=== PATIENT | male | born 1970 | race African-American/Black ===

== ENCOUNTER 2017-04-12 04:18 | Emergency (ER) | payer SELFPAY ==
--- NOTE | 2017-04-12 04:41 | ER Document Report ---
ED Seizure - General Stated Complaint: POSSIBLE SEIZURE Time Seen by Provider: 04/12/17 04:35 Notes: 46 years old male with a history of seizure disorder has not been taking his medication for 1 month, and drinks alcoholic drinks had a episode of seizure today just prior to arrival. It was reported by radiologist as grand mal seizure. He was in postictal confusion but currently by the time I examined him he was alert and oriented, did not complain of any focal weakness numbness tingling sensation. Denies any fever chills or other constitutional symptoms. Denies any pain over the upper limbs or lower limbs. Past Medical History - Social History Smoking Status: Current Every Day Smoker Family History: Other - Alcoholic hepatitis, alcoholism, seizure disorder Review of Systems - Review of Systems Notes: REVIEW OF SYSTEMS: CONSTITUTIONAL : Denies fever, chills, or sweats. Denies recent illness. EENT: Denies eye, ear, throat, or mouth pain or symptoms. Denies nasal or sinus congestion or discharge. Denies throat, tongue, or mouth swelling or difficulty swallowing. CARDIOVASCULAR: Denies chest pain. Denies palpitations or racing or irregular heart beat. Denies ankle edema. RESPIRATORY: Denies cough, cold, or chest congestion. Denies shortness of breath, difficulty breathing, or wheezing. GASTROINTESTINAL: Denies abdominal pain or distention. Denies nausea, vomiting , or diarrhea. Denies blood in vomitus, stools, or per rectum. Denies black, tarry stools. Denies constipation. GENITOURINARY: Denies difficulty urinating, painful urination, burning, frequency, blood in urine, or discharge. MUSCULOSKELETAL: Denies back or neck pain or stiffness. Denies joint pain or swelling. SKIN: Denies rash, lesions or sores. HEMATOLOGIC : Denies easy bruising or bleeding. LYMPHATIC: Denies swollen, enlarged glands. NEUROLOGICAL: Denies confusion or altered mental status. Denies passing out or loss of consciousness. Denies dizziness or lightheadedness. Denies headache. Denies weakness or paralysis or loss of use of either side. Denies problems with gait or speech. Denies sensory loss, numbness, or tingling. Denies seizures. PSYCHIATRIC: Denies anxiety or stress. Denies depression, suicidal ideation, or homicidal ideation. ALL OTHER SYSTEMS REVIEWED AND NEGATIVE. Dictation was performed using Dragon voice recognition software PHYSICAL EXAMINATION: GENERAL: Well-appearing, well-nourished and in no acute distress. HEAD: Atraumatic, normocephalic. EYES: Pupils equal round and reactive to light, extraocular movements intact, sclera anicteric, conjunctiva are normal. ENT: Nares patent, oropharynx clear without exudates. Moist mucous membranes. NECK: Normal range of motion, supple without lymphadenopathy LUNGS: Breath sounds clear to auscultation bilaterally and equal. No wheezes rales or rhonchi. HEART: Regular rate and rhythm without murmurs ABDOMEN: Soft, nontender, nondistended abdomen. No guarding, no rebound. No masses appreciated. Musculoskeletal: Normal range of motion, no pitting or edema. No cyanosis. NEUROLOGICAL: Cranial nerves grossly intact. Normal speech, normal gait. Normal sensory, motor exams PSYCH: Normal mood, normal affect. SKIN: Warm, Dry, normal turgor, no rashes or lesions noted. Course - Re-evaluation Re-evalutation: 04/12/17 06:26 His potassium is low, therefore. KCl was given, IV Keppra was given, he is hyponatremic therefore IV fluid total of 2 L were given. With clinical improvement he has been discharged home. - Laboratory Result Diagrams: 04/12/17 04:45 04/12/17 05:05 Laboratory results interpreted by me: 04/12/17 04/12/17 04:45 05:05 RBC 4.11 L MCV 100 H MCH 35.2 H Plt Count 91 L Seg Neutrophils % 78.3 H Lymphocytes % 9.6 L Sodium 136.0 L Potassium 3.3 L Chloride 86 L Anion Gap 26 H BUN 22 H Creatinine 1.51 H Est GFR (Non-Af Amer) 50 L Glucose 224 H Total Bilirubin 4.4 H Direct Bilirubin 3.1 H AST 88 H Alkaline Phosphatase 181 H Total Protein 9.5 H Valproic Acid < 10.0 L Discharge - Discharge Clinical Impression: Seizure, Hyponatremia, Hypokalemia, Alcohol abuse Condition: Fair Disposition: HOME, SELF-CARE Instructions: Seizure, 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
[2017-04-12] MEDS ORDERED: LEVETIRACETAM 1500 MG/NACL-ISO 1,500 MG/100 ML RTUPB IV SCH (04:45)
[2017-04-12] MEDS ORDERED: NORMAL SALINE 1000 ML 1,000 ML IV PRN (04:50)
[2017-04-12] MEDS ORDERED: NORMAL SALINE 1000 ML 1,000 ML IV ONE (04:50)
[2017-04-12] MEDS ORDERED: ONDANSETRON HCL INJ/PF 4 MG/2 ML SDV IV ONE (04:51)
[2017-04-12 05:04] LABS: ABSOLUTE BASOPHILS # (AUTO) 0.1 10^3/uL (0.0-0.2); ABSOLUTE EOSINOPHILS # (AUTO) 0.2 10^3/uL (0.0-0.6); ABSOLUTE MONOCYTES (AUTO) 0.9 10^3/uL (0.1-1.4); BASOPHILS % (AUTO) 0.7 % (0-2); EOSINOPHILS % (AUTO) 2.1 % (0-6); HEMATOCRIT 41.3 % (37.9-51.0); HEMOGLOBIN 14.5 g/dL (13.5-17.0); HGB HCT DIFFERENCE 2.2; LYMPHOCYTES % (AUTO) 9.6 % (13-45); MEAN CORPUSCULAR HEMOGLOBIN 35.2 pg (27.0-33.4); MEAN CORPUSCULAR HGB CONC 35.1 g/dL (32.0-36.0); MEAN CORPUSCULAR VOLUME 100 fl (80-97); MONOCYTES % (AUTO) 9.3 % (3-13); RED BLOOD COUNT 4.11 10^6/uL (4.35-5.55); RED CELL DISTRIBUTION WIDTH 13.7 % (11.5-14.0); SEGMENTED NEUTROPHILS % (AUTO) 78.3 % (42-78); WHITE BLOOD COUNT 10.2 10^3/uL (4.0-10.5)
[2017-04-12] MEDS ORDERED: LEVETIRACETAM INJ/PF 500 MG/5 ML SDV IV ONE (05:27)
[2017-04-12 05:44] LABS: ALANINE AMINOTRANSFERASE 31 U/L (21-72); ALBUMIN 4.9 g/dL (3.5-5.0); ALKALINE PHOSPHATASE 181 U/L (38-126); ASPARTATE AMINO TRANSFERASE 88 U/L (17-59); BILIRUBIN,DIRECT 3.1 mg/dL (0.0-0.4); BILIRUBIN,TOTAL 4.4 mg/dL (0.2-1.3); BLOOD UREA NITROGEN 22 mg/dL (7-20); CREATININE RESULT 1.51 mg/dL (0.52-1.25); GLUCOSE 224 mg/dL (75-110); POTASSIUM 3.3 mmol/L (3.6-5.0); TOTAL PROTEIN 9.5 g/dL (6.3-8.2)
[2017-04-12 05:47] LABS: ALCOHOL < 10 mg/dL (NONE DETECTED)
[2017-04-12 05:50] LABS: VALPROIC ACID < 10.0 ug/mL (50.0-120.0)
[2017-04-12 05:54] LABS: ANION GAP 26 (5-19); CARBON DIOXIDE 24 mmol/L (22-30); CHLORIDE 86 mmol/L (98-107)
[2017-04-12] MEDS ORDERED: LEVETIRACETAM 500 MG/NACL-ISO 500 MG/100 ML RTUPB IV ONE (06:06)
[2017-04-12] MEDS ORDERED: POTASSIUM CHLORIDE 10 MEQ TABLET.SA PO ONE (06:26)
[2017-04-12] MEDS ORDERED: OXYCODONE HCL IR 5 MG TABLET PO ONE (07:01)
[2017-04-12] MEDS ORDERED: PROMETHAZINE HCL INJ 25 MG/1 ML VIAL IM ONE (07:37)
[2017-04-12 08:15] VITALS: BP 131/91
[2017-04-12] MEDS ORDERED: ONDANSETRON ODT 4 MG TAB (6 TAB/DSPK) PO PRN (08:15)
--- NOTE | 2017-04-12 13:33 | EKG REPORT ---
SEVERITY:- ABNORMAL ECG - SINUS TACHYCARDIA MULTIFORM VENTRICULAR PREMATURE COMPLEXES BORDERLINE T ABNORMALITIES, INFERIOR LEADS : Confirmed by: Remigio Newsome MD 12-Apr-2017 13:32:11
== END 2017-04-12 08:29 | disposition home or self-care (01) ==
LOC: ER 04:18
DX: R56.9 Unspecified convulsions (principal); E87.1 Hypo-osmolality and hyponatremia; E87.6 Hypokalemia; F10.10 Alcohol abuse, uncomplicated; F17.200 Nicotine dependence, unspecified, uncomplicated
CPT/HCPCS: 93005; 99284; 96372; 96361; 96374; 96375; 36415; 80307; 80185; 85025; 80053; 80164; 93010; J2550; J2405; J7030; J1953

== ENCOUNTER 2017-04-22 12:14 | Emergency (ER) | payer SELFPAY ==
[2017-04-22] MEDS ORDERED: LIDOCAINE 1% INJ-PF (10 MG/ML) 30 ML SDV INJ ONE (13:29)
[2017-04-22] MEDS ORDERED: DIPH/PERTUSS(ACELL)/TETANUS VAC/PF 0.5 ML SYR (>=10YO) IM ONE (13:29)
--- NOTE | 2017-04-22 13:30 | ER Document Report ---
ED Extremity Problem, Upper - General Chief Complaint: Arm Injury Stated Complaint: LEFT ARM PAIN Time Seen by Provider: 04/22/17 13:14 Mode of Arrival: Ambulatory Information source: Patient Notes: Patient is a 46-year-old male who presents to the ER today for splinters in his left arm after he was lifting a large piece of wood to throw away and it fell on his arm. Patient states this happened a few hours ago. He is not up-to- date on his tetanus. He denies bleeding at this time. TRAVEL OUTSIDE OF THE [place] IN LAST 30 DAYS: No - Related Data Allergies/Adverse Reactions: No Known Allergies Allergy (Unverified 04/22/17 12:17) Past Medical History - General Information source: Patient - Social History Smoking Status: Current Every Day Smoker Chew tobacco use (# tins/day): No Frequency of alcohol use: None Drug Abuse: None Family History: Other - Alcoholic hepatitis, alcoholism, seizure disorder Patient has suicidal ideation: No Patient has homicidal ideation: No Neurological Medical History: Reports: Hx Seizures Endocrine Medical History: Reports: Hx Diabetes Mellitus Type 2 Renal/ Medical History: Denies: Hx Peritoneal Dialysis Review of Systems - Review of Systems Constitutional: No symptoms reported EENT: No symptoms reported Cardiovascular: No symptoms reported Respiratory: No symptoms reported Gastrointestinal: No symptoms reported Genitourinary: No symptoms reported Male Genitourinary: No symptoms reported Musculoskeletal: No symptoms reported Skin: See HPI Hematologic/Lymphatic: No symptoms reported Neurological/Psychological: No symptoms reported Physical Exam - Vital signs Vitals: Temp Pulse Resp BP Pulse Ox 98.6 F 78 16 114/71 98 04/22/17 12:55 04/22/17 12:55 04/22/17 12:55 04/22/17 12:55 04/22/17 12:55 - Notes Notes: PHYSICAL EXAMINATION: GENERAL: Well-appearing and in no acute distress. HEAD: Atraumatic, normocephalic. EYES: Pupils equal round and reactive to light, extraocular movements intact, sclera anicteric, conjunctiva are normal. NECK: Normal range of motion, supple without lymphadenopathy LUNGS: CTAB and equal. No wheezes rales or rhonchi. HEART: Regular rate and rhythm without murmurs EXTREMITIES: Normal range of motion, no pitting edema. No cyanosis. NEUROLOGICAL: Cranial nerves grossly intact. Normal sensory/motor exams. PSYCH: Normal mood, normal affect. SKIN: Warm, Dry, normal turgor, 3 large splinters able to be palpated to the dorsal left forearm, small puncture wound Course - Re-evaluation Re-evalutation: 04/22/17 19:40 Splinters were removed successfully, no further foreign bodies able to be palpated in the left forearm. Patient tolerated well. Patient be placed on antibiotics. - Vital Signs Vital signs: Temp Pulse Resp BP Pulse Ox 98.6 F 78 16 114/71 98 04/22/17 12:55 04/22/17 12:55 04/22/17 12:55 04/22/17 12:55 04/22/17 12:55 Procedures - Additional Procedures Foreign body removal Time performed: 17:00 - 3 large splinters were removed using lidocaine, 11 blade scalpel and pickups, patient tolerated well Discharge - Discharge Clinical Impression: Splinter in skin Condition: Stable Disposition: HOME, SELF-CARE Additional Instructions: Return immediately for any new or worsening symptoms. Follow up with primary care provider, call tomorrow to make followup appointment. Prescriptions: Cephalexin Monohydrate [Keflex 500 mg Capsule] 500 mg PO BID 5 Days #10 capsule
[2017-04-22] MEDS ORDERED: OXYCODONE-ACETAMINOPHEN 5-325 MG TABLET PO ONE (14:31)
[2017-04-22 15:01] VITALS: BP 114/71
== END 2017-04-22 15:03 | disposition home or self-care (01) ==
LOC: ER 12:14
PROC: 0JCH0ZZ Extirpation of Matter from Left Lower Arm Subcutaneous Tissue and Fascia, Open Approach (ICD-10-PCS; principal; 2017-04-22)
DX: S50.852A Superficial foreign body of left forearm, initial encounter (principal); M79.602 Pain in left arm; F17.200 Nicotine dependence, unspecified, uncomplicated; W45.8XXA Other foreign body or object entering through skin, initial encounter
CPT/HCPCS: 99283; 90471; 90715; 20103; J3490

== ENCOUNTER 2017-07-02 03:13 | Emergency (ER) | payer SELFPAY ==
[2017-07-02] MEDS ORDERED: NORMAL SALINE 1000 ML 1,000 ML IV PRN ×2 (03:20→05:03)
[2017-07-02] MEDS ORDERED: ONDANSETRON HCL INJ/PF 4 MG/2 ML SDV IV ONE (03:21)
[2017-07-02] MEDS ORDERED: FENTANYL CITRATE INJ/PF 100 MCG/2 ML AMPUL IV ONE (03:35)
--- NOTE | 2017-07-02 03:35 | ER Document Report ---
ED General - General Chief Complaint: Vomiting Stated Complaint: VOMITING Time Seen by Provider: 07/02/17 03:20 Mode of Arrival: Ambulatory Information source: Patient Notes: 46-year-old male diabetic history of pancreatitis alcoholic who drank yesterday presents with complaints of nausea vomiting all day today. Patient denies any fevers or chills denies any blood in vomit or stool. Patient admits to generalized abdominal pain Patient has been off his Januvia for a few weeks and has not checked his blood sugar recently Patient notes he has been thirsty TRAVEL OUTSIDE OF THE [place] IN LAST 30 DAYS: No - HPI Onset: This morning Onset/Duration: Sudden Quality of pain: Cramping Severity: Mild Pain Level: 1 Associated symptoms: Nausea, Vomiting Exacerbated by: Denies Relieved by: Denies Similar symptoms previously: Yes Recently seen / treated by doctor: No - Related Data Allergies/Adverse Reactions: No Known Allergies Allergy (Unverified 04/22/17 12:17) Past Medical History - Social History Smoking Status: Never Smoker Cigarette use (# per day): No Chew tobacco use (# tins/day): No Smoking Education Provided: No Family History: Reviewed & Not Pertinent, Other - Alcoholic hepatitis, alcoholism, seizure disorder Neurological Medical History: Reports: Hx Seizures Endocrine Medical History: Reports: Hx Diabetes Mellitus Type 2 Renal/ Medical History: Denies: Hx Peritoneal Dialysis Review of Systems - Review of Systems Notes: REVIEW OF SYSTEMS: CONSTITUTIONAL : Denies fever, chills, or sweats. Denies recent illness. EENT: Denies eye, ear, throat, or mouth pain or symptoms. Denies nasal or sinus congestion or discharge. Denies throat, tongue, or mouth swelling or difficulty swallowing. CARDIOVASCULAR: Denies chest pain. Denies palpitations or racing or irregular heart beat. Denies ankle edema. RESPIRATORY: Denies cough, cold, or chest congestion. Denies shortness of breath, difficulty breathing, or wheezing. GASTROINTESTINAL: Admits to abdominal pain nausea vomiting GENITOURINARY: Denies difficulty urinating, painful urination, burning, frequency, blood in urine, or discharge. MUSCULOSKELETAL: Denies back or neck pain or stiffness. Denies joint pain or swelling. SKIN: Denies rash, lesions or sores. HEMATOLOGIC : Denies easy bruising or bleeding. LYMPHATIC: Denies swollen, enlarged glands. NEUROLOGICAL: Denies confusion or altered mental status. Denies passing out or loss of consciousness. Denies dizziness or lightheadedness. Denies headache. Denies weakness or paralysis or loss of use of either side. Denies problems with gait or speech. Denies sensory loss, numbness, or tingling. Denies seizures. PSYCHIATRIC: Denies anxiety or stress. Denies depression, suicidal ideation, or homicidal ideation. ALL OTHER SYSTEMS REVIEWED AND NEGATIVE. Dictation was performed using [email or web address] voice recognition software PHYSICAL EXAMINATION: GENERAL: Well-appearing, well-nourished and in no acute distress. HEAD: Atraumatic, normocephalic. EYES: Pupils equal round and reactive to light, extraocular movements intact, sclera anicteric, conjunctiva are normal. ENT: Nares patent, oropharynx clear without exudates. Moist mucous membranes. NECK: Normal range of motion, supple without lymphadenopathy LUNGS: Breath sounds clear to auscultation bilaterally and equal. No wheezes rales or rhonchi. HEART: Regular rate and rhythm without murmurs ABDOMEN: Soft, nontender, nondistended abdomen. No guarding, no rebound. No masses appreciated. Musculoskeletal: Normal range of motion, no pitting or edema. No cyanosis. NEUROLOGICAL: Cranial nerves grossly intact. Normal speech, normal gait. Normal sensory, motor exams PSYCH: Normal mood, normal affect. SKIN: Warm, Dry, normal turgor, no rashes or lesions noted. Physical Exam - Vital signs Vitals: Temp 98.6 F 07/02/17 03:17 Course - Re-evaluation Re-evalutation: 07/02/17 03:35 Accu-Chek is 134, unlikely for DKA, more likely his pancreatitis secondary to his alcohol abuse 07/02/17 05:04 CMP actually looks much better than his previous lab results, he overall is still noted to be tachycardic and nauseous Reglan will be given further IV fluids 07/02/17 05:20 Patient notes nausea has improved after receiving Reglan, IV fluids 3 and 4 are going at this time, he is now stating that he has gastric reflux heartburn symptoms, EKG has been ordered 07/02/17 05:53 Patient's heart rate is slowly improving, it is noted that he is out of his home medications which I will refill for him After performing a Medical Screening Examination, I estimate there is LOW risk for ACUTE APPENDICITIS, BOWEL OBSTRUCTION, ACUTE CHOLECYSTITIS, PERFORATED DIVERTICULITIS, INCARCERATED HERNIA, PANCREATITIS, TESTICULAR TORSION or PERFORATED ULCER, thus I consider the discharge disposition reasonable. Also, there is no evidence or peritonitis, sepsis, or toxicity. I have reevaluated this patient multiple times and no significant life threatening changes are noted. The patient and I have discussed the diagnosis and risks, and we agree with discharging home with close follow-up with the understanding that symptoms and presentations can change. We also discussed returning to the Emergency Department immediately if new or worsening symptoms occur. We have discussed the symptoms which are most concerning (e.g., bloody stool, fever, changing or worsening pain, intractable vomiting - standard verbal up date) that necessitate immediate return. - Vital Signs Vital signs: Temp Pulse Resp BP Pulse Ox 98.6 F 17 135/92 H 97 07/02/17 03:17 07/02/17 03:25 07/02/17 03:25 07/02/17 03:24 - Laboratory Result Diagrams: 07/02/17 03:28 07/02/17 04:05 Laboratory results interpreted by me: 07/02/17 07/02/17 07/02/17 03:28 03:33 04:05 RBC 4.02 L Hgb 13.3 L MCV 100 H RDW 14.9 H Sodium 145.4 H Potassium 3.3 L Chloride 97 L Carbon Dioxide 21 L Anion Gap 27 H Glucose 136 H POC Glucose 134 H Total Bilirubin 2.3 H Direct Bilirubin 1.4 H AST 60 H Alkaline Phosphatase 137 H Total Protein 9.3 H Discharge - Discharge Clinical Impression: Sinus tachycardia Nausea & vomiting Qualifiers: Vomiting type: unspecified Vomiting Intractability: non-intractable Qualified Code(s): R11.2 - Nausea with vomiting, unspecified Abdominal pain Qualifiers: Abdominal location: generalized Qualified Code(s): R10.84 - Generalized abdominal pain Condition: Stable Disposition: HOME, SELF-CARE Instructions: Abdominal Pain ([facility]), Vomiting ([facility]) Additional Instructions: Follow up with your physician tomorrow for further care or return to the ED IMMEDIATELY if symptoms worsen or new concerns occur. If you cannot afford to follow up with your primary care physician a list of low cost clinics have been provided at the end of your discharge papers as well. Prescriptions: Levetiracetam [Keppra 500 mg Tablet] 500 mg PO Q12 #60 tablet Metoclopramide HCl [Reglan 10 mg Tablet] 1 - 2 tab PO Q6 #25 tablet Oxycodone HCl [Oxycontin Ir 5 Mg Tablet] 1 - 2 mg PO Q4H PRN #15 tablet PRN Reason: For Pain Sitagliptin Phosphate [Januvia] 100 mg PO DAILY #30 tablet
[2017-07-02 03:43] LABS: ABSOLUTE BASOPHILS # (AUTO) 0.1 10^3/uL (0.0-0.2); ABSOLUTE MONOCYTES (AUTO) 0.6 10^3/uL (0.1-1.4); BASOPHILS % (AUTO) 1.5 % (0-2); EOSINOPHILS % (AUTO) 0.2 % (0-6); HEMATOCRIT 40.1 % (37.9-51.0); HEMOGLOBIN 13.3 g/dL (13.5-17.0); LYMPHOCYTES % (AUTO) 14.5 % (13-45); MEAN CORPUSCULAR HEMOGLOBIN 33.2 pg (27.0-33.4); MEAN CORPUSCULAR HGB CONC 33.2 g/dL (32.0-36.0); MEAN CORPUSCULAR VOLUME 100 fl (80-97); MONOCYTES % (AUTO) 8.7 % (3-13); PLATELET COUNT 161 10^3/uL (150-450); RED BLOOD COUNT 4.02 10^6/uL (4.35-5.55); RED CELL DISTRIBUTION WIDTH 14.9 % (11.5-14.0); SEGMENTED NEUTROPHILS % (AUTO) 75.1 % (42-78); TOTAL CELLS COUNTED % (AUTO) 100 %; WHITE BLOOD COUNT 6.7 10^3/uL (4.0-10.5)
[2017-07-02 04:39] LABS: ALANINE AMINOTRANSFERASE 35 U/L (21-72); ALKALINE PHOSPHATASE 137 U/L (38-126); ASPARTATE AMINO TRANSFERASE 60 U/L (17-59); BILIRUBIN,DIRECT 1.4 mg/dL (0.0-0.4); BILIRUBIN,TOTAL 2.3 mg/dL (0.2-1.3); BLOOD UREA NITROGEN 13 mg/dL (7-20); CALCIUM 9.5 mg/dL (8.4-10.2); GLUCOSE 136 mg/dL (75-110); LIPASE 25.7 U/L (23-300); POTASSIUM 3.3 mmol/L (3.6-5.0); TOTAL PROTEIN 9.3 g/dL (6.3-8.2)
[2017-07-02 04:45] LABS: ANION GAP 27 (5-19)
[2017-07-02 04:46] LABS: CARBON DIOXIDE 21 mmol/L (22-30); CHLORIDE 97 mmol/L (98-107); SODIUM 145.4 mmol/L (137-145)
[2017-07-02] MEDS ORDERED: METOCLOPRAMIDE HCL INJ/PF 10 MG/2 ML SDV IV ONE (05:03)
--- NOTE | 2017-07-02 07:03 | EKG REPORT ---
SEVERITY:- ABNORMAL ECG - SINUS TACHYCARDIA NONSPECIFIC ST-T CHANGES- INFERIOR LEADS [facility] BY VOLTAGE : Confirmed by: Remigio Newsome MD 02-Jul-2017 07:02:24
[2017-07-02 07:16] VITALS: BP 138/84
== END 2017-07-02 07:36 | disposition home or self-care (01) ==
LOC: ER 03:13
DX: K85.90 Acute pancreatitis without necrosis or infection, unspecified (principal); R11.2 Nausea with vomiting, unspecified; R10.84 Generalized abdominal pain; E11.9 Type 2 diabetes mellitus without complications; T38.3X6A Underdosing of insulin and oral hypoglycemic [antidiabetic] drugs, initial encounter; Z91.128 Patient's intentional underdosing of medication regimen for other reason; Z91.14 Patient's other noncompliance with medication regimen; R00.0 Tachycardia, unspecified; F10.20 Alcohol dependence, uncomplicated
CPT/HCPCS: 93005; 99284; 96361; 96374; 96375; 36415; 82962; 83690; 85025; 80053; 93010; J3010; J2765; J2405; J7030

== ENCOUNTER 2017-08-10 20:11 | Emergency (ER) | payer SELFPAY ==
--- NOTE | 2017-08-10 21:03 | ER Document Report ---
ED General - General Mode of Arrival: Ambulatory Information source: Patient TRAVEL OUTSIDE OF THE [place] IN LAST 30 DAYS: No <TESSY CHESTER - Last Filed: 08/10/17 21:08> <GILBERTO REDDY - Last Filed: 08/11/17 00:31> - General Chief Complaint: Vomiting Stated Complaint: VOMITING Time Seen by Provider: 08/10/17 20:47 Notes: 47 y.o male with a PMHx of DM and L3-L4 discectomy presents to the ED with abd pain and vomiting for 4 days. He was seen here recently for vomiting and abd pain that had persisted for 2 days and was given Reglan and Oxycodone. Pt states that he has had pancreatitis once before caused from excessive alcohol consumption. He states that he has not been drinking as much alcohol since the pancreatitis and nots that the vomiting started once he quit drinking. Pt reports that he drank some alcohol this morning to see if his vomiting would subside but is without any relief. Pt denies any diarrhea. (TESSY CHESTER) This 47-year-old male patient who is supposed to have diabetes and history of pancreatitis. He has been out of his Januvia for probably several weeks. He has been vomiting for the past 4 days. He continues to drink heavily but is reluctant to admit it. He states his last drink was this morning. He has strong ketone odor on his breath. He is not so much vomiting or retching at this point but is mostly having hiccups. Later the patient's hiccups returned and he reports they seem to go away after the dose of Reglan. (GILBERTO REDDY) - Related Data Allergies/Adverse Reactions: No Known Allergies Allergy (Verified 08/10/17 20:38) Past Medical History - General Information source: Patient - Social History Smoking Status: Never Smoker Frequency of alcohol use: Heavy Drug Abuse: None Family History: Reviewed & Not Pertinent, Other - Alcoholic hepatitis, alcoholism, seizure disorder Patient has suicidal ideation: No Patient has homicidal ideation: No Neurological Medical History: Reports: Hx Seizures Endocrine Medical History: Reports: Hx Diabetes Mellitus Type 2 Renal/ Medical History: Denies: Hx Peritoneal Dialysis Past Surgical History: Reports: Hx Orthopedic Surgery - back <TESSY CHESTER - Last Filed: 08/10/17 21:08> Review of Systems - Review of Systems Constitutional: No symptoms reported EENT: No symptoms reported Cardiovascular: No symptoms reported Respiratory: No symptoms reported Gastrointestinal: See HPI, Abdominal pain, Vomiting. denies: Diarrhea Genitourinary: No symptoms reported Male Genitourinary: No symptoms reported Musculoskeletal: No symptoms reported Skin: No symptoms reported Hematologic/Lymphatic: No symptoms reported Neurological/Psychological: No symptoms reported -: Yes All other systems reviewed and negative <TESSY CHESTER - Last Filed: 08/10/17 21:08> Physical Exam <TESSY CHESTER - Last Filed: 08/10/17 21:08> <GILBERTO REDDY - Last Filed: 08/11/17 00:31> - Vital signs Vitals: Temp Pulse Resp BP Pulse Ox 97.6 F 60 18 141/86 H 99 08/10/17 20:32 08/10/17 20:32 08/10/17 20:32 08/10/17 20:32 08/10/17 20:32 - Notes Notes: General: Alert, appears well. HEENT: Normocephalic. Atraumatic. PERRL. Extraocular movements intact. Oropharynx clear. Mucus membranes dry. Strong Ketone odor on his breath. Neck: Supple. Non-tender. Respiratory: No respiratory distress. Clear and equal breath sounds bilaterally. Cardiovascular: Regular rate and rhythm. Abdominal: Soft, non distended. Tenderness to upper abdomen. Active bowel sounds , dry heaving. Back: Non-tender. No deformity or step off. Extremities: Moves all four extremities. Upper extremities: Normal inspection. Normal ROM. Lower extremities: Normal inspection. No edema. Normal ROM. Neurological: Normal cognition. AAOx4. Normal speech. Psychological: Normal affect. Normal Mood. Skin: Warm. Dry. Normal color. (TESSY CHESTER) Course <TESSY CHESTER - Last Filed: 08/10/17 21:08> - Laboratory Result Diagrams: 08/10/17 21:30 08/10/17 21:30 <GILBERTO REDDY - Last Filed: 08/11/17 00:31> - Re-evaluation Re-evalutation: 08/11/17 00:25 Although the patient claimed that he had only one small drink this morning, his alcohol level was 77 at 9:30 PM this evening. (GILBERTO REDDY) - Vital Signs Vital signs: Temp Pulse Resp BP Pulse Ox 99.0 F 127 H 17 151/91 H 99 08/10/17 22:52 08/10/17 22:52 08/10/17 22:52 08/10/17 22:52 08/10/17 22:52 - Laboratory Laboratory results interpreted by me: 08/10/17 08/10/17 08/10/17 21:30 21:30 21:35 WBC 11.0 H MCV 99 H MCH 33.5 H RDW 15.1 H Lymphocytes % 12.0 L Absolute Neutrophils 8.5 H VBG pCO2 32.1 L VBG HCO3 19.0 L Sodium 145.4 H Potassium 3.4 L Chloride 90 L Carbon Dioxide 14 L Anion Gap 41 H Creatinine 1.42 H Est GFR (Non-Af Amer) 54 L Glucose 158 H Calcium 10.7 H Total Bilirubin 2.9 H Direct Bilirubin 2.0 H AST 61 H Alkaline Phosphatase 160 H Total Protein 11.0 H Albumin 5.8 H Discharge <TESSY CHESTER - Last Filed: 08/10/17 21:08> <GILBERTO REDDY - Last Filed: 08/11/17 00:31> - Discharge Clinical Impression: Epigastric abdominal pain, Alcohol abuse, Hiccups, Alcoholic ketosis Nausea and vomiting Qualifiers: Vomiting type: unspecified Vomiting Intractability: non-intractable Qualified Code(s): R11.2 - Nausea with vomiting, unspecified Condition: Stable Disposition: HOME, SELF-CARE Additional Instructions: All of your symptoms are most likely caused by your alcohol abuse. You should consider going into an alcohol detox program if you cannot control your drinking on your own. Drink cool clear liquids this evening to help hydrate yourself. Follow-up with [facility] or [facility] for assistance with your problems. RETURN TO THE EMERGENCY ROOM IF ANY NEW OR WORSENING SYMPTOMS. Prescriptions: Metoclopramide HCl [Reglan 10 mg Tablet] 1 - 2 tab PO ASDIR PRN #15 tablet PRN Reason: Referrals: [facility] [Provider Group] - Follow up as needed [facility] [Provider Group] - Follow up as needed Scribe Attestation: 08/10/17 23:07 I personally performed the services described in the documentation, reviewed and edited the documentation which was dictated to the scribe in my presence, and it accurately records my words and actions. (GILBERTO REDDY) Scribe Documentation - Scribe Written by Romulo:: Romulo Alcazar 08/10/17 [id number] acting as scribe for :: Adriana <TESSY CHESTER - Last Filed: 08/10/17 21:08>
[2017-08-10] MEDS ORDERED: NORMAL SALINE 1000 ML 1,000 ML IV ONE (21:07)
[2017-08-10] MEDS ORDERED: METOCLOPRAMIDE HCL INJ/PF 10 MG/2 ML SDV IV ONE (21:07)
[2017-08-10 21:50] LABS: ABSOLUTE BASOPHILS # (AUTO) 0.1 10^3/uL (0.0-0.2); ABSOLUTE LYMPHOCYTES (AUTO) 1.3 10^3/uL (0.5-4.7); ABSOLUTE MONOCYTES (AUTO) 1.1 10^3/uL (0.1-1.4); ABSOLUTE NEUT (AUTO) 8.5 10^3/uL (1.7-8.2); BASOPHILS % (AUTO) 0.7 % (0-2); HEMATOCRIT 43.8 % (37.9-51.0); HEMOGLOBIN 14.8 g/dL (13.5-17.0); MEAN CORPUSCULAR HEMOGLOBIN 33.5 pg (27.0-33.4); MEAN CORPUSCULAR HGB CONC 33.9 g/dL (32.0-36.0); MEAN CORPUSCULAR VOLUME 99 fl (80-97); MONOCYTES % (AUTO) 9.9 % (3-13); PLATELET COUNT 154 10^3/uL (150-450); RED BLOOD COUNT 4.44 10^6/uL (4.35-5.55); RED CELL DISTRIBUTION WIDTH 15.1 % (11.5-14.0); SEGMENTED NEUTROPHILS % (AUTO) 77.4 % (42-78); TOTAL CELLS COUNTED % (AUTO) 100 %
[2017-08-10 21:51] LABS: VENOUS BLOOD BASE EXCESS -4.9 mmol/L; VENOUS BLOOD PCO2 32.1 mmHg (35-63); VENOUS BLOOD PH 7.39 (7.30-7.42)
[2017-08-10 22:04] LABS: ALANINE AMINOTRANSFERASE 28 U/L (21-72); ALBUMIN 5.8 g/dL (3.5-5.0); ALKALINE PHOSPHATASE 160 U/L (38-126); ASPARTATE AMINO TRANSFERASE 61 U/L (17-59); BILIRUBIN,TOTAL 2.9 mg/dL (0.2-1.3); BLOOD UREA NITROGEN 15 mg/dL (7-20); CALCIUM 10.7 mg/dL (8.4-10.2); GLUCOSE 158 mg/dL (75-110); LIPASE 37.3 U/L (23-300); POTASSIUM 3.4 mmol/L (3.6-5.0)
[2017-08-10 22:09] LABS: CARBON DIOXIDE 14 mmol/L (22-30); CHLORIDE 90 mmol/L (98-107); SODIUM 145.4 mmol/L (137-145)
[2017-08-10 22:14] LABS: ANION GAP 41 (5-19)
[2017-08-10] MEDS ORDERED: ONDANSETRON HCL INJ/PF 4 MG/2 ML SDV IV ONE (22:19)
[2017-08-10] MEDS ORDERED: DIPHENHYDRAMINE HCL 50 MG/ML VIAL IV ONE (22:19)
[2017-08-10] MEDS ORDERED: RINGERS SOLUTION,LACTATED 1,000 ML IV ONE (22:20)
[2017-08-10] MEDS ORDERED: CHLORPROMAZINE HCL INJ 25 MG/1 ML AMPULE IV ONE (23:34)
[2017-08-11 00:14] LABS: ALCOHOL 77 mg/dL (NONE DETECTED)
[2017-08-11] MEDS: NORMAL SALINE 1000 ML 1,000 ML IV PRN ×2 (02:04→02:05)
[2017-08-11 04:20] VITALS: BP 135/78
== END 2017-08-11 04:20 | disposition home or self-care (01) ==
LOC: ER 20:11
DX: R10.13 Epigastric pain (principal); F10.10 Alcohol abuse, uncomplicated; R06.6 Hiccough; E88.89 Other specified metabolic disorders; R11.2 Nausea with vomiting, unspecified; E11.9 Type 2 diabetes mellitus without complications; Y90.3 Blood alcohol level of 60-79 mg/100 ml
CPT/HCPCS: 99284; 96361; 96374; 96375; 36415; 80307; 83690; 85025; 80053; 82803; J3230; J1200; J2765; J2405; J7030 ×2; J7120

== ENCOUNTER 2017-10-31 08:35 | Inpatient (IN) | payer SELFPAY ==
[2017-10-31] MEDS ORDERED: NORMAL SALINE 1000 ML 1,000 ML IV ONE ×3 (09:11→13:55)
[2017-10-31] MEDS ORDERED: METOCLOPRAMIDE HCL INJ/PF 10 MG/2 ML SDV IV ONE (09:11)
[2017-10-31] MEDS ORDERED: ONDANSETRON 4 MG TAB.RAPDIS PO ONE (09:16)
[2017-10-31] MEDS ORDERED: MORPHINE SULFATE 10 MG/ML INJ IV ONE (09:16)
--- NOTE | 2017-10-31 09:17 | ER Document Report ---
ED GI/ - General Chief Complaint: Abdominal Pain Stated Complaint: VOMITING Time Seen by Provider: 10/31/17 09:10 Mode of Arrival: Ambulatory Information source: Patient Notes: Patient is a 47-year-old chronic alcoholic with a history of pancreatitis and type 2 diabetes who presents to the ER today for nausea and vomiting, upper abdominal pain 3 days. Patient states that he started to get his upper abdominal pain 3 days ago so he stopped drinking. Patient usually drinks 1/5 of gin a day. Patient has never been evaluated by gastroenterology for his epigastric pain. Patient has been out of his Januvia for approximately 4 months he states. Patient denies any vomiting of any blood. TRAVEL OUTSIDE OF THE [place] IN LAST 30 DAYS: No - Related Data Allergies/Adverse Reactions: No Known Allergies Allergy (Verified 10/31/17 08:37) Past Medical History - General Information source: Patient - Social History Smoking Status: Unknown if Ever Smoked Family History: Reviewed & Not Pertinent, Other - Alcoholic hepatitis, alcoholism, seizure disorder Neurological Medical History: Reports: Hx Seizures Endocrine Medical History: Reports: Hx Diabetes Mellitus Type 2 Renal/ Medical History: Denies: Hx Peritoneal Dialysis Past Surgical History: Reports: Hx Orthopedic Surgery - back Review of Systems - Review of Systems Constitutional: See HPI EENT: No symptoms reported Cardiovascular: No symptoms reported Respiratory: No symptoms reported Gastrointestinal: See HPI Genitourinary: No symptoms reported Male Genitourinary: No symptoms reported Musculoskeletal: No symptoms reported Skin: No symptoms reported Hematologic/Lymphatic: No symptoms reported Neurological/Psychological: No symptoms reported Physical Exam - Vital signs Vitals: Temp Pulse Resp BP Pulse Ox 98.8 F 116 H 22 H 127/90 H 98 10/31/17 08:42 10/31/17 08:42 10/31/17 08:42 10/31/17 08:42 10/31/17 08:42 - Notes Notes: PHYSICAL EXAMINATION: GENERAL: Actively vomiting, in mild acute distress. HEAD: Atraumatic, normocephalic. EYES: Pupils equal round and reactive to light, extraocular movements intact, sclera anicteric, conjunctiva are normal. NECK: Normal range of motion, supple without lymphadenopathy LUNGS: CTAB and equal. No wheezes rales or rhonchi. HEART: Tachycardic with regular rhythm without murmurs ABDOMEN: Soft, epigastric tenderness. No guarding, no rebound BACK: no vertebral tenderness, normal ROM GI/: no CVA tenderness EXTREMITIES: Normal range of motion, no pitting edema. No cyanosis. NEUROLOGICAL: Cranial nerves grossly intact. Normal sensory/motor exams. PSYCH: Normal mood, normal affect. SKIN: Warm, Dry, normal turgor, no rashes or lesions noted Course - Re-evaluation Re-evalutation: 10/31/17 11:55 Patient is a white blood cell count of 18,000, anion gap of 39 today, Accu-Chek was 189, lipase normal, CT of the abdomen and pelvis reveals some esophagitis but no other acute pathology. Patient is still tachycardic but much better than when he came in. Patient was 145 bpm pulse rate when he came in and he is now getting down to normal, with a high at this point at 119. Martha Schmidt NP hospitalist agrees to admit at this time. - Vital Signs Vital signs: Temp Pulse Resp BP Pulse Ox 98.7 F 100 16 147/84 H 100 10/31/17 15:28 10/31/17 15:28 10/31/17 15:28 10/31/17 15:28 10/31/17 15:28 - Laboratory Result Diagrams: 10/31/17 09:35 10/31/17 16:41 Laboratory results interpreted by me: 10/31/17 10/31/17 10/31/17 09:17 09:35 09:35 WBC 18.0 H RBC 3.71 L Hgb 13.1 L Hct 37.8 L MCV 102 H MCH 35.5 H RDW 15.1 H Seg Neutrophils % 85.2 H Lymphocytes % 6.7 L Absolute Neutrophils 15.3 H Chloride 87 L Carbon Dioxide 17 L Anion Gap 39 H Creatinine 1.88 H Est GFR ( Amer) 47 L Est GFR (Non-Af Amer) 39 L Glucose 196 H POC Glucose 189 H Serum Osmolality Total Bilirubin 3.4 H Direct Bilirubin 2.1 H AST 79 H Alkaline Phosphatase 193 H Total Protein 10.3 H Albumin 5.4 H Urine Protein Urine Glucose (UA) Urine Ketones Urine Blood Urine Bilirubin Urine Urobilinogen 10/31/17 10/31/17 09:35 10:22 WBC RBC Hgb Hct MCV MCH RDW Seg Neutrophils % Lymphocytes % Absolute Neutrophils Chloride Carbon Dioxide Anion Gap Creatinine Est GFR ( Amer) Est GFR (Non-Af Amer) Glucose POC Glucose Serum Osmolality 308 H Total Bilirubin Direct Bilirubin AST Alkaline Phosphatase Total Protein Albumin Urine Protein >=500 H Urine Glucose (UA) 50 H Urine Ketones 80 H Urine Blood LARGE H Urine Bilirubin MODERATE H Urine Urobilinogen 2.0 H Discharge - Discharge Clinical Impression: Alcohol abuse, Esophagitis Condition: Stable Disposition: ADMITTED INPATIENT Admitting Provider: [facility] Unit Admitted: Telemetry
[2017-10-31 09:51] LABS: ABSOLUTE BASOPHILS # (AUTO) 0.1 10^3/uL (0.0-0.2); ABSOLUTE LYMPHOCYTES (AUTO) 1.2 10^3/uL (0.5-4.7); ABSOLUTE MONOCYTES (AUTO) 1.3 10^3/uL (0.1-1.4); ABSOLUTE NEUT (AUTO) 15.3 10^3/uL (1.7-8.2); BASOPHILS % (AUTO) 0.6 % (0-2); HEMATOCRIT 37.8 % (37.9-51.0); HEMOGLOBIN 13.1 g/dL (13.5-17.0); LYMPHOCYTES % (AUTO) 6.7 % (13-45); MEAN CORPUSCULAR HEMOGLOBIN 35.5 pg (27.0-33.4); MEAN CORPUSCULAR HGB CONC 34.8 g/dL (32.0-36.0); MEAN CORPUSCULAR VOLUME 102 fl (80-97); MONOCYTES % (AUTO) 7.5 % (3-13); PLATELET COUNT 170 10^3/uL (150-450); RED BLOOD COUNT 3.71 10^6/uL (4.35-5.55); RED CELL DISTRIBUTION WIDTH 15.1 % (11.5-14.0); SEGMENTED NEUTROPHILS % (AUTO) 85.2 % (42-78); TOTAL CELLS COUNTED % (AUTO) 100 %
[2017-10-31] MEDS ORDERED: HYDROMORPHONE HCL INJ/PF 2 MG/ML AMPULE IV ONE (09:57)
[2017-10-31 10:17] LABS: ALANINE AMINOTRANSFERASE 21 U/L (21-72); ALBUMIN 5.4 g/dL (3.5-5.0); ALKALINE PHOSPHATASE 193 U/L (38-126); ASPARTATE AMINO TRANSFERASE 79 U/L (17-59); BILIRUBIN,DIRECT 2.1 mg/dL (0.0-0.4); BILIRUBIN,TOTAL 3.4 mg/dL (0.2-1.3); BLOOD UREA NITROGEN 18 mg/dL (7-20); CALCIUM 9.5 mg/dL (8.4-10.2); GLUCOSE 196 mg/dL (75-110); LIPASE 32.2 U/L (23-300); POTASSIUM 3.9 mmol/L (3.6-5.0); TOTAL PROTEIN 10.3 g/dL (6.3-8.2)
[2017-10-31 10:22] LABS: CARBON DIOXIDE 17 mmol/L (22-30); CHLORIDE 87 mmol/L (98-107); SODIUM 142.7 mmol/L (137-145)
[2017-10-31 10:27] LABS: ANION GAP 39 (5-19)
--- NOTE | 2017-10-31 10:58 | RADIOLOGY REPORT (SQ) ---
EXAM DESCRIPTION: CT ABD/PELVIS NO ORAL OR IV COMPLETED DATE/TIME: 10/31/2017 10:44 am REASON FOR STUDY: abd pain, n/v COMPARISON: None. TECHNIQUE: CT scan of the abdomen and pelvis performed without intravenous or oral contrast. Images reviewed with lung, soft tissue, and bone windows. Reconstructed coronal and sagittal MPR images revi ewed. All images stored on PACS. All CT scanners at this facility use dose modulation, iterative reconstruction, and/or weight based d osing when appropriate to reduce radiation dose to as low as reasonably achievable (ALARA). [facility]: Dose Right [facility]: CareDose [facility]: Dose Right [facility]: Teradose 4D [facility]: Smart [employer] RADIATION DOSE: CT Rad equipment meets quality standard of care and radiation dose reduction techniq ues were employed. CTDIvol: 5.5 mGy. DLP: 302 mGy-cm.mGy. LIMITATIONS: None. FINDINGS: LOWER CHEST: There is significant distal esophageal wall thickening worrisome for esophagi tis. This is seen throughout the lower chest down to the GE junction. Lung bases are clear. NON-CONTRASTED LIVER, SPLEEN, ADRENALS: Diffuse fatty infiltration of the liver. No splenomegaly. A drenal glands are unremarkable. PANCREAS: Atrophic with diffuse pancreatic parenchymal calcifications from old pancreatitis. Pancrea tic duct dilated. No masses. No peripancreatic fluid or retroperitoneal inflammation GALLBLADDER: Tiny stone in the gallbladder. No gallbladder wall thickening or pericholecystic fluid RIGHT KIDNEY AND URETER: No suspicious masses. Assessment limited by lack of IV contrast. No signif icant calcifications. No hydronephrosis or hydroureter. LEFT KIDNEY AND URETER: No suspicious masses. Assessment limited by lack of IV contrast. No signifi cant calcifications. No hydronephrosis or hydroureter. AORTA AND RETROPERITONEUM: No aneurysm. No retroperitoneal masses or adenopathy. BOWEL AND PERITONEAL CAVITY: No obvious masses or inflammatory changes. No free fluid. APPENDIX: Normal. PELVIS, BLADDER, AND ABDOMINAL WALL:No abnormal masses. No free fluid. Bladder normal. 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 IMPRESSION: Significant distal esophageal wall thickening worrisome for esophagitis. Evidence of remote prior pancreatitis. No current peripancreatic inflammation or fluid Fatty infiltration of the liver Avascular necrosis bilateral femoral heads COMMENT: Quality ID # [id number]: Final reports with documentation of one or more dose reduction techniques (e.g., Automated exposure control, adjustment of the mA and/or kV according to patient size, use of iterative reconstruction technique) TECHNICAL DOCUMENTATION: JOB ID: [id number] [employer]- All Rights Reserved Reading location - IP/workstation name: [email or web address], [facility]-2
[2017-10-31] MEDS ORDERED: LORAZEPAM INJ 2 MG/1 ML VIAL IV ONE (11:08)
[2017-10-31 11:45] LABS: APPEARANCE,URINE SLIGHTLY-CLOUDY; BILIRUBIN,URINE MODERATE (NEGATIVE); COLOR,URINE AMBER; GLUCOSE, URINE 50 mg/dL (NEGATIVE); KETONES,URINE 80 mg/dL (NEGATIVE); LEUKOCYTE ESTERASE,URINE NEGATIVE (NEGATIVE); NITRITE,URINE NEGATIVE (NEGATIVE); PROTEIN,URINE >=500 mg/dL (NEGATIVE); URINE SPECIFIC GRAVITY 1.026
[2017-10-31 11:57] LABS: URINE AMPHETAMINES SCREEN NEGATIVE; URINE BARBITURATES SCREEN NEGATIVE; URINE BENZODIAZEPINES SCREEN NEGATIVE; URINE COCAINE SCREEN NEGATIVE; URINE MARIJUANA (THC) SCREEN NEGATIVE; URINE METHADONE SCREEN NEGATIVE; URINE PHENCYCLIDINE SCREEN NEGATIVE
[2017-10-31 12:57] LABS: VENOUS BLOOD BASE EXCESS -3.5 mmol/L; VENOUS BLOOD HCO3 22.3 mmol/L (20-32); VENOUS BLOOD PCO2 43.2 mmHg (35-63); VENOUS BLOOD PH 7.33 (7.30-7.42)
[2017-10-31] MEDS ORDERED: NORMAL SALINE 1000 ML 1,000 ML IV PRN ×2 (13:44→13:53)
[2017-10-31] MEDS ORDERED: DEXTROSE 40% GEL 15 GM TUBE PO PRN ×2 (13:50)
[2017-10-31] MEDS ORDERED: ACETAMINOPHEN 325 MG TABLET PO PRN (13:50)
[2017-10-31] MEDS ORDERED: DEXTROSE 50%-WATER 25 GM/50 ML DISP.SYRIN IV PRN ×2 (13:50)
[2017-10-31] MEDS ORDERED: ONDANSETRON 4 MG TAB.RAPDIS PO PRN (13:50)
[2017-10-31] MEDS ORDERED: MAG HYDROX/AL HYDROX/SIMETH SUSP 30 ML UDCUP PO PRN (13:50)
[2017-10-31] MEDS ORDERED: MAGNESIUM HYDROXIDE SUSP 30 ML UDCUP PO PRN (13:50)
[2017-10-31] MEDS ORDERED: PROMETHAZINE HCL INJ 25 MG/1 ML VIAL IV PRN (13:50)
[2017-10-31] MEDS ORDERED: GLUCAGON,HUMAN RECOMB 1 MG INJ SUBCUT PRN (13:50)
[2017-10-31] MEDS ORDERED: INSULIN REG, HUMAN 100 UNIT/ML 3 ML VIAL (PYX) SUBCUT PRN (13:56)
[2017-10-31] MEDS ORDERED: LORAZEPAM INJ 2 MG/1 ML VIAL IV PRN (13:58)
[2017-10-31] MEDS ORDERED: LORAZEPAM 1 MG TABLET PO PRN (13:58)
[2017-10-31] MEDS: HEPARIN SOD (PORCINE) 5,000 UNIT/ML 1 ML SYRINGE SUBCUT SCH ×2 (15:40→22:15)
[2017-10-31 17:25] LABS: BLOOD UREA NITROGEN 15 mg/dL (7-20); CALCIUM 8.2 mg/dL (8.4-10.2); GLUCOSE 164 mg/dL (75-110); POTASSIUM 4.4 mmol/L (3.6-5.0)
[2017-10-31 17:30] LABS: CARBON DIOXIDE 20 mmol/L (22-30); CHLORIDE 98 mmol/L (98-107); SODIUM 144.6 mmol/L (137-145)
[2017-10-31] MEDS: DIAZEPAM 5 MG TABLET PO SCH ×2 (17:34→23:51)
[2017-10-31 17:38] LABS: ANION GAP 27 (5-19)
[2017-10-31] MEDS ORDERED: METOCLOPRAMIDE HCL 10 MG TABLET PO PRN (19:29)
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
--- NOTE | 2017-10-31 21:43 | EKG REPORT ---
SEVERITY:- ABNORMAL ECG - SINUS TACHYCARDIA MULTIFORM VENTRICULAR PREMATURE COMPLEXES BORDERLINE RIGHT AXIS DEVIATION NONSPECIFIC T ABNORMALITIES, INFERIOR LEADS : Confirmed by: Nona Ibarra MD 31-Oct-2017 21:43:12
[2017-10-31] MEDS: NORMAL SALINE 1000 ML 1,000 ML with POTASSIUM CHLORIDE 20 MEQ, MAGNESIUM SULFATE 8 MEQ,... IV SCH ×5 (22:14)
[2017-10-31] MEDS: PANTOPRAZOLE SODIUM 40 MG VIAL IV SCH (22:14)
[2017-10-31] MEDS: LEVETIRACETAM 500 MG TABLET PO SCH (22:15)
[2017-10-31] MEDS: OXYCODONE HCL IR 5 MG TABLET PO PRN (23:52)
[2017-11-01] MEDS: DIAZEPAM 5 MG TABLET PO SCH ×4 (05:09→23:12)
[2017-11-01 06:01] LABS: ALANINE AMINOTRANSFERASE 23 U/L (21-72); ALBUMIN 4.1 g/dL (3.5-5.0); ALKALINE PHOSPHATASE 130 U/L (38-126); ASPARTATE AMINO TRANSFERASE 39 U/L (17-59); BILIRUBIN,DIRECT 1.1 mg/dL (0.0-0.4); BILIRUBIN,TOTAL 2.5 mg/dL (0.2-1.3); BLOOD UREA NITROGEN 13 mg/dL (7-20); CALCIUM 8.6 mg/dL (8.4-10.2); CHOLESTEROL 204.73 mg/dL (0-200); GLUCOSE 114 mg/dL (75-110); TOTAL PROTEIN 7.5 g/dL (6.3-8.2); TRIGLYCERIDES 114 mg/dL (<150)
[2017-11-01 06:05] LABS: HEMATOCRIT 31.7 % (37.9-51.0); MEAN CORPUSCULAR HEMOGLOBIN 35.3 pg (27.0-33.4); MEAN CORPUSCULAR HGB CONC 34.1 g/dL (32.0-36.0); MEAN CORPUSCULAR VOLUME 104 fl (80-97); PLATELET COUNT 124 10^3/uL (150-450); RED BLOOD COUNT 3.07 10^6/uL (4.35-5.55); RED CELL DISTRIBUTION WIDTH 15.3 % (11.5-14.0); WHITE BLOOD COUNT 10.5 10^3/uL (4.0-10.5)
[2017-11-01 06:06] LABS: CARBON DIOXIDE 22 mmol/L (22-30); CHLORIDE 102 mmol/L (98-107); SODIUM 143.6 mmol/L (137-145)
[2017-11-01 06:11] LABS: HEMOGLOBIN 10.8 g/dL (13.5-17.0)
[2017-11-01 06:13] LABS: DIRECT LDL 104 mg/dL (<100)
[2017-11-01 06:14] LABS: ANION GAP 20 (5-19)
[2017-11-01] MEDS: HEPARIN SOD (PORCINE) 5,000 UNIT/ML 1 ML SYRINGE SUBCUT SCH ×3 (06:15→22:10)
[2017-11-01] MEDS: OXYCODONE HCL IR 5 MG TABLET PO PRN ×2 (08:29→23:12)
[2017-11-01] MEDS ORDERED: CEFTRIAXONE 1 GM/D5W RTU 1 GM/50 ML RTUPB IV SCH (10:00)
[2017-11-01] MEDS: CEFTRIAXONE SODIUM 1,000 MG in DEXTROSE 5%-WATER 50 ML IV SCH (10:39)
[2017-11-01] MEDS: LEVETIRACETAM 500 MG TABLET PO SCH ×2 (10:40→22:25)
[2017-11-01] MEDS: PANTOPRAZOLE SODIUM 40 MG VIAL IV SCH ×2 (10:41→22:25)
[2017-11-01] MEDS: NORMAL SALINE 1000 ML 1,000 ML with POTASSIUM CHLORIDE 20 MEQ, MAGNESIUM SULFATE 8 MEQ,... IV SCH ×5 (22:25)
[2017-11-02] MEDS: HEPARIN SOD (PORCINE) 5,000 UNIT/ML 1 ML SYRINGE SUBCUT SCH (05:30)
[2017-11-02] MEDS: DIAZEPAM 5 MG TABLET PO SCH (05:38)
[2017-11-02 06:41] LABS: HEPATITIS A AB IGM Negative (Negative); HEPATITIS B CORE AB IGM Negative (Negative); HEPATITS B SURFACE ANTIGEN Negative (Negative)
[2017-11-02 07:47] VITALS: BP 126/88
[2017-11-02 07:48] LABS: HEPATITIS C VIRUS ANTIBODY <0.1 s/co ratio (0.0-0.9)
[2017-11-02] MEDS: LEVETIRACETAM 500 MG TABLET PO SCH (10:00)
[2017-11-02] MEDS: PANTOPRAZOLE SODIUM 40 MG VIAL IV SCH (10:00)
[2017-11-02] MEDS: CEFTRIAXONE SODIUM 1,000 MG in DEXTROSE 5%-WATER 50 ML IV SCH (12:03)
--- NOTE | 2017-11-12 16:46 | PDOC DISCHARGE SUMMARY ---
General - Admit/Disc Date/PCP Admission Date/Primary Care Provider: 10/31/17 12:10 Discharge Date: 11/02/17 - Additional Information Resuscitation Status: Full Code Discharge Diet: Diabetic Discharge Activity: Activity As Tolerated Prescriptions: Hum Insulin NPH/Reg Insulin Hm [Insulin Inj 70-30 (100 Unit/1 ml) 3 ml Vial] 1 unit SUBCUT DAILY #3 unit Levetiracetam [Keppra 500 mg Tablet] 500 mg PO Q12 #60 tablet Ondansetron [Zofran Odt 4 mg Tablet] 4 mg PO Q6HP PRN #20 tab.rapdis PRN Reason: Ranitidine HCl [Zantac] 150 mg PO BID #60 tablet Home Medications: Ciprofloxacin HCl [Cipro 500 mg Tablet] 500 mg PO Q12 10/31/17 Folic Acid 0.4 mg PO DAILY 10/31/17 Levetiracetam [Keppra 500 mg Tablet] 500 mg PO Q12 10/31/17 Magnesium Oxide [Mag-Ox 400 mg Tablet] 400 mg PO DAILY 10/31/17 Metoclopramide HCl [Reglan 10 mg Tablet] 10 mg PO Q4HP PRN 10/31/17 Thiamine HCl [Vitamin B-1] 250 mg PO DAILY 10/31/17 Ondansetron [Zofran Odt 4 mg Tablet] 4 mg PO Q6HP PRN #20 tab.rapdis 11/01/17 Ranitidine HCl [Zantac] 150 mg PO BID #60 tablet 11/01/17 Hum Insulin NPH/Reg Insulin Hm [Insulin Inj 70-30 (100 Unit/1 ml) 3 ml Vial] 1 unit SUBCUT DAILY #3 unit 11/02/17 Levetiracetam [Keppra 500 mg Tablet] 500 mg PO Q12 #60 tablet 11/02/17 History of Present Illness History of Present Illness: REJI COLEMAN is a 47 year old male with a past medical history of EtOH abuse, pancreatitis, diabetes mellitus type 2, and seizure disorder who presented to the emergency department today with a complaint of upper abdominal pain, nausea and vomiting. The patient reports that he drinks 1/5 of gin daily and stopped drinking 3 days ago secondary to epigastric abdominal pain. The patient's HPI is limited secondary to patient's sedation; recently was administered IV Dilaudid and Ativan for pain and withdrawal symptoms. However, he does deny fever, chest pain, and diarrhea. Evaluation in the emergency department revealed sinus tachycardia with rate 140s , leukocytosis (WBCs 18), anion gap of 39, acute kidney injury (creatinine 1.88 , BUN 18), glucose 196, mildly elevated LFTs and a normal lipase. Keppra level is pending. Urinalysis revealed UTI, urine drug screen was negative. CT of the abdomen and pelvis revealed distal esophageal wall thickening worrisome for esophagitis and evidence of remote prior pancreatitis but no current pancreatic inflammation or fluid, fatty infiltration of the liver, and avascular necrosis of bilateral femoral heads. He is referred to the hospitalist service for admission and management of EtOH withdrawal, UTI, abdominal pain, and metabolic acidosis. Hospital Course Hospital Course: 47 y.o. M admitted to [facility] with metabolic acidosis, ETOH withdrawal and hyperglycemia. His presenting chief complaint was N/V/abdominal pain. The patient has a PMH of DM, seizure disorder, and admits to drinking 1/[address] abdomen/Pelvis revealed distal esophageal wall thickening worrisome for esophagitis. This is likely due to persistent N/V, patient also endorsed a history of acid reflux. The patient was placed on a PPI. His acidosis was likely due to vomiting and chronic ETOH use. No evidence of DKA on lab work however, initial anion gap found to be 39. The patient received 3L NS IVF in ED and continued on IV maintenance fluids upon admission. Repeat lab work revealed that his anion gap returned to normal over 36 hours. For ETOH withdrawal, the patient was given daily thiamine and folate, as well as scheduled PO ativan and PRN IV ativan for agitation. Nursing staff reported the patient did not exhibit signs of delirium, agitation, hallucinations or tremors. Patient endorses history of type 2 diabetes; states that he has been out of his Januvia for approximately 4 months. Hgb A1c 5.9%. Initial glucose elevated at 189. The patient's blood glucose remained relatively controlled while inpatient due to the fact that he was NPO. The patient reported that he could no longer afford his Januvia (or other prescibed medications) because he was recently dropped from Medicaid. He was making attempts to get an appointment at the [facility] but had been unsuccessful. After 2 days in the hospital, the patient was deemed safe for discharge. His N/ V had resolved, as did his acidosis. For cost containment, the patient was switched to Insulin 70/30 to manage his diabetes. The patient was instructed that he may not require insulin as evidence by his Hgb A1c levels, but that he should continue to monitor his blood glucose at home. The conservation educator was not available for teaching, so the patient was given instructions by the provider. Additionally, he was told that the conservation educator would be following up with him by phone. The patient was informed the Keppra was available for ~$15 at a local pharmacy. The patient was given a prescription for ranitidine to take for his reflux. Finally, a follow up appointment at the [facility] was scheduled for him. The patient and his father (at bedside) were given thorough discharge instructions. They both stated understanding. Physical Exam Vital Signs: Temp Pulse Resp BP Pulse Ox 98.8 F 85 17 126/88 H 100 11/02/17 10:13 11/02/17 10:13 11/02/17 10:13 11/02/17 10:13 11/02/17 10:13 Results Laboratory Results: 11/01/17 05:12 11/01/17 05:12 Impressions: Abdomen/Pelvis CT 10/31/17 09:59 IMPRESSION: Significant distal esophageal wall thickening worrisome for esophagitis. Evidence of remote prior pancreatitis. No current peripancreatic inflammation or fluid Fatty infiltration of the liver Avascular necrosis bilateral femoral heads Qualifiers - * PATIENT BEING DISCHARGED WITH ANY OF THE FOLLOWING DIAGNOSIS: No Plan Discharge Plan: DISCHARGE HOME WITH 70/30 INSULIN. DRUG SAFETY DATA MANAGEMENT SPECIALIST WILL FOLLOW UP VIA TELEPHONE ON SUNDAY. Time Spent: Less than 30 Minutes
== END 2017-11-02 12:40 | disposition home or self-care (01) | DRG 897 ==
LOC: ER 08:35 → EH 12:10 → 4S 15:02
PROVIDERS: ADMIT Internal Medicine; ATTEND Internal Medicine
DX: F10.239 Alcohol dependence with withdrawal, unspecified (principal); N39.0 Urinary tract infection, site not specified; E87.2 Acidosis; N17.9 Acute kidney failure, unspecified; M87.852 Other osteonecrosis, left femur; M87.851 Other osteonecrosis, right femur; Y90.0 Blood alcohol level of less than 20 mg/100 ml; G40.909 Epilepsy, unspecified, not intractable, without status epilepticus; I10 Essential (primary) hypertension; E86.0 Dehydration; K20.9 Esophagitis, unspecified; E11.65 Type 2 diabetes mellitus with hyperglycemia; R00.0 Tachycardia, unspecified; Z79.899 Other long term (current) drug therapy; Z81.1 Family history of alcohol abuse and dependence; Z84.89 Family history of other specified conditions
CPT/HCPCS: 36415; 74176; 80048; 80053; 80061; 80074; 80177; 80307; 81001; 82803; 82962; 83036; 83690; 83930; 85025; 85027; 87040; 87086; 93005; 93010; 96361; 96374; 96375; 99285; J0696; J1170; J1644; J2060; J2270; J2550; J2765; J3411; J3475; J3480; J3490; J7030; S0119; S0164

== ENCOUNTER 2018-03-29 20:44 | Inpatient (IN) | payer SELFPAY ==
[2018-03-29] MEDS ORDERED: KETOROLAC TROMETHAMINE INJ/PF 30 MG/1 ML SDV IV ONE (21:50)
[2018-03-29] MEDS ORDERED: ONDANSETRON HCL INJ/PF 4 MG/2 ML SDV IV ONE (21:50)
[2018-03-29] MEDS ORDERED: NORMAL SALINE 1000 ML 1,000 ML IV ONE (21:50)
[2018-03-29 22:07] LABS: ABSOLUTE BASOPHILS # (AUTO) 0.1 10^3/uL (0.0-0.2); ABSOLUTE MONOCYTES (AUTO) 0.9 10^3/uL (0.1-1.4); BASOPHILS % (AUTO) 0.5 % (0-2); EOSINOPHILS % (AUTO) 0.1 % (0-6); HEMATOCRIT 39.6 % (37.9-51.0); HEMOGLOBIN 13.8 g/dL (13.5-17.0); LYMPHOCYTES % (AUTO) 9.2 % (13-45); MEAN CORPUSCULAR HEMOGLOBIN 36.5 pg (27.0-33.4); MEAN CORPUSCULAR HGB CONC 34.8 g/dL (32.0-36.0); MEAN CORPUSCULAR VOLUME 105 fl (80-97); MONOCYTES % (AUTO) 8.5 % (3-13); RED BLOOD COUNT 3.78 10^6/uL (4.35-5.55); RED CELL DISTRIBUTION WIDTH 14.9 % (11.5-14.0); SEGMENTED NEUTROPHILS % (AUTO) 81.7 % (42-78); TOTAL CELLS COUNTED % (AUTO) 100 %
[2018-03-29 22:08] LABS: ALANINE AMINOTRANSFERASE 31 U/L (21-72); ALBUMIN 5.4 g/dL (3.5-5.0); ALCOHOL 195 mg/dL (NONE DETECTED); ALKALINE PHOSPHATASE 206 U/L (38-126); ASPARTATE AMINO TRANSFERASE 112 U/L (17-59); BILIRUBIN,DIRECT 5.6 mg/dL (0.0-0.4); BILIRUBIN,TOTAL 7.5 mg/dL (0.2-1.3); BLOOD UREA NITROGEN 17 mg/dL (7-20); CALCIUM 9.4 mg/dL (8.4-10.2); GLUCOSE 151 mg/dL (75-110); LIPASE 70.5 U/L (23-300); TOTAL PROTEIN 10.3 g/dL (6.3-8.2)
[2018-03-29 22:19] LABS: CARBON DIOXIDE 16 mmol/L (22-30); CHLORIDE 82 mmol/L (98-107); SODIUM 140.5 mmol/L (137-145)
[2018-03-29 22:25] LABS: ANION GAP 43 (5-19)
[2018-03-29 22:26] LABS: PLATELET COUNT 88 10^3/uL (150-450); POTASSIUM 2.9 mmol/L (3.6-5.0)
[2018-03-29] MEDS ORDERED: METOCLOPRAMIDE HCL INJ/PF 10 MG/2 ML SDV IV ONE (22:28)
[2018-03-29] MEDS ORDERED: LORAZEPAM INJ 2 MG/1 ML VIAL IV ONE (22:28)
[2018-03-29] MEDS ORDERED: POTASSI CL 20 MEQ/50 ML RIDER 20 MEQ/50 ML RTUPB IV ONE (22:30)
[2018-03-29] MEDS ORDERED: FAMOTIDINE INJ/PF 20 MG/2 ML SDV IV ONE (22:30)
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
[2018-03-29] MEDS: MORPHINE SULFATE 10 MG/ML INJ IV PRN (22:34)
[2018-03-29] MEDS: MAGNESIUM SULFATE/D5W 1 GM/100 ML RTUPB IV SCH (23:27)
[2018-03-30] MEDS ORDERED: ONDANSETRON HCL INJ/PF 4 MG/2 ML SDV IV ONE (00:24)
[2018-03-30] MEDS ORDERED: NORMAL SALINE 1000 ML 1,000 ML IV ONE (00:25)
[2018-03-30] MEDS: MAGNESIUM SULFATE/D5W 1 GM/100 ML RTUPB IV SCH ×3 (00:32→02:45)
--- NOTE | 2018-03-30 01:28 | RADIOLOGY REPORT (SQ) ---
EXAM DESCRIPTION: US ABDOMEN LIMITED COMPLETED DATE/TME: 03/29/2018 22:29 CLINICAL HISTORY: 47 years, Male, upper abdominal pain, elevated bili COMPARISON: None. TECHNIQUE: LIMITATIONS: None. FINDINGS: There are a couple of probable small gallbladder polyps. No definite gallstones. No evidence of biliary tree dilatation. The liver is hyperechogenic, compatible with fatty infiltration. The right kidney is unremarkable. The abdominal aorta is normal in caliber. The pancreas was not adequately visualized due to overlying bowel gas. IMPRESSION: Probable gallbladder polyps. The medical imaging technologist did not indicate the presence or absence of a sonographic Daly sign. Fatty liver. copyright 2010 [employer]- All Rights Reserved
[2018-03-30] MEDS: MORPHINE SULFATE 10 MG/ML INJ IV PRN ×2 (01:38→20:54)
[2018-03-30] MEDS ORDERED: LORAZEPAM INJ 2 MG/1 ML VIAL IV ONE (01:46)
[2018-03-30] MEDS ORDERED: SUCRALFATE SUSP 1 GM/10 ML UDCUP PO ONE (01:46)
[2018-03-30] MEDS ORDERED: LORAZEPAM INJ 2 MG/1 ML VIAL IV PRN (01:46)
[2018-03-30] MEDS ORDERED: THIAMINE HCL INJ 200 MG/2 ML VIAL IV PRN (02:04)
[2018-03-30] MEDS ORDERED: FOLIC ACID INJ 5 MG/1 ML 10 ML VIAL IV PRN (02:05)
[2018-03-30] MEDS ORDERED: THIAMINE HCL 100 MG, FOLIC ACID 1 MG in NORMAL SALINE 250 ML IV ONE (02:15)
[2018-03-30] MEDS ORDERED: MAGNESIUM HYDROXIDE SUSP 30 ML UDCUP PO PRN (03:33)
[2018-03-30] MEDS ORDERED: IPRATROPIUM/ALBUTEROL 0.5-2.5 MG/3 ML AMPUL NEB PRN (03:33)
[2018-03-30] MEDS: HEPARIN SOD (PORCINE) 5,000 UNIT/ML 1 ML SYRINGE SUBCUT SCH ×3 (05:24→21:13)
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
[2018-03-30 06:42] LABS: ALANINE AMINOTRANSFERASE 31 U/L (21-72); ALBUMIN 4.3 g/dL (3.5-5.0); ALKALINE PHOSPHATASE 142 U/L (38-126); ASPARTATE AMINO TRANSFERASE 90 U/L (17-59); BILIRUBIN,DIRECT 4.8 mg/dL (0.0-0.4); BILIRUBIN,TOTAL 6.2 mg/dL (0.2-1.3); BLOOD UREA NITROGEN 15 mg/dL (7-20); CALCIUM 7.8 mg/dL (8.4-10.2); GLUCOSE 142 mg/dL (75-110); POTASSIUM 3.2 mmol/L (3.6-5.0)
[2018-03-30 06:49] LABS: CARBON DIOXIDE 20 mmol/L (22-30); CHLORIDE 92 mmol/L (98-107); SODIUM 140.9 mmol/L (137-145)
[2018-03-30 06:52] LABS: ANION GAP 29 (5-19)
[2018-03-30] MEDS ORDERED: ONDANSETRON HCL INJ/PF 4 MG/2 ML SDV ONE (09:54)
[2018-03-30] MEDS: LORAZEPAM INJ 2 MG/1 ML VIAL IV PRN ×2 (09:55→13:49)
[2018-03-30] MEDS: ONDANSETRON HCL INJ/PF 4 MG/2 ML SDV IV PRN ×2 (13:10→20:55)
[2018-03-30] MEDS: PROMETHAZINE HCL INJ 25 MG/1 ML VIAL IV PRN (16:36)
[2018-03-30] MEDS ORDERED: THIAMINE HCL 100 MG, FOLIC ACID 1 MG in NORMAL SALINE 250 ML IV SCH (22:00)
--- NOTE | 2018-03-30 22:22 | PROGRESS NOTE E ---
Progress Note NAME: REJI COLEMAN : 1970 AGE: 47Y DATE: 03/30/2018 ROOM: 332 SUBJECTIVE: The patient is a 47-year-old male who has history of alcohol dependence and admitted with alcohol withdrawal. He had gastritis. Had nausea, vomiting as well as CHICHI secondary to dehydration. The patient is feeling better now. Awake, alert. OBJECTIVE: Patient lying in bed comfortable. Not in distress. VITAL SIGNS: Temperature 98.3, heart rate 94, blood pressure 118/65, respiratory rate was 16, saturation 100%. HEENT: Head: Normocephalic, atraumatic. Pupils round, reactive to light and accommodation bilaterally. Extraocular movements are intact. Ears: Tympanic membranes intact bilaterally. No discharge from the ear. No discharge from the nose. NECK: Supple. No increased JVD. No thyromegaly, no lymphadenopathy. CARDIOVASCULAR: Normal S1, S2. Regular rate and rhythm. No murmur, no gallop. RESPIRATORY: Lungs clear. ABDOMEN: Soft, nontender. MUSCULOSKELETAL: No edema. NEUROLOGICAL: Awake, alert. SKIN: No rash. LABORATORY DATA: White blood count 11, hemoglobin 15.8. Creatinine is 1.4. ASSESSMENT: 1. ALCOHOL DEPENDENCE, IMPENDING WITHDRAWAL. 2. ACUTE KIDNEY INJURY SECONDARY TO DEHYDRATION, RESOLVED. 3. METABOLIC ACIDOSIS, IMPROVED WITH IV FLUIDS. 4. NAUSEA, VOMITING, IMPROVED. Continue IV fluids. PLAN: Continue IV fluids. Will observe overnight and probably discharge tomorrow. MEDICAL NECESSITY: He needs IV fluids and he needs to be monitored for withdrawal for another day. DICTATING PHYSICIAN: LATHA LANGFORD M.D. [id number] [facility]#: [id number] ID: [id number] JOB#: [id number] ACCT: [id number] cc: >
[2018-03-31] MEDS: MORPHINE SULFATE 10 MG/ML INJ IV PRN ×3 (00:17→06:24)
[2018-03-31] MEDS: PROMETHAZINE HCL INJ 25 MG/1 ML VIAL IV PRN (00:27)
[2018-03-31] MEDS: ONDANSETRON HCL INJ/PF 4 MG/2 ML SDV IV PRN (02:20)
[2018-03-31] MEDS: HEPARIN SOD (PORCINE) 5,000 UNIT/ML 1 ML SYRINGE SUBCUT SCH (06:26)
[2018-03-31 07:03] LABS: ABSOLUTE EOSINOPHILS # (AUTO) 0.3 10^3/uL (0.0-0.6); ABSOLUTE LYMPHOCYTES (AUTO) 1.1 10^3/uL (0.5-4.7); ABSOLUTE MONOCYTES (AUTO) 0.7 10^3/uL (0.1-1.4); ABSOLUTE NEUT (AUTO) 4.6 10^3/uL (1.7-8.2); BASOPHILS % (AUTO) 0.3 % (0-2); EOSINOPHILS % (AUTO) 3.9 % (0-6); HEMATOCRIT 33.6 % (37.9-51.0); HEMOGLOBIN 11.9 g/dL (13.5-17.0); LYMPHOCYTES % (AUTO) 17.1 % (13-45); MEAN CORPUSCULAR HEMOGLOBIN 36.8 pg (27.0-33.4); MEAN CORPUSCULAR HGB CONC 35.4 g/dL (32.0-36.0); MEAN CORPUSCULAR VOLUME 104 fl (80-97); MONOCYTES % (AUTO) 10.3 % (3-13); RED BLOOD COUNT 3.24 10^6/uL (4.35-5.55); RED CELL DISTRIBUTION WIDTH 14.4 % (11.5-14.0); SEGMENTED NEUTROPHILS % (AUTO) 68.4 % (42-78); TOTAL CELLS COUNTED % (AUTO) 100 %; WHITE BLOOD COUNT 6.7 10^3/uL (4.0-10.5)
[2018-03-31 07:27] LABS: ALANINE AMINOTRANSFERASE 25 U/L (21-72); ALBUMIN 3.9 g/dL (3.5-5.0); ALKALINE PHOSPHATASE 133 U/L (38-126); ANION GAP 17 (5-19); ASPARTATE AMINO TRANSFERASE 79 U/L (17-59); BILIRUBIN,DIRECT 5.8 mg/dL (0.0-0.4); BILIRUBIN,TOTAL 8.4 mg/dL (0.2-1.3); BLOOD UREA NITROGEN 13 mg/dL (7-20); CALCIUM 8.6 mg/dL (8.4-10.2); CARBON DIOXIDE 30 mmol/L (22-30); CHLORIDE 89 mmol/L (98-107); GLUCOSE 173 mg/dL (75-110); SODIUM 136.1 mmol/L (137-145); TOTAL PROTEIN 7.7 g/dL (6.3-8.2)
[2018-03-31 07:28] LABS: PLATELET COUNT 56 10^3/uL (150-450)
[2018-03-31 07:36] LABS: PHOSPHORUS < 0.5 mg/dL (2.5-4.5)
[2018-03-31 07:38] LABS: POTASSIUM 2.7 mmol/L (3.6-5.0)
--- NOTE | 2018-03-31 09:19 | Progress Note ---
Provider Note Provider Note: This is a discharge summary for Mr. Nash Carrasquillo dictated by Dr. 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 For the last 24 hours she is very stable, there is no sign of withdrawal, his potassium was replaced, IV fluid discontinue, multivitamin folic acid and thiamine was changed to oral pill. Patient is stable to be discharged home today. Physical exam upon discharge: She looks well not in distress, vital signs stable. Awake alert oriented time place and person. Abdomen soft nontender, cardiovascular normal S1-S2 regular rate and rhythm, skeletal no edema Discharge instruction: 1. Discharge patient home 2. Diet regular diet 3. Activity as tolerated 4. Follow-up with the primary care physician in 1 week 5. Discharge medication : Potassium chloride 40meq po daily Ativan 1 mg po TID PRN Thiamin 100 mg po daily Folic acid 1 mg p.o. daily Multivitamin one tablets p.o. daily
[2018-03-31] MEDS: POTASSI CL 20 MEQ/50 ML RIDER 20 MEQ/50 ML RTUPB IV SCH ×2 (09:53→11:36)
[2018-03-31] MEDS ORDERED: POTASSIUM CHLORIDE 10 MEQ CAPSULE.ER PO SCH (10:00)
[2018-03-31] MEDS ORDERED: THIAMINE HCL 100 MG TABLET PO SCH (10:00)
[2018-03-31] MEDS ORDERED: FOLIC ACID 1 MG TABLET PO SCH (10:00)
[2018-03-31] MEDS ORDERED: MULTIVITAMIN TABLET PO SCH (10:00)
[2018-03-31 13:52] VITALS: BP 114/75
[2018-03-31] MEDS ORDERED: LORAZEPAM 1 MG TABLET PO SCH (14:00)
== END 2018-03-31 14:30 | disposition home or self-care (01) | DRG 897 ==
LOC: ER 20:44 → EH 03-30 01:57 → 3S 03-30 03:50
PROVIDERS: ADMIT Internal Medicine; ATTEND Internal Medicine
DX: F10.239 Alcohol dependence with withdrawal, unspecified (principal); E87.2 Acidosis; N17.9 Acute kidney failure, unspecified; F10.229 Alcohol dependence with intoxication, unspecified; Y90.6 Blood alcohol level of 120-199 mg/100 ml; E86.0 Dehydration; I10 Essential (primary) hypertension; E11.9 Type 2 diabetes mellitus without complications; K21.9 Gastro-esophageal reflux disease without esophagitis; E87.6 Hypokalemia; Z87.828 Personal history of other (healed) physical injury and trauma; Z79.4 Long term (current) use of insulin; Z79.899 Other long term (current) drug therapy
CPT/HCPCS: 36415; 76705; 80053; 80069; 80307; 83690; 83735; 84100; 85025; 96361; 96365; 96366; 96368; 96375; 96376; 99285; J1885; J2060; J2270; J2405; J2550; J2765; J3411; J3475; J3480; J3490; J7030; J7050; S0028

== ENCOUNTER → 2018-05-17 | Outpatient (CLI) | payer OTHER ==
[2018-05-17 11:17] LABS: ABSOLUTE EOSINOPHILS # (AUTO) 0.4 10^3/uL (0.0-0.6); ABSOLUTE LYMPHOCYTES (AUTO) 1.9 10^3/uL (0.5-4.7); ABSOLUTE MONOCYTES (AUTO) 0.8 10^3/uL (0.1-1.4); ABSOLUTE NEUT (AUTO) 6.3 10^3/uL (1.7-8.2); BASOPHILS % (AUTO) 0.5 % (0-2); EOSINOPHILS % (AUTO) 4.7 % (0-6); HEMATOCRIT 34.1 % (37.9-51.0); HEMOGLOBIN 11.6 g/dL (13.5-17.0); LYMPHOCYTES % (AUTO) 19.6 % (13-45); MEAN CORPUSCULAR HEMOGLOBIN 36.4 pg (27.0-33.4); MEAN CORPUSCULAR HGB CONC 33.9 g/dL (32.0-36.0); MEAN CORPUSCULAR VOLUME 107 fl (80-97); MONOCYTES % (AUTO) 8.8 % (3-13); PLATELET COUNT 380 10^3/uL (150-450); RED BLOOD COUNT 3.18 10^6/uL (4.35-5.55); SEGMENTED NEUTROPHILS % (AUTO) 66.4 % (42-78); TOTAL CELLS COUNTED % (AUTO) 100 %; WHITE BLOOD COUNT 9.5 10^3/uL (4.0-10.5)
[2018-05-17 11:42] LABS: ALANINE AMINOTRANSFERASE 40 U/L (21-72); ALBUMIN 3.9 g/dL (3.5-5.0); ALKALINE PHOSPHATASE 194 U/L (38-126); ANION GAP 8 (5-19); ASPARTATE AMINO TRANSFERASE 87 U/L (17-59); BILIRUBIN,DIRECT 1.2 mg/dL (0.0-0.4); BILIRUBIN,TOTAL 1.7 mg/dL (0.2-1.3); BLOOD UREA NITROGEN 5 mg/dL (7-20); CALCIUM 8.6 mg/dL (8.4-10.2); CARBON DIOXIDE 25 mmol/L (22-30); CHLORIDE 106 mmol/L (98-107); CHOLESTEROL 183.49 mg/dL (0-200); GLUCOSE 126 mg/dL (75-110); POTASSIUM 4.5 mmol/L (3.6-5.0); SODIUM 138.8 mmol/L (137-145); TOTAL PROTEIN 7.7 g/dL (6.3-8.2); TRIGLYCERIDES 82 mg/dL (<150)
[2018-05-17 11:53] LABS: DIRECT LDL 107 mg/dL (<100)
== END ==
LOC: CCC 10:27
DX: Z13.1 Encounter for screening for diabetes mellitus (principal)
CPT/HCPCS: 36415; 80053; 80061; 83036; 84443; 85025

== ENCOUNTER 2018-06-25 09:14 | Inpatient (IN) | payer OTHER ==
[2018-06-25] MEDS ORDERED: ONDANSETRON HCL INJ/PF 4 MG/2 ML SDV IV ONE ×2 (09:35→15:26)
[2018-06-25] MEDS ORDERED: KETOROLAC TROMETHAMINE INJ/PF 30 MG/1 ML SDV IV ONE (09:36)
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
[2018-06-25] MEDS: NORMAL SALINE 1000 ML 1,000 ML IV PRN ×2 (10:39→12:18)
[2018-06-25] MEDS ORDERED: DIAZEPAM INJ 10 MG/2 ML DISP.SYRIN IV ONE (10:54)
[2018-06-25 11:12] LABS: ABSOLUTE BASOPHILS # (AUTO) 0.1 10^3/uL (0.0-0.2); ABSOLUTE MONOCYTES (AUTO) 1.5 10^3/uL (0.1-1.4); ABSOLUTE NEUT (AUTO) 10.2 10^3/uL (1.7-8.2); ALANINE AMINOTRANSFERASE 33 U/L (21-72); ALBUMIN 5.6 g/dL (3.5-5.0); ALCOHOL 52 mg/dL (NONE DETECTED); ALKALINE PHOSPHATASE 212 U/L (38-126); ASPARTATE AMINO TRANSFERASE 134 U/L (17-59); BASOPHILS % (AUTO) 0.5 % (0-2); BILIRUBIN,DIRECT 4.5 mg/dL (0.0-0.4); BILIRUBIN,TOTAL 5.8 mg/dL (0.2-1.3); BLOOD UREA NITROGEN 23 mg/dL (7-20); CALCIUM 10.2 mg/dL (8.4-10.2); EOSINOPHILS % (AUTO) 0.3 % (0-6); GLUCOSE 157 mg/dL (75-110); HEMATOCRIT 40.8 % (37.9-51.0); LIPASE 127.6 U/L (23-300); LYMPHOCYTES % (AUTO) 8.1 % (13-45); MEAN CORPUSCULAR HGB CONC 34.3 g/dL (32.0-36.0); MEAN CORPUSCULAR VOLUME 102 fl (80-97); MONOCYTES % (AUTO) 11.9 % (3-13); PLATELET COUNT 107 10^3/uL (150-450); POTASSIUM 3.1 mmol/L (3.6-5.0); RED BLOOD COUNT 4.01 10^6/uL (4.35-5.55); RED CELL DISTRIBUTION WIDTH 13.2 % (11.5-14.0); SEGMENTED NEUTROPHILS % (AUTO) 79.2 % (42-78); TOTAL CELLS COUNTED % (AUTO) 100 %; TOTAL PROTEIN 10.7 g/dL (6.3-8.2); WHITE BLOOD COUNT 12.9 10^3/uL (4.0-10.5)
[2018-06-25 11:16] LABS: CARBON DIOXIDE 18 mmol/L (22-30); CHLORIDE 72 mmol/L (98-107); SODIUM 135.6 mmol/L (137-145)
[2018-06-25 11:19] LABS: ANION GAP 46 (5-19)
[2018-06-25] MEDS ORDERED: PROCHLORPERAZINE EDISYLATE INJ 10 MG/2 ML VIAL IV ONE (12:56)
[2018-06-25 13:12] LABS: APPEARANCE,URINE SLIGHTLY-CLOUDY; BILIRUBIN,URINE SMALL (NEGATIVE); COLOR,URINE AMBER; GLUCOSE, URINE 50 mg/dL (NEGATIVE); KETONES,URINE 20 mg/dL (NEGATIVE); LEUKOCYTE ESTERASE,URINE NEGATIVE (NEGATIVE); NITRITE,URINE NEGATIVE (NEGATIVE); PROTEIN,URINE 100 mg/dL (NEGATIVE); URINE SPECIFIC GRAVITY 1.021
--- NOTE | 2018-06-25 13:49 | RADIOLOGY REPORT (SQ) ---
EXAM DESCRIPTION: CT ABD/PELVIS NO ORAL OR IV COMPLETED DATE/TIME: 06/25/2018 1:36 pm REASON FOR STUDY: abd pain COMPARISON: CT abdomen pelvis 10/31/2017 Right upper quadrant ultrasound 03/29/2018 TECHNIQUE: CT scan of the abdomen and pelvis performed without intravenous or oral contrast. Images reviewed with lung, soft tissue, and bone windows. Reconstructed coronal and sagittal MPR images revi ewed. All images stored on PACS. All CT scanners at this facility use dose modulation, iterative reconstruction, and/or weight based d osing when appropriate to reduce radiation dose to as low as reasonably achievable (ALARA). [facility]: Dose Right [facility]: CareDose [facility]: Dose Right [facility]: Teradose 4D [facility]: [employer] RADIATION DOSE: CT Rad equipment meets quality standard of care and radiation dose reduction techniq ues were employed. CTDIvol: 5.4 mGy. DLP: 298 mGy-cm.mGy. LIMITATIONS: None. FINDINGS: LOWER CHEST: No significant findings. No nodules or infiltrates. NON-CONTRASTED LIVER, SPLEEN, ADRENALS: Profound low attenuation throughout the liver from fatty infi ltration. Normal size spleen. Adrenal glands are unremarkable PANCREAS: Diffusely atrophic pancreas with extensive pancreatic parenchymal calcification. No peripa ncreatic fluid collections or retroperitoneal inflammatory change. GALLBLADDER: No identified stones by CT criteria. No inflammatory changes to suggest cholecystitis. RIGHT KIDNEY AND URETER: No suspicious masses. Assessment limited by lack of IV contrast. No signif icant calcifications. No hydronephrosis or hydroureter. LEFT KIDNEY AND URETER: No suspicious masses. Assessment limited by lack of IV contrast. No signifi cant calcifications. No hydronephrosis or hydroureter. AORTA AND RETROPERITONEUM: No aneurysm. No retroperitoneal masses or adenopathy. BOWEL AND PERITONEAL CAVITY: No obvious masses or inflammatory changes. No free fluid. APPENDIX: Normal. PELVIS, BLADDER, AND ABDOMINAL WALL:No abnormal masses. No free fluid. Bladder normal. BONES: Avascular necrosis bilateral hips OTHER: No other significant finding. IMPRESSION: Fatty liver Changes from chronic pancreatitis. No acute retroperitoneal inflammatory change today. Avascular necrosis bilateral femoral heads COMMENT: Quality ID # [id number]: Final reports with documentation of one or more dose reduction techniques (e.g., Automated exposure control, adjustment of the mA and/or kV according to patient size, use of iterative reconstruction technique) TECHNICAL DOCUMENTATION: JOB ID: [id number] [employer]- All Rights Reserved Reading location - IP/workstation name: [email or web address]
[2018-06-25] MEDS ORDERED: NORMAL SALINE 1000 ML 1,000 ML IV PRN (14:50)
[2018-06-25] MEDS ORDERED: ACETAMINOPHEN 325 MG TABLET PO PRN (14:50)
[2018-06-25] MEDS ORDERED: DEXTROSE 40% GEL 15 GM TUBE PO PRN ×2 (15:04)
[2018-06-25] MEDS ORDERED: DEXTROSE 50%-WATER 25 GM/50 ML DISP.SYRIN IV PRN ×2 (15:04)
[2018-06-25] MEDS ORDERED: GLUCAGON,HUMAN RECOMB 1 MG INJ IM PRN (15:04)
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
[2018-06-25] MEDS ORDERED: MORPHINE SULFATE 10 MG/ML INJ IV ONE (15:26)
[2018-06-25] MEDS ORDERED: NORMAL SALINE 1000 ML 1,000 ML with POTASSIUM CHLORIDE 20 MEQ, MAGNESIUM SULFATE 8 MEQ,... IV SCH ×9 (15:45→18:00)
[2018-06-25] MEDS: INSULIN REG, HUMAN 100 UNIT/ML 3 ML VIAL (PYX) SUBCUT SCH ×2 (18:11→22:28)
[2018-06-25] MEDS: PROMETHAZINE HCL 25 MG TABLET PO PRN (18:26)
[2018-06-25] MEDS: LORAZEPAM INJ 2 MG/1 ML VIAL IV PRN ×2 (18:26→22:29)
[2018-06-25] MEDS: THIAMINE HCL 100 MG TABLET PO SCH (18:27)
[2018-06-25] MEDS: NORMAL SALINE 1000 ML 1,000 ML with POTASSIUM CHLORIDE 20 MEQ, MAGNESIUM SULFATE 8 MEQ,... IV SCH ×5 (19:44)
[2018-06-25] MEDS: POTASSIUM CHLORIDE 10 MEQ CAPSULE.ER PO SCH (21:16)
[2018-06-25] MEDS: LEVETIRACETAM 500 MG TABLET PO SCH (21:16)
--- NOTE | 2018-06-26 01:30 | EKG REPORT ---
SEVERITY:- BORDERLINE ECG - SINUS TACHYCARDIA ATRIAL PREMATURE COMPLEX BORDERLINE PROLONGED QT INTERVAL : Confirmed by: Nona Ibarra MD 26-Jun-2018 01:29:08
[2018-06-26] MEDS: LORAZEPAM INJ 2 MG/1 ML VIAL IV PRN ×5 (02:49→22:24)
[2018-06-26] MEDS: LANSOPRAZOLE 30 MG TAB.RAP.DR PO SCH (05:18)
[2018-06-26 06:12] LABS: ALANINE AMINOTRANSFERASE 26 U/L (21-72); ALBUMIN 4.1 g/dL (3.5-5.0); ALKALINE PHOSPHATASE 142 U/L (38-126); ANION GAP 17 (5-19); ASPARTATE AMINO TRANSFERASE 106 U/L (17-59); BILIRUBIN,DIRECT 4.4 mg/dL (0.0-0.4); BILIRUBIN,TOTAL 5.9 mg/dL (0.2-1.3); BLOOD UREA NITROGEN 19 mg/dL (7-20); CALCIUM 8.9 mg/dL (8.4-10.2); CHLORIDE 90 mmol/L (98-107); GLUCOSE 99 mg/dL (75-110); POTASSIUM 3.1 mmol/L (3.6-5.0); SODIUM 138.1 mmol/L (137-145); TOTAL PROTEIN 7.8 g/dL (6.3-8.2)
[2018-06-26 06:26] LABS: CARBON DIOXIDE 31 mmol/L (22-30)
[2018-06-26 07:56] LABS: ABSOLUTE BASOPHILS # (AUTO) 0.1 10^3/uL (0.0-0.2); ABSOLUTE EOSINOPHILS # (AUTO) 0.9 10^3/uL (0.0-0.6); ABSOLUTE LYMPHOCYTES (AUTO) 1.3 10^3/uL (0.5-4.7); ABSOLUTE MONOCYTES (AUTO) 1.1 10^3/uL (0.1-1.4); ABSOLUTE NEUT (AUTO) 7.8 10^3/uL (1.7-8.2); BASOPHILS % (AUTO) 0.5 % (0-2); EOSINOPHILS % (AUTO) 8.5 % (0-6); HEMOGLOBIN 12.8 g/dL (13.5-17.0); LYMPHOCYTES % (AUTO) 11.7 % (13-45); MEAN CORPUSCULAR HGB CONC 34.7 g/dL (32.0-36.0); MEAN CORPUSCULAR VOLUME 101 fl (80-97); MONOCYTES % (AUTO) 9.6 % (3-13); RED BLOOD COUNT 3.67 10^6/uL (4.35-5.55); RED CELL DISTRIBUTION WIDTH 13.4 % (11.5-14.0); SEGMENTED NEUTROPHILS % (AUTO) 69.7 % (42-78); TOTAL CELLS COUNTED % (AUTO) 100 %; WHITE BLOOD COUNT 11.1 10^3/uL (4.0-10.5)
[2018-06-26] MEDS: PROMETHAZINE HCL 25 MG TABLET PO PRN (08:19)
[2018-06-26 08:41] LABS: PLATELET COUNT 77 10^3/uL (150-450)
[2018-06-26] MEDS ORDERED: ENOXAPARIN SODIUM INJ 40 MG/0.4 ML DISP.SYRIN SUBCUT SCH (10:00)
[2018-06-26] MEDS ORDERED: MULTIVITAMIN TABLET PO SCH (10:00)
[2018-06-26] MEDS ORDERED: NORMAL SALINE 1000 ML 1,000 ML IV PRN (10:22)
--- NOTE | 2018-06-26 10:29 | PDOC PROGRESS REPORT ---
Subjective Progress Note for:: 06/26/18 Subjective:: 47 year old male who presents to the ER with a complaint of abdominal pain. the pain started 2-3 days ago. Nothing makes it better or worse. He has been drinking a pint of gin a day for the past 10+ years. The last time he quit drinking was 10 years ago and he went into withdrawal symptoms while in a treatment plan. He has been having abdominal pain with nausea since he quit drinking. the pain is sharp and located in the epigastric region. He denies any blood in his stools, constipation or diarrhea. He has had a 20 pound weight loss over the past year because he states he has not been eating well and he has been drinking a lot of alcohol. 06/26/2018-patient is still complaining of pain 4 x 10 he has one episode of nausea and vomiting he got his Phenergan and Ativan this morning as per the patient is able to take his breakfast this morning no acute events since the admission. Potassium is still 3.1 I increase his potassium to 40 mg p.o. twice a day. Patient denies any anxiety or agitation. Reason For Visit: ALCOHOL WITHDRAWL Physical Exam Vital Signs: Temp Pulse Resp BP Pulse Ox 97.8 F 91 17 142/69 H 99 06/26/18 08:28 06/26/18 08:28 06/26/18 08:28 06/26/18 08:28 06/26/18 08:28 Intake & Output 06/25/18 06/26/18 06/27/18 06:59 06:59 06:59 Intake Total 6171 Balance 6171 Weight 66.5 kg General appearance: PRESENT: no acute distress Head exam: PRESENT: atraumatic Eye exam: PRESENT: PERRLA Mouth exam: PRESENT: moist, tongue midline Neck exam: ABSENT: carotid bruit, JVD, lymphadenopathy, thyromegaly Respiratory exam: PRESENT: clear to auscultation linda. ABSENT: rales, rhonchi, wheezes Cardiovascular exam: PRESENT: RRR. ABSENT: diastolic murmur, rubs, systolic murmur GI/Abdominal exam: PRESENT: normal bowel sounds, soft. ABSENT: distended, guarding, mass, organolmegaly, rebound, tenderness Extremities exam: PRESENT: full ROM. ABSENT: calf tenderness, clubbing, pedal edema Neurological exam: PRESENT: alert, awake, oriented to person, oriented to place, oriented to time, oriented to situation, CN II-XII grossly intact. ABSENT: motor sensory deficit Psychiatric exam: PRESENT: appropriate affect, normal mood. ABSENT: homicidal ideation, suicidal ideation Results Laboratory Results: 06/26/18 07:40 06/26/18 04:35 06/25/18 06/25/18 06/25/18 10:35 10:35 12:30 WBC 12.9 H RBC 4.01 L Hgb 14.0 Hct 40.8 MCV 102 H MCH 35.0 H MCHC 34.3 RDW 13.2 Plt Count 107 L Seg Neutrophils % 79.2 H Lymphocytes % 8.1 L Monocytes % 11.9 Eosinophils % 0.3 Basophils % 0.5 Absolute Neutrophils 10.2 H Absolute Lymphocytes 1.0 Absolute Monocytes 1.5 H Absolute Eosinophils 0.0 Absolute Basophils 0.1 Sodium 135.6 L Potassium 3.1 L Chloride 72 L Carbon Dioxide 18 L Anion Gap 46 H BUN 23 H Creatinine 2.46 H Est GFR ( Amer) 35 L Est GFR (Non-Af Amer) 29 L Glucose 157 H Calcium 10.2 Total Bilirubin 5.8 H AST 134 H ALT 33 Alkaline Phosphatase 212 H Total Protein 10.7 H Albumin 5.6 H Lipase 127.6 Urine Color PHOEBE Urine Appearance SLIGHTLY-CLOUDY Urine pH 6.0 Ur Specific Amite 1.021 Urine Protein 100 H Urine Glucose (UA) 50 H Urine Ketones 20 H Urine Blood SMALL H Urine Nitrite NEGATIVE Ur Leukocyte Esterase NEGATIVE Urine WBC (Auto) 4 Urine RBC (Auto) 2 06/26/18 06/26/18 06/26/18 04:35 04:35 07:40 WBC Cancelled 11.1 H RBC Cancelled 3.67 L Hgb Cancelled 12.8 L Hct Cancelled 37.0 L MCV Cancelled 101 H MCH Cancelled 35.0 H MCHC Cancelled 34.7 RDW Cancelled 13.4 Plt Count Cancelled 77 L Seg Neutrophils % Cancelled 69.7 Lymphocytes % Cancelled 11.7 L Monocytes % Cancelled 9.6 Eosinophils % Cancelled 8.5 H Basophils % Cancelled 0.5 Absolute Neutrophils Cancelled 7.8 Absolute Lymphocytes Cancelled 1.3 Absolute Monocytes Cancelled 1.1 Absolute Eosinophils Cancelled 0.9 H Absolute Basophils Cancelled 0.1 Sodium 138.1 Potassium 3.1 L Chloride 90 L Carbon Dioxide 31 H D Anion Gap 17 BUN 19 Creatinine 1.50 H Est GFR ( Amer) > 60 Est GFR (Non-Af Amer) 51 L Glucose 99 Calcium 8.9 Total Bilirubin 5.9 H AST 106 H ALT 26 Alkaline Phosphatase 142 H Total Protein 7.8 Albumin 4.1 Lipase Urine Color Urine Appearance Urine pH Ur Specific Amite Urine Protein Urine Glucose (UA) Urine Ketones Urine Blood Urine Nitrite Ur Leukocyte Esterase Urine WBC (Auto) Urine RBC (Auto) Impressions: Abdomen/Pelvis CT 06/25/18 12:53 IMPRESSION: Fatty liver Changes from chronic pancreatitis. No acute retroperitoneal inflammatory change today. Avascular necrosis bilateral femoral heads Assessment & Plan - Diagnosis (1) Alcohol abuse Is this a current diagnosis for this admission?: Yes Plan: 06/26/2018 patient was admitted with alcohol abuse according to him he drinks every day at least 1 pint per day last drink was 3-4 days ago. Alcohol level on admission is 52. He was on Ativan 1 mg every 4 hours as needed it was increased to 1 mg every 2 hours as needed also start him on morphine 1 mg IV every 4 as needed, started on banana bag daily, we could watch for the DTs. Discussed about alcohol abuse and advised him to quit drinking. (2) Acute kidney injury Is this a current diagnosis for this admission?: Yes Plan: 06/26/2018-patient admission creatinine is 2.41 it was improved to 1.5 today with IV fluids he is receiving normal saline at 100 cc/h. Acute kidney injury most likely prerenal which is resolving. (3) Hypokalemia Is this a current diagnosis for this admission?: Yes Plan: 06/26/2018-patient is admitted with potassium of three-point 1 repeat potassium is 3.1 also be going to give him potassium supplementation 40 mg twice a day recheck the labs tomorrow. (4) Abdominal pain Qualifiers: Abdominal location: epigastric Qualified Code(s): R10.13 - Epigastric pain Is this a current diagnosis for this admission?: Yes Plan: 06/26/2018-patient came with complaints of severe abdominal pain this morning is complaining of pain a 4 x 10 abdominal pain most likely secondary to chronic pancreatitis that was seen in the CT scan. Started on morphine 1 mg IV every 4 as needed. (5) Diabetes mellitus type 2 in nonobese Is this a current diagnosis for this admission?: Yes Plan: 06/26/2018-patient has history of diabetes mellitus on metformin at home. His hemoglobin A1c is pending. Latest blood sugar is 108. Presently on insulin sliding scale plan is to continue the present management. (6) Seizure disorder Is this a current diagnosis for this admission?: Yes Plan: 06/26/2018-patient has history of seizures disorder patient is presently not on any medications. Seizure disorder may be secondary to heavy alcohol use. Aspiration fall seizure precautions are requested. (7) Nausea and vomiting Qualifiers: Vomiting type: unspecified Vomiting Intractability: non-intractable Qualified Code(s): R11.2 - Nausea with vomiting, unspecified Is this a current diagnosis for this admission?: Yes Plan: 06/26/2018-patient was admitted with severe abdominal pains nausea and vomitings he had one episode of nausea and vomiting added with the Ativan and IV Phenergan. Nausea vomiting and abdominal pain most likely secondary to chronic pancreatitis flareup. - Time Time Spent with patient: 15-24 minutes Medications reviewed and adjusted accordingly: Yes Anticipated discharge: Home
[2018-06-26] MEDS: INSULIN REG, HUMAN 100 UNIT/ML 3 ML VIAL (PYX) SUBCUT SCH ×4 (10:40→22:25)
[2018-06-26] MEDS: FOLIC ACID 1 MG TABLET PO SCH (11:21)
[2018-06-26] MEDS: LEVETIRACETAM 500 MG TABLET PO SCH ×2 (11:21→22:24)
[2018-06-26] MEDS: MORPHINE SULFATE 10 MG/ML INJ IV PRN (11:22)
[2018-06-26] MEDS: POTASSIUM CHLORIDE 10 MEQ CAPSULE.ER PO SCH ×2 (12:19→18:02)
[2018-06-26] MEDS: NORMAL SALINE 1000 ML 1,000 ML with POTASSIUM CHLORIDE 20 MEQ, MAGNESIUM SULFATE 8 MEQ,... IV SCH ×4 (13:17)
[2018-06-26] MEDS ORDERED: POTASSIUM CHLORIDE 10 MEQ CAPSULE.ER PO ONE (13:30)
[2018-06-26] MEDS ORDERED: ONDANSETRON HCL INJ/PF 4 MG/2 ML SDV IV PRN (13:31)
[2018-06-26] MEDS: THIAMINE HCL 100 MG TABLET PO SCH (17:58)
[2018-06-26] MEDS ORDERED: NORMAL SALINE 1000 ML 1,000 ML with POTASSIUM CHLORIDE 20 MEQ, MAGNESIUM SULFATE 8 MEQ,... IV SCH ×4 (18:00)
[2018-06-27] MEDS: LORAZEPAM INJ 2 MG/1 ML VIAL IV PRN ×3 (03:58→20:21)
[2018-06-27] MEDS: LANSOPRAZOLE 30 MG TAB.RAP.DR PO SCH (05:19)
[2018-06-27 05:26] LABS: HEMATOCRIT 32.5 % (37.9-51.0); HEMOGLOBIN 11.5 g/dL (13.5-17.0); MEAN CORPUSCULAR HEMOGLOBIN 35.5 pg (27.0-33.4); MEAN CORPUSCULAR HGB CONC 35.3 g/dL (32.0-36.0); MEAN CORPUSCULAR VOLUME 101 fl (80-97); RED BLOOD COUNT 3.23 10^6/uL (4.35-5.55); RED CELL DISTRIBUTION WIDTH 13.5 % (11.5-14.0); WHITE BLOOD COUNT 10.4 10^3/uL (4.0-10.5)
[2018-06-27 05:54] LABS: PLATELET COUNT 47 10^3/uL (150-450)
[2018-06-27 05:56] LABS: ABSOLUTE LYMPHOCYTES# (MANUAL) 1.5 10^3/uL (0.5-4.7); ABSOLUTE MONOCYTES # (MANUAL) 0.5 10^3/uL (0.1-1.4); BASOPHILS % (MANUAL) 0 % (0-2); EOSINOPHILS % (MANUAL) 4 % (0-6); LYMPHOCYTES % (MANUAL) 14 % (13-45); MONOCYTES % (MANUAL) 5 % (3-13); SEGMENTED NEUTROPHILS % (MAN) 77 % (42-78); TOTAL CELLS COUNTED 100
[2018-06-27 05:57] LABS: PLATELET COMMENT DECREASED; POIKILOCYTOSIS 1+; TARGET CELLS 1+; TOXIC VACUOLATION PRESENT
[2018-06-27] MEDS ORDERED: ATENOLOL 50 MG TABLET PO ONE (06:15)
[2018-06-27 06:18] LABS: ALANINE AMINOTRANSFERASE 23 U/L (21-72); ALBUMIN 3.8 g/dL (3.5-5.0); ALKALINE PHOSPHATASE 159 U/L (38-126); ANION GAP 13 (5-19); ASPARTATE AMINO TRANSFERASE 132 U/L (17-59); BILIRUBIN,DIRECT 5.8 mg/dL (0.0-0.4); BILIRUBIN,TOTAL 7.4 mg/dL (0.2-1.3); BLOOD UREA NITROGEN 11 mg/dL (7-20); CALCIUM 9.1 mg/dL (8.4-10.2); CARBON DIOXIDE 32 mmol/L (22-30); CHLORIDE 93 mmol/L (98-107); GLUCOSE 117 mg/dL (75-110); POTASSIUM 3.2 mmol/L (3.6-5.0); SODIUM 137.8 mmol/L (137-145); TOTAL PROTEIN 7.5 g/dL (6.3-8.2)
[2018-06-27] MEDS ORDERED: POTASSIUM CHLORIDE 10 MEQ CAPSULE.ER PO SCH (10:00)
[2018-06-27] MEDS: MORPHINE SULFATE 10 MG/ML INJ IV PRN (10:06)
[2018-06-27] MEDS: POTASSIUM CHLORIDE 10 MEQ CAPSULE.ER PO SCH ×2 (10:07→18:17)
[2018-06-27] MEDS: LEVETIRACETAM 500 MG TABLET PO SCH ×2 (10:07→22:11)
[2018-06-27] MEDS: FOLIC ACID 1 MG TABLET PO SCH (10:08)
[2018-06-27] MEDS: INSULIN REG, HUMAN 100 UNIT/ML 3 ML VIAL (PYX) SUBCUT SCH ×4 (10:08→22:11)
--- NOTE | 2018-06-27 12:31 | PDOC PROGRESS REPORT ---
Subjective Progress Note for:: 06/27/18 Subjective:: 47 year old male who presents to the ER with a complaint of abdominal pain. the pain started 2-3 days ago. Nothing makes it better or worse. He has been drinking a pint of gin a day for the past 10+ years. The last time he quit drinking was 10 years ago and he went into withdrawal symptoms while in a treatment plan. He has been having abdominal pain with nausea since he quit drinking. the pain is sharp and located in the epigastric region. He denies any blood in his stools, constipation or diarrhea. He has had a 20 pound weight loss over the past year because he states he has not been eating well and he has been drinking a lot of alcohol. 06/26/2018-patient is still complaining of pain 4 x 10 he has one episode of nausea and vomiting he got his Phenergan and Ativan this morning as per the patient is able to take his breakfast this morning no acute events since the admission. Potassium is still 3.1 I increase his potassium to 40 mg p.o. twice a day. Patient denies any anxiety or agitation. 06/27/2018-patient is comfortably in the bed denies any complaints. Denies any nausea vomiting or diarrhea. Afebrile. No acute events in the last 24 hours. Able to tolerate his breakfast this morning. Reason For Visit: ALCOHOL WITHDRAWL Physical Exam Vital Signs: Temp Pulse Resp BP Pulse Ox 99.1 F 87 16 94/59 L 100 06/27/18 11:09 06/27/18 11:09 06/27/18 11:09 06/27/18 11:09 06/27/18 11:09 Intake & Output 06/26/18 06/27/18 06/28/18 06:59 06:59 06:59 Intake Total 9625 2093 Output Total 525 Balance 6171 1572 Weight 66.5 kg 68.1 kg General appearance: PRESENT: mild distress Head exam: PRESENT: atraumatic Eye exam: PRESENT: PERRLA Mouth exam: PRESENT: moist, tongue midline Neck exam: ABSENT: carotid bruit, JVD, lymphadenopathy, thyromegaly Respiratory exam: PRESENT: decreased breath sounds Cardiovascular exam: PRESENT: RRR. ABSENT: diastolic murmur, rubs, systolic murmur GI/Abdominal exam: PRESENT: normal bowel sounds, soft. ABSENT: distended, guarding, mass, organolmegaly, rebound, tenderness Extremities exam: PRESENT: full ROM. ABSENT: calf tenderness, clubbing, pedal edema Neurological exam: PRESENT: alert, awake, oriented to person, oriented to place, oriented to time, oriented to situation, CN II-XII grossly intact. ABSENT: motor sensory deficit Psychiatric exam: PRESENT: appropriate affect, normal mood. ABSENT: homicidal ideation, suicidal ideation Results Laboratory Results: 06/27/18 04:28 06/27/18 04:28 06/27/18 06/27/18 04:28 04:28 WBC 10.4 RBC 3.23 L Hgb 11.5 L Hct 32.5 L MCV 101 H MCH 35.5 H MCHC 35.3 RDW 13.5 Plt Count 47 L Seg Neutrophils % Not Reportable Lymphocytes % Not Reportable Monocytes % Not Reportable Eosinophils % Not Reportable Basophils % Not Reportable Absolute Neutrophils Not Reportable Absolute Lymphocytes Not Reportable Absolute Monocytes Not Reportable Absolute Eosinophils Not Reportable Absolute Basophils Not Reportable Sodium 137.8 Potassium 3.2 L Chloride 93 L Carbon Dioxide 32 H Anion Gap 13 BUN 11 Creatinine 0.99 Est GFR ( Amer) > 60 Est GFR (Non-Af Amer) > 60 Glucose 117 H Calcium 9.1 Magnesium 1.7 Total Bilirubin 7.4 H AST 132 H ALT 23 Alkaline Phosphatase 159 H Total Protein 7.5 Albumin 3.8 Impressions: Abdomen/Pelvis CT 06/25/18 12:53 IMPRESSION: Fatty liver Changes from chronic pancreatitis. No acute retroperitoneal inflammatory change today. Avascular necrosis bilateral femoral heads Assessment & Plan - Diagnosis (1) Alcohol abuse Is this a current diagnosis for this admission?: Yes Plan: 06/26/2018 patient was admitted with alcohol abuse according to him he drinks every day at least 1 pint per day last drink was 3-4 days ago. Alcohol level on admission is 52. He was on Ativan 1 mg every 4 hours as needed it was increased to 1 mg every 2 hours as needed also start him on morphine 1 mg IV every 4 as needed, started on banana bag daily, we could watch for the DTs. Discussed about alcohol abuse and advised him to quit drinking. 06/27/2018-patient has history of heavy alcohol use. Admitted for abdominal pains nausea and vomitings. Alcohol level is 52 at the time of admission. We are watching for the DTs. So far no signs of or symptoms of DTs noticed. (2) Acute kidney injury Is this a current diagnosis for this admission?: Yes Plan: 06/26/2018-patient admission creatinine is 2.41 it was improved to 1.5 today with IV fluids he is receiving normal saline at 100 cc/h. Acute kidney injury most likely prerenal which is resolving. 06/27/2018-patient was admitted with creatinine of 2.4, it was improved to 0.99 today. Acute kidney injury most likely secondary to prerenal causes resolved. IV fluids are discontinued. (3) Hypokalemia Is this a current diagnosis for this admission?: Yes Plan: 06/26/2018-patient is admitted with potassium of three-point 1 repeat potassium is 3.1 also be going to give him potassium supplementation 40 mg twice a day recheck the labs tomorrow. 06/27/2018-patient potassium level today is 3.2 still hypokalemic he is on potassium 40 mg p.o. twice a day. Plan is to recheck his labs tomorrow. (4) Abdominal pain Qualifiers: Abdominal location: epigastric Qualified Code(s): R10.13 - Epigastric pain Is this a current diagnosis for this admission?: Yes Plan: 06/26/2018-patient came with complaints of severe abdominal pain this morning is complaining of pain a 4 x 10 abdominal pain most likely secondary to chronic pancreatitis that was seen in the CT scan. Started on morphine 1 mg IV every 4 as needed. 06/27/2018-patient was admitted with severe abdominal pains nausea and vomitings. Most likely secondary to chronic pancreatitis with acute flareup. Abdominal pain and nausea vomiting's are resolving. (5) Diabetes mellitus type 2 in nonobese Is this a current diagnosis for this admission?: Yes Plan: 06/26/2018-patient has history of diabetes mellitus on metformin at home. His hemoglobin A1c is pending. Latest blood sugar is 108. Presently on insulin sliding scale plan is to continue the present management. 06/27/2018 patient blood sugar today is 117, stable on insulin sliding scale. Hemoglobin A1c is pending. (6) Seizure disorder Is this a current diagnosis for this admission?: Yes Plan: 06/26/2018-patient has history of seizures disorder patient is presently not on any medications. Seizure disorder may be secondary to heavy alcohol use. Aspiration fall seizure precautions are requested. 06/27/2018-patient has history of seizure disorder not on any home medications. He will he was started on Keppra 500 mg p.o. twice a day no seizure activity was noted during this hospital stay. (7) Nausea and vomiting Qualifiers: Vomiting type: unspecified Vomiting Intractability: non-intractable Qualified Code(s): R11.2 - Nausea with vomiting, unspecified Is this a current diagnosis for this admission?: Yes Plan: 06/26/2018-patient was admitted with severe abdominal pains nausea and vomitings he had one episode of nausea and vomiting added with the Ativan and IV Phenergan. Nausea vomiting and abdominal pain most likely secondary to chronic pancreatitis flareup. 06/27/2018-patient was admitted with abdominal pains, nausea and vomitings though symptoms are resolved. (8) Ventricular tachycardia Is this a current diagnosis for this admission?: Yes Plan: 06/27/2018-nurse notified me this morning patient has few episodes of asymptomatic V. tach lasted for a few seconds patient was started on Tenormin 100 mg p.o. daily. No EKG abnormalities are noted on the cardiac catheterization technician this morning. Short episode of V. tach may be secondary to hypokalemia. - Time Time Spent with patient: 15-24 minutes Smoking Cessation Education: 3 to 10 minutes Medications reviewed and adjusted accordingly: Yes Anticipated discharge: Home
[2018-06-27] MEDS: NORMAL SALINE 1000 ML 1,000 ML with POTASSIUM CHLORIDE 20 MEQ, MAGNESIUM SULFATE 8 MEQ,... IV SCH ×4 (12:35)
[2018-06-27] MEDS: THIAMINE HCL 100 MG TABLET PO SCH (18:18)
[2018-06-27] MEDS ORDERED: DIAZEPAM INJ 10 MG/2 ML DISP.SYRIN IV PRN (21:34)
[2018-06-27] MEDS ORDERED: CHLORPROMAZINE HCL INJ 25 MG/1 ML AMPULE IV PRN (21:36)
[2018-06-27] MEDS: DIAZEPAM 5 MG TABLET PO SCH (22:11)
[2018-06-28] MEDS: DIAZEPAM 5 MG TABLET PO SCH ×6 (02:37→22:03)
[2018-06-28] MEDS: LANSOPRAZOLE 30 MG TAB.RAP.DR PO SCH (05:36)
[2018-06-28 06:10] LABS: ALANINE AMINOTRANSFERASE 21 U/L (21-72); ALBUMIN 3.7 g/dL (3.5-5.0); ALKALINE PHOSPHATASE 188 U/L (38-126); ANION GAP 9 (5-19); ASPARTATE AMINO TRANSFERASE 125 U/L (17-59); BILIRUBIN,DIRECT 5.1 mg/dL (0.0-0.4); BILIRUBIN,TOTAL 6.1 mg/dL (0.2-1.3); BLOOD UREA NITROGEN 11 mg/dL (7-20); CALCIUM 9.2 mg/dL (8.4-10.2); CARBON DIOXIDE 29 mmol/L (22-30); CHLORIDE 102 mmol/L (98-107); GLUCOSE 192 mg/dL (75-110); POTASSIUM 4.9 mmol/L (3.6-5.0); SODIUM 139.8 mmol/L (137-145); TOTAL PROTEIN 7.6 g/dL (6.3-8.2)
[2018-06-28] MEDS: INSULIN REG, HUMAN 100 UNIT/ML 3 ML VIAL (PYX) SUBCUT SCH ×4 (07:29→22:03)
[2018-06-28 07:38] LABS: ABSOLUTE EOSINOPHILS # (AUTO) 0.5 10^3/uL (0.0-0.6); ABSOLUTE LYMPHOCYTES (AUTO) 1.7 10^3/uL (0.5-4.7); ABSOLUTE MONOCYTES (AUTO) 1.6 10^3/uL (0.1-1.4); ABSOLUTE NEUT (AUTO) 6.7 10^3/uL (1.7-8.2); BASOPHILS % (AUTO) 0.4 % (0-2); EOSINOPHILS % (AUTO) 4.4 % (0-6); HEMATOCRIT 34.6 % (37.9-51.0); HEMOGLOBIN 12.1 g/dL (13.5-17.0); MEAN CORPUSCULAR HEMOGLOBIN 35.4 pg (27.0-33.4); MEAN CORPUSCULAR HGB CONC 34.9 g/dL (32.0-36.0); MEAN CORPUSCULAR VOLUME 102 fl (80-97); MONOCYTES % (AUTO) 15.2 % (3-13); RED BLOOD COUNT 3.41 10^6/uL (4.35-5.55); RED CELL DISTRIBUTION WIDTH 13.7 % (11.5-14.0); TOTAL CELLS COUNTED % (AUTO) 100 %; WHITE BLOOD COUNT 10.4 10^3/uL (4.0-10.5)
[2018-06-28] MEDS ORDERED: CHLORPROMAZINE HCL INJ 25 MG/1 ML AMPULE IV PRN (07:44)
[2018-06-28] MEDS ORDERED: LORAZEPAM INJ 2 MG/1 ML VIAL IV PRN (07:46)
[2018-06-28 08:00] LABS: PLATELET COUNT 85 10^3/uL (150-450)
[2018-06-28] MEDS ORDERED: LORAZEPAM INJ 2 MG/1 ML VIAL ONE ×2 (08:45→08:48)
--- NOTE | 2018-06-28 08:52 | PDOC PROGRESS REPORT ---
Subjective Progress Note for:: 06/28/18 Subjective:: 47 year old male who presents to the ER with a complaint of abdominal pain. the pain started 2-3 days ago. Nothing makes it better or worse. He has been drinking a pint of gin a day for the past 10+ years. The last time he quit drinking was 10 years ago and he went into withdrawal symptoms while in a treatment plan. He has been having abdominal pain with nausea since he quit drinking. the pain is sharp and located in the epigastric region. He denies any blood in his stools, constipation or diarrhea. He has had a 20 pound weight loss over the past year because he states he has not been eating well and he has been drinking a lot of alcohol. 06/26/2018-patient is still complaining of pain 4 x 10 he has one episode of nausea and vomiting he got his Phenergan and Ativan this morning as per the patient is able to take his breakfast this morning no acute events since the admission. Potassium is still 3.1 I increase his potassium to 40 mg p.o. twice a day. Patient denies any anxiety or agitation. 06/27/2018-patient is comfortably in the bed denies any complaints. Denies any nausea vomiting or diarrhea. Afebrile. No acute events in the last 24 hours. Able to tolerate his breakfast this morning. The 11/2018-since last night patient was agitated and very aggressive to the staff tried to pull out the IV lines trying to turn the stove and the nursing st aff. He was started on Thorazine last night and Valium. This morning he was also agitated and is talking out of his head. Plan is to arrange for a sitter, arrange for a psych consult, to give Geodon 10 mg IM now dose, started on Ativan 2 mg IV every 3 hours as needed. He is also receiving Valium 10 mg IV every 4 as needed. We are going to continue to watch him for DTs. During the entire episode vital signs are stable. Temperature is 99.2 pulse ox 100% on room air blood pressure is 108/67. Blood sugar is 182. May be patient is going into DTs. Reason For Visit: ALCOHOL WITHDRAWL Physical Exam Vital Signs: Temp Pulse Resp BP Pulse Ox 99.2 F 98 16 108/67 100 06/27/18 23:54 06/28/18 02:00 06/27/18 23:54 06/27/18 23:54 06/27/18 23:54 Intake & Output 06/27/18 06/28/18 06/29/18 06:59 06:59 06:59 Intake Total 2097 2198 Output Total 525 Balance 1572 2198 Weight 68.1 kg 71.4 kg General appearance: PRESENT: mild distress Head exam: PRESENT: atraumatic Eye exam: PRESENT: PERRLA Mouth exam: PRESENT: moist Neck exam: ABSENT: carotid bruit, JVD, lymphadenopathy, thyromegaly Respiratory exam: PRESENT: decreased breath sounds Cardiovascular exam: PRESENT: tachycardia GI/Abdominal exam: PRESENT: normal bowel sounds, soft. ABSENT: distended, guarding, mass, organolmegaly, rebound, tenderness Extremities exam: PRESENT: full ROM. ABSENT: calf tenderness, clubbing, pedal edema Neurological exam: PRESENT: CN II-XII grossly intact - Patient is agitated and cooperative., other. ABSENT: oriented to person, oriented to place, oriented to time, oriented to situation Psychiatric exam: PRESENT: agitated Results Laboratory Results: 06/28/18 07:05 06/28/18 05:28 06/28/18 06/28/18 06/28/18 05:28 07:05 07:05 WBC 10.4 RBC 3.41 L Hgb 12.1 L Hct 34.6 L MCV 102 H MCH 35.4 H MCHC 34.9 RDW 13.7 Plt Count 85 L Seg Neutrophils % 64.0 Lymphocytes % 16.0 Monocytes % 15.2 H Eosinophils % 4.4 Basophils % 0.4 Absolute Neutrophils 6.7 Absolute Lymphocytes 1.7 Absolute Monocytes 1.6 H Absolute Eosinophils 0.5 Absolute Basophils 0.0 Sodium 139.8 Potassium 4.9 Chloride 102 Carbon Dioxide 29 Anion Gap 9 BUN 11 Creatinine 0.98 Est GFR ( Amer) > 60 Est GFR (Non-Af Amer) > 60 Glucose 192 H Calcium 9.2 Magnesium 1.8 Total Bilirubin 6.1 H AST 125 H ALT 21 Alkaline Phosphatase 188 H Ammonia 43.3 H Total Protein 7.6 Albumin 3.7 Impressions: Abdomen/Pelvis CT 06/25/18 12:53 IMPRESSION: Fatty liver Changes from chronic pancreatitis. No acute retroperitoneal inflammatory change today. Avascular necrosis bilateral femoral heads Assessment & Plan - Diagnosis (1) Alcohol abuse Is this a current diagnosis for this admission?: Yes Plan: 06/26/2018 patient was admitted with alcohol abuse according to him he drinks every day at least 1 pint per day last drink was 3-4 days ago. Alcohol level on admission is 52. He was on Ativan 1 mg every 4 hours as needed it was increased to 1 mg every 2 hours as needed also start him on morphine 1 mg IV every 4 as needed, started on banana bag daily, we could watch for the DTs. Discussed about alcohol abuse and advised him to quit drinking. 06/27/2018-patient has history of heavy alcohol use. Admitted for abdominal pains nausea and vomitings. Alcohol level is 52 at the time of admission. We are watching for the DTs. So far no signs of or symptoms of DTs noticed. 06/28/2018-patient has history of heavy alcohol use. Looks like he may be started going into DTs from last night. Psych consult was requested. Restraints was ordered sitter was requested to give Geodon 10 mg IM 1 dose now and started on Ativan 2 mg IV 3 hours as needed, already on Valium 10 mg IV every 4 hours. Plan is to closely monitor the patient condition. He is also on Keppra 5 mg p.o. every 12 hours for history of seizures. Condition is critical today. (2) Acute kidney injury Is this a current diagnosis for this admission?: Yes Plan: 06/26/2018-patient admission creatinine is 2.41 it was improved to 1.5 today with IV fluids he is receiving normal saline at 100 cc/h. Acute kidney injury most likely prerenal which is resolving. 06/27/2018-patient was admitted with creatinine of 2.4, it was improved to 0.99 today. Acute kidney injury most likely secondary to prerenal causes resolved. IV fluids are discontinued. 06/28/2018-patient's admission creatinine is 2.4 today it is 0.98 acute kidney injury most likely secondary to prerenal causes with IV hydration acute kidney injury is resolved. (3) Hypokalemia Is this a current diagnosis for this admission?: Yes Plan: 06/26/2018-patient is admitted with potassium of three-point 1 repeat potassium is 3.1 also be going to give him potassium supplementation 40 mg twice a day recheck the labs tomorrow. 06/27/2018-patient potassium level today is 3.2 still hypokalemic he is on potassium 40 mg p.o. twice a day. Plan is to recheck his labs tomorrow. 06/28/2018-potassium level today is 4.9 hypokalemia is resolved. (4) Abdominal pain Qualifiers: Abdominal location: epigastric Qualified Code(s): R10.13 - Epigastric pain Is this a current diagnosis for this admission?: Yes Plan: 06/26/2018-patient came with complaints of severe abdominal pain this morning is complaining of pain a 4 x 10 abdominal pain most likely secondary to chronic pa ncreatitis that was seen in the CT scan. Started on morphine 1 mg IV every 4 as needed. 06/27/2018-patient was admitted with severe abdominal pains nausea and vomitings. Most likely secondary to chronic pancreatitis with acute flareup. Abdominal pain and nausea vomiting's are resolving. 06/28/2018-patient was admitted with severe abdominal pains nausea and vomitings most likely secondary to chronic pancreatitis. (5) Diabetes mellitus type 2 in nonobese Is this a current diagnosis for this admission?: Yes Plan: 06/26/2018-patient has history of diabetes mellitus on metformin at home. His hemoglobin A1c is pending. Latest blood sugar is 108. Presently on insulin sliding scale plan is to continue the present management. 06/27/2018 patient blood sugar today is 117, stable on insulin sliding scale. Hemoglobin A1c is pending. 06/28/2018-patient blood sugar is 182. Hemoglobin A1c 6.1 patient is presently on insulin sliding scale plan is to continue the present management. (6) Seizure disorder Is this a current diagnosis for this admission?: Yes Plan: 06/26/2018-patient has history of seizures disorder patient is presently not on any medications. Seizure disorder may be secondary to heavy alcohol use. Aspiration fall seizure precautions are requested. 06/27/2018-patient has history of seizure disorder not on any home medications. He will he was started on Keppra 500 mg p.o. twice a day no seizure activity was noted during this hospital stay. 06/28/2018-at the time of admission patient with history of seizure disorder rather most likely secondary to alcohol withdrawals. Patient is on Keppra 500 mg p.o. every 12 hours plan is to continue the present management no seizure activity was noted during this hospital stay. (7) Nausea and vomiting Qualifiers: Vomiting type: unspecified Vomiting Intractability: non-intractable Qualified Code(s): R11.2 - Nausea with vomiting, unspecified Is this a current diagnosis for this admission?: Yes Plan: 06/26/2018-patient was admitted with severe abdominal pains nausea and vomitings he had one episode of nausea and vomiting added with the Ativan and IV Phenergan. Nausea vomiting and abdominal pain most likely secondary to chronic pancreatitis flareup. 06/27/2018-patient was admitted with abdominal pains, nausea and vomitings though symptoms are resolved. 06/28/2018-patient was admitted with abdominal pain nausea and vomitings most likely secondary to chronic pancreatitis. (8) Ventricular tachycardia Is this a current diagnosis for this admission?: Yes - Time Smoking Cessation Education: over 10 minutes Medications reviewed and adjusted accordingly: Yes Anticipated discharge: Home
[2018-06-28] MEDS ORDERED: ZIPRASIDONE MESYLATE INJ/PF 20 MG SDV IM ONE (09:30)
[2018-06-28] MEDS: FOLIC ACID 1 MG TABLET PO SCH (10:31)
[2018-06-28] MEDS: ATENOLOL 50 MG TABLET PO SCH (10:31)
[2018-06-28] MEDS: LEVETIRACETAM 500 MG TABLET PO SCH ×2 (10:31→22:03)
[2018-06-28] MEDS: POTASSIUM CHLORIDE 10 MEQ CAPSULE.ER PO SCH ×2 (10:31→17:48)
[2018-06-28] MEDS: NORMAL SALINE 1000 ML 1,000 ML with POTASSIUM CHLORIDE 20 MEQ, MAGNESIUM SULFATE 8 MEQ,... IV SCH ×4 (12:20)
--- NOTE | 2018-06-28 14:50 | PSYCHOLOGICAL NOTE ---
Psych Note - Psych Note Date seen by psych provider: 06/28/18 Time seen by psych provider: 13:30 Psych Note: Reason for Consult: Possible psychosis This morning the patient was agitated and talking out of his head; agitation started last night. There is concern the patient is starting DTs. Patient is showing signs of possible delirium due to withdrawal. Patient is unable to engage in evaluation. Clinician spoke to patient's , Adeola. She reports the patient realistically drinks a pint to a half a gallon daily, on average he drinks a half a gallon in two days. She reports he has done that for at least 10 years but thinks he started to heavy drink at 27 years old. She states he drinks [employer]. She disclosed that normally he only vomits when he doesn't drink, and then is fine once he has another drink, but denies seeing the patient like this previously; "normally he throws up...no shaking or sweating...but I have never seen him like this." She reports the patient's "father from alcohol." Medication recommendations per [facility]'s contacted psychiatrist Dr. Gold SANTANA are as follows increase thorazine to 50mg every 6 hours as needed add cogentin 2mg daily possibly consider lactulose to address the ammonia as the patient's ammonia level could be contributing to the patent's agitation. Alcohol abuse severe per history impression\\Plan: Patient will be reevaluated. He was unable to engage in his current presentation. Medication recommendations have been provided. Dr. Anthony was consulted and care management this patient; attending physicians agreement with recommendations and disposition.
[2018-06-28] MEDS: THIAMINE HCL 100 MG TABLET PO SCH (17:49)
[2018-06-28] MEDS: LORAZEPAM INJ 2 MG/1 ML VIAL IV PRN (23:44)
[2018-06-29] MEDS: DIAZEPAM 5 MG TABLET PO SCH ×8 (03:11→22:34)
[2018-06-29 05:00] LABS: HEMATOCRIT 34.9 % (37.9-51.0); HEMOGLOBIN 11.9 g/dL (13.5-17.0); MEAN CORPUSCULAR HEMOGLOBIN 35.2 pg (27.0-33.4); MEAN CORPUSCULAR VOLUME 103 fl (80-97); PLATELET COUNT 117 10^3/uL (150-450); RED BLOOD COUNT 3.38 10^6/uL (4.35-5.55); RED CELL DISTRIBUTION WIDTH 13.7 % (11.5-14.0); WHITE BLOOD COUNT 8.8 10^3/uL (4.0-10.5)
[2018-06-29] MEDS: LORAZEPAM INJ 2 MG/1 ML VIAL IV PRN (05:00)
[2018-06-29] MEDS: LANSOPRAZOLE 30 MG TAB.RAP.DR PO SCH (05:01)
[2018-06-29 05:17] LABS: ALANINE AMINOTRANSFERASE 22 U/L (21-72); ALBUMIN 3.5 g/dL (3.5-5.0); ALKALINE PHOSPHATASE 204 U/L (38-126); ANION GAP 9 (5-19); ASPARTATE AMINO TRANSFERASE 89 U/L (17-59); BILIRUBIN,DIRECT 3.7 mg/dL (0.0-0.4); BILIRUBIN,TOTAL 4.6 mg/dL (0.2-1.3); BLOOD UREA NITROGEN 9 mg/dL (7-20); CALCIUM 9.1 mg/dL (8.4-10.2); CARBON DIOXIDE 26 mmol/L (22-30); CHLORIDE 104 mmol/L (98-107); GLUCOSE 156 mg/dL (75-110); POTASSIUM 4.4 mmol/L (3.6-5.0); SODIUM 138.9 mmol/L (137-145); TOTAL PROTEIN 7.5 g/dL (6.3-8.2)
[2018-06-29 05:21] LABS: ABSOLUTE LYMPHOCYTES# (MANUAL) 1.6 10^3/uL (0.5-4.7); ABSOLUTE MONOCYTES # (MANUAL) 0.8 10^3/uL (0.1-1.4); ABSOLUTE NEUTROPHILS# (MANUAL) 6.2 10^3/uL (1.7-8.2); ANISOCYTOSIS 1+; BASOPHILS % (MANUAL) 0 % (0-2); EOSINOPHILS % (MANUAL) 2 % (0-6); LYMPHOCYTES % (MANUAL) 18 % (13-45); MONOCYTES % (MANUAL) 9 % (3-13); POLYCHROMASIA 1+; SEGMENTED NEUTROPHILS % (MAN) 71 % (42-78); TOTAL CELLS COUNTED 100
[2018-06-29 05:22] LABS: PLATELET COMMENT DECREASED
[2018-06-29] MEDS: INSULIN REG, HUMAN 100 UNIT/ML 3 ML VIAL (PYX) SUBCUT SCH ×4 (09:15→22:28)
--- NOTE | 2018-06-29 10:10 | PDOC PROGRESS REPORT ---
Subjective Progress Note for:: 06/29/18 Subjective:: 47 year old male who presents to the ER with a complaint of abdominal pain. the pain started 2-3 days ago. Nothing makes it better or worse. He has been drinking a pint of gin a day for the past 10+ years. The last time he quit drinking was 10 years ago and he went into withdrawal symptoms while in a treatment plan. He has been having abdominal pain with nausea since he quit drinking. the pain is sharp and located in the epigastric region. He denies any blood in his stools, constipation or diarrhea. He has had a 20 pound weight loss over the past year because he states he has not been eating well and he has been drinking a lot of alcohol. 06/26/2018-patient is still complaining of pain 4 x 10 he has one episode of nausea and vomiting he got his Phenergan and Ativan this morning as per the patient is able to take his breakfast this morning no acute events since the admission. Potassium is still 3.1 I increase his potassium to 40 mg p.o. twice a day. Patient denies any anxiety or agitation. 06/27/2018-patient is comfortably in the bed denies any complaints. Denies any nausea vomiting or diarrhea. Afebrile. No acute events in the last 24 hours. Able to tolerate his breakfast this morning. 06/28/2018-since last night patient was agitated and very aggressive to the staff tried to pull out the IV lines trying to turn the stove and the nursing staff. He was started on Thorazine last night and Valium. This morning he was also agitated and is talking out of his head. Plan is to arrange for a sitter, arrange for a psych consult, to give Geodon 10 mg IM now dose, started on Ativan 2 mg IV every 3 hours as needed. He is also receiving Valium 10 mg IV every 4 as needed. We are going to continue to watch him for DTs. During the entire episode vital signs are stable. Temperature is 99.2 pulse ox 100% on room air blood pressure is 108/67. Blood sugar is 182. May be patient is going into DTs. 06/29/2018-patient is comfortably sleeping in the bed today I discussed the plan of care with the nurse as per her patient has a quiet night last night ate his dinner last night this morning on examination is comfortably sleeping in the bed breakfast is at bedside. No acute events in the last 12 hours. Patient is afebrile. Psych consult was done recommendation is to add Cogentin 2 mg daily. Reason For Visit: ALCOHOL WITHDRAWL Physical Exam Vital Signs: Temp Pulse Resp BP Pulse Ox 99.3 F 98 20 117/70 100 06/29/18 07:49 06/29/18 07:49 06/29/18 07:49 06/29/18 07:49 06/29/18 07:49 Intake & Output 06/28/18 06/29/18 06/30/18 06:59 06:59 07:59 Intake Total 2198 1608 Output Total 325 Balance 2198 1283 Weight 71.4 kg 72.4 kg General appearance: PRESENT: no acute distress Head exam: PRESENT: atraumatic Eye exam: PRESENT: PERRLA Mouth exam: PRESENT: moist, tongue midline Teeth exam: PRESENT: poor dentation Neck exam: ABSENT: carotid bruit, JVD, lymphadenopathy, thyromegaly Respiratory exam: PRESENT: decreased breath sounds Cardiovascular exam: PRESENT: RRR. ABSENT: diastolic murmur, rubs, systolic murmur GI/Abdominal exam: PRESENT: normal bowel sounds, soft. ABSENT: distended, guarding, mass, organolmegaly, rebound, tenderness Extremities exam: PRESENT: full ROM. ABSENT: calf tenderness, clubbing, pedal edema Neurological exam: PRESENT: alert, awake, oriented to person, oriented to place, oriented to time, oriented to situation, CN II-XII grossly intact. ABSENT: motor sensory deficit Psychiatric exam: PRESENT: appropriate affect, normal mood. ABSENT: homicidal ideation, suicidal ideation Results Laboratory Results: 06/29/18 03:53 06/29/18 03:53 06/29/18 06/29/18 03:53 03:53 WBC 8.8 RBC 3.38 L Hgb 11.9 L Hct 34.9 L MCV 103 H MCH 35.2 H MCHC 34.0 RDW 13.7 Plt Count 117 L Seg Neutrophils % Not Reportable Lymphocytes % Not Reportable Monocytes % Not Reportable Eosinophils % Not Reportable Basophils % Not Reportable Absolute Neutrophils Not Reportable Absolute Lymphocytes Not Reportable Absolute Monocytes Not Reportable Absolute Eosinophils Not Reportable Absolute Basophils Not Reportable Sodium 138.9 Potassium 4.4 Chloride 104 Carbon Dioxide 26 Anion Gap 9 BUN 9 Creatinine 0.76 Est GFR ( Amer) > 60 Est GFR (Non-Af Amer) > 60 Glucose 156 H Calcium 9.1 Magnesium 1.7 Total Bilirubin 4.6 H AST 89 H ALT 22 Alkaline Phosphatase 204 H Total Protein 7.5 Albumin 3.5 Impressions: Abdomen/Pelvis CT 06/25/18 12:53 IMPRESSION: Fatty liver Changes from chronic pancreatitis. No acute retroperitoneal inflammatory change today. Avascular necrosis bilateral femoral heads Assessment & Plan - Diagnosis (1) Alcohol abuse Is this a current diagnosis for this admission?: Yes Plan: 06/26/2018 patient was admitted with alcohol abuse according to him he drinks every day at least 1 pint per day last drink was 3-4 days ago. Alcohol level on admission is 52. He was on Ativan 1 mg every 4 hours as needed it was increased to 1 mg every 2 hours as needed also start him on morphine 1 mg IV every 4 as needed, started on banana bag daily, we could watch for the DTs. Discussed about alcohol abuse and advised him to quit drinking. 06/27/2018-patient has history of heavy alcohol use. Admitted for abdominal pains nausea and vomitings. Alcohol level is 52 at the time of admission. We are watching for the DTs. So far no signs of or symptoms of DTs noticed. 06/28/2018-patient has history of heavy alcohol use. Looks like he may be started going into DTs from last night. Psych consult was requested. Restraints was ordered sitter was requested to give Geodon 10 mg IM 1 dose now and started on Ativan 2 mg IV 3 hours as needed, already on Valium 10 mg IV every 4 hours. Plan is to closely monitor the patient condition. He is also on Keppra 5 mg p.o. every 12 hours for history of seizures. Condition is critical today. 06/29/2018-patient has history of heavy alcohol use. As per psych recommendations to start on Cogentin. He was given 1 dose of Geodon. He also received a diazepam 100 mg IV every 4 as needed also Ativan 2 mg IV every 3 hours as needed. Plan is to continue the present management watch for DTs (2) Acute kidney injury Is this a current diagnosis for this admission?: Yes Plan: 06/26/2018-patient admission creatinine is 2.41 it was improved to 1.5 today with IV fluids he is receiving normal saline at 100 cc/h. Acute kidney injury most likely prerenal which is resolving. 06/27/2018-patient was admitted with creatinine of 2.4, it was improved to 0.99 today. Acute kidney injury most likely secondary to prerenal causes resolved. IV fluids are discontinued. 06/28/2018-patient's admission creatinine is 2.4 today it is 0.98 acute kidney injury most likely secondary to prerenal causes with IV hydration acute kidney injury is resolved. 06/29/2018 on admission creatinine is 2.4 it was improved to 0.76 acute kidney injury most likely due to prerenal causes is resolved. Patient is off the IV fluids. (3) Hypokalemia Is this a current diagnosis for this admission?: Yes Plan: 06/26/2018-patient is admitted with potassium of three-point 1 repeat potassium is 3.1 also be going to give him potassium supplementation 40 mg twice a day recheck the labs tomorrow. 06/27/2018-patient potassium level today is 3.2 still hypokalemic he is on potassium 40 mg p.o. twice a day. Plan is to recheck his labs tomorrow. 06/28/2018-potassium level today is 4.9 hypokalemia is resolved. 06/29/2018-patient was admitted with hypokalemia today's potassium is 4.4 hypokalemia most likely due to poor oral intake resolved. (4) Abdominal pain Qualifiers: Abdominal location: epigastric Qualified Code(s): R10.13 - Epigastric pain Is this a current diagnosis for this admission?: Yes Plan: 06/26/2018-patient came with complaints of severe abdominal pain this morning is complaining of pain a 4 x 10 abdominal pain most likely secondary to chronic pa ncreatitis that was seen in the CT scan. Started on morphine 1 mg IV every 4 as needed. 06/27/2018-patient was admitted with severe abdominal pains nausea and vomitings. Most likely secondary to chronic pancreatitis with acute flareup. Abdominal pain and nausea vomiting's are resolving. 06/28/2018-patient was admitted with severe abdominal pains nausea and vomitings most likely secondary to chronic pancreatitis. 06/29/2018-patient came in with complaints of abdominal pains found to have a chronic pancreatitis no complaints of abdominal pain in the last 48 hours. (5) Diabetes mellitus type 2 in nonobese Is this a current diagnosis for this admission?: Yes Plan: 06/26/2018-patient has history of diabetes mellitus on metformin at home. His hemoglobin A1c is pending. Latest blood sugar is 108. Presently on insulin sliding scale plan is to continue the present management. 06/27/2018 patient blood sugar today is 117, stable on insulin sliding scale. Hemoglobin A1c is pending. 06/28/2018-patient blood sugar is 182. Hemoglobin A1c 6.1 patient is presently on insulin sliding scale plan is to continue the present management. 06/29/2018-patient latest blood sugar is 133. Hemoglobin A1c 6.1. Plan is to continue insulin sliding scale. (6) Seizure disorder Is this a current diagnosis for this admission?: Yes Plan: 06/26/2018-patient has history of seizures disorder patient is presently not on any medications. Seizure disorder may be secondary to heavy alcohol use. Aspiration fall seizure precautions are requested. 06/27/2018-patient has history of seizure disorder not on any home medications. He will he was started on Keppra 500 mg p.o. twice a day no seizure activity was noted during this hospital stay. 06/28/2018-at the time of admission patient with history of seizure disorder rather most likely secondary to alcohol withdrawals. Patient is on Keppra 500 mg p.o. every 12 hours plan is to continue the present management no seizure activity was noted during this hospital stay. 06/29/2018-patient has history of seizure disorder most likely secondary to heavy alcohol use and alcohol withdrawal. No seizure activity noted during the hospital stay. He is receiving Keppra 500 mg p.o. twice daily plan is to continue the medication. (7) Nausea and vomiting Qualifiers: Vomiting type: unspecified Vomiting Intractability: non-intractable Qualified Code(s): R11.2 - Nausea with vomiting, unspecified Is this a current diagnosis for this admission?: Yes Plan: 06/26/2018-patient was admitted with severe abdominal pains nausea and vomitings he had one episode of nausea and vomiting added with the Ativan and IV Phenergan. Nausea vomiting and abdominal pain most likely secondary to chronic pancreatitis flareup. 06/27/2018-patient was admitted with abdominal pains, nausea and vomitings though symptoms are resolved. 06/28/2018-patient was admitted with abdominal pain nausea and vomitings most likely secondary to chronic pancreatitis. 06/29/2018-patient came in with complaints of nausea vomiting abdominal pain is most likely secondary to acute on chronic pancreatitis the symptoms are resolved during this hospital stay. (8) Ventricular tachycardia Is this a current diagnosis for this admission?: Yes Plan: 06/27/2018-nurse notified me this morning patient has few episodes of asymptomatic V. tach lasted for a few seconds patient was started on Tenormin 100 mg p.o. daily. No EKG abnormalities are noted on the hospital monitor this morning. Short episode of V. tach may be secondary to hypokalemia. 06/29/2018-no abnormalities are noted in the monitor in the last 24-48 hours. - Time Time Spent with patient: 15-24 minutes Medications reviewed and adjusted accordingly: Yes Anticipated discharge: Home
[2018-06-29] MEDS: ATENOLOL 50 MG TABLET PO SCH (10:56)
[2018-06-29] MEDS: POTASSIUM CHLORIDE 10 MEQ CAPSULE.ER PO SCH ×2 (10:57→17:15)
[2018-06-29] MEDS: LEVETIRACETAM 500 MG TABLET PO SCH ×2 (10:57→22:28)
[2018-06-29] MEDS: FOLIC ACID 1 MG TABLET PO SCH (10:57)
[2018-06-29] MEDS: MORPHINE SULFATE 10 MG/ML INJ IV PRN ×2 (12:38→17:32)
[2018-06-29] MEDS ORDERED: DIAZEPAM 5 MG TABLET ONE (17:10)
[2018-06-29] MEDS: LACTULOSE SYRUP 20 GM/30 ML UDCUP PO SCH (17:15)
[2018-06-29] MEDS: BENZTROPINE MESYLATE 1 MG TABLET PO SCH (17:15)
[2018-06-29] MEDS: THIAMINE HCL 100 MG TABLET PO SCH (17:15)
[2018-06-29] MEDS: CHLORPROMAZINE HCL 50 MG TABLET PO SCH (18:56)
[2018-06-30] MEDS: DIAZEPAM 5 MG TABLET PO SCH ×9 (00:58→21:34)
[2018-06-30] MEDS: LACTULOSE SYRUP 20 GM/30 ML UDCUP PO SCH ×4 (00:58→17:18)
[2018-06-30] MEDS: CHLORPROMAZINE HCL 50 MG TABLET PO SCH ×4 (00:58→17:19)
[2018-06-30] MEDS: LANSOPRAZOLE 30 MG TAB.RAP.DR PO SCH (05:08)
[2018-06-30] MEDS: INSULIN REG, HUMAN 100 UNIT/ML 3 ML VIAL (PYX) SUBCUT SCH ×4 (09:00→21:29)
[2018-06-30] MEDS ORDERED: OXYCODONE-ACETAMINOPHEN 5-325 MG TABLET PO PRN (09:11)
[2018-06-30] MEDS ORDERED: LORAZEPAM INJ 2 MG/1 ML VIAL IV PRN (09:12)
--- NOTE | 2018-06-30 09:19 | PDOC PROGRESS REPORT ---
Subjective Progress Note for:: 06/30/18 Subjective:: 47 year old male who presents to the ER with a complaint of abdominal pain. the pain started 2-3 days ago. Nothing makes it better or worse. He has been drinking a pint of gin a day for the past 10+ years. The last time he quit drinking was 10 years ago and he went into withdrawal symptoms while in a treatment plan. He has been having abdominal pain with nausea since he quit drinking. the pain is sharp and located in the epigastric region. He denies any blood in his stools, constipation or diarrhea. He has had a 20 pound weight loss over the past year because he states he has not been eating well and he has been drinking a lot of alcohol. 06/26/2018-patient is still complaining of pain 4 x 10 he has one episode of nausea and vomiting he got his Phenergan and Ativan this morning as per the patient is able to take his breakfast this morning no acute events since the admission. Potassium is still 3.1 I increase his potassium to 40 mg p.o. twice a day. Patient denies any anxiety or agitation. 06/27/2018-patient is comfortably in the bed denies any complaints. Denies any nausea vomiting or diarrhea. Afebrile. No acute events in the last 24 hours. Able to tolerate his breakfast this morning. 06/28/2018-since last night patient was agitated and very aggressive to the staff tried to pull out the IV lines trying to turn the stove and the nursing staff. He was started on Thorazine last night and Valium. This morning he was also agitated and is talking out of his head. Plan is to arrange for a sitter, arrange for a psych consult, to give Geodon 10 mg IM now dose, started on Ativan 2 mg IV every 3 hours as needed. He is also receiving Valium 10 mg IV every 4 as needed. We are going to continue to watch him for DTs. During the entire episode vital signs are stable. Temperature is 99.2 pulse ox 100% on room air blood pressure is 108/67. Blood sugar is 182. May be patient is going into DTs. 06/29/2018-patient is comfortably sleeping in the bed today I discussed the plan of care with the nurse as per her patient has a quiet night last night ate his dinner last night this morning on examination is comfortably sleeping in the bed breakfast is at bedside. No acute events in the last 12 hours. Patient is afebrile. Psych consult was done recommendation is to add Cogentin 2 mg daily. 11/30/2018 no acute events in the last 24 hours. Afebrile. Patient is more alert more awake today. Had his breakfast this morning. Still confused. Reason For Visit: ALCOHOL WITHDRAWL Physical Exam Vital Signs: Temp Pulse Resp BP Pulse Ox 98.0 F 86 16 104/60 100 06/30/18 07:33 06/30/18 07:33 06/30/18 07:33 06/30/18 07:33 06/30/18 07:33 Intake & Output 06/29/18 06/30/18 07/01/18 05:59 06:59 06:59 Intake Total Output Total Balance Weight General appearance: PRESENT: no acute distress Head exam: PRESENT: atraumatic Eye exam: PRESENT: PERRLA Mouth exam: PRESENT: moist, tongue midline Neck exam: ABSENT: carotid bruit, JVD, lymphadenopathy, thyromegaly Respiratory exam: PRESENT: clear to auscultation linda. ABSENT: rales, rhonchi, wheezes Cardiovascular exam: PRESENT: RRR. ABSENT: diastolic murmur, rubs, systolic mu rmur GI/Abdominal exam: PRESENT: normal bowel sounds, soft. ABSENT: distended, guarding, mass, organolmegaly, rebound, tenderness Extremities exam: PRESENT: full ROM. ABSENT: calf tenderness, clubbing, pedal edema Neurological exam: PRESENT: alert, awake, oriented to person, oriented to place, oriented to time, oriented to situation, CN II-XII grossly intact. ABSENT: motor sensory deficit Psychiatric exam: PRESENT: appropriate affect, normal mood. ABSENT: homicidal ideation, suicidal ideation Results Laboratory Results: 06/29/18 03:53 06/29/18 03:53 Impressions: Abdomen/Pelvis CT 06/25/18 12:53 IMPRESSION: Fatty liver Changes from chronic pancreatitis. No acute retroperitoneal inflammatory change today. Avascular necrosis bilateral femoral heads Assessment & Plan - Diagnosis (1) Alcohol abuse Is this a current diagnosis for this admission?: Yes Plan: 06/26/2018 patient was admitted with alcohol abuse according to him he drinks every day at least 1 pint per day last drink was 3-4 days ago. Alcohol level on admission is 52. He was on Ativan 1 mg every 4 hours as needed it was increased to 1 mg every 2 hours as needed also start him on morphine 1 mg IV every 4 as needed, started on banana bag daily, we could watch for the DTs. Discussed about alcohol abuse and advised him to quit drinking. 06/27/2018-patient has history of heavy alcohol use. Admitted for abdominal pains nausea and vomitings. Alcohol level is 52 at the time of admission. We are watching for the DTs. So far no signs of or symptoms of DTs noticed. 06/28/2018-patient has history of heavy alcohol use. Looks like he may be started going into DTs from last night. Psych consult was requested. Restraints was ordered sitter was requested to give Geodon 10 mg IM 1 dose now and started on Ativan 2 mg IV 3 hours as needed, already on Valium 10 mg IV every 4 hours. Plan is to closely monitor the patient condition. He is also on Keppra 5 mg p.o. every 12 hours for history of seizures. Condition is critical today. 06/29/2018-patient has history of heavy alcohol use. As per psych recommendations to start on Cogentin. He was given 1 dose of Geodon. He also received a diazepam 100 mg IV every 4 as needed also Ativan 2 mg IV every 3 hours as needed. Plan is to continue the present management watch for DTs 06/30/2018-patient has history of heavy alcohol use presently on IV diazepam, IV morphine, Cogentin twice daily , thorazine 50 mg po q6hrs. Is also receiving lactulose. Plan is to continue the present management. (2) Acute kidney injury Is this a current diagnosis for this admission?: Yes Plan: 06/26/2018-patient admission creatinine is 2.41 it was improved to 1.5 today with IV fluids he is receiving normal saline at 100 cc/h. Acute kidney injury most likely prerenal which is resolving. 06/27/2018-patient was admitted with creatinine of 2.4, it was improved to 0.99 today. Acute kidney injury most likely secondary to prerenal causes resolved. IV fluids are discontinued. 06/28/2018-patient's admission creatinine is 2.4 today it is 0.98 acute kidney injury most likely secondary to prerenal causes with IV hydration acute kidney injury is resolved. 06/29/2018 on admission creatinine is 2.4 it was improved to 0.76 acute kidney injury most likely due to prerenal causes is resolved. Patient is off the IV fluids. 06/30/2018-patient is admitted with creatinine of 2.4 and it was improved 2.76 yesterday acute kidney injury most likely secondary to prerenal causes resolved. No labs are available this morning. (3) Hypokalemia Is this a current diagnosis for this admission?: Yes Plan: 06/26/2018-patient is admitted with potassium of three-point 1 repeat potassium is 3.1 also be going to give him potassium supplementation 40 mg twice a day recheck the labs tomorrow. 06/27/2018-patient potassium level today is 3.2 still hypokalemic he is on potassium 40 mg p.o. twice a day. Plan is to recheck his labs tomorrow. 06/28/2018-potassium level today is 4.9 hypokalemia is resolved. 06/29/2018-patient was admitted with hypokalemia today's potassium is 4.4 hypokalemia most likely due to poor oral intake resolved. 06/30/2018-latest potassium is 4.4 today's labs are pending hypokalemia resolved. (4) Abdominal pain Qualifiers: Abdominal location: epigastric Qualified Code(s): R10.13 - Epigastric pain Is this a current diagnosis for this admission?: Yes Plan: 06/26/2018-patient came with complaints of severe abdominal pain this morning is complaining of pain a 4 x 10 abdominal pain most likely secondary to chronic pancreatitis that was seen in the CT scan. Started on morphine 1 mg IV every 4 as needed. 06/27/2018-patient was admitted with severe abdominal pains nausea and vomitings. Most likely secondary to chronic pancreatitis with acute flareup. Abdominal pain and nausea vomiting's are resolving. 06/28/2018-patient was admitted with severe abdominal pains nausea and vomitings most likely secondary to chronic pancreatitis. 06/29/2018-patient came in with complaints of abdominal pains found to have a chronic pancreatitis no complaints of abdominal pain in the last 48 hours. 06/30/2018-patient was admitted with abdominal pain which was resolved most likely secondary to chronic pancreatitis. (5) Diabetes mellitus type 2 in nonobese Is this a current diagnosis for this admission?: Yes Plan: 06/26/2018-patient has history of diabetes mellitus on metformin at home. His hemoglobin A1c is pending. Latest blood sugar is 108. Presently on insulin sliding scale plan is to continue the present management. 06/27/2018 patient blood sugar today is 117, stable on insulin sliding scale. Hemoglobin A1c is pending. 06/28/2018-patient blood sugar is 182. Hemoglobin A1c 6.1 patient is presently on insulin sliding scale plan is to continue the present management. 06/29/2018-patient latest blood sugar is 133. Hemoglobin A1c 6.1. Plan is to continue insulin sliding scale. 06/30/2018 latest blood sugar is 224 is on insulin sliding scale hemoglobin A1c 6.1 plan is to continue the present management. (6) Seizure disorder Is this a current diagnosis for this admission?: Yes Plan: 06/26/2018-patient has history of seizures disorder patient is presently not on any medications. Seizure disorder may be secondary to heavy alcohol use. Aspiration fall seizure precautions are requested. 06/27/2018-patient has history of seizure disorder not on any home medications. He will he was started on Keppra 500 mg p.o. twice a day no seizure activity was noted during this hospital stay. 06/28/2018-at the time of admission patient with history of seizure disorder rather most likely secondary to alcohol withdrawals. Patient is on Keppra 500 mg p.o. every 12 hours plan is to continue the present management no seizure activity was noted during this hospital stay. 06/29/2018-patient has history of seizure disorder most likely secondary to heavy alcohol use and alcohol withdrawal. No seizure activity noted during the hospital stay. He is receiving Keppra 500 mg p.o. twice daily plan is to continue the medication. 06/30/2018-patient has history of seizure disorder no seizure activity was noted during this hospital stay. (7) Nausea and vomiting Qualifiers: Vomiting type: unspecified Vomiting Intractability: non-intractable Qualified Code(s): R11.2 - Nausea with vomiting, unspecified Is this a current diagnosis for this admission?: Yes Plan: 06/26/2018-patient was admitted with severe abdominal pains nausea and vomitings he had one episode of nausea and vomiting added with the Ativan and IV Phenergan. Nausea vomiting and abdominal pain most likely secondary to chronic pancreatitis flareup. 06/27/2018-patient was admitted with abdominal pains, nausea and vomitings though symptoms are resolved. 06/28/2018-patient was admitted with abdominal pain nausea and vomitings most likely secondary to chronic pancreatitis. 06/29/2018-patient came in with complaints of nausea vomiting abdominal pain is most likely secondary to acute on chronic pancreatitis the symptoms are resolved during this hospital stay. 06/30/2018-patient treated with nausea vomiting abdominal pain though symptoms are resolved. Most likely secondary to acute on chronic pancreatitis. (8) Ventricular tachycardia Is this a current diagnosis for this admission?: Yes - Time Time Spent with patient: 15-24 minutes Medications reviewed and adjusted accordingly: Yes Anticipated discharge: Home
[2018-06-30] MEDS: BENZTROPINE MESYLATE 1 MG TABLET PO SCH ×2 (09:41→17:18)
[2018-06-30] MEDS: FOLIC ACID 1 MG TABLET PO SCH (09:41)
[2018-06-30] MEDS: LEVETIRACETAM 500 MG TABLET PO SCH ×2 (09:41→21:34)
[2018-06-30] MEDS: POTASSIUM CHLORIDE 10 MEQ CAPSULE.ER PO SCH ×2 (09:42→17:19)
[2018-06-30 09:46] LABS: ABSOLUTE BASOPHILS # (AUTO) 0.1 10^3/uL (0.0-0.2); ABSOLUTE EOSINOPHILS # (AUTO) 0.5 10^3/uL (0.0-0.6); ABSOLUTE LYMPHOCYTES (AUTO) 2.1 10^3/uL (0.5-4.7); ABSOLUTE MONOCYTES (AUTO) 1.6 10^3/uL (0.1-1.4); BASOPHILS % (AUTO) 1.1 % (0-2); EOSINOPHILS % (AUTO) 6.4 % (0-6); HEMATOCRIT 35.3 % (37.9-51.0); HEMOGLOBIN 11.7 g/dL (13.5-17.0); LYMPHOCYTES % (AUTO) 24.9 % (13-45); MEAN CORPUSCULAR HEMOGLOBIN 34.4 pg (27.0-33.4); MEAN CORPUSCULAR HGB CONC 33.3 g/dL (32.0-36.0); MEAN CORPUSCULAR VOLUME 104 fl (80-97); MONOCYTES % (AUTO) 19.3 % (3-13); PLATELET COUNT 189 10^3/uL (150-450); RED BLOOD COUNT 3.41 10^6/uL (4.35-5.55); RED CELL DISTRIBUTION WIDTH 14.1 % (11.5-14.0); SEGMENTED NEUTROPHILS % (AUTO) 48.3 % (42-78); TOTAL CELLS COUNTED % (AUTO) 100 %; WHITE BLOOD COUNT 8.2 10^3/uL (4.0-10.5)
[2018-06-30 09:49] LABS: ALANINE AMINOTRANSFERASE 35 U/L (21-72); ALBUMIN 3.2 g/dL (3.5-5.0); ALKALINE PHOSPHATASE 226 U/L (38-126); ANION GAP 9 (5-19); ASPARTATE AMINO TRANSFERASE 93 U/L (17-59); BILIRUBIN,TOTAL 3.7 mg/dL (0.2-1.3); BLOOD UREA NITROGEN 10 mg/dL (7-20); CARBON DIOXIDE 26 mmol/L (22-30); CHLORIDE 105 mmol/L (98-107); GLUCOSE 177 mg/dL (75-110); POTASSIUM 4.7 mmol/L (3.6-5.0); SODIUM 139.9 mmol/L (137-145); TOTAL PROTEIN 6.9 g/dL (6.3-8.2)
[2018-06-30] MEDS: ATENOLOL 50 MG TABLET PO SCH (13:27)
--- NOTE | 2018-06-30 15:02 | PSYCHOLOGICAL NOTE ---
Psych Note - Psych Note Date seen by psych provider: 06/30/18 Time seen by psych provider: 11:15 Psych Note: Reason for consult:ETOH Contact Permissions: Adeola Peterson, , Patient is a 47 yo male admitted for ETOH detox. He has prior ETOH related visits in October and March 2018 and seizure visit in 2016. He has been drinking excessive amounts of gin daily for the last 25 years. He is awake but drowsy upon arrival and attended by multiple family members. Patient admits to using 1/2 gallon gin per day and complains "every time I try to do something about it something comes up". He reports this visit "he's off to a good start". Clinician discusses treatment options with him and he "want(s) detox" at [facility] only and outpatient S/A treatment. Patient denies SI, HI, and AV/H, prior IP psych, MH OP or suicide attempts. Patient's relays that they moved to [facility] several months ago and patient's alcohol use increased to 1/2 gallon per day since then. She says he used to be a social drinker but now isolates himself in his room, lays in bed all day and drinks. He is not socializing because he misses home with family and friends. Patient has been on disability since 2010. Patient misses his dad who recently. Per Adeola, he needs someone to talk to and long-term S/A treatment. His longest success with sobriety was two weeks and then her relapsed. Patient is alert and oriented x 3. He had difficulty with the day of the week reporting Sunday. Mood is "mundane" with sleepy affect aeb eyes closed, slurred speech. Patient denies SI, HI, and AV/H, does not appear to be responding to internal stimuli, and no delusions were noted. Conversational speech was minimal, soft, and slurred. Eye contact was poorly maintained. Thought processes were linear and rational however, patient reported experiencing confusion when waking. Intellectual abilities were estimated within the average range. Attention/concentration was WNL while, insight, judgment, and impulse control were fair. Diagnosis: Alcohol Use Disorder Medication recommendations as per psychiatric provider, Dr. Malcolm are as follows: No medication recommendations at this time Impression/Plan: Patient is psychiatrically clear from acute psychiatric services as there is no risk of harm to self or others aeb Patient denies SI, HI, and AV/H, does not appear to be responding to internal stimuli, and no delusions were noted. Patient is recommended to discharge to home/self-care with follow up residential substance abuse treatment program and step-down into outpatient after completion of residential treatment. Patient is a 47 yo male who has been drinking excessive amounts of gin daily for the last 25 years. Due to the nature of his use, it is felt that the most effective treatment lending the greatest chance of long-term recovery would be a long-term structured residential program - giving patient the opportunity to replace alcohol with alternative positive coping skills. Behavioral Health provided psychoeducation to patient and his regarding the former and all treatment options available and the process for admission. Patient verbalized interest in 3-10 day detox and his stated she would continue to encourage him into residential. Resources were left with his for this, outpatient, and [facility] Consulted Dr. Anthony in the care and treatment of this patient and ED physician who is in agreement with disposition and recommendation.
--- NOTE | 2018-06-30 15:58 | PDOC CONSULTATION ---
Consultation-Blank Consultation: Attempted to meet with Patient. He was noted to be very lethargic and unable to open his eyes to participate in the evaluation. The nurse was attempting to take his vitals but due to his lethargy, the nurse was having difficulty. Patient's words were unintelligible. Nurse reported he was continuing to receive 10 mg valium every two hours which was possibly causing him to be so sleepy. Patient had several outbursts in the last 24 hours and they appeared to occur after ativan had been administered and was wearing off. Medication recommendation from Dr. Malcolm were as follows: 1. decrease the valium to 5 mg every 2 hours 2. thorazine 50 mg every 6 hours as needed 3. cogentin 1 mg daily 4. discontinue thorazine 25 mg every 4 hours as needed Impression / Plan: Patient appears to be in an alcohol induced delirium. Currently he appears highly sedated and is unable to participate in an evaluation. The psychiatric provider felt the patient would benefit from a change in medication to help increase his alertness. Once Patient's mental status improves, a psychiatric consultation would beneficial. Until then, the behavioral health team will sign off the case. Please re-consult behavioral health when patient can engage in the assessment process.
[2018-06-30] MEDS: THIAMINE HCL 100 MG TABLET PO SCH (17:19)
[2018-07-01] MEDS: CHLORPROMAZINE HCL 50 MG TABLET PO SCH ×2 (00:57→05:17)
[2018-07-01] MEDS: LACTULOSE SYRUP 20 GM/30 ML UDCUP PO SCH ×4 (00:57→17:59)
[2018-07-01] MEDS: DIAZEPAM 5 MG TABLET PO SCH ×2 (01:00→05:17)
[2018-07-01] MEDS: LANSOPRAZOLE 30 MG TAB.RAP.DR PO SCH (05:17)
[2018-07-01 07:32] LABS: ABSOLUTE BASOPHILS # (AUTO) 0.1 10^3/uL (0.0-0.2); ABSOLUTE EOSINOPHILS # (AUTO) 0.3 10^3/uL (0.0-0.6); ABSOLUTE LYMPHOCYTES (AUTO) 1.6 10^3/uL (0.5-4.7); ABSOLUTE MONOCYTES (AUTO) 1.3 10^3/uL (0.1-1.4); ABSOLUTE NEUT (AUTO) 3.4 10^3/uL (1.7-8.2); BASOPHILS % (AUTO) 1.4 % (0-2); EOSINOPHILS % (AUTO) 4.7 % (0-6); HEMATOCRIT 33.2 % (37.9-51.0); HEMOGLOBIN 11.4 g/dL (13.5-17.0); LYMPHOCYTES % (AUTO) 23.9 % (13-45); MEAN CORPUSCULAR HEMOGLOBIN 35.2 pg (27.0-33.4); MEAN CORPUSCULAR HGB CONC 34.3 g/dL (32.0-36.0); MEAN CORPUSCULAR VOLUME 102 fl (80-97); MONOCYTES % (AUTO) 19.5 % (3-13); PLATELET COUNT 204 10^3/uL (150-450); RED BLOOD COUNT 3.24 10^6/uL (4.35-5.55); RED CELL DISTRIBUTION WIDTH 14.4 % (11.5-14.0); SEGMENTED NEUTROPHILS % (AUTO) 50.5 % (42-78); TOTAL CELLS COUNTED % (AUTO) 100 %; WHITE BLOOD COUNT 6.8 10^3/uL (4.0-10.5)
[2018-07-01 07:49] LABS: ALANINE AMINOTRANSFERASE 34 U/L (21-72); ALKALINE PHOSPHATASE 209 U/L (38-126); ANION GAP 8 (5-19); ASPARTATE AMINO TRANSFERASE 68 U/L (17-59); BILIRUBIN,DIRECT 2.5 mg/dL (0.0-0.4); BILIRUBIN,TOTAL 3.1 mg/dL (0.2-1.3); BLOOD UREA NITROGEN 7 mg/dL (7-20); CARBON DIOXIDE 21 mmol/L (22-30); CHLORIDE 106 mmol/L (98-107); GLUCOSE 146 mg/dL (75-110); POTASSIUM 4.2 mmol/L (3.6-5.0); SODIUM 135.4 mmol/L (137-145); TOTAL PROTEIN 6.5 g/dL (6.3-8.2)
[2018-07-01] MEDS: INSULIN REG, HUMAN 100 UNIT/ML 3 ML VIAL (PYX) SUBCUT SCH ×4 (08:16→21:49)
[2018-07-01] MEDS ORDERED: DIAZEPAM 5 MG TABLET PO PRN (09:38)
--- NOTE | 2018-07-01 09:49 | PDOC PROGRESS REPORT ---
Subjective Progress Note for:: 07/01/18 Subjective:: 47 year old male who presents to the ER with a complaint of abdominal pain. the pain started 2-3 days ago. Nothing makes it better or worse. He has been drinking a pint of gin a day for the past 10+ years. The last time he quit drinking was 10 years ago and he went into withdrawal symptoms while in a treatment plan. He has been having abdominal pain with nausea since he quit drinking. the pain is sharp and located in the epigastric region. He denies any blood in his stools, constipation or diarrhea. He has had a 20 pound weight loss over the past year because he states he has not been eating well and he has been drinking a lot of alcohol. 06/26/2018-patient is still complaining of pain 4 x 10 he has one episode of nausea and vomiting he got his Phenergan and Ativan this morning as per the patient is able to take his breakfast this morning no acute events since the admission. Potassium is still 3.1 I increase his potassium to 40 mg p.o. twice a day. Patient denies any anxiety or agitation. 06/27/2018-patient is comfortably in the bed denies any complaints. Denies any nausea vomiting or diarrhea. Afebrile. No acute events in the last 24 hours. Able to tolerate his breakfast this morning. 06/28/2018-since last night patient was agitated and very aggressive to the staff tried to pull out the IV lines trying to turn the stove and the nursing staff. He was started on Thorazine last night and Valium. This morning he was also agitated and is talking out of his head. Plan is to arrange for a sitter, arrange for a psych consult, to give Geodon 10 mg IM now dose, started on Ativan 2 mg IV every 3 hours as needed. He is also receiving Valium 10 mg IV every 4 as needed. We are going to continue to watch him for DTs. During the entire episode vital signs are stable. Temperature is 99.2 pulse ox 100% on room air blood pressure is 108/67. Blood sugar is 182. May be patient is going into DTs. 06/29/2018-patient is comfortably sleeping in the bed today I discussed the plan of care with the nurse as per her patient has a quiet night last night ate his dinner last night this morning on examination is comfortably sleeping in the bed breakfast is at bedside. No acute events in the last 12 hours. Patient is afebrile. Psych consult was done recommendation is to add Cogentin 2 mg daily. 06/30/2018 no acute events in the last 24 hours. Afebrile. Patient is more alert more awake today. Had his breakfast this morning. Still confused. 07/01/2018-no acute events in the last 24 hours. Patient is afebrile. Sleeping comfortably in the bed. Psych saw him yesterday cleared him to go home. I am still concerned about his mental status I am going to arrange for a CT head without contrast and I changed his diazepam every 4 scheduled to every 4 as needed. And also stopped Thorazine from today. Reason For Visit: ALCOHOL WITHDRAWL Physical Exam Vital Signs: Temp Pulse Resp BP Pulse Ox 98.2 F 96 16 128/87 H 100 07/01/18 08:03 07/01/18 08:03 07/01/18 08:03 07/01/18 08:03 07/01/18 08:03 Intake & Output 06/30/18 07/01/18 07/02/18 06:59 06:59 06:59 Intake Total 1232 Balance 1232 Weight 72.4 kg General appearance: PRESENT: no acute distress Head exam: PRESENT: atraumatic Eye exam: PRESENT: PERRLA Neck exam: ABSENT: carotid bruit, JVD, lymphadenopathy, thyromegaly Respiratory exam: PRESENT: decreased breath sounds Pulses: PRESENT: normal dorsalis pedis pul GI/Abdominal exam: PRESENT: normal bowel sounds, soft. ABSENT: distended, guarding, mass, organolmegaly, rebound, tenderness Extremities exam: PRESENT: full ROM. ABSENT: calf tenderness, clubbing, pedal edema Neurological exam: PRESENT: alert, awake, oriented to person, oriented to place, oriented to time, oriented to situation, CN II-XII grossly intact. ABSENT: motor sensory deficit Psychiatric exam: PRESENT: appropriate affect, normal mood. ABSENT: homicidal ideation, suicidal ideation Results Laboratory Results: 07/01/18 07:16 07/01/18 07:16 06/30/18 06/30/18 07/01/18 09:07 09:07 07:16 WBC 8.2 RBC 3.41 L Hgb 11.7 L Hct 35.3 L MCV 104 H MCH 34.4 H MCHC 33.3 RDW 14.1 H Plt Count 189 Seg Neutrophils % 48.3 Lymphocytes % 24.9 Monocytes % 19.3 H Eosinophils % 6.4 H Basophils % 1.1 Absolute Neutrophils 4.0 Absolute Lymphocytes 2.1 Absolute Monocytes 1.6 H Absolute Eosinophils 0.5 Absolute Basophils 0.1 Sodium 139.9 Potassium 4.7 Chloride 105 Carbon Dioxide 26 Anion Gap 9 BUN 10 Creatinine 0.81 Est GFR ( Amer) > 60 Est GFR (Non-Af Amer) > 60 Glucose 177 H Calcium 9.0 Magnesium 1.5 L Total Bilirubin 3.7 H AST 93 H ALT 35 Alkaline Phosphatase 226 H Ammonia 11.9 Total Protein 6.9 Albumin 3.2 L 07/01/18 07/01/18 07:16 07:16 WBC 6.8 RBC 3.24 L Hgb 11.4 L Hct 33.2 L MCV 102 H MCH 35.2 H MCHC 34.3 RDW 14.4 H Plt Count 204 Seg Neutrophils % 50.5 Lymphocytes % 23.9 Monocytes % 19.5 H Eosinophils % 4.7 Basophils % 1.4 Absolute Neutrophils 3.4 Absolute Lymphocytes 1.6 Absolute Monocytes 1.3 Absolute Eosinophils 0.3 Absolute Basophils 0.1 Sodium 135.4 L Potassium 4.2 Chloride 106 Carbon Dioxide 21 L Anion Gap 8 BUN 7 Creatinine 0.70 Est GFR ( Amer) > 60 Est GFR (Non-Af Amer) > 60 Glucose 146 H Calcium 9.0 Magnesium 1.5 L Total Bilirubin 3.1 H AST 68 H ALT 34 Alkaline Phosphatase 209 H Ammonia Total Protein 6.5 Albumin 3.0 L Impressions: Abdomen/Pelvis CT 06/25/18 12:53 IMPRESSION: Fatty liver Changes from chronic pancreatitis. No acute retroperitoneal inflammatory change today. Avascular necrosis bilateral femoral heads Assessment & Plan - Diagnosis (1) Alcohol abuse Is this a current diagnosis for this admission?: Yes Plan: 06/26/2018 patient was admitted with alcohol abuse according to him he drinks every day at least 1 pint per day last drink was 3-4 days ago. Alcohol level on admission is 52. He was on Ativan 1 mg every 4 hours as needed it was increased to 1 mg every 2 hours as needed also start him on morphine 1 mg IV every 4 as needed, started on banana bag daily, we could watch for the DTs. Discussed about alcohol abuse and advised him to quit drinking. 06/27/2018-patient has history of heavy alcohol use. Admitted for abdominal pains nausea and vomitings. Alcohol level is 52 at the time of admission. We are watching for the DTs. So far no signs of or symptoms of DTs noticed. 06/28/2018-patient has history of heavy alcohol use. Looks like he may be started going into DTs from last night. Psych consult was requested. Restraints was ordered sitter was requested to give Geodon 10 mg IM 1 dose now and started on Ativan 2 mg IV 3 hours as needed, already on Valium 10 mg IV every 4 hours. Plan is to closely monitor the patient condition. He is also on Keppra 5 mg p.o. every 12 hours for history of seizures. Condition is critical today. 06/29/2018-patient has history of heavy alcohol use. As per psych recommendations to start on Cogentin. He was given 1 dose of Geodon. He also received a diazepam 100 mg IV every 4 as needed also Ativan 2 mg IV every 3 hours as needed. Plan is to continue the present management watch for DTs 06/30/2018-patient has history of heavy alcohol use presently on IV diazepam, IV morphine, Cogentin twice daily , thorazine 50 mg po q6hrs. Is also receiving lactulose. Plan is to continue the present management. 07/01/2018-patient has history of heavy alcohol use presently is on IV diazepam, Cogentin twice a day, Thorazine 50 mg every 6 hours, oxycodone on as-needed basis he is also on Ativan IV every 2 as needed as needed basis. I changed his diazepam to every 4 as needed stop his Thorazine plan to do the CT head without contrast. Patient is not safe for him to go home today. Psych led him to go home yesterday but I am going to closely monitor him at least another 24-48 hours. Aspiration fall seizure precautions requested. (2) Acute kidney injury Is this a current diagnosis for this admission?: Yes Plan: 06/26/2018-patient admission creatinine is 2.41 it was improved to 1.5 today with IV fluids he is receiving normal saline at 100 cc/h. Acute kidney injury most likely prerenal which is resolving. 06/27/2018-patient was admitted with creatinine of 2.4, it was improved to 0.99 today. Acute kidney injury most likely secondary to prerenal causes resolved. IV fluids are discontinued. 06/28/2018-patient's admission creatinine is 2.4 today it is 0.98 acute kidney injury most likely secondary to prerenal causes with IV hydration acute kidney injury is resolved. 06/29/2018 on admission creatinine is 2.4 it was improved to 0.76 acute kidney injury most likely due to prerenal causes is resolved. Patient is off the IV fluids. 06/30/2018-patient is admitted with creatinine of 2.4 and it was improved 2.76 yesterday acute kidney injury most likely secondary to prerenal causes resolved. No labs are available this morning. 07/01/2018-patient admitted with creatinine of 2.4 with IV fluids it was improved to 0.7 acute kidney injury most likely secondary to prerenal causes resolved. (3) Hypokalemia Is this a current diagnosis for this admission?: Yes Plan: 06/26/2018-patient is admitted with potassium of three-point 1 repeat potassium is 3.1 also be going to give him potassium supplementation 40 mg twice a day recheck the labs tomorrow. 06/27/2018-patient potassium level today is 3.2 still hypokalemic he is on potassium 40 mg p.o. twice a day. Plan is to recheck his labs tomorrow. 06/28/2018-potassium level today is 4.9 hypokalemia is resolved. 06/29/2018-patient was admitted with hypokalemia today's potassium is 4.4 hypokalemia most likely due to poor oral intake resolved. 06/30/2018-latest potassium is 4.4 today's labs are pending hypokalemia resolved. 07/01/2018-patient potassium today is 4.2 hypokalemia is resolved. Patient is presently on potassium 40 mg twice a day. (4) Abdominal pain Qualifiers: Abdominal location: epigastric Qualified Code(s): R10.13 - Epigastric pain Is this a current diagnosis for this admission?: Yes Plan: 06/26/2018-patient came with complaints of severe abdominal pain this morning is complaining of pain a 4 x 10 abdominal pain most likely secondary to chronic pancreatitis that was seen in the CT scan. Started on morphine 1 mg IV every 4 as needed. 06/27/2018-patient was admitted with severe abdominal pains nausea and vomitings. Most likely secondary to chronic pancreatitis with acute flareup. Abdominal pain and nausea vomiting's are resolving. 06/28/2018-patient was admitted with severe abdominal pains nausea and vomitings most likely secondary to chronic pancreatitis. 06/29/2018-patient came in with complaints of abdominal pains found to have a chronic pancreatitis no complaints of abdominal pain in the last 48 hours. 06/30/2018-patient was admitted with abdominal pain which was resolved most likely secondary to chronic pancreatitis. 07/01/2018-patient is admitted with abdominal pain nausea and vomitings most likely secondary to chronic pancreatitis those symptoms are resolved. (5) Diabetes mellitus type 2 in nonobese Is this a current diagnosis for this admission?: Yes Plan: 06/26/2018-patient has history of diabetes mellitus on metformin at home. His hemoglobin A1c is pending. Latest blood sugar is 108. Presently on insulin sliding scale plan is to continue the present management. 06/27/2018 patient blood sugar today is 117, stable on insulin sliding scale. Hemoglobin A1c is pending. 06/28/2018-patient blood sugar is 182. Hemoglobin A1c 6.1 patient is presently on insulin sliding scale plan is to continue the present management. 06/29/2018-patient latest blood sugar is 133. Hemoglobin A1c 6.1. Plan is to continue insulin sliding scale. 06/30/2018 latest blood sugar is 224 is on insulin sliding scale hemoglobin A1c 6.1 plan is to continue the present management. 07/01/2018-patient blood sugar is 146 today hemoglobin A1c 6.1 plan is to continue insulin sliding scale before meals and at bedtime. (6) Seizure disorder Is this a current diagnosis for this admission?: Yes Plan: 06/26/2018-patient has history of seizures disorder patient is presently not on any medications. Seizure disorder may be secondary to heavy alcohol use. Aspiration fall seizure precautions are requested. 06/27/2018-patient has history of seizure disorder not on any home medications. He will he was started on Keppra 500 mg p.o. twice a day no seizure activity was noted during this hospital stay. 06/28/2018-at the time of admission patient with history of seizure disorder rather most likely secondary to alcohol withdrawals. Patient is on Keppra 500 mg p.o. every 12 hours plan is to continue the present management no seizure activity was noted during this hospital stay. 06/29/2018-patient has history of seizure disorder most likely secondary to heavy alcohol use and alcohol withdrawal. No seizure activity noted during the hospital stay. He is receiving Keppra 500 mg p.o. twice daily plan is to continue the medication. 06/30/2018-patient has history of seizure disorder no seizure activity was noted during this hospital stay. 07/01/2018-patient has history of seizure disorder most likely secondary to alcohol use he is on Keppra 500 mg p.o. every 12 hours no seizure activity was noted during the hospital stay plan is to continue the present management. (7) Nausea and vomiting Qualifiers: Vomiting type: unspecified Vomiting Intractability: non-intractable Qualified Code(s): R11.2 - Nausea with vomiting, unspecified Is this a current diagnosis for this admission?: Yes Plan: 06/26/2018-patient was admitted with severe abdominal pains nausea and vomitings he had one episode of nausea and vomiting added with the Ativan and IV Phenergan. Nausea vomiting and abdominal pain most likely secondary to chronic pancreatitis flareup. 06/27/2018-patient was admitted with abdominal pains, nausea and vomitings though symptoms are resolved. 06/28/2018-patient was admitted with abdominal pain nausea and vomitings most likely secondary to chronic pancreatitis. 06/29/2018-patient came in with complaints of nausea vomiting abdominal pain is most likely secondary to acute on chronic pancreatitis the symptoms are resolved during this hospital stay. 06/30/2018-patient treated with nausea vomiting abdominal pain though symptoms are resolved. Most likely secondary to acute on chronic pancreatitis. 07/01/2018-patient admitted with history of nausea vomiting and abdominal pain though symptoms are resolved. (8) Ventricular tachycardia Is this a current diagnosis for this admission?: Yes Plan: 06/27/2018-nurse notified me this morning patient has few episodes of asymptomatic V. tach lasted for a few seconds patient was started on Tenormin 100 mg p.o. daily. No EKG abnormalities are noted on the obstetrics gyn physician this morning. Short episode of V. tach may be secondary to hypokalemia. 06/29/2018-no abnormalities are noted in the monitor in the last 24-48 hours. 07/01/2018 patient has a brief episode of ventricular tachycardia on 06/27/2018 no acute event after that plan to repeat the EKG today. (9) Altered mental status Is this a current diagnosis for this admission?: Yes Plan: 07/01/2018-for the last few days patient has altered mental status/acute encephalopathy. Psych consult was requested we are following the recommen dations. Patient is improving and less agitated now. Less aggressive to the nursing staff. We going to do the CT head without contrast today. Aspiration fall seizure precautions are requested. Ammonia level came back at 11.2. Altered mental status most likely secondary to alcohol withdrawal. - Time Time Spent with patient: 15-24 minutes Smoking Cessation Education: over 10 minutes Anticipated discharge: Home
[2018-07-01] MEDS: BENZTROPINE MESYLATE 1 MG TABLET PO SCH ×2 (10:05→17:59)
[2018-07-01] MEDS: FOLIC ACID 1 MG TABLET PO SCH (10:05)
[2018-07-01] MEDS: LEVETIRACETAM 500 MG TABLET PO SCH ×2 (10:05→21:50)
[2018-07-01] MEDS: POTASSIUM CHLORIDE 10 MEQ CAPSULE.ER PO SCH ×2 (10:05→17:59)
[2018-07-01] MEDS: MAGNESIUM SULFATE/D5W 1 GM/100 ML RTUPB IV SCH ×2 (10:05→12:51)
[2018-07-01] MEDS: ATENOLOL 50 MG TABLET PO SCH (10:05)
--- NOTE | 2018-07-01 10:49 | RADIOLOGY REPORT (SQ) ---
EXAM DESCRIPTION: CT HEAD WITHOUT COMPLETED DATE/TIME: 07/01/2018 10:30 am REASON FOR STUDY: altered mental status COMPARISON: None. TECHNIQUE: Axial images acquired through the brain without intravenous contrast. Images reviewed wi th bone, brain and subdural windows. Additional sagittal and coronal reconstructions were generated. Images stored on PACS. All CT scanners at this facility use dose modulation, iterative reconstruction, and/or weight based d osing when appropriate to reduce radiation dose to as low as reasonably achievable (ALARA). [facility]: Dose Right [facility]: CareDose [facility]: Dose Right [facility]: Teradose 4D [facility]: Smart [employer] RADIATION DOSE: CT Rad equipment meets quality standard of care and radiation dose reduction techniq ues were employed. CTDIvol: 48.6 mGy. DLP: 977 mGy-cm. LIMITATIONS: None. FINDINGS: VENTRICLES: Normal size and contour. The cisterns are patent. CEREBRUM: Old remote very small bilateral thalamic infarcts. No masses. No hemorrhage. No midline shift. No evidence for acute infarction. Bilateral basal ganglia calcifications. CEREBELLUM: No masses. No hemorrhage. No alteration of density. No evidence for acute infarction. EXTRAAXIAL SPACES: No fluid collections. No masses. ORBITS AND GLOBE: No intra- or extraconal masses. Normal contour of globe without masses. CALVARIUM: No fracture. PARANASAL SINUSES: Small right maxillary sinus osteoma. No fluid or mucosal thickening. SOFT TISSUES: No mass or hematoma. OTHER: No other significant finding. IMPRESSION: 1. No acute intracranial abnormality. 2. 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 EVIDENCE OF ACUTE STROKE: NO COMMENT: Quality ID # [id number]: Final reports with documentation of one or more dose reduction techniques (e.g., Automated exposure control, adjustment of the mA and/or kV according to patient size, use of iterative reconstruction technique) TECHNICAL DOCUMENTATION: JOB ID: [id number] [employer]- All Rights Reserved Reading location - IP/workstation name: [email or web address]
--- NOTE | 2018-07-01 13:33 | EKG REPORT ---
SEVERITY:- NORMAL ECG - SINUS RHYTHM : Confirmed by: Remigio Newsome MD 01-Jul-2018 13:33:09
[2018-07-01] MEDS: THIAMINE HCL 100 MG TABLET PO SCH (17:59)
[2018-07-02] MEDS: LACTULOSE SYRUP 20 GM/30 ML UDCUP PO SCH ×4 (02:26→17:56)
[2018-07-02] MEDS: LANSOPRAZOLE 30 MG TAB.RAP.DR PO SCH (05:28)
[2018-07-02 05:31] LABS: HEMATOCRIT 33.7 % (37.9-51.0); HEMOGLOBIN 11.4 g/dL (13.5-17.0); MEAN CORPUSCULAR HEMOGLOBIN 34.8 pg (27.0-33.4); MEAN CORPUSCULAR HGB CONC 33.9 g/dL (32.0-36.0); MEAN CORPUSCULAR VOLUME 103 fl (80-97); PLATELET COUNT 243 10^3/uL (150-450); RED BLOOD COUNT 3.28 10^6/uL (4.35-5.55); RED CELL DISTRIBUTION WIDTH 14.3 % (11.5-14.0); WHITE BLOOD COUNT 7.6 10^3/uL (4.0-10.5)
[2018-07-02 05:46] LABS: ALANINE AMINOTRANSFERASE 31 U/L (21-72); ALBUMIN 3.1 g/dL (3.5-5.0); ALKALINE PHOSPHATASE 198 U/L (38-126); ANION GAP 6 (5-19); ASPARTATE AMINO TRANSFERASE 66 U/L (17-59); BILIRUBIN,DIRECT 1.9 mg/dL (0.0-0.4); BILIRUBIN,TOTAL 2.6 mg/dL (0.2-1.3); BLOOD UREA NITROGEN 7 mg/dL (7-20); CARBON DIOXIDE 27 mmol/L (22-30); CHLORIDE 107 mmol/L (98-107); GLUCOSE 126 mg/dL (75-110); POTASSIUM 4.5 mmol/L (3.6-5.0); SODIUM 139.5 mmol/L (137-145); TOTAL PROTEIN 6.8 g/dL (6.3-8.2)
[2018-07-02 06:53] LABS: ABSOLUTE LYMPHOCYTES# (MANUAL) 2.3 10^3/uL (0.5-4.7); ABSOLUTE MONOCYTES # (MANUAL) 1.4 10^3/uL (0.1-1.4); ABSOLUTE NEUTROPHILS# (MANUAL) 3.7 10^3/uL (1.7-8.2); BAND NEUTROPHILS % (MANUAL) 1 % (3-5); BASOPHILS % (MANUAL) 1 % (0-2); EOSINOPHILS % (MANUAL) 2 % (0-6); LYMPHOCYTES % (MANUAL) 30 % (13-45); MONOCYTES % (MANUAL) 18 % (3-13); SEGMENTED NEUTROPHILS % (MAN) 48 % (42-78); TOTAL CELLS COUNTED 100
[2018-07-02 06:55] LABS: OVALOCYTES 1+; POIKILOCYTOSIS 1+; TEAR DROP CELLS SLIGHT; TOXIC GRANULATION 1+; TOXIC VACUOLATION PRESENT
[2018-07-02 06:56] LABS: PLATELET COMMENT ADEQUATE; TARGET CELLS SLIGHT
[2018-07-02] MEDS: INSULIN REG, HUMAN 100 UNIT/ML 3 ML VIAL (PYX) SUBCUT SCH ×4 (09:39→22:32)
[2018-07-02] MEDS: POTASSIUM CHLORIDE 10 MEQ CAPSULE.ER PO SCH ×2 (09:40→17:56)
[2018-07-02] MEDS: LEVETIRACETAM 500 MG TABLET PO SCH ×2 (09:47→22:32)
[2018-07-02] MEDS: ATENOLOL 50 MG TABLET PO SCH (09:48)
[2018-07-02] MEDS: FOLIC ACID 1 MG TABLET PO SCH (09:48)
[2018-07-02] MEDS: BENZTROPINE MESYLATE 1 MG TABLET PO SCH ×2 (09:48→17:56)
[2018-07-02] MEDS ORDERED: LORAZEPAM INJ 2 MG/1 ML VIAL IV PRN (11:01)
--- NOTE | 2018-07-02 11:06 | PDOC PROGRESS REPORT ---
Subjective Progress Note for:: 07/02/18 Subjective:: 47 year old male who presents to the ER with a complaint of abdominal pain. the pain started 2-3 days ago. Nothing makes it better or worse. He has been drinking a pint of gin a day for the past 10+ years. The last time he quit drinking was 10 years ago and he went into withdrawal symptoms while in a treatment plan. He has been having abdominal pain with nausea since he quit drinking. the pain is sharp and located in the epigastric region. He denies any blood in his stools, constipation or diarrhea. He has had a 20 pound weight loss over the past year because he states he has not been eating well and he has been drinking a lot of alcohol. 06/26/2018-patient is still complaining of pain 4 x 10 he has one episode of nausea and vomiting he got his Phenergan and Ativan this morning as per the patient is able to take his breakfast this morning no acute events since the admission. Potassium is still 3.1 I increase his potassium to 40 mg p.o. twice a day. Patient denies any anxiety or agitation. 06/27/2018-patient is comfortably in the bed denies any complaints. Denies any nausea vomiting or diarrhea. Afebrile. No acute events in the last 24 hours. Able to tolerate his breakfast this morning. 06/28/2018-since last night patient was agitated and very aggressive to the staff tried to pull out the IV lines trying to turn the stove and the nursing staff. He was started on Thorazine last night and Valium. This morning he was also agitated and is talking out of his head. Plan is to arrange for a sitter, arrange for a psych consult, to give Geodon 10 mg IM now dose, started on Ativan 2 mg IV every 3 hours as needed. He is also receiving Valium 10 mg IV every 4 as needed. We are going to continue to watch him for DTs. During the entire episode vital signs are stable. Temperature is 99.2 pulse ox 100% on room air blood pressure is 108/67. Blood sugar is 182. May be patient is going into DTs. 06/29/2018-patient is comfortably sleeping in the bed today I discussed the plan of care with the nurse as per her patient has a quiet night last night ate his dinner last night this morning on examination is comfortably sleeping in the bed breakfast is at bedside. No acute events in the last 12 hours. Patient is afebrile. Psych consult was done recommendation is to add Cogentin 2 mg daily. 06/30/2018 no acute events in the last 24 hours. Afebrile. Patient is more alert more awake today. Had his breakfast this morning. Still confused. 07/01/2018-no acute events in the last 24 hours. Patient is afebrile. Sleeping comfortably in the bed. Psych saw him yesterday cleared him to go home. I am still concerned about his mental status I am going to arrange for a CT head without contrast and I changed his diazepam every 4 scheduled to every 4 as needed. And also stopped Thorazine from today. 07/02/2018-no acute events in the last 24 hours. Patient is afebrile. CT head was done yesterday for altered mental status came back negative for acute changes. Patient is more alert more awake this morning. Communicating okay. Denies any problems. Reason For Visit: ALCOHOL WITHDRAWL Physical Exam Vital Signs: Temp Pulse Resp BP Pulse Ox 98.3 F 77 18 92/60 L 100 07/02/18 07:37 07/02/18 07:37 07/02/18 07:37 07/02/18 07:37 07/02/18 07:37 Intake & Output 07/01/18 07/02/18 07/03/18 06:59 06:59 06:59 Intake Total 1232 294 Output Total 400 Balance 1232 -106 Weight 72.4 kg 74.4 kg General appearance: PRESENT: no acute distress Head exam: PRESENT: atraumatic Eye exam: PRESENT: PERRLA Mouth exam: PRESENT: moist, tongue midline Neck exam: ABSENT: carotid bruit, JVD, lymphadenopathy, thyromegaly Cardiovascular exam: PRESENT: tachycardia GI/Abdominal exam: PRESENT: normal bowel sounds, soft. ABSENT: distended, gua rding, mass, organolmegaly, rebound, tenderness Extremities exam: PRESENT: full ROM. ABSENT: calf tenderness, clubbing, pedal edema Neurological exam: PRESENT: alert, awake, oriented to person, oriented to place, oriented to time, oriented to situation, CN II-XII grossly intact. ABSENT: motor sensory deficit Psychiatric exam: PRESENT: appropriate affect, normal mood. ABSENT: homicidal ideation, suicidal ideation Results Laboratory Results: 07/02/18 04:34 07/02/18 04:34 07/02/18 07/02/18 04:34 04:34 WBC 7.6 RBC 3.28 L Hgb 11.4 L Hct 33.7 L MCV 103 H MCH 34.8 H MCHC 33.9 RDW 14.3 H Plt Count 243 Seg Neutrophils % Not Reportable Lymphocytes % Not Reportable Monocytes % Not Reportable Eosinophils % Not Reportable Basophils % Not Reportable Absolute Neutrophils Not Reportable Absolute Lymphocytes Not Reportable Absolute Monocytes Not Reportable Absolute Eosinophils Not Reportable Absolute Basophils Not Reportable Sodium 139.5 Potassium 4.5 Chloride 107 Carbon Dioxide 27 Anion Gap 6 BUN 7 Creatinine 0.76 Est GFR ( Amer) > 60 Est GFR (Non-Af Amer) > 60 Glucose 126 H Calcium 9.0 Magnesium 1.8 Total Bilirubin 2.6 H AST 66 H ALT 31 Alkaline Phosphatase 198 H Total Protein 6.8 Albumin 3.1 L Impressions: Abdomen/Pelvis CT 06/25/18 12:53 IMPRESSION: Fatty liver Changes from chronic pancreatitis. No acute retroperitoneal inflammatory change today. Avascular necrosis bilateral femoral heads Head CT 07/01/18 00:00 IMPRESSION: 1. No acute intracranial abnormality. 2. 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 EVIDENCE OF ACUTE STROKE: NO Assessment & Plan - Diagnosis (1) Alcohol abuse Is this a current diagnosis for this admission?: Yes Plan: 06/26/2018 patient was admitted with alcohol abuse according to him he drinks every day at least 1 pint per day last drink was 3-4 days ago. Alcohol level on admission is 52. He was on Ativan 1 mg every 4 hours as needed it was increased to 1 mg every 2 hours as needed also start him on morphine 1 mg IV every 4 as needed, started on banana bag daily, we could watch for the DTs. Discussed about alcohol abuse and advised him to quit drinking. 06/27/2018-patient has history of heavy alcohol use. Admitted for abdominal pains nausea and vomitings. Alcohol level is 52 at the time of admission. We are watching for the DTs. So far no signs of or symptoms of DTs noticed. 06/28/2018-patient has history of heavy alcohol use. Looks like he may be started going into DTs from last night. Psych consult was requested. Restraints was ordered sitter was requested to give Geodon 10 mg IM 1 dose now and started on Ativan 2 mg IV 3 hours as needed, already on Valium 10 mg IV every 4 hours. Plan is to closely monitor the patient condition. He is also on Keppra 5 mg p.o. every 12 hours for history of seizures. Condition is critical today. 06/29/2018-patient has history of heavy alcohol use. As per psych recommendations to start on Cogentin. He was given 1 dose of Geodon. He also received a diazepam 100 mg IV every 4 as needed also Ativan 2 mg IV every 3 hours as n eeded. Plan is to continue the present management watch for DTs 06/30/2018-patient has history of heavy alcohol use presently on IV diazepam, IV morphine, Cogentin twice daily , thorazine 50 mg po q6hrs. Is also receiving lactulose. Plan is to continue the present management. 07/01/2018-patient has history of heavy alcohol use presently is on IV diazepam, Cogentin twice a day, Thorazine 50 mg every 6 hours, oxycodone on as-needed basis he is also on Ativan IV every 2 as needed as needed basis. I changed his diazepam to every 4 as needed stop his Thorazine plan to do the CT head without contrast. Patient is not safe for him to go home today. Psych cleared him to go home yesterday but I am going to closely monitor him at least another 24-48 hours. Aspiration fall seizure precautions requested. 07/02/2018-patient is presently on IV diazepam, Cogentin twice a day, oxycodone, Ativan IV 2 over as needed, Valium as needed plan is to discontinue Valium continue the therapy management. Plan is to continue to watch the patient closely. (2) Acute kidney injury Is this a current diagnosis for this admission?: Yes Plan: 06/26/2018-patient admission creatinine is 2.41 it was improved to 1.5 today with IV fluids he is receiving normal saline at 100 cc/h. Acute kidney injury most likely prerenal which is resolving. 06/27/2018-patient was admitted with creatinine of 2.4, it was improved to 0.99 today. Acute kidney injury most likely secondary to prerenal causes resolved. IV fluids are discontinued. 06/28/2018-patient's admission creatinine is 2.4 today it is 0.98 acute kidney injury most likely secondary to prerenal causes with IV hydration acute kidney injury is resolved. 06/29/2018 on admission creatinine is 2.4 it was improved to 0.76 acute kidney injury most likely due to prerenal causes is resolved. Patient is off the IV fluids. 06/30/2018-patient is admitted with creatinine of 2.4 and it was improved 2.76 yesterday acute kidney injury most likely secondary to prerenal causes resolved. No labs are available this morning. 07/01/2018-patient admitted with creatinine of 2.4 with IV fluids it was improved to 0.7 acute kidney injury most likely secondary to prerenal causes resolved. 07/02/2018-patient creatinine today 0.76 acute kidney injury most likely due to prerenal causes resolved. (3) Hypokalemia Is this a current diagnosis for this admission?: Yes Plan: 06/26/2018-patient is admitted with potassium of three-point 1 repeat potassium is 3.1 also be going to give him potassium supplementation 40 mg twice a day recheck the labs tomorrow. 06/27/2018-patient potassium level today is 3.2 still hypokalemic he is on potassium 40 mg p.o. twice a day. Plan is to recheck his labs tomorrow. 06/28/2018-potassium level today is 4.9 hypokalemia is resolved. 06/29/2018-patient was admitted with hypokalemia today's potassium is 4.4 hypokalemia most likely due to poor oral intake resolved. 06/30/2018-latest potassium is 4.4 today's labs are pending hypokalemia resolved. 07/01/2018-patient potassium today is 4.2 hypokalemia is resolved. Patient is presently on potassium 40 mg twice a day. 07/02/2018-patient potassium level is 4.5 hyperkalemia is resolved patient is on potassium supplementation. (4) Abdominal pain Qualifiers: Abdominal location: epigastric Qualified Code(s): R10.13 - Epigastric pain Is this a current diagnosis for this admission?: Yes (5) Diabetes mellitus type 2 in nonobese Is this a current diagnosis for this admission?: Yes Plan: 06/26/2018-patient has history of diabetes mellitus on metformin at home. His hemoglobin A1c is pending. Latest blood sugar is 108. Presently on insulin sliding scale plan is to continue the present management. 06/27/2018 patient blood sugar today is 117, stable on insulin sliding scale. Hemoglobin A1c is pending. 06/28/2018-patient blood sugar is 182. Hemoglobin A1c 6.1 patient is presently on insulin sliding scale plan is to continue the present management. 06/29/2018-patient latest blood sugar is 133. Hemoglobin A1c 6.1. Plan is to continue insulin sliding scale. 06/30/2018 latest blood sugar is 224 is on insulin sliding scale hemoglobin A1c 6.1 plan is to continue the present management. 07/01/2018-patient blood sugar is 146 today hemoglobin A1c 6.1 plan is to continue insulin sliding scale before meals and at bedtime. 07/02/2018-patient blood sugar is 128 today he is on insulin sliding scale blood sugars are well controlled plan is to continue the present management. (6) Seizure disorder Is this a current diagnosis for this admission?: Yes Plan: 06/26/2018-patient has history of seizures disorder patient is presently not on any medications. Seizure disorder may be secondary to heavy alcohol use. Aspiration fall seizure precautions are requested. 06/27/2018-patient has history of seizure disorder not on any home medications. He will he was started on Keppra 500 mg p.o. twice a day no seizure activity was noted during this hospital stay. 06/28/2018-at the time of admission patient with history of seizure disorder rather most likely secondary to alcohol withdrawals. Patient is on Keppra 500 mg p.o. every 12 hours plan is to continue the present management no seizure activity was noted during this hospital stay. 06/29/2018-patient has history of seizure disorder most likely secondary to heavy alcohol use and alcohol withdrawal. No seizure activity noted during the hospital stay. He is receiving Keppra 500 mg p.o. twice daily plan is to continue the medication. 06/30/2018-patient has history of seizure disorder no seizure activity was noted during this hospital stay. 07/01/2018-patient has history of seizure disorder most likely secondary to alcohol use he is on Keppra 500 mg p.o. every 12 hours no seizure activity was noted during the hospital stay plan is to continue the present management. 07/02/2018-patient has history of seizure disorder on Keppra seizure disorder most likely secondary to alcohol abuse /withdrawals no seizure activity noted during the hospital stay. (7) Nausea and vomiting Qualifiers: Vomiting type: unspecified Vomiting Intractability: non-intractable Qualified Code(s): R11.2 - Nausea with vomiting, unspecified Is this a current diagnosis for this admission?: Yes Plan: 06/26/2018-patient was admitted with severe abdominal pains nausea and vomitings he had one episode of nausea and vomiting added with the Ativan and IV Phenergan. Nausea vomiting and abdominal pain most likely secondary to chronic pancreatitis flareup. 06/27/2018-patient was admitted with abdominal pains, nausea and vomitings though symptoms are resolved. 06/28/2018-patient was admitted with abdominal pain nausea and vomitings most l ikely secondary to chronic pancreatitis. 06/29/2018-patient came in with complaints of nausea vomiting abdominal pain is most likely secondary to acute on chronic pancreatitis the symptoms are resolved during this hospital stay. 06/30/2018-patient treated with nausea vomiting abdominal pain though symptoms are resolved. Most likely secondary to acute on chronic pancreatitis. 07/01/2018-patient admitted with history of nausea vomiting and abdominal pain though symptoms are resolved. 07/02/2018-patient was admitted with abdominal pain nausea and vomitings though symptoms are resolved nausea vomiting abdominal pain most likely secondary to chronic pancreatitis. (8) Ventricular tachycardia Is this a current diagnosis for this admission?: Yes Plan: 06/27/2018-nurse notified me this morning patient has few episodes of asymptomatic V. tach lasted for a few seconds patient was started on Tenormin 100 mg p.o. daily. No EKG abnormalities are noted on the quality assurance monitor this morning. Short episode of V. tach may be secondary to hypokalemia. 06/29/2018-no abnormalities are noted in the monitor in the last 24-48 hours. 07/01/2018 patient has a brief episode of ventricular tachycardia on 06/27/2018 no acute event after that plan to repeat the EKG today. 07/02/2018-patient experienced brief episode of ventricular tachycardia 06/27/2018 follow-up EKG done yesterday is normal sinus rhythm. (9) Altered mental status Is this a current diagnosis for this admission?: Yes Plan: 07/01/2018-for the last few days patient has altered mental status/acute encephalopathy. Psych consult was requested we are following the recommendations. Patient is improving and less agitated now. Less aggressive to the nursing staff. We going to do the CT head without contrast today. Aspiration fall seizure precautions are requested. Ammonia level came back at 11.2. Altered mental status most likely secondary to alcohol withdrawal. 07/02/2018-patient has altered mental status for several days most likely secondary to DTs his mentation is much improved today. CT head was negative for acute changes. - Time Time Spent with patient: 15-24 minutes Smoking Cessation Education: over 10 minutes Anticipated discharge: Home
[2018-07-02] MEDS: THIAMINE HCL 100 MG TABLET PO SCH (17:56)
[2018-07-03] MEDS: LACTULOSE SYRUP 20 GM/30 ML UDCUP PO SCH ×4 (05:05→17:15)
[2018-07-03] MEDS: LANSOPRAZOLE 30 MG TAB.RAP.DR PO SCH (06:09)
[2018-07-03] MEDS: INSULIN REG, HUMAN 100 UNIT/ML 3 ML VIAL (PYX) SUBCUT SCH ×4 (07:29→22:15)
[2018-07-03] MEDS: FOLIC ACID 1 MG TABLET PO SCH (09:43)
[2018-07-03] MEDS: POTASSIUM CHLORIDE 10 MEQ CAPSULE.ER PO SCH ×2 (09:43→17:15)
[2018-07-03] MEDS: LEVETIRACETAM 500 MG TABLET PO SCH ×2 (09:46→22:14)
[2018-07-03] MEDS: BENZTROPINE MESYLATE 1 MG TABLET PO SCH ×2 (09:46→17:15)
[2018-07-03] MEDS: ATENOLOL 50 MG TABLET PO SCH (09:46)
[2018-07-03 13:10] LABS: HEMOGLOBIN 11.3 g/dL (13.5-17.0); MEAN CORPUSCULAR HEMOGLOBIN 34.7 pg (27.0-33.4); MEAN CORPUSCULAR HGB CONC 33.2 g/dL (32.0-36.0); MEAN CORPUSCULAR VOLUME 104 fl (80-97); PLATELET COUNT 379 10^3/uL (150-450); RED BLOOD COUNT 3.26 10^6/uL (4.35-5.55); WHITE BLOOD COUNT 9.7 10^3/uL (4.0-10.5)
[2018-07-03 13:37] LABS: ALANINE AMINOTRANSFERASE 30 U/L (21-72); ALBUMIN 3.5 g/dL (3.5-5.0); ALKALINE PHOSPHATASE 205 U/L (38-126); ANION GAP 9 (5-19); ASPARTATE AMINO TRANSFERASE 63 U/L (17-59); BILIRUBIN,DIRECT 2.1 mg/dL (0.0-0.4); BILIRUBIN,TOTAL 2.8 mg/dL (0.2-1.3); BLOOD UREA NITROGEN 11 mg/dL (7-20); CALCIUM 9.4 mg/dL (8.4-10.2); CARBON DIOXIDE 24 mmol/L (22-30); CHLORIDE 104 mmol/L (98-107); GLUCOSE 189 mg/dL (75-110); POTASSIUM 4.1 mmol/L (3.6-5.0); SODIUM 136.9 mmol/L (137-145); TOTAL PROTEIN 7.2 g/dL (6.3-8.2)
[2018-07-03] MEDS: NORMAL SALINE 1000 ML 1,000 ML IV PRN (15:45)
--- NOTE | 2018-07-03 16:05 | PDOC PROGRESS REPORT ---
Subjective Progress Note for:: 07/03/18 Subjective:: This is a 47 yr old male with a PMH of chronic alcohol abuse, history of pancreatitis and alcohol withdrawal who initially presented with abdominal pain after binge drinking. He did develop alcohol withdrawal and had episodes of agitation and was on CIWA protocol. Assumed care today. He appears more well oriented today and is AO to person, place and time. He did not require Ativan overnight. No nausea or vomiting. He says his abdominal pain has improved. Blood pressure is running low at 80/50s. Will hold atenolol. He does appear dry. Will give him some IV fluids. If he continues to improve, anticipate discharge in the next 24-48 hrs. Reason For Visit: ALCOHOL WITHDRAWL Physical Exam Vital Signs: Temp Pulse Resp BP Pulse Ox 98.3 F 92 16 88/56 L 100 07/03/18 11:22 07/03/18 11:22 07/03/18 11:22 07/03/18 15:28 07/03/18 11:22 Intake & Output 07/02/18 07/03/18 07/04/18 06:59 06:59 06:59 Intake Total 294 1110 577 Output Total 400 300 Balance -106 810 577 Weight 164 lb 0.383 oz 158 lb 4.67 oz General appearance: PRESENT: no acute distress, well-developed, well-nourished Head exam: PRESENT: atraumatic, normocephalic Eye exam: PRESENT: EOMI, PERRLA, scleral icterus Ear exam: PRESENT: normal external ear exam Mouth exam: PRESENT: moist, tongue midline Neck exam: ABSENT: carotid bruit, JVD, lymphadenopathy, thyromegaly Respiratory exam: PRESENT: clear to auscultation linda. ABSENT: rales, rhonchi, wheezes Cardiovascular exam: PRESENT: RRR. ABSENT: diastolic murmur, rubs, systolic murmur Pulses: PRESENT: normal dorsalis pedis pul GI/Abdominal exam: PRESENT: normal bowel sounds, soft. ABSENT: distended, guarding, mass, organolmegaly, rebound, tenderness Rectal exam: PRESENT: deferred Neurological exam: PRESENT: alert, awake, oriented to person, oriented to place, CN II-XII grossly intact. ABSENT: motor sensory deficit Results Laboratory Results: 07/03/18 12:57 07/03/18 12:57 07/03/18 07/03/18 12:57 12:57 WBC 9.7 RBC 3.26 L Hgb 11.3 L Hct 34.0 L MCV 104 H MCH 34.7 H MCHC 33.2 RDW 15.0 H Plt Count 379 Sodium 136.9 L Potassium 4.1 Chloride 104 Carbon Dioxide 24 Anion Gap 9 BUN 11 Creatinine 0.84 Est GFR ( Amer) > 60 Est GFR (Non-Af Amer) > 60 Glucose 189 H Calcium 9.4 Total Bilirubin 2.8 H AST 63 H ALT 30 Alkaline Phosphatase 205 H Total Protein 7.2 Albumin 3.5 Impressions: Abdomen/Pelvis CT 06/25/18 12:53 IMPRESSION: Fatty liver Changes from chronic pancreatitis. No acute retroperitoneal inflammatory change today. Avascular necrosis bilateral femoral heads Head CT 07/01/18 00:00 IMPRESSION: 1. No acute intracranial abnormality. 2. 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 EVIDENCE OF ACUTE STROKE: NO Assessment & Plan - Diagnosis (1) Alcohol withdrawal Qualifiers: Complication of substance-induced condition: with unspecified complication Qualified Code(s): F10.239 - Alcohol dependence with withdrawal, unspecified Is this a current diagnosis for this admission?: Yes Plan: Resolved. He did not require Ativan in the past 24 hrs. (2) Abdominal pain Qualifiers: Abdominal location: epigastric Qualified Code(s): R10.13 - Epigastric pain Is this a current diagnosis for this admission?: Yes Plan: Possibly form alcoholic gastritis? vs alcoholic hepatitis? Abdominal pain has resolved. His liver enzymes have been trending down. (3) Acute kidney injury Is this a current diagnosis for this admission?: Yes Plan: Resolved. (4) Hypokalemia Is this a current diagnosis for this admission?: Yes Plan: Resolved. - Time Time Spent with patient: 25-34 minutes
[2018-07-03] MEDS: THIAMINE HCL 100 MG TABLET PO SCH (17:15)
[2018-07-04] MEDS: LACTULOSE SYRUP 20 GM/30 ML UDCUP PO SCH ×3 (05:17→12:19)
[2018-07-04] MEDS ORDERED: PANTOPRAZOLE SODIUM 40 MG TABLET.DR PO SCH (06:00)
[2018-07-04] MEDS: NORMAL SALINE 1000 ML 1,000 ML IV PRN (06:31)
[2018-07-04] MEDS: INSULIN REG, HUMAN 100 UNIT/ML 3 ML VIAL (PYX) SUBCUT SCH ×2 (07:31→11:55)
[2018-07-04] MEDS: POTASSIUM CHLORIDE 10 MEQ CAPSULE.ER PO SCH (10:15)
[2018-07-04] MEDS: BENZTROPINE MESYLATE 1 MG TABLET PO SCH (10:15)
[2018-07-04] MEDS: FOLIC ACID 1 MG TABLET PO SCH (10:15)
[2018-07-04] MEDS: LEVETIRACETAM 500 MG TABLET PO SCH (10:15)
[2018-07-04 10:56] LABS: ABSOLUTE BASOPHILS # (AUTO) 0.1 10^3/uL (0.0-0.2); ABSOLUTE EOSINOPHILS # (AUTO) 0.3 10^3/uL (0.0-0.6); ABSOLUTE LYMPHOCYTES (AUTO) 1.5 10^3/uL (0.5-4.7); ABSOLUTE MONOCYTES (AUTO) 1.8 10^3/uL (0.1-1.4); ABSOLUTE NEUT (AUTO) 5.9 10^3/uL (1.7-8.2); BASOPHILS % (AUTO) 1.2 % (0-2); EOSINOPHILS % (AUTO) 2.9 % (0-6); HEMATOCRIT 31.7 % (37.9-51.0); HEMOGLOBIN 10.8 g/dL (13.5-17.0); LYMPHOCYTES % (AUTO) 15.8 % (13-45); MEAN CORPUSCULAR HEMOGLOBIN 35.3 pg (27.0-33.4); MEAN CORPUSCULAR VOLUME 104 fl (80-97); MONOCYTES % (AUTO) 18.9 % (3-13); PLATELET COUNT 364 10^3/uL (150-450); RED BLOOD COUNT 3.05 10^6/uL (4.35-5.55); RED CELL DISTRIBUTION WIDTH 14.6 % (11.5-14.0); SEGMENTED NEUTROPHILS % (AUTO) 61.2 % (42-78); TOTAL CELLS COUNTED % (AUTO) 100 %; WHITE BLOOD COUNT 9.7 10^3/uL (4.0-10.5)
[2018-07-04 11:24] LABS: ALANINE AMINOTRANSFERASE 20 U/L (21-72); ALBUMIN 2.8 g/dL (3.5-5.0); ALKALINE PHOSPHATASE 187 U/L (38-126); ANION GAP 9 (5-19); ASPARTATE AMINO TRANSFERASE 59 U/L (17-59); BILIRUBIN,DIRECT 1.8 mg/dL (0.0-0.4); BILIRUBIN,TOTAL 2.4 mg/dL (0.2-1.3); BLOOD UREA NITROGEN 8 mg/dL (7-20); CALCIUM 8.6 mg/dL (8.4-10.2); CARBON DIOXIDE 22 mmol/L (22-30); CHLORIDE 106 mmol/L (98-107); GLUCOSE 213 mg/dL (75-110); POTASSIUM 4.3 mmol/L (3.6-5.0); SODIUM 137.3 mmol/L (137-145)
[2018-07-04] MEDS ORDERED: CARVEDILOL 3.125 MG TABLET PO SCH (13:00)
[2018-07-04 14:01] VITALS: BP 122/68
--- NOTE | 2018-07-04 15:46 | PDOC DISCHARGE SUMMARY ---
General - Admit/Disc Date/PCP Admission Date/Primary Care Provider: 06/25/18 14:58 [facility] Discharge Date: 07/04/18 - Discharge Diagnosis (1) Alcohol withdrawal Is this a current diagnosis for this admission?: Yes (2) Abdominal pain Is this a current diagnosis for this admission?: Yes (3) Acute kidney injury Is this a current diagnosis for this admission?: Yes (4) Hypokalemia Is this a current diagnosis for this admission?: Yes - Additional Information Discharge Diet: As Tolerated Discharge Activity: Activity As Tolerated, Slowly Increase Activity Prescriptions: Carvedilol [Coreg 3.125 mg Tablet] 3.125 mg PO Q12 #60 tablet Home Medications: Folic Acid [Folvite 1 mg Tablet] 1 mg PO DAILY 06/25/18 Levetiracetam [Keppra 500 mg Tablet] 500 mg PO Q12 06/25/18 Metformin HCl [Metformin HCl ER] 500 mg PO BID 06/25/18 Multivitamin [Tab-A-Katlyn (Multiple Vitamin) Tablet] 1 tab PO DAILY 06/25/18 Carvedilol [Coreg 3.125 mg Tablet] 3.125 mg PO Q12 #60 tablet 07/04/18 History of Present Illness History of Present Illness: Admitting hospitalist's H&P: REJI COLEMAN is a 47 year old male who presents to the ER with a complaint of abdominal pain. the pain started 2-3 days ago. Nothing makes it better or worse. He has been drinking a pint of gin a day for the past 10+ years. The last time he quit drinking was 10 years ago and he went into withdrawal symptoms while in a treatment plan. He has been having abdominal pain with nausea since he quit drinking. the pain is sharp and located in the epigastric region. He denies any blood in his stools, constipation or diarrhea. He has had a 20 pound weight loss over the past year because he states he has not been eating well and he has been drinking a lot of alcohol. Hospital Course Hospital Course: This is a 47 yr old male with a PMH of chronic alcohol abuse, history of pancreatitis and alcohol withdrawal who initially presented with abdominal pain after binge drinking. He did develop alcohol withdrawal and had episodes of agitation which prolonged his hospital stay and was on CIWA protocol. He also had acute kidney injury which eventually resolved with hydration. He had gradual improvement. 07/03: He appears more well oriented today and is AO to person, place, situation and time. He did not require Ativan overnight. No nausea or vomiting. He says his abdominal pain has resolved. He did have a drop in his blood pressures with atenolol so this was switched to low dose Coreg. His liver enzymes did improve and AST normalized. He was evaluated by PT who recommended home PT. He was counseled in length about alcohol cessation. Psych did see him and he and his were given resources for outpatient alcohol abuse rehab programs. Both are interested in pursuing this outpatient. Physical Exam Vital Signs: Temp Pulse Resp BP Pulse Ox 98.4 F 90 16 122/68 100 07/04/18 13:58 07/04/18 13:58 07/04/18 13:58 07/04/18 13:58 07/04/18 13:58 Intake & Output 07/03/18 07/04/18 07/05/18 06:59 06:59 06:59 Intake Total 1110 2121 Output Total 300 Balance 810 2121 Weight 158 lb 4.67 oz 158 lb 11.725 oz 160 lb 11.472 oz General appearance: PRESENT: no acute distress, well-developed, well-nourished Head exam: PRESENT: atraumatic, normocephalic Eye exam: PRESENT: conjunctiva pink, EOMI, PERRLA. ABSENT: scleral icterus Ear exam: PRESENT: normal external ear exam Mouth exam: PRESENT: moist, tongue midline Neck exam: ABSENT: carotid bruit, JVD, lymphadenopathy, thyromegaly Respiratory exam: PRESENT: clear to auscultation linda. ABSENT: rales, rhonchi, wheezes Cardiovascular exam: PRESENT: RRR. ABSENT: diastolic murmur, rubs, systolic murmur Pulses: PRESENT: normal dorsalis pedis pul GI/Abdominal exam: PRESENT: normal bowel sounds, soft. ABSENT: distended, guarding, mass, organolmegaly, rebound, tenderness Rectal exam: PRESENT: deferred Neurological exam: PRESENT: alert, awake, oriented to person, oriented to place, oriented to time, oriented to situation, CN II-XII grossly intact. ABSENT: motor sensory deficit Results Laboratory Results: 07/04/18 10:23 07/04/18 10:23 07/04/18 07/04/18 10:23 10:23 WBC 9.7 RBC 3.05 L Hgb 10.8 L Hct 31.7 L MCV 104 H MCH 35.3 H MCHC 34.0 RDW 14.6 H Plt Count 364 Seg Neutrophils % 61.2 Lymphocytes % 15.8 Monocytes % 18.9 H Eosinophils % 2.9 Basophils % 1.2 Absolute Neutrophils 5.9 Absolute Lymphocytes 1.5 Absolute Monocytes 1.8 H Absolute Eosinophils 0.3 Absolute Basophils 0.1 Sodium 137.3 Potassium 4.3 Chloride 106 Carbon Dioxide 22 Anion Gap 9 BUN 8 Creatinine 0.85 Est GFR ( Amer) > 60 Est GFR (Non-Af Amer) > 60 Glucose 213 H Calcium 8.6 Total Bilirubin 2.4 H AST 59 ALT 20 L Alkaline Phosphatase 187 H Total Protein 6.0 L Albumin 2.8 L Impressions: Abdomen/Pelvis CT 06/25/18 12:53 IMPRESSION: Fatty liver Changes from chronic pancreatitis. No acute retroperitoneal inflammatory change today. Avascular necrosis bilateral femoral heads Head CT 07/01/18 00:00 IMPRESSION: 1. No acute intracranial abnormality. 2. 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 EVIDENCE OF ACUTE STROKE: NO Qualifiers - * PATIENT BEING DISCHARGED WITH ANY OF THE FOLLOWING DIAGNOSIS: No
== END 2018-07-04 14:51 | disposition home or self-care (01) | DRG 897 ==
LOC: ER 09:14 → EH 14:57 → OBSVTOIN 14:58 → 4N 18:02
PROVIDERS: ADMIT Internal Medicine; ATTEND Internal Medicine
PROC: HZ2ZZZZ Detoxification Services for Substance Abuse Treatment (ICD-10-PCS; principal; 2018-06-26)
DX: F10.239 Alcohol dependence with withdrawal, unspecified (principal); N17.9 Acute kidney failure, unspecified; I47.2 Ventricular tachycardia; G93.40 Encephalopathy, unspecified; Z78.1 Physical restraint status; K70.10 Alcoholic hepatitis without ascites; E11.9 Type 2 diabetes mellitus without complications; G40.909 Epilepsy, unspecified, not intractable, without status epilepticus; R63.4 Abnormal weight loss; Y90.2 Blood alcohol level of 40-59 mg/100 ml; K21.9 Gastro-esophageal reflux disease without esophagitis; Z79.84 Long term (current) use of oral hypoglycemic drugs; E87.6 Hypokalemia; Z81.1 Family history of alcohol abuse and dependence
CPT/HCPCS: 36415; 70450; 74176; 80053; 80307; 81001; 82140; 82962; 83036; 83690; 83735; 85025; 85027; 93005; 93010; 96361; 96374; 96375; 96376; 99285; J0780; J1815; J1885; J2060; J2270; J2405; J3230; J3360; J3475; J3480; J3486; J3490; J7030

== ENCOUNTER → 2018-07-08 | Outpatient (CLI) | payer OTHER ==
[2018-07-08 11:32] LABS: ALANINE AMINOTRANSFERASE 23 U/L (21-72); ALBUMIN 3.6 g/dL (3.5-5.0); ALKALINE PHOSPHATASE 238 U/L (38-126); ASPARTATE AMINO TRANSFERASE 54 U/L (17-59); BILIRUBIN,DIRECT 1.6 mg/dL (0.0-0.4); TOTAL PROTEIN 7.2 g/dL (6.3-8.2)
--- NOTE | 2018-07-08 12:40 | RADIOLOGY REPORT (SQ) ---
EXAM DESCRIPTION: HIPS BILATERAL COMPLETED DATE/TIME: 07/08/2018 10:42 am REASON FOR STUDY: M25.551, M25.552 BILATERAL HIP PAIN E87.6 HYPOKALEMIA M25.551 PAIN IN RIGHT HIP M25.552 PAIN IN LEFT HIP COMPARISON: None. NUMBER OF VIEWS: Two views TECHNIQUE: AP pelvis and additional frog-leg view of both hips. LIMITATIONS: None. FINDINGS: MINERALIZATION: Normal. HIPS: Bilateral subcortical fractures in the femoral heads. Avascular necrosis. PELVIS AND SACRUM: No acute fracture or dislocation. No worrisome bone lesions. PUBIS AND ISCHIUM: No acute fracture. LOWER LUMBAR SPINE: No significant findings as visualized. SOFT TISSUES: No findings. OTHER: No other significant finding. IMPRESSION: Avascular necrosis in the femoral heads. Subcortical fractures. TECHNICAL DOCUMENTATION: JOB ID: [id number] [email or web address]- All Rights Reserved Reading location - IP/workstation name: [email or web address]
== END ==
LOC: CCC 09:40
DX: D64.9 Anemia, unspecified (principal); E87.6 Hypokalemia; R79.9 Abnormal finding of blood chemistry, unspecified; M25.551 Pain in right hip; M25.552 Pain in left hip
CPT/HCPCS: 36415; 73522; 80076; 82728

== ENCOUNTER → 2018-08-14 | Outpatient (CLI) | payer OTHER ==
[2018-08-14 12:35] LABS: ABSOLUTE BASOPHILS # (AUTO) 0.1 10^3/uL (0.0-0.2); ABSOLUTE EOSINOPHILS # (AUTO) 0.4 10^3/uL (0.0-0.6); ABSOLUTE MONOCYTES (AUTO) 0.8 10^3/uL (0.1-1.4); ABSOLUTE NEUT (AUTO) 4.3 10^3/uL (1.7-8.2); BASOPHILS % (AUTO) 0.9 % (0-2); EOSINOPHILS % (AUTO) 4.8 % (0-6); HEMATOCRIT 36.1 % (37.9-51.0); HEMOGLOBIN 12.2 g/dL (13.5-17.0); LYMPHOCYTES % (AUTO) 26.3 % (13-45); MEAN CORPUSCULAR HEMOGLOBIN 33.8 pg (27.0-33.4); MEAN CORPUSCULAR HGB CONC 33.8 g/dL (32.0-36.0); MEAN CORPUSCULAR VOLUME 100 fl (80-97); MONOCYTES % (AUTO) 10.8 % (3-13); PLATELET COUNT 253 10^3/uL (150-450); RED CELL DISTRIBUTION WIDTH 14.7 % (11.5-14.0); SEGMENTED NEUTROPHILS % (AUTO) 57.2 % (42-78); TOTAL CELLS COUNTED % (AUTO) 100 %; WHITE BLOOD COUNT 7.5 10^3/uL (4.0-10.5)
[2018-08-14 13:00] LABS: ALANINE AMINOTRANSFERASE 9 U/L (21-72); ALBUMIN 3.7 g/dL (3.5-5.0); ALKALINE PHOSPHATASE 163 U/L (38-126); ANION GAP 9 (5-19); ASPARTATE AMINO TRANSFERASE 34 U/L (17-59); BILIRUBIN,DIRECT 0.7 mg/dL (0.0-0.4); BILIRUBIN,TOTAL 1.2 mg/dL (0.2-1.3); BLOOD UREA NITROGEN 5 mg/dL (7-20); CALCIUM 9.1 mg/dL (8.4-10.2); CARBON DIOXIDE 22 mmol/L (22-30); CHLORIDE 109 mmol/L (98-107); CHOLESTEROL 151.69 mg/dL (0-200); GLUCOSE 111 mg/dL (75-110); POTASSIUM 4.4 mmol/L (3.6-5.0); SODIUM 139.7 mmol/L (137-145); TOTAL PROTEIN 8.1 g/dL (6.3-8.2); TRIGLYCERIDES 67 mg/dL (<150); URIC ACID 8.6 mg/dL (3.5-8.5)
[2018-08-14 13:11] LABS: DIRECT LDL 76 mg/dL (<100)
== END ==
LOC: OD 11:12
DX: I10 Essential (primary) hypertension (principal); K70.10 Alcoholic hepatitis without ascites; E87.6 Hypokalemia
CPT/HCPCS: 36415; 80048; 80061; 80076; 83036; 84550; 85025

== ENCOUNTER → 2018-12-12 | Outpatient (CLI) | payer OTHER ==
--- NOTE | 2018-12-12 14:07 | RADIOLOGY REPORT (SQ) ---
EXAM DESCRIPTION: C SP 6 OR MORE VIEWS COMPLETED DATE/TIME: 12/12/2018 1:31 pm REASON FOR STUDY: SPRAIN OF LIGAMENTS OF CERVICAL SPINE, INITIAL ENCOUNTER S13.4XXA SPRAIN OF LIGAM ENTS OF CERVICAL SPINE, INITIAL ENCO M62.830 MUSCLE SPASM OF BACK COMPARISON: None. NUMBER OF VIEWS: Seven views. TECHNIQUE: AP, lateral, obliques, flexion, extension, and odontoid radiographic images acquired of t he cervical spine. LIMITATIONS: None. FINDINGS: MINERALIZATION: Normal. ALIGNMENT: Chronic flexion. FLEXION/EXTENSION: No instability. VERTEBRAE: Vertebral bodies of normal height. DISCS: Degenerative disc disease with disc space narrowing C4-5, C5-6, C6-7. FORAMINA: No osteophytes or foraminal narrowing. LATERAL AND POSTERIOR ELEMENTS: Facets, lateral masses, and spinous processes without significant fin dings. HARDWARE: None in the spine. SOFT TISSUES: No masses or calcifications. Lung apices clear. OTHER: No other significant finding. IMPRESSION: Chronic flexion. No instability. Diffuse degenerative disc disease. NO INSTABILITY ON FLEXION/EXTENSION. TECHNICAL DOCUMENTATION: JOB ID: [id number] [employer]- All Rights Reserved Reading location - IP/workstation name: [email or web address]
[2018-12-12 14:12] LABS: ABSOLUTE BASOPHILS # (AUTO) 0.1 10^3/uL (0.0-0.2); ABSOLUTE EOSINOPHILS # (AUTO) 0.1 10^3/uL (0.0-0.6); ABSOLUTE LYMPHOCYTES (AUTO) 1.6 10^3/uL (0.5-4.7); ABSOLUTE MONOCYTES (AUTO) 0.7 10^3/uL (0.1-1.4); ABSOLUTE NEUT (AUTO) 2.7 10^3/uL (1.7-8.2); EOSINOPHILS % (AUTO) 1.8 % (0-6); HEMATOCRIT 39.6 % (37.9-51.0); HEMOGLOBIN 13.1 g/dL (13.5-17.0); LYMPHOCYTES % (AUTO) 31.4 % (13-45); MEAN CORPUSCULAR HEMOGLOBIN 31.8 pg (27.0-33.4); MEAN CORPUSCULAR VOLUME 97 fl (80-97); MONOCYTES % (AUTO) 14.2 % (3-13); PLATELET COUNT 279 10^3/uL (150-450); RED CELL DISTRIBUTION WIDTH 16.9 % (11.5-14.0); SEGMENTED NEUTROPHILS % (AUTO) 51.6 % (42-78); TOTAL CELLS COUNTED % (AUTO) 100 %; WHITE BLOOD COUNT 5.1 10^3/uL (4.0-10.5)
[2018-12-12 14:35] LABS: ANION GAP 13 (5-19); BLOOD UREA NITROGEN 8 mg/dL (7-20); CALCIUM 9.3 mg/dL (8.4-10.2); CARBON DIOXIDE 25 mmol/L (22-30); CHLORIDE 100 mmol/L (98-107); GLUCOSE 170 mg/dL (75-110)
== END ==
LOC: CCC 12:34
DX: S13.4XXA Sprain of ligaments of cervical spine, initial encounter (principal); X58.XXXA Exposure to other specified factors, initial encounter; M62.830 Muscle spasm of back; M50.323 Other cervical disc degeneration at C6-C7 level
CPT/HCPCS: 36415; 72052; 80048; 83735; 85025

== ENCOUNTER 2019-01-02 06:01 | Emergency (ER) | payer OTHER ==
[2019-01-02] MEDS ORDERED: NORMAL SALINE 1000 ML 1,000 ML IV ONE (07:41)
[2019-01-02] MEDS ORDERED: KETOROLAC TROMETHAMINE INJ/PF 30 MG/1 ML SDV IV ONE (07:41)
[2019-01-02] MEDS ORDERED: LEVETIRACETAM 1000 MG/NACL-ISO 1,000 MG/100 ML RTUPB IV ONE (07:42)
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
[2019-01-02 10:30] VITALS: BP 125/82
--- NOTE | 2019-01-03 08:48 | EKG REPORT ---
SEVERITY:- BORDERLINE ECG - SINUS TACHYCARDIA BORDERLINE T WAVE ABNORMALITIES BORDERLINE ST ELEVATION, ANTEROLATERAL LEADS : Confirmed by: Nona Ibarra MD 03-Jan-2019 08:47:27
== END 2019-01-02 11:00 | disposition home or self-care (01) ==
LOC: ER 06:01
DX: G40.909 Epilepsy, unspecified, not intractable, without status epilepticus (principal); I10 Essential (primary) hypertension; E11.9 Type 2 diabetes mellitus without complications; G89.29 Other chronic pain; M54.2 Cervicalgia
CPT/HCPCS: J1885; J7030; J1953; 93005; 93010

== ENCOUNTER 2019-07-23 14:20 | Inpatient (IN) | payer SELFPAY ==
[2019-07-23] MEDS ORDERED: NORMAL SALINE 1000 ML 1,000 ML IV ONE (14:33)
[2019-07-23] MEDS ORDERED: ONDANSETRON HCL INJ/PF 4 MG/2 ML SDV IV ONE (14:37)
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
[2019-07-23 15:27] LABS: VENOUS BLOOD BASE EXCESS -1.2 mmol/L; VENOUS BLOOD HCO3 23.9 mmol/L (20-32); VENOUS BLOOD PCO2 41.7 mmHg (35-63); VENOUS BLOOD PH 7.38 (7.30-7.42)
[2019-07-23 15:28] LABS: ABSOLUTE BASOPHILS # (AUTO) 0.1 10^3/uL (0.0-0.2); ABSOLUTE EOSINOPHILS # (AUTO) 0.2 10^3/uL (0.0-0.6); ABSOLUTE LYMPHOCYTES (AUTO) 1.9 10^3/uL (0.5-4.7); ABSOLUTE MONOCYTES (AUTO) 0.7 10^3/uL (0.1-1.4); ABSOLUTE NEUT (AUTO) 6.7 10^3/uL (1.7-8.2); BASOPHILS % (AUTO) 1.5 % (0-2); EOSINOPHILS % (AUTO) 2.1 % (0-6); HEMATOCRIT 28.8 % (37.9-51.0); HEMOGLOBIN 10.4 g/dL (13.5-17.0); LYMPHOCYTES % (AUTO) 20.2 % (13-45); MEAN CORPUSCULAR HGB CONC 36.2 g/dL (32.0-36.0); MEAN CORPUSCULAR VOLUME 105 fl (80-97); MONOCYTES % (AUTO) 6.8 % (3-13); PLATELET COUNT 150 10^3/uL (150-450); RED BLOOD COUNT 2.75 10^6/uL (4.35-5.55); RED CELL DISTRIBUTION WIDTH 16.5 % (11.5-14.0); SEGMENTED NEUTROPHILS % (AUTO) 69.4 % (42-78); TOTAL CELLS COUNTED % (AUTO) 100 %; WHITE BLOOD COUNT 9.6 10^3/uL (4.0-10.5)
[2019-07-23 15:33] LABS: INTERNATIONAL RATION (INR) 1.75; PROTHROMBIN TIME 20.7 SEC (11.4-15.4)
[2019-07-23 15:54] LABS: ALBUMIN 3.5 g/dL (3.5-5.0); ALCOHOL 278 mg/dL (NONE DETECTED); ALKALINE PHOSPHATASE 328 U/L (38-126); ANION GAP 16 (5-19); ASPARTATE AMINO TRANSFERASE 168 U/L (17-59); BLOOD UREA NITROGEN 9 mg/dL (7-20); CALCIUM 8.3 mg/dL (8.4-10.2); CARBON DIOXIDE 23 mmol/L (22-30); CHLORIDE 98 mmol/L (98-107); GLUCOSE 131 mg/dL (75-110); POTASSIUM 3.5 mmol/L (3.6-5.0); TOTAL PROTEIN 9.1 g/dL (6.3-8.2)
[2019-07-23 16:18] LABS: BILIRUBIN,TOTAL 32.3 mg/dL (0.2-1.3)
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
[2019-07-23] MEDS ORDERED: MAG HYDROX/AL HYDROX/SIMETH SUSP 30 ML UDCUP PO PRN (18:54)
[2019-07-23] MEDS ORDERED: DOCUSATE SODIUM 100 MG CAPSULE PO PRN (18:54)
[2019-07-23] MEDS ORDERED: MAGNESIUM HYDROXIDE SUSP 30 ML UDCUP PO PRN (18:54)
[2019-07-23] MEDS ORDERED: ACETAMINOPHEN 325 MG TABLET PO PRN (18:54)
[2019-07-23] MEDS ORDERED: NORMAL SALINE 1000 ML 1,000 ML IV PRN (18:54)
[2019-07-23] MEDS ORDERED: GLUCAGON,HUMAN RECOMB 1 MG INJ IM PRN (19:02)
[2019-07-23] MEDS ORDERED: DEXTROSE 40% GEL 15 GM TUBE PO PRN ×2 (19:02)
[2019-07-23] MEDS ORDERED: DEXTROSE 50%-WATER 25 GM/50 ML DISP.SYRIN IV PRN ×2 (19:02)
[2019-07-23] MEDS ORDERED: MORPHINE SULFATE 10 MG/ML INJ IV PRN (19:06)
[2019-07-23] MEDS ORDERED: DIAZEPAM INJ 10 MG/2 ML DISP.SYRIN IV PRN (19:07)
[2019-07-23 19:25] LABS: APPEARANCE,URINE CLEAR; BILIRUBIN,URINE MODERATE (NEGATIVE); COLOR,URINE AMBER; GLUCOSE, URINE NEGATIVE (NEGATIVE); KETONES,URINE NEGATIVE (NEGATIVE); LEUKOCYTE ESTERASE,URINE NEGATIVE (NEGATIVE); NITRITE,URINE NEGATIVE (NEGATIVE); PROTEIN,URINE NEGATIVE (NEGATIVE); URINE SPECIFIC GRAVITY 1.008
[2019-07-23] MEDS ORDERED: POTASSI CL 20 MEQ/50 ML RIDER 20 MEQ/50 ML RTUPB IV ONE (19:45)
--- NOTE | 2019-07-23 19:54 | RADIOLOGY REPORT (SQ) ---
EXAM DESCRIPTION: CT ABD/PELVIS NO ORAL OR IV IMAGES COMPLETED DATE/TIME: 07/23/2019 4:00 pm REASON FOR STUDY: diffuse abd pain/jaundice COMPARISON: 06/25/2018 TECHNIQUE: CT scan of the abdomen and pelvis performed without intravenous or oral contrast. Images reviewed with lung, soft tissue, and bone windows. Reconstructed coronal and sagittal MPR images revi ewed. All images stored on PACS. All CT scanners at this facility use dose modulation, iterative reconstruction, and/or weight based d osing when appropriate to reduce radiation dose to as low as reasonably achievable (ALARA). [facility]: Dose Right [facility]: CareDose [facility]: Dose Right [facility]: Teradose 4D [facility]: Smart Pikhub RADIATION DOSE: CT Rad equipment meets quality standard of care and radiation dose reduction techniq ues were employed. CTDIvol: 5.1 mGy. DLP: 296 mGy-cm.mGy. LIMITATIONS: None. FINDINGS: LOWER CHEST: No significant findings. No nodules or infiltrates. NON-CONTRASTED LIVER, SPLEEN, ADRENALS: Evaluation limited by lack of IV contrast. Severe hepatic st eatosis. Identified significant masses. PANCREAS: Sequelae of chronic pancreatitis with parenchymal atrophy and calcifications. GALLBLADDER: Cholelithiasis. No wall thickening or gallbladder distention. RIGHT KIDNEY AND URETER: No suspicious masses. Assessment limited by lack of IV contrast. No signif icant calcifications. No hydronephrosis or hydroureter. LEFT KIDNEY AND URETER: No suspicious masses. Assessment limited by lack of IV contrast. No signifi cant calcifications. No hydronephrosis or hydroureter. AORTA AND RETROPERITONEUM: No aneurysm. No retroperitoneal masses or adenopathy. BOWEL AND PERITONEAL CAVITY: Mild wall thickening of the ascending and transverse colon. No evidence of intestinal obstruction. No focal wall thickening. New moderate volume ascites. APPENDIX: Normal. PELVIS, BLADDER, AND ABDOMINAL WALL:Mildly distended urinary bladder. BONES: Avascular necrosis of the bilateral femoral heads. OTHER: No other significant finding. IMPRESSION: 1. Severe hepatic steatosis with new mild to moderate volume ascites suggestive of wors ening liver dysfunction. 2. Colonic wall thickening involving the ascending and transverse colon, possibly secondary to colit is or elevated portal pressures. 3. Changes from chronic pancreatitis. COMMENT: Quality ID # [id number]: Final reports with documentation of one or more dose reduction techniques (e.g., Automated exposure control, adjustment of the mA and/or kV according to patient size, use of iterative reconstruction technique) TECHNICAL DOCUMENTATION: JOB ID: [id number] 2010 [employer]- All Rights Reserved Reading location - IP/workstation name: [email or web address]
[2019-07-23 20:05] LABS: URINE AMPHETAMINES SCREEN NEGATIVE; URINE BARBITURATES SCREEN NEGATIVE; URINE BENZODIAZEPINES SCREEN NEGATIVE; URINE COCAINE SCREEN NEGATIVE; URINE MARIJUANA (THC) SCREEN NEGATIVE; URINE METHADONE SCREEN NEGATIVE; URINE PHENCYCLIDINE SCREEN NEGATIVE
[2019-07-23] MEDS ORDERED: NORMAL SALINE 1000 ML 1,000 ML with POTASSIUM CHLORIDE 20 MEQ, MAGNESIUM SULFATE 8 MEQ,... IV SCH ×5 (22:00)
[2019-07-23] MEDS: SPIRONOLACTONE 25 MG TABLET PO SCH (22:09)
[2019-07-23] MEDS: LEVETIRACETAM 500 MG TABLET PO SCH (22:09)
[2019-07-24] MEDS: INSULIN REG, HUMAN 100 UNIT/ML 3 ML VIAL (PYX) SUBCUT SCH ×4 (00:23→18:27)
[2019-07-24 06:34] LABS: ABSOLUTE BASOPHILS # (AUTO) 0.1 10^3/uL (0.0-0.2); ABSOLUTE EOSINOPHILS # (AUTO) 0.3 10^3/uL (0.0-0.6); ABSOLUTE LYMPHOCYTES (AUTO) 1.7 10^3/uL (0.5-4.7); ABSOLUTE MONOCYTES (AUTO) 1.2 10^3/uL (0.1-1.4); ABSOLUTE NEUT (AUTO) 7.7 10^3/uL (1.7-8.2); BASOPHILS % (AUTO) 1.2 % (0-2); EOSINOPHILS % (AUTO) 2.4 % (0-6); HEMATOCRIT 25.5 % (37.9-51.0); HEMOGLOBIN 9.1 g/dL (13.5-17.0); LYMPHOCYTES % (AUTO) 15.8 % (13-45); MEAN CORPUSCULAR HEMOGLOBIN 37.7 pg (27.0-33.4); MEAN CORPUSCULAR HGB CONC 35.6 g/dL (32.0-36.0); MEAN CORPUSCULAR VOLUME 106 fl (80-97); MONOCYTES % (AUTO) 10.6 % (3-13); RED BLOOD COUNT 2.41 10^6/uL (4.35-5.55); RED CELL DISTRIBUTION WIDTH 16.1 % (11.5-14.0); TOTAL CELLS COUNTED % (AUTO) 100 %
[2019-07-24 06:38] LABS: INTERNATIONAL RATION (INR) 1.98; PROTHROMBIN TIME 22.8 SEC (11.4-15.4)
[2019-07-24 06:51] LABS: ALBUMIN 2.8 g/dL (3.5-5.0); ALKALINE PHOSPHATASE 264 U/L (38-126); ANION GAP 13 (5-19); ASPARTATE AMINO TRANSFERASE 132 U/L (17-59); BLOOD UREA NITROGEN 9 mg/dL (7-20); CALCIUM 7.4 mg/dL (8.4-10.2); CARBON DIOXIDE 21 mmol/L (22-30); CHLORIDE 104 mmol/L (98-107); CHOLESTEROL 100.71 mg/dL (0-200); GLUCOSE 86 mg/dL (75-110); TOTAL PROTEIN 7.8 g/dL (6.3-8.2); TRIGLYCERIDES 155 mg/dL (<150)
[2019-07-24 07:02] LABS: DIRECT LDL 44 mg/dL (<100)
[2019-07-24 07:08] LABS: PLATELET COUNT 79 10^3/uL (150-450)
[2019-07-24 07:09] LABS: BILIRUBIN,DIRECT 25.7 mg/dL (0.0-0.4); BILIRUBIN,TOTAL 29.3 mg/dL (0.2-1.3)
[2019-07-24 07:18] LABS: POTASSIUM 2.7 mmol/L (3.6-5.0)
[2019-07-24] MEDS: POTASSIUM CHLORIDE 20 MEQ/50 ML RTU IV SCH ×3 (08:55→14:35)
--- NOTE | 2019-07-24 09:28 | EKG REPORT ---
SEVERITY:- BORDERLINE ECG - SINUS RHYTHM BORDERLINE T WAVE ABNORMALITIES BORDERLINE PROLONGED QT INTERVAL : Confirmed by: Deepa Vergara 24-Jul-2019 09:27:00
[2019-07-24] MEDS: SPIRONOLACTONE 25 MG TABLET PO SCH ×2 (11:15→22:00)
[2019-07-24] MEDS: PANTOPRAZOLE SODIUM 40 MG VIAL IV SCH (11:15)
[2019-07-24] MEDS: LEVETIRACETAM 500 MG TABLET PO SCH ×2 (11:15→22:00)
--- NOTE | 2019-07-24 11:27 | PDOC PROGRESS REPORT ---
Subjective Progress Note for:: 07/24/19 Subjective:: The patient's serum potassium is very low today. His ammonia level is greater than 120 and he is surprisingly coherent for that ammonia level. He does state that he feels somewhat better today. His lipase was normal and so there is no pancreatitis. Reason For Visit: ALCOHOL ABUSE INTOXICATION,ACUTE LIVER FAILURE Physical Exam Vital Signs: Temp Pulse Resp BP Pulse Ox 97.6 F 107 H 18 115/72 100 07/24/19 08:19 07/24/19 08:19 07/24/19 08:19 07/24/19 08:19 07/24/19 08:19 Intake & Output 07/23/19 07/24/19 07/25/19 06:59 06:59 06:59 Intake Total 1050 Output Total 100 Balance 950 Weight 68.5 kg General appearance: PRESENT: no acute distress, cooperative, well-developed Head exam: PRESENT: atraumatic, normocephalic Eye exam: PRESENT: scleral icterus Ear exam: PRESENT: normal external ear exam. ABSENT: bleeding, drainage Mouth exam: PRESENT: dry mucosa, tongue midline Respiratory exam: PRESENT: clear to auscultation linda, symmetrical, unlabored. ABSENT: rales, rhonchi, tachypnea, wheezes Cardiovascular exam: PRESENT: RRR, +S1, +S2 GI/Abdominal exam: PRESENT: ascites, distended, soft, tenderness Rectal exam: PRESENT: deferred Neurological exam: PRESENT: alert, awake, oriented to person, oriented to place, oriented to situation, CN II-XII grossly intact Psychiatric exam: PRESENT: flat affect. ABSENT: agitated, anxious Results Laboratory Results: 07/24/19 06:12 07/24/19 06:12 07/23/19 07/23/19 07/23/19 15:10 15:10 15:10 WBC 9.6 RBC 2.75 L Hgb 10.4 L Hct 28.8 L MCV 105 H MCH 38.0 H MCHC 36.2 H RDW 16.5 H Plt Count 150 Seg Neutrophils % 69.4 VBG pH 7.38 VBG pCO2 41.7 VBG HCO3 23.9 VBG Base Excess -1.2 Sodium 136.8 L Potassium 3.5 L Chloride 98 Carbon Dioxide 23 Anion Gap 16 BUN 9 Creatinine 1.06 Est GFR ( Amer) > 60 Glucose 131 H Calcium 8.3 L Magnesium 2.0 Total Bilirubin 32.3 H GGT AST 168 H Alkaline Phosphatase 328 H Ammonia Total Protein 9.1 H Albumin 3.5 Triglycerides Cholesterol LDL Cholesterol Direct VLDL Cholesterol HDL Cholesterol Lipase Urine Color Urine Appearance Urine pH Ur Specific Vest Urine Protein Urine Glucose (UA) Urine Ketones Urine Blood Urine Nitrite Ur Leukocyte Esterase Urine WBC (Auto) Urine RBC (Auto) 07/23/19 07/23/19 07/24/19 15:10 18:53 06:12 WBC RBC Hgb Hct MCV MCH MCHC RDW Plt Count Seg Neutrophils % VBG pH VBG pCO2 VBG HCO3 VBG Base Excess Sodium 137.8 Potassium 2.7 L* Chloride 104 Carbon Dioxide 21 L Anion Gap 13 BUN 9 Creatinine 1.07 Est GFR ( Amer) > 60 Glucose 86 Calcium 7.4 L Magnesium 2.0 Total Bilirubin 29.3 H D GGT 482 H AST 132 H Alkaline Phosphatase 264 H Ammonia Total Protein 7.8 Albumin 2.8 L Triglycerides 155 H Cholesterol 100.71 LDL Cholesterol Direct 44 VLDL Cholesterol 31.0 HDL Cholesterol 12 L Lipase 133.0 155.9 Urine Color PHOEBE Urine Appearance CLEAR Urine pH 7.0 Ur Specific Vest 1.008 Urine Protein NEGATIVE Urine Glucose (UA) NEGATIVE Urine Ketones NEGATIVE Urine Blood NEGATIVE Urine Nitrite NEGATIVE Ur Leukocyte Esterase NEGATIVE Urine WBC (Auto) 1 Urine RBC (Auto) 0 07/24/19 07/24/19 06:12 06:12 WBC 11.0 H RBC 2.41 L Hgb 9.1 L Hct 25.5 L MCV 106 H MCH 37.7 H MCHC 35.6 RDW 16.1 H Plt Count 79 L Seg Neutrophils % 70.0 VBG pH VBG pCO2 VBG HCO3 VBG Base Excess Sodium Potassium Chloride Carbon Dioxide Anion Gap BUN Creatinine Est GFR ( Amer) Glucose Calcium Magnesium Total Bilirubin GGT AST Alkaline Phosphatase Ammonia 127.2 H Total Protein Albumin Triglycerides Cholesterol LDL Cholesterol Direct VLDL Cholesterol HDL Cholesterol Lipase Urine Color Urine Appearance Urine pH Ur Specific Vest Urine Protein Urine Glucose (UA) Urine Ketones Urine Blood Urine Nitrite Ur Leukocyte Esterase Urine WBC (Auto) Urine RBC (Auto) Impressions: Abdomen/Pelvis CT 07/23/19 15:01 IMPRESSION: 1. Severe hepatic steatosis with new mild to moderate volume ascites suggestive of worsening liver dysfunction. 2. Colonic wall thickening involving the ascending and transverse colon, possibly secondary to colitis or elevated portal pressures. 3. Changes from chronic pancreatitis. Assessment and Plan - Diagnosis (1) Alcohol dependence with acute alcoholic intoxication Qualifiers: Complication of substance-induced condition: uncomplicated Qualified Code(s): F10.220 - Alcohol dependence with intoxication, uncomplicated Is this a current diagnosis for this admission?: Yes Plan: July 23, 2019 Likelihood of withdrawal. IV fluids and supportive care with benzodiazepines. 07/24/2019 No evidence of withdrawal yet. Medications in place. He may need scheduled as well as as needed medications. Will monitor closely. (2) Nausea and vomiting Qualifiers: Vomiting type: unspecified Vomiting Intractability: non-intractable Qualified Code(s): R11.2 - Nausea with vomiting, unspecified Is this a current diagnosis for this admission?: Yes Plan: July 23, 2019 Patient reports nausea and vomiting is improved. He will be n.p.o. for suspected pancreatitis. Antiemetics will be available as needed. 07/24/2019 There is no nausea or vomiting. Because there is no pancreatitis I will start the patient on full liquid diet and advance as tolerated. (3) Liver failure, acute Qualifiers: Hepatic coma status: without hepatic coma Qualified Code(s): K72.00 - Acute and subacute hepatic failure without coma Is this a current diagnosis for this admission?: Yes Plan: July 23, 2019 Abnormal enzymes as well as markedly increased bilirubin. GGT is pending. Normal albumin with increased globulins. Start Aldactone and monitor intake and output. 07/24/2019 Bilirubin is slightly improved. GGT is elevated. The patient has a markedly increased ammonia level. Continue current treatment plan. Lactulose added for elevated ammonia level. (4) Abdominal pain Qualifiers: Abdominal location: epigastric Qualified Code(s): R10.13 - Epigastric pain Is this a current diagnosis for this admission?: Yes Plan: July 23, 2019 Likely secondary to pancreatitis. Lipase is pending. Patient with ascites as well. As needed analgesics. 07/24/2019 Lipase is normal. No pancreatitis present. Pain is from ascites and alcoholic hepatitis. (5) Hypokalemia Is this a current diagnosis for this admission?: Yes Plan: July 23, 2019 Replete potassium by IV. Monitor serum chemistries. 07/24/2019 Marked decrease in serum potassium. IV potassium ordered. Will recheck potassium in the morning as well as initiate oral potassium therapy. Because he is starting on lactulose for his ammonia level we will likely have to supplement potassium more aggressively. (6) Ascites due to alcoholic hepatitis Is this a current diagnosis for this admission?: Yes Plan: 07/23/2019 Start Aldactone. Monitor intake and output. 07/24/2019 Continue Aldactone (7) Hepatic encephalopathy Is this a current diagnosis for this admission?: Yes Plan: 07/24/2019 As noted above serum ammonia level was 127.2. I have initiated lactulose therapy. The patient was surprisingly coherent for that high a level of ammonia. This is likely been building slowly over a very long time. We will ne ed to watch his electrolytes with the lactulose on board. - Time Time Spent with patient: 15-24 minutes Medications reviewed and adjusted accordingly: Yes Anticipated discharge: Home
[2019-07-24] MEDS: LACTULOSE SYRUP 20 GM/30 ML UDCUP PO SCH (17:50)
[2019-07-24] MEDS: POTASSI CL 40 MEQ/NS 1L 1,000 ML IV PRN (17:51)
[2019-07-24 17:54] LABS: ANION GAP 15 (5-19); BLOOD UREA NITROGEN 10 mg/dL (7-20); CALCIUM 7.3 mg/dL (8.4-10.2); CARBON DIOXIDE 16 mmol/L (22-30); CHLORIDE 107 mmol/L (98-107); GLUCOSE 89 mg/dL (75-110)
[2019-07-25] MEDS: INSULIN REG, HUMAN 100 UNIT/ML 3 ML VIAL (PYX) SUBCUT SCH ×4 (00:55→17:43)
[2019-07-25] MEDS: POTASSI CL 40 MEQ/NS 1L 1,000 ML IV PRN (05:01)
[2019-07-25 05:37] LABS: HEPATITS B SURFACE ANTIGEN Negative (Negative)
[2019-07-25 07:02] LABS: HEPATITIS C VIRUS ANTIBODY 0.1 s/co ratio (0.0-0.9)
[2019-07-25 07:03] LABS: ALKALINE PHOSPHATASE 267 U/L (38-126); ANION GAP 19 (5-19); ASPARTATE AMINO TRANSFERASE 109 U/L (17-59); BLOOD UREA NITROGEN 9 mg/dL (7-20); CALCIUM 7.7 mg/dL (8.4-10.2); CARBON DIOXIDE 12 mmol/L (22-30); CHLORIDE 110 mmol/L (98-107); GLUCOSE 88 mg/dL (75-110); POTASSIUM 3.9 mmol/L (3.6-5.0); TOTAL PROTEIN 7.9 g/dL (6.3-8.2)
[2019-07-25 07:22] LABS: BILIRUBIN,DIRECT 26.6 mg/dL (0.0-0.4); BILIRUBIN,TOTAL 30.3 mg/dL (0.2-1.3)
[2019-07-25 07:53] LABS: HEMATOCRIT 24.4 % (37.9-51.0); HEMOGLOBIN 8.8 g/dL (13.5-17.0); MEAN CORPUSCULAR HEMOGLOBIN 38.2 pg (27.0-33.4); MEAN CORPUSCULAR VOLUME 106 fl (80-97); RED BLOOD COUNT 2.29 10^6/uL (4.35-5.55); RED CELL DISTRIBUTION WIDTH 16.7 % (11.5-14.0); WHITE BLOOD COUNT 12.8 10^3/uL (4.0-10.5)
[2019-07-25 08:21] LABS: PLATELET COUNT 81 10^3/uL (150-450)
[2019-07-25] MEDS: SPIRONOLACTONE 25 MG TABLET PO SCH ×2 (09:30→22:03)
[2019-07-25] MEDS: FOLIC ACID 1 MG TABLET PO SCH (09:30)
[2019-07-25] MEDS: LACTULOSE SYRUP 20 GM/30 ML UDCUP PO SCH ×2 (09:30→17:43)
[2019-07-25] MEDS: PANTOPRAZOLE SODIUM 40 MG VIAL IV SCH (09:30)
[2019-07-25] MEDS: LEVETIRACETAM 500 MG TABLET PO SCH ×2 (09:30→22:03)
[2019-07-25] MEDS: THIAMINE HCL 100 MG TABLET PO SCH (09:31)
--- NOTE | 2019-07-25 10:22 | PDOC PROGRESS REPORT ---
Subjective Progress Note for:: 07/25/19 Subjective:: The patient has limited verbal response. This is likely due to hepatic encephalopathy. P.o. intake has been poor. Reason For Visit: ALCOHOL ABUSE INTOXICATION,ACUTE LIVER FAILURE Physical Exam Vital Signs: Temp Pulse Resp BP Pulse Ox 98.7 F 117 H 20 126/89 H 97 07/25/19 07:32 07/25/19 07:32 07/25/19 07:32 07/25/19 07:32 07/25/19 07:32 Intake & Output 07/24/19 07/25/19 07/26/19 06:59 06:59 06:59 Intake Total 1050 1100 Output Total 100 200 Balance 950 900 Weight 68.5 kg 68.4 kg General appearance: PRESENT: well-developed. ABSENT: cooperative - Due to altered mental status Head exam: PRESENT: atraumatic, normocephalic Eye exam: PRESENT: scleral icterus Ear exam: PRESENT: normal external ear exam. ABSENT: bleeding, drainage Respiratory exam: PRESENT: clear to auscultation linda - Anteriorly, symmetrical, unlabored. ABSENT: rales, rhonchi, tachypnea, wheezes Cardiovascular exam: PRESENT: +S1, +S2, tachycardia GI/Abdominal exam: PRESENT: diminished bowel sounds, distended, soft, other - Surprisingly not tender in the right upper quadrant.. ABSENT: guarding Rectal exam: PRESENT: deferred Neurological exam: ABSENT: awake - Briefly interacted verbally Psychiatric exam: ABSENT: agitated, anxious Results Laboratory Results: 07/25/19 05:55 07/25/19 05:55 07/24/19 07/25/19 07/25/19 17:21 05:55 05:55 WBC 12.8 H RBC 2.29 L Hgb 8.8 L Hct 24.4 L MCV 106 H MCH 38.2 H MCHC 36.0 RDW 16.7 H Plt Count 81 L Sodium 137.9 140.7 Potassium 4.0 D 3.9 Chloride 107 110 H Carbon Dioxide 16 L 12 L Anion Gap 15 19 BUN 10 9 Creatinine 0.88 1.01 Est GFR ( Amer) > 60 > 60 Glucose 89 88 Calcium 7.3 L 7.7 L Magnesium 1.8 1.6 Total Bilirubin 30.3 H AST 109 H Alkaline Phosphatase 267 H Total Protein 7.9 Albumin 3.0 L Impressions: Abdomen/Pelvis CT 07/23/19 15:01 IMPRESSION: 1. Severe hepatic steatosis with new mild to moderate volume ascites suggestive of worsening liver dysfunction. 2. Colonic wall thickening involving the ascending and transverse colon, possibly secondary to colitis or elevated portal pressures. 3. Changes from chronic pancreatitis. Assessment and Plan - Diagnosis (1) Alcohol dependence with acute alcoholic intoxication Qualifiers: Complication of substance-induced condition: uncomplicated Qualified Code(s): F10.220 - Alcohol dependence with intoxication, uncomplicated Is this a current diagnosis for this admission?: Yes Plan: July 23, 2019 Likelihood of withdrawal. IV fluids and supportive care with benzodiazepines. 07/24/2019 No evidence of withdrawal yet. Medications in place. He may need scheduled as well as as needed medications. Will monitor closely. July 25, 2019 The patient is still encephalopathic. He responds intermittently. He did take a dose of lactulose this morning. No evidence of significant withdrawal yet. (2) Nausea and vomiting Qualifiers: Vomiting type: unspecified Vomiting Intractability: non-intractable Qualified Code(s): R11.2 - Nausea with vomiting, unspecified Is this a current diagnosis for this admission?: Yes Plan: July 23, 2019 Patient reports nausea and vomiting is improved. He will be n.p.o. for suspected pancreatitis. Antiemetics will be available as needed. 07/24/2019 There is no nausea or vomiting. Because there is no pancreatitis I will start the patient on full liquid diet and advance as tolerated. July 25, 2019 Resolved. Currently asymptomatic. (3) Liver failure, acute Qualifiers: Hepatic coma status: without hepatic coma Qualified Code(s): K72.00 - Acute and subacute hepatic failure without coma Is this a current diagnosis for this admission?: Yes Plan: July 23, 2019 Abnormal enzymes as well as markedly increased bilirubin. GGT is pending. Normal albumin with increased globulins. Start Aldactone and monitor intake and output. 07/24/2019 Bilirubin is slightly improved. GGT is elevated. The patient has a markedly increased ammonia level. Continue current treatment plan. Lactulose added for elevated ammonia level. July 25, 2019 Unfortunately bilirubin is slightly higher again today. I will start glucocorticoid therapy. (4) Abdominal pain Qualifiers: Abdominal location: epigastric Qualified Code(s): R10.13 - Epigastric pain Is this a current diagnosis for this admission?: Yes Plan: July 23, 2019 Likely secondary to pancreatitis. Lipase is pending. Patient with ascites as well. As needed analgesics. 07/24/2019 Lipase is normal. No pancreatitis present. Pain is from ascites and alcoholic hepatitis. July 25, 2019 No complaints of pain. Patient does not react with palpation. It is possible that he is asymptomatic because of his hepatic encephalopathy. (5) Hypokalemia Is this a current diagnosis for this admission?: Yes Plan: July 23, 2019 Replete potassium by IV. Monitor serum chemistries. 07/24/2019 Marked decrease in serum potassium. IV potassium ordered. Will recheck p otassium in the morning as well as initiate oral potassium therapy. Because he is starting on lactulose for his ammonia level we will likely have to supplement potassium more aggressively. July 25, 2019 Potassium is normal today. He has IV fluid with potassium. If we start tube feedings or if his diet increases then we will change to oral administration. (6) Ascites due to alcoholic hepatitis Is this a current diagnosis for this admission?: Yes Plan: 07/23/2019 Start Aldactone. Monitor intake and output. 07/24/2019 Continue Aldactone July 25, 2019 Currently on Aldactone. Will need to monitor the abdomen as he is getting IV fluid. Consider paracentesis for diagnostic and therapeutic reasons. (7) Hepatic encephalopathy Is this a current diagnosis for this admission?: Yes Plan: 07/24/2019 As noted above serum ammonia level was 127.2. I have initiated lactulose therapy. The patient was surprisingly coherent for that high a level of ammonia. This is likely been building slowly over a very long time. We will need to watch his electrolytes with the lactulose on board. July 25, 2019 Lactulose therapy just started. Recheck ammonia level tomorrow. (8) Nutrition deficiency due to insufficient food Is this a current diagnosis for this admission?: Yes Plan: July 25, 2019 I have consulted the registered dietitian. Because of the patient's poor intake and potential for inadequate food intake we will consider tube feedings. I will give the patient 1 more day before making a final decision. - Time Time Spent with patient: 15-24 minutes Medications reviewed and adjusted accordingly: Yes
[2019-07-25] MEDS: METHYLPREDNISOLONE INJ 40 MG/1 ML SDV IV SCH (11:02)
[2019-07-26] MEDS: INSULIN REG, HUMAN 100 UNIT/ML 3 ML VIAL (PYX) SUBCUT SCH ×4 (04:46→19:10)
[2019-07-26] MEDS: POTASSI CL 40 MEQ/NS 1L 1,000 ML IV PRN ×2 (05:05→19:11)
[2019-07-26 05:12] LABS: ABSOLUTE BASOPHILS # (AUTO) 0.1 10^3/uL (0.0-0.2); ABSOLUTE LYMPHOCYTES (AUTO) 1.3 10^3/uL (0.5-4.7); ABSOLUTE MONOCYTES (AUTO) 1.4 10^3/uL (0.1-1.4); ABSOLUTE NEUT (AUTO) 12.9 10^3/uL (1.7-8.2); BASOPHILS % (AUTO) 0.7 % (0-2); HEMATOCRIT 25.5 % (37.9-51.0); LYMPHOCYTES % (AUTO) 8.2 % (13-45); MEAN CORPUSCULAR HGB CONC 35.1 g/dL (32.0-36.0); MEAN CORPUSCULAR VOLUME 108 fl (80-97); MONOCYTES % (AUTO) 9.2 % (3-13); RED BLOOD COUNT 2.36 10^6/uL (4.35-5.55); RED CELL DISTRIBUTION WIDTH 17.3 % (11.5-14.0); SEGMENTED NEUTROPHILS % (AUTO) 81.9 % (42-78); TOTAL CELLS COUNTED % (AUTO) 100 %; WHITE BLOOD COUNT 15.7 10^3/uL (4.0-10.5)
[2019-07-26 05:29] LABS: ALBUMIN 2.8 g/dL (3.5-5.0); ALKALINE PHOSPHATASE 242 U/L (38-126); ANION GAP 13 (5-19); ASPARTATE AMINO TRANSFERASE 74 U/L (17-59); BILIRUBIN,DIRECT 22.6 mg/dL (0.0-0.4); BILIRUBIN,TOTAL 26.9 mg/dL (0.2-1.3); BLOOD UREA NITROGEN 10 mg/dL (7-20); CALCIUM 8.2 mg/dL (8.4-10.2); CARBON DIOXIDE 13 mmol/L (22-30); CHLORIDE 117 mmol/L (98-107); GLUCOSE 200 mg/dL (75-110); POTASSIUM 4.3 mmol/L (3.6-5.0)
[2019-07-26 05:31] LABS: PLATELET COUNT 79 10^3/uL (150-450)
[2019-07-26] MEDS: PANTOPRAZOLE SODIUM 40 MG VIAL IV SCH (11:52)
[2019-07-26] MEDS: METHYLPREDNISOLONE INJ 40 MG/1 ML SDV IV SCH (11:52)
[2019-07-26] MEDS: SPIRONOLACTONE 25 MG TABLET PO SCH ×2 (11:54→23:29)
[2019-07-26] MEDS: LACTULOSE SYRUP 20 GM/30 ML UDCUP PO SCH ×2 (11:58→19:11)
[2019-07-26] MEDS: FOLIC ACID 1 MG TABLET PO SCH (12:01)
[2019-07-26] MEDS: LEVETIRACETAM 500 MG TABLET PO SCH ×2 (12:04→23:29)
[2019-07-26] MEDS: THIAMINE HCL 100 MG TABLET PO SCH (12:11)
[2019-07-26] MEDS ORDERED: LACTULOSE SYRUP 20 GM/30 ML UDCUP PR PRN (17:35)
[2019-07-26] MEDS ORDERED: DIAZEPAM INJ 10 MG/2 ML DISP.SYRIN IV PRN (17:37)
[2019-07-26] MEDS ORDERED: CEFTRIAXONE 2 GM/D5W RTU 2 GM/50 ML RTUPB IV ONE (18:00)
--- NOTE | 2019-07-26 18:29 | PDOC PROGRESS REPORT ---
Subjective Progress Note for:: 07/26/19 Subjective:: Patient very somnolent this morning. He was able to be aroused by him shaking and speaking loudly to patient but he quickly returns to sleep. Unable to get specific complaints from patient Reason For Visit: ALCOHOL ABUSE INTOXICATION,ACUTE LIVER FAILURE Physical Exam Vital Signs: Temp Pulse Resp BP Pulse Ox 99.2 F 41 L 18 111/66 96 07/26/19 12:00 07/26/19 12:00 07/26/19 12:00 07/26/19 12:00 07/26/19 12:00 Intake & Output 07/25/19 07/26/19 07/27/19 06:59 06:59 06:59 Intake Total 1100 1060 Output Total 200 Balance 900 1060 Weight 68.4 kg 68.6 kg General appearance: PRESENT: no acute distress, thin Head exam: PRESENT: atraumatic, normocephalic Eye exam: PRESENT: conjunctiva pink Mouth exam: PRESENT: moist Respiratory exam: PRESENT: clear to auscultation linda. ABSENT: rales, rhonchi, wheezes Cardiovascular exam: PRESENT: RRR. ABSENT: diastolic murmur, rubs, systolic murmur GI/Abdominal exam: PRESENT: normal bowel sounds, soft. ABSENT: distended, guarding, mass, organolmegaly, rebound, tenderness Rectal exam: PRESENT: deferred Extremities exam: PRESENT: pedal edema Neurological exam: PRESENT: altered. ABSENT: alert, awake, oriented to person, oriented to place, oriented to time, oriented to situation Psychiatric exam: PRESENT: flat affect Skin exam: PRESENT: dry, intact, warm Results Laboratory Results: 07/26/19 05:01 07/26/19 05:01 07/26/19 07/26/19 07/26/19 05:01 05:01 05:01 WBC 15.7 H RBC 2.36 L Hgb 9.0 L Hct 25.5 L MCV 108 H MCH 38.0 H MCHC 35.1 RDW 17.3 H Plt Count 79 L Seg Neutrophils % 81.9 H Sodium 142.8 Potassium 4.3 Chloride 117 H Carbon Dioxide 13 L Anion Gap 13 BUN 10 Creatinine 1.01 Est GFR ( Amer) > 60 Glucose 200 H Calcium 8.2 L Total Bilirubin 26.9 H D GGT 354 H AST 74 H Alkaline Phosphatase 242 H Ammonia 164.8 H Total Protein 8.0 Albumin 2.8 L Impressions: Abdomen/Pelvis CT 07/23/19 15:01 IMPRESSION: 1. Severe hepatic steatosis with new mild to moderate volume ascites suggestive of worsening liver dysfunction. 2. Colonic wall thickening involving the ascending and transverse colon, possibly secondary to colitis or elevated portal pressures. 3. Changes from chronic pancreatitis. Assessment and Plan - Diagnosis (1) Ascites due to alcoholic hepatitis Is this a current diagnosis for this admission?: Yes Plan: -Discriminant Function: 60.9 = poor short term prognosis; steroids started / -Calculate Lille score at 7d from starting steroids, recheck bilirubin on day 7 to do this -Monitor intake and output. -Continue Aldactone -IR consulted for paracentesis for diagnostic and therapeutic reasons. (2) Hepatic encephalopathy Is this a current diagnosis for this admission?: Yes Plan: -ammonia level was 127.2 on admit -Lactulose PO or enema if unable to take PO -Recheck ammonia (3) Hyperammonemia Is this a current diagnosis for this admission?: Yes Plan: -lactulose, rifaximin (4) Alcohol dependence with acute alcoholic intoxication Qualifiers: Complication of substance-induced condition: uncomplicated Qualified Code(s): F10.220 - Alcohol dependence with intoxication, uncomplicated Is this a current diagnosis for this admission?: Yes Plan: -IV fluids and supportive care with benzodiazepines. -still encephalopathic. responds intermittently -thiamine -MVit (5) Liver failure, acute Qualifiers: Hepatic coma status: without hepatic coma Qualified Code(s): K72.00 - Acute and subacute hepatic failure without coma Is this a current diagnosis for this admission?: Yes Plan: -Abnormal enzymes as well as markedly increased bilirubin. GGT is pending. Normal albumin with increased globulins. Started Aldactone and monitor intake and output. -Bilirubin is slightly improved. GGT is elevated. The patient has a markedly increased ammonia level. Continue current treatment plan. Lactulose added for elevated ammonia level. - bilirubin is slightly higher -started glucocorticoid therapy. (6) Nausea and vomiting Qualifiers: Vomiting type: unspecified Vomiting Intractability: non-intractable Qualified Code(s): R11.2 - Nausea with vomiting, unspecified Is this a current diagnosis for this admission?: Yes Plan: -nausea and vomiting is improved -no pancreatitis, diet advanced as tolerated. -Resolved. Currently asymptomatic. (7) Nutrition deficiency due to insufficient food Is this a current diagnosis for this admission?: Yes Plan: -consulted dietitian. -poor intake and potential for inadequate food intake -consider tube feedings (8) Abdominal pain Qualifiers: Abdominal location: epigastric Qualified Code(s): R10.13 - Epigastric pain Is this a current diagnosis for this admission?: Yes Plan: -Likely secondary to pancreatitis. ascites as well -Lipase is upper limit normal. No pancreatitis present. Pain from ascites and alcoholic hepatitis. -No complaints of pain. Possible he is asymptomatic because of his hepatic encephalopathy. (9) Alcohol withdrawal Qualifiers: Complication of substance-induced condition: with delirium Qualified Code(s): F10.231 - Alcohol dependence with withdrawal delirium Is this a current diagnosis for this admission?: Yes (10) Metabolic encephalopathy Is this a current diagnosis for this admission?: Yes - Time Time Spent with patient: 35 or more minutes Medications reviewed and adjusted accordingly: Yes - Inpatient Certification Medical Necessity: Significant Comorbidiites Make Outpatient Treatment Too Risky, Need Close Monitoring Due to Risk of Patient Decompensation, Risk of Complication if Not Cared For in Hospital
[2019-07-26] MEDS: RIFAXIMIN 550 MG TABLET PO SCH (19:11)
[2019-07-27] MEDS: POTASSI CL 40 MEQ/NS 1L 1,000 ML IV PRN ×2 (05:12→15:25)
[2019-07-27] MEDS: INSULIN REG, HUMAN 100 UNIT/ML 3 ML VIAL (PYX) SUBCUT SCH ×4 (07:54→17:54)
[2019-07-27] MEDS: METHYLPREDNISOLONE INJ 40 MG/1 ML SDV IV SCH (09:30)
[2019-07-27] MEDS: CEFTRIAXONE 2 GM/D5W RTU 2 GM/50 ML RTUPB IV SCH (09:30)
[2019-07-27] MEDS: PANTOPRAZOLE SODIUM 40 MG VIAL IV SCH (09:30)
[2019-07-27] MEDS: SPIRONOLACTONE 25 MG TABLET PO SCH ×2 (09:34→14:18)
[2019-07-27] MEDS: LEVETIRACETAM 500 MG TABLET PO SCH ×2 (09:34→14:18)
[2019-07-27] MEDS: LACTULOSE SYRUP 20 GM/30 ML UDCUP PO SCH ×2 (09:34→14:18)
[2019-07-27] MEDS: FOLIC ACID 1 MG TABLET PO SCH ×2 (09:34→14:18)
[2019-07-27] MEDS: THIAMINE HCL 100 MG TABLET PO SCH ×2 (09:35→14:18)
[2019-07-27] MEDS: RIFAXIMIN 550 MG TABLET PO SCH ×2 (09:35→14:19)
[2019-07-27] MEDS: MULTIVITAMIN TABLET PO SCH ×2 (09:35→12:54)
[2019-07-27 09:45] LABS: INTERNATIONAL RATION (INR) 2.14; PROTHROMBIN TIME 24.3 SEC (11.4-15.4)
[2019-07-27 09:46] LABS: PARTIAL THROMBOPLASTIN TIME 41.3 SEC (23.5-35.8)
[2019-07-27 09:52] LABS: ALBUMIN 2.6 g/dL (3.5-5.0); ALKALINE PHOSPHATASE 239 U/L (38-126); ANION GAP 12 (5-19); ASPARTATE AMINO TRANSFERASE 84 U/L (17-59); BLOOD UREA NITROGEN 14 mg/dL (7-20); CALCIUM 8.4 mg/dL (8.4-10.2); CARBON DIOXIDE 13 mmol/L (22-30); CHLORIDE 121 mmol/L (98-107); GLUCOSE 177 mg/dL (75-110); POTASSIUM 4.5 mmol/L (3.6-5.0)
[2019-07-27 09:59] LABS: HEMOGLOBIN 10.3 g/dL (13.5-17.0); MEAN CORPUSCULAR HEMOGLOBIN 37.8 pg (27.0-33.4); MEAN CORPUSCULAR HGB CONC 34.4 g/dL (32.0-36.0); MEAN CORPUSCULAR VOLUME 110 fl (80-97); RED BLOOD COUNT 2.72 10^6/uL (4.35-5.55); RED CELL DISTRIBUTION WIDTH 17.7 % (11.5-14.0); WHITE BLOOD COUNT 22.2 10^3/uL (4.0-10.5)
[2019-07-27] MEDS ORDERED: PHARMACY COMMUNICATION ORDER MC NR (10:00)
[2019-07-27 10:02] LABS: BILIRUBIN,TOTAL 29.8 mg/dL (0.2-1.3)
[2019-07-27 10:03] LABS: BILIRUBIN,DIRECT 25.9 mg/dL (0.0-0.4)
[2019-07-27] MEDS ORDERED: DOCUSATE SODIUM 100 MG/10 ML UDC NG PRN (10:03)
[2019-07-27] MEDS ORDERED: LACTULOSE SYRUP 20 GM/30 ML UDCUP PR PRN (10:30)
[2019-07-27] MEDS ORDERED: ACETAMINOPHEN 325 MG TABLET NG PRN (10:30)
[2019-07-27 10:34] LABS: PLATELET COUNT 107 10^3/uL (150-450)
--- NOTE | 2019-07-27 10:51 | EKG REPORT ---
SEVERITY:- ABNORMAL ECG - SINUS TACHYCARDIA MULTIPLE ATRIAL PREMATURE COMPLEXES : Confirmed by: Deepa Vergara 27-Jul-2019 10:50:04
--- NOTE | 2019-07-27 11:33 | PDOC PROGRESS REPORT ---
Subjective Progress Note for:: 07/27/19 Subjective:: Patient still very somnolent this morning. Very small grumbling and verbal response to shaking and speaking loudly to patient. Unable to get specific complaints from patient as before. He has been too drowsy to take many of his medications. Discussed with nurse that we will place an NG tube today to give him lactulose. I ordered paracentesis yesterday which will be done tomorrow. Reportedly, radiology department is told nurse that they will not do paracentes is due to elevated INR. And cirrhosis, elevated INR does not directly correlate to bleeding risk, however, given the INR is over 2 weeks can give FFP prior to procedure if needed. Reason For Visit: ALCOHOL ABUSE INTOXICATION,ACUTE LIVER FAILURE Physical Exam Vital Signs: Temp Pulse Resp BP Pulse Ox 99.0 F 92 20 118/77 92 07/27/19 07:36 07/27/19 07:36 07/27/19 07:36 07/27/19 07:36 07/27/19 07:36 Intake & Output 07/26/19 07/27/19 07/28/19 06:59 06:59 06:59 Intake Total 1060 1999 50 Balance 1060 1999 50 Weight 68.6 kg 65.5 kg General appearance: PRESENT: no acute distress, thin Head exam: PRESENT: atraumatic, normocephalic Eye exam: PRESENT: conjunctiva pink Mouth exam: PRESENT: moist Respiratory exam: PRESENT: clear to auscultation linda. ABSENT: rales, rhonchi, wheezes Cardiovascular exam: PRESENT: irregular rhythm. ABSENT: diastolic murmur, rubs, systolic murmur GI/Abdominal exam: PRESENT: distended, normal bowel sounds, soft. ABSENT: guarding, mass, organolmegaly, rebound, tenderness Rectal exam: PRESENT: deferred Neurological exam: PRESENT: altered. ABSENT: alert, awake Psychiatric exam: PRESENT: flat affect Skin exam: PRESENT: dry, intact, warm Results Laboratory Results: 07/27/19 08:39 07/27/19 08:39 07/27/19 07/27/19 08:39 08:39 WBC 22.2 H RBC 2.72 L Hgb 10.3 L Hct 30.0 L MCV 110 H MCH 37.8 H MCHC 34.4 RDW 17.7 H Plt Count 107 L Sodium 146.3 H Potassium 4.5 Chloride 121 H Carbon Dioxide 13 L Anion Gap 12 BUN 14 Creatinine 1.31 H Est GFR ( Amer) > 60 Glucose 177 H Calcium 8.4 Total Bilirubin 29.8 H AST 84 H Alkaline Phosphatase 239 H Total Protein 8.0 Albumin 2.6 L Impressions: Abdomen/Pelvis CT 07/23/19 15:01 IMPRESSION: 1. Severe hepatic steatosis with new mild to moderate volume ascites suggestive of worsening liver dysfunction. 2. Colonic wall thickening involving the ascending and transverse colon, possibly secondary to colitis or elevated portal pressures. 3. Changes from chronic pancreatitis. Assessment and Plan - Diagnosis (1) Ascites due to alcoholic hepatitis Is this a current diagnosis for this admission?: Yes Plan: -Discriminant Function: 60.9 = poor short term prognosis; steroids started 4/3 -Calculate Lille score at 7d from starting steroids, recheck bilirubin on day 7 to do this -Monitor intake and output. -Continue Aldactone -IR consulted for paracentesis for diagnostic and therapeutic reasons; can provide FFP prior to procedure given elevated INR (2) Hepatic encephalopathy Is this a current diagnosis for this admission?: Yes Plan: -ammonia level was 127.2 on admit -Lactulose PO or enema if unable to take PO; NG tube placed for oral lactulose, titrate lactulose given to achieve 2-3 soft bowel movements per day -Recheck ammonia showed persistently markedly elevated level (3) Hyperammonemia Is this a current diagnosis for this admission?: Yes (4) Alcohol dependence with acute alcoholic intoxication Qualifiers: Complication of substance-induced condition: uncomplicated Qualified Code(s): F10.220 - Alcohol dependence with intoxication, uncomplicated Is this a current diagnosis for this admission?: Yes (5) Liver failure, acute Qualifiers: Hepatic coma status: without hepatic coma Qualified Code(s): K72.00 - Acute and subacute hepatic failure without coma Is this a current diagnosis for this admission?: Yes (6) Nausea and vomiting Qualifiers: Vomiting type: unspecified Vomiting Intractability: non-intractable Qualified Code(s): R11.2 - Nausea with vomiting, unspecified Is this a current diagnosis for this admission?: Yes (7) Nutrition deficiency due to insufficient food Is this a current diagnosis for this admission?: Yes (8) Abdominal pain Qualifiers: Abdominal location: epigastric Qualified Code(s): R10.13 - Epigastric pain Is this a current diagnosis for this admission?: Yes (9) Alcohol withdrawal Qualifiers: Complication of substance-induced condition: with delirium Qualified Code(s): F10.231 - Alcohol dependence with withdrawal delirium Is this a current diagnosis for this admission?: Yes (10) Metabolic encephalopathy Is this a current diagnosis for this admission?: Yes - Time Time Spent with patient: 25-34 minutes Medications reviewed and adjusted accordingly: Yes - Inpatient Certification Medical Necessity: Significant Comorbidiites Make Outpatient Treatment Too Risky, Need Close Monitoring Due to Risk of Patient Decompensation, Risk of Complication if Not Cared For in Hospital
--- NOTE | 2019-07-27 12:51 | RADIOLOGY REPORT (SQ) ---
EXAM DESCRIPTION: KUB/ABDOMEN (SINGLE VIEW) IMAGES COMPLETED DATE/TIME: 07/27/2019 12:05 pm REASON FOR STUDY: Check Placement of NG Tube COMPARISON: CT abdomen pelvis 07/23/2019 NUMBER OF VIEWS: One view. TECHNIQUE: Supine radiographic image of the abdomen acquired for nasogastric tube placement. LIMITATIONS: Pelvis cropped from the field of view FINDINGS: Nasogastric tube tip and side port in the stomach There is patchy right basilar airspace disease worrisome for pneumonia, aspiration should be consider ed There are air-fluid levels in nondistended bowel loops in the upper abdomen likely reflecting an ileu s IMPRESSION: Nasogastric tube tip and side port in the stomach Right lower lobe pneumonia, aspiration should be considered TECHNICAL DOCUMENTATION: JOB ID: [id number] 2010 [employer]- All Rights Reserved Reading location - IP/workstation name: [email or web address]
[2019-07-27] MEDS: LEVETIRACETAM ORAL SOLN 500 MG/5 ML UDCUP NG SCH ×2 (12:54→23:08)
[2019-07-27] MEDS: RIFAXIMIN 550 MG TABLET NG SCH ×2 (12:54→17:57)
[2019-07-27] MEDS: LACTULOSE SYRUP 20 GM/30 ML UDCUP NG SCH ×2 (12:54→17:57)
[2019-07-27] MEDS: FOLIC ACID 1 MG TABLET NG SCH (12:54)
[2019-07-27] MEDS: THIAMINE HCL 100 MG TABLET NG SCH (12:54)
[2019-07-27] MEDS: SPIRONOLACTONE 25 MG TABLET NG SCH ×2 (12:54→23:08)
[2019-07-27] MEDS ORDERED: GLUCAGON,HUMAN RECOMB 1 MG INJ SUBCUT PRN (14:11)
[2019-07-27] MEDS ORDERED: DEXTROSE 50%-WATER 25 GM/50 ML DISP.SYRIN IV PRN ×2 (14:11)
[2019-07-27] MEDS ORDERED: DEXTROSE 40% GEL 15 GM TUBE PO PRN ×2 (14:11)
[2019-07-28] MEDS: INSULIN REG, HUMAN 100 UNIT/ML 3 ML VIAL (PYX) SUBCUT SCH ×4 (01:38→18:07)
[2019-07-28] MEDS: POTASSI CL 40 MEQ/NS 1L 1,000 ML IV PRN (05:17)
[2019-07-28] MEDS: LACTULOSE SYRUP 20 GM/30 ML UDCUP NG SCH ×2 (09:27→18:06)
[2019-07-28] MEDS: MULTIVITAMIN TABLET PO SCH (09:27)
[2019-07-28] MEDS: LEVETIRACETAM ORAL SOLN 500 MG/5 ML UDCUP NG SCH ×2 (09:27→22:16)
[2019-07-28] MEDS: SPIRONOLACTONE 25 MG TABLET NG SCH ×2 (09:27→22:16)
[2019-07-28] MEDS: RIFAXIMIN 550 MG TABLET NG SCH ×2 (09:27→18:07)
[2019-07-28] MEDS: FOLIC ACID 1 MG TABLET NG SCH (09:27)
[2019-07-28] MEDS: METHYLPREDNISOLONE INJ 40 MG/1 ML SDV IV SCH (09:28)
[2019-07-28] MEDS: CEFTRIAXONE 2 GM/D5W RTU 2 GM/50 ML RTUPB IV SCH (09:28)
[2019-07-28] MEDS: PANTOPRAZOLE SODIUM 40 MG VIAL IV SCH (09:28)
[2019-07-28] MEDS: THIAMINE HCL 100 MG TABLET NG SCH (09:28)
[2019-07-28 09:57] LABS: INTERNATIONAL RATION (INR) 2.08; PROTHROMBIN TIME 23.7 SEC (11.4-15.4)
--- NOTE | 2019-07-28 11:44 | RADIOLOGY REPORT (SQ) ---
EXAM DESCRIPTION: U/S ABD PARACENTESIS IMAGES COMPLETED DATE/TIME: 07/28/2019 11:26 am REASON FOR STUDY: diagnostic and therapeutic, ETOH hepatitis, SBP COMPARISON None. LIMITATIONS: None. PROCEDURE: After obtaining informed consent, the patient was brought to the ultrasound suite. The p rocedure was performed with the patient on a gurney. Ultrasound was used to identify a prominent poc ket of ascites in the right lower quadrant. An appropriate access site was selected. The patient wa s prepped and draped in usual sterile fashion. The access site was anesthetized with 10 mL 1% lidoc deborah. A Ojun-V-Piyzziyk needle was advanced into the fluid. After aspiration of fluid the needle, t he catheter was advanced off the needle into the fluid. A total of 660 mL of clear, straw-colored fl uid was removed. The patient tolerated the procedure well left the department in satisfactory conditi on. IMPRESSION: Successful ultrasound-guided paracentesis COMMENT: Patient medication list reviewed: Yes- Quality ID# [id number]:Eligible professional attests to doc umenting in the medical record they obtained, updated, or reviewed the patient's current medications. TECHNICAL DOCUMENTATION: JOB ID: [id number] 2010 [employer]- All Rights Reserved Reading location - IP/workstation name: [email or web address]
--- NOTE | 2019-07-28 14:36 | PDOC PROGRESS REPORT ---
Subjective Progress Note for:: 07/28/19 Subjective:: Patient is much more alert today, probably close to baseline alertness, however he is still rather confused and is oriented only to self and place. Paracentesis to be done today, fluid analysis and culture orders sent. Patient has no specific complaints other than generalized fatigue and weakness Reason For Visit: ALCOHOL ABUSE INTOXICATION,ACUTE LIVER FAILURE Physical Exam Vital Signs: Temp Pulse Resp BP Pulse Ox 98.3 F 114 H 18 114/69 98 07/28/19 10:37 07/28/19 10:37 07/28/19 10:37 07/28/19 10:37 07/28/19 10:37 Intake & Output 07/27/19 07/28/19 07/29/19 06:59 06:59 06:59 Intake Total 1999 2049 50 Output Total 350 Balance 1999 1699 50 Weight 65.5 kg 68.4 kg General appearance: PRESENT: no acute distress, well-developed, well-nourished Head exam: PRESENT: atraumatic, normocephalic Eye exam: PRESENT: conjunctiva pink Mouth exam: PRESENT: moist Respiratory exam: PRESENT: clear to auscultation linda. ABSENT: rales, rhonchi, wheezes Cardiovascular exam: PRESENT: RRR. ABSENT: diastolic murmur, rubs, systolic murmur GI/Abdominal exam: PRESENT: ascites, distended, normal bowel sounds, soft. ABSENT: firm, guarding, mass, tenderness Rectal exam: PRESENT: deferred Neurological exam: PRESENT: alert, altered, awake, oriented to person, oriented to place. ABSENT: oriented to time, oriented to situation Psychiatric exam: PRESENT: flat affect, normal mood Skin exam: PRESENT: dry, intact, warm Results Laboratory Results: 07/27/19 08:39 07/27/19 08:39 Impressions: Abdomen/Pelvis CT 07/23/19 15:01 IMPRESSION: 1. Severe hepatic steatosis with new mild to moderate volume ascites suggestive of worsening liver dysfunction. 2. Colonic wall thickening involving the ascending and transverse colon, possibly secondary to colitis or elevated portal pressures. 3. Changes from chronic pancreatitis. KUB X-Ray 07/27/19 09:58 IMPRESSION: Nasogastric tube tip and side port in the stomach Right lower lobe pneumonia, aspiration should be considered Paracentesis Ultrasound 07/28/19 00:00 IMPRESSION: Successful ultrasound-guided paracentesis Assessment and Plan - Diagnosis (1) Ascites due to alcoholic hepatitis Is this a current diagnosis for this admission?: Yes Plan: -Discriminant Function: 60.9 = poor short term prognosis; steroids started 07/24 -Calculate Lille score at 7d from starting steroids, recheck bilirubin on day 7 to do this -Monitor intake and output. -Continue Aldactone -Paracentesis for diagnostic and therapeutic reasons Follow-up fluid analysis and cultures from paracentesis done 07/27; 660 mL of straw-colored fluid removed (2) Hepatic encephalopathy Is this a current diagnosis for this admission?: Yes Plan: -ammonia level was 127.2 on admit -Lactulose PO or enema if unable to take PO; NG tube was placed for oral lactulose and later removed as patient became more alert and was taking medications orally, titrate lactulose given to achieve 2-3 soft bowel movements per day -Recheck of ammonia showed persistently markedly elevated level -Possible SBP; tx with CTX IV (3) Hyperammonemia Is this a current diagnosis for this admission?: Yes Plan: -lactulose, rifaximin -Tx as above (4) Alcohol dependence with acute alcoholic intoxication Qualifiers: Complication of substance-induced condition: uncomplicated Qualified Code(s): F10.220 - Alcohol dependence with intoxication, uncomplicated Is this a current diagnosis for this admission?: Yes (5) Liver failure, acute Qualifiers: Hepatic coma status: without hepatic coma Qualified Code(s): K72.00 - Acute and subacute hepatic failure without coma Is this a current diagnosis for this admission?: Yes (6) Nausea and vomiting Qualifiers: Vomiting type: unspecified Vomiting Intractability: non-intractable Qualified Code(s): R11.2 - Nausea with vomiting, unspecified Is this a current diagnosis for this admission?: Yes Plan: -nausea and vomiting is improved -no pancreatitis, diet advanced as tolerated. -Resolved. Currently asymptomatic. (7) Nutrition deficiency due to insufficient food Is this a current diagnosis for this admission?: Yes (8) Abdominal pain Qualifiers: Abdominal location: epigastric Qualified Code(s): R10.13 - Epigastric pain Is this a current diagnosis for this admission?: Yes (9) Alcohol withdrawal Qualifiers: Complication of substance-induced condition: with delirium Qualified Code(s): F10.231 - Alcohol dependence with withdrawal delirium Is this a current diagnosis for this admission?: Yes Plan: -Resolved (10) Metabolic encephalopathy Is this a current diagnosis for this admission?: Yes - Time Time Spent with patient: 25-34 minutes - Inpatient Certification Medical Necessity: Significant Comorbidiites Make Outpatient Treatment Too Risky, Need Close Monitoring Due to Risk of Patient Decompensation, Risk of Complication if Not Cared For in Hospital - Consider hospice eval if he doesn't improve in hospital
[2019-07-28 16:47] LABS: FLUID SOURCE ASCITES
[2019-07-28 16:50] LABS: FLUID TYPE PERITONEAL
[2019-07-28 16:56] LABS: FLUID APPEARANCE SLIGHTLY HAZY; FLUID COLOR YELLOW; FLUID VISCOSITY SLIGHTLY VISCOUS
[2019-07-29] MEDS: INSULIN REG, HUMAN 100 UNIT/ML 3 ML VIAL (PYX) SUBCUT SCH ×4 (00:49→18:36)
[2019-07-29] MEDS: POTASSI CL 40 MEQ/NS 1L 1,000 ML IV PRN ×2 (03:26→15:13)
[2019-07-29 09:35] LABS: PATH REVIEW PATHOLOGIST REVIEWED
[2019-07-29] MEDS: PROMETHAZINE HCL INJ 25 MG/1 ML VIAL IV PRN (10:08)
[2019-07-29] MEDS: PANTOPRAZOLE SODIUM 40 MG VIAL IV SCH (10:11)
[2019-07-29] MEDS: METHYLPREDNISOLONE INJ 40 MG/1 ML SDV IV SCH (10:11)
[2019-07-29] MEDS: CEFTRIAXONE 2 GM/D5W RTU 2 GM/50 ML RTUPB IV SCH (10:12)
[2019-07-29] MEDS: RIFAXIMIN 550 MG TABLET NG SCH ×2 (11:02→18:10)
[2019-07-29] MEDS: LACTULOSE SYRUP 20 GM/30 ML UDCUP NG SCH ×2 (11:03→18:10)
[2019-07-29] MEDS: FOLIC ACID 1 MG TABLET NG SCH (11:03)
[2019-07-29] MEDS: SPIRONOLACTONE 25 MG TABLET NG SCH ×2 (11:03→21:34)
[2019-07-29] MEDS: THIAMINE HCL 100 MG TABLET NG SCH (11:03)
[2019-07-29] MEDS: LEVETIRACETAM ORAL SOLN 500 MG/5 ML UDCUP NG SCH ×2 (11:03→21:34)
[2019-07-29] MEDS: MULTIVITAMIN TABLET PO SCH (11:15)
[2019-07-29 12:08] LABS: HEMATOCRIT 30.7 % (37.9-51.0); HEMOGLOBIN 10.6 g/dL (13.5-17.0); MEAN CORPUSCULAR HEMOGLOBIN 38.1 pg (27.0-33.4); MEAN CORPUSCULAR HGB CONC 34.5 g/dL (32.0-36.0); RED BLOOD COUNT 2.77 10^6/uL (4.35-5.55); RED CELL DISTRIBUTION WIDTH 17.3 % (11.5-14.0); WHITE BLOOD COUNT 16.1 10^3/uL (4.0-10.5)
[2019-07-29 12:22] LABS: TOTAL PROTEIN 7.8 g/dL (6.3-8.2)
[2019-07-29 12:49] LABS: MEAN CORPUSCULAR VOLUME 111 fl (80-97); PLATELET COUNT 116 10^3/uL (150-450)
[2019-07-29 12:54] LABS: ABSOLUTE LYMPHOCYTES# (MANUAL) 2.3 10^3/uL (0.5-4.7); ABSOLUTE MONOCYTES # (MANUAL) 1.4 10^3/uL (0.1-1.4); BASOPHILS % (MANUAL) 0 % (0-2); EOSINOPHILS % (MANUAL) 0 % (0-6); LYMPHOCYTES % (MANUAL) 14 % (13-45); MONOCYTES % (MANUAL) 9 % (3-13); SEGMENTED NEUTROPHILS % (MAN) 77 % (42-78); TOTAL CELLS COUNTED 100
[2019-07-29 12:55] LABS: ANISOCYTOSIS 1+; POLYCHROMASIA SLIGHT; TARGET CELLS SLIGHT; TOXIC GRANULATION SLIGHT
[2019-07-29 13:00] LABS: BURR CELLS SLIGHT; PLATELET CLUMPS PRESENT; PLATELET COMMENT DECREASED
--- NOTE | 2019-07-29 17:41 | PDOC PROGRESS REPORT ---
Subjective Progress Note for:: 07/29/19 Subjective:: Patient fully alert today, still completely disoriented except to self and being in the hospital. Patient still does not have any new complaints but states he drinks quite a bit of alcohol then proceeds to speak about various nonsense topics. I am very concerned he will not be able to care for himself after discharge. If he continues to drink alcohol, I do not expect him to live another 6 months and I told the patient this. We may need to start looking into nursing facility care for him. Reason For Visit: ALCOHOL ABUSE INTOXICATION,ACUTE LIVER FAILURE Physical Exam Vital Signs: Temp Pulse Resp BP Pulse Ox 98.1 F 86 16 108/78 100 07/29/19 16:27 07/29/19 16:27 07/29/19 16:27 07/29/19 16:27 07/29/19 16:27 Intake & Output 07/28/19 07/29/19 07/30/19 06:59 06:59 06:59 Intake Total 2050 2320 2397 Output Total 350 200 Balance 1700 2120 2397 Weight 68.4 kg 69.6 kg 69.6 kg General appearance: PRESENT: no acute distress, well-developed, well-nourished Head exam: PRESENT: atraumatic, normocephalic Eye exam: PRESENT: conjunctiva pink, scleral icterus Mouth exam: PRESENT: moist Respiratory exam: PRESENT: clear to auscultation linda. ABSENT: rales, rhonchi, wheezes Cardiovascular exam: PRESENT: RRR. ABSENT: diastolic murmur, rubs, systolic murmur GI/Abdominal exam: PRESENT: normal bowel sounds, soft. ABSENT: distended, guarding, mass, organolmegaly, rebound, tenderness Rectal exam: PRESENT: deferred Neurological exam: PRESENT: alert, altered, awake, oriented to person, oriented to place. ABSENT: oriented to time, oriented to situation Psychiatric exam: PRESENT: appropriate affect, normal mood Skin exam: PRESENT: dry, intact, warm Results Laboratory Results: 07/29/19 11:35 07/27/19 08:39 07/28/19 07/29/19 07/29/19 11:05 11:35 11:35 WBC 16.1 H RBC 2.77 L Hgb 10.6 L Hct 30.7 L MCV 111 H MCH 38.1 H MCHC 34.5 RDW 17.3 H Plt Count 116 L Seg Neutrophils % Not Reportable Total Protein 7.8 Fluid WBC 8 Impressions: Abdomen/Pelvis CT 07/23/19 15:01 IMPRESSION: 1. Severe hepatic steatosis with new mild to moderate volume ascites suggestive of worsening liver dysfunction. 2. Colonic wall thickening involving the ascending and transverse colon, possibly secondary to colitis or elevated portal pressures. 3. Changes from chronic pancreatitis. KUB X-Ray 07/27/19 09:58 IMPRESSION: Nasogastric tube tip and side port in the stomach Right lower lobe pneumonia, aspiration should be considered Paracentesis Ultrasound 07/28/19 00:00 IMPRESSION: Successful ultrasound-guided paracentesis Assessment and Plan - Diagnosis (1) Ascites due to alcoholic hepatitis Is this a current diagnosis for this admission?: Yes Plan: -Discriminant Function: 60.9 = poor short term prognosis; steroids started 07/24 -Calculate Lille score at 7d from starting steroids, recheck bilirubin on day 7 to do this -Monitor intake and output. -Continue Aldactone -Paracentesis for diagnostic and therapeutic reasons Pending fluid analysis and cultures from paracentesis done 07/27; 660 mL of straw-colored fluid removed AFB smear negative, Gram stain pending, bacterial culture pending INR 2 (2) Hepatic encephalopathy Is this a current diagnosis for this admission?: Yes Plan: -ammonia level was 127.2 on admit -Lactulose PO or enema if unable to take PO; NG tube was placed for oral lactulose and later removed as patient became more alert and was taking medi cations orally, titrate lactulose given to achieve 2-3 soft bowel movements per day -Recheck of ammonia showed persistently markedly elevated level -Paracentesis to rule out SBP; tx with CTX IV, improving since starting this (3) Hyperammonemia Is this a current diagnosis for this admission?: Yes Plan: -lactulose, rifaximin; continued, titrated to 2-3 soft bowel movements per day -Tx as above (4) Alcohol dependence with acute alcoholic intoxication Qualifiers: Complication of substance-induced condition: uncomplicated Qualified Code(s): F10.220 - Alcohol dependence with intoxication, uncomplicated Is this a current diagnosis for this admission?: Yes (5) Liver failure, acute Qualifiers: Hepatic coma status: without hepatic coma Qualified Code(s): K72.00 - Acute and subacute hepatic failure without coma Is this a current diagnosis for this admission?: Yes (6) Nausea and vomiting Qualifiers: Vomiting type: unspecified Vomiting Intractability: non-intractable Qualified Code(s): R11.2 - Nausea with vomiting, unspecified Is this a current diagnosis for this admission?: Yes (7) Nutrition deficiency due to insufficient food Is this a current diagnosis for this admission?: Yes (8) Abdominal pain Qualifiers: Abdominal location: epigastric Qualified Code(s): R10.13 - Epigastric pain Is this a current diagnosis for this admission?: Yes (9) Alcohol withdrawal Qualifiers: Complication of substance-induced condition: with delirium Qualified Code(s): F10.231 - Alcohol dependence with withdrawal delirium Is this a current diagnosis for this admission?: Yes (10) Metabolic encephalopathy Is this a current diagnosis for this admission?: Yes - Time Time Spent with patient: 25-34 minutes Medications reviewed and adjusted accordingly: Yes - Inpatient Certification Based on my medical assessment, after consideration of the patient's comorbidities, presenting symptoms, or acuity I expect that the services needed warrant INPATIENT care.: Yes I certify that my determination is in accordance with my understanding of Medicare's requirements for reasonable and necessary INPATIENT services [42 CFR 412.3e].: Yes Medical Necessity: Significant Comorbidiites Make Outpatient Treatment Too Risky, Need Close Monitoring Due to Risk of Patient Decompensation, Risk of Complication if Not Cared For in Hospital
[2019-07-30] MEDS: POTASSI CL 40 MEQ/NS 1L 1,000 ML IV PRN ×2 (01:03→12:24)
[2019-07-30] MEDS: INSULIN REG, HUMAN 100 UNIT/ML 3 ML VIAL (PYX) SUBCUT SCH ×4 (01:55→18:26)
[2019-07-30] MEDS: MULTIVITAMIN TABLET PO SCH (09:14)
[2019-07-30] MEDS: LEVETIRACETAM ORAL SOLN 500 MG/5 ML UDCUP NG SCH ×2 (09:14→21:36)
[2019-07-30] MEDS: PANTOPRAZOLE SODIUM 40 MG VIAL IV SCH (09:14)
[2019-07-30] MEDS: FOLIC ACID 1 MG TABLET NG SCH (09:14)
[2019-07-30] MEDS: METHYLPREDNISOLONE INJ 40 MG/1 ML SDV IV SCH (09:14)
[2019-07-30] MEDS: RIFAXIMIN 550 MG TABLET NG SCH ×2 (09:14→18:27)
[2019-07-30] MEDS: CEFTRIAXONE 2 GM/D5W RTU 2 GM/50 ML RTUPB IV SCH (09:14)
[2019-07-30] MEDS: SPIRONOLACTONE 25 MG TABLET NG SCH ×2 (09:14→21:36)
[2019-07-30] MEDS: LACTULOSE SYRUP 20 GM/30 ML UDCUP NG SCH ×2 (09:14→18:27)
[2019-07-30] MEDS: THIAMINE HCL 100 MG TABLET NG SCH (09:14)
[2019-07-30 10:54] LABS: TOTAL PROTEIN BODY FLUID 1.3 g/dL (.)
--- NOTE | 2019-07-30 11:31 | PDOC PROGRESS REPORT ---
Subjective Progress Note for:: 07/30/19 Subjective:: Patient was seen on morning rounds. He is found resting in bed, comfortably, on room air. He is alert and oriented to self, hospital, the year 1999 for [employer] [place], and tells me that he has been in the hospital "a long time for a checkup." When asked if he remembers being told about his liver, he states, "oh, yeah.. they sucked it right out. Its gone so we don't have to worry about it anymore. But I'll let you know tomorrow." He denies fever, headache, chest pain, palpitations, dyspnea, cough, nausea, and diarrhea. ROS is somewhat limited secondary to mental status. He does appear to be comfortable and is not noted to be in any acute distress at this time. No concerns per nursing. Reason For Visit: ALCOHOL ABUSE INTOXICATION,ACUTE LIVER FAILURE Physical Exam Vital Signs: Temp Pulse Resp BP Pulse Ox 98.6 F 82 18 112/79 100 07/30/19 01:02 07/30/19 01:02 07/30/19 01:02 07/30/19 01:02 07/30/19 01:02 Intake & Output 07/29/19 07/30/19 07/31/19 06:59 06:59 06:59 Intake Total 2320 4880 50 Output Total 200 Balance 2120 4880 50 Weight 69.6 kg 73.6 kg General appearance: PRESENT: no acute distress, well-developed, well-nourished Head exam: PRESENT: atraumatic, normocephalic Eye exam: PRESENT: conjunctiva pink, EOMI, PERRLA, scleral icterus Ear exam: PRESENT: normal external ear exam Mouth exam: PRESENT: moist, tongue midline Neck exam: ABSENT: carotid bruit, JVD, lymphadenopathy, thyromegaly Respiratory exam: PRESENT: clear to auscultation linda, symmetrical, unlabored. ABSENT: rales, rhonchi, wheezes Cardiovascular exam: PRESENT: RRR, +S1, +S2. ABSENT: diastolic murmur, rubs, systolic murmur Pulses: PRESENT: normal dorsalis pedis pul Vascular exam: PRESENT: normal capillary refill GI/Abdominal exam: PRESENT: ascites, normal bowel sounds, soft. ABSENT: distended, guarding, mass, organolmegaly, rebound, tenderness Rectal exam: PRESENT: deferred Extremities exam: PRESENT: full ROM. ABSENT: calf tenderness, clubbing, pedal edema Neurological exam: PRESENT: alert, awake, oriented to person, oriented to place, CN II-XII grossly intact. ABSENT: oriented to time, oriented to situation, motor sensory deficit Psychiatric exam: PRESENT: appropriate affect, normal mood. ABSENT: homicidal ideation, suicidal ideation Skin exam: PRESENT: dry, intact, warm. ABSENT: cyanosis, rash Results Laboratory Results: 07/29/19 11:35 07/27/19 08:39 07/28/19 07/29/19 07/29/19 11:05 11:35 11:35 WBC 16.1 H RBC 2.77 L Hgb 10.6 L Hct 30.7 L MCV 111 H MCH 38.1 H MCHC 34.5 RDW 17.3 H Plt Count 116 L Seg Neutrophils % Not Reportable Total Bilirubin Total Protein 7.8 Fluid Total Protein 1.3 Fluid LDH 52 07/30/19 00:22 WBC RBC Hgb Hct MCV MCH MCHC RDW Plt Count Seg Neutrophils % Total Bilirubin 26.9 H Total Protein Fluid Total Protein Fluid LDH Impressions: Abdomen/Pelvis CT 07/23/19 15:01 IMPRESSION: 1. Severe hepatic steatosis with new mild to moderate volume ascites suggestive of worsening liver dysfunction. 2. Colonic wall thickening involving the ascending and transverse colon, p ossibly secondary to colitis or elevated portal pressures. 3. Changes from chronic pancreatitis. KUB X-Ray 07/27/19 09:58 IMPRESSION: Nasogastric tube tip and side port in the stomach Right lower lobe pneumonia, aspiration should be considered Paracentesis Ultrasound 07/28/19 00:00 IMPRESSION: Successful ultrasound-guided paracentesis Assessment and Plan - Diagnosis (1) Ascites due to alcoholic hepatitis Is this a current diagnosis for this admission?: Yes Plan: -Discriminant Function: 60.9 = poor short term prognosis; steroids started 07/24 -Calculate Lille score at 7d from starting steroids, recheck LFTs tomorrow. -Monitor intake and output. -Continue Aldactone -Paracentesis for diagnostic and therapeutic reasons Pending fluid analysis and cultures from paracentesis done 07/27; 660 mL of straw-colored fluid removed. AFB smear negative, Gram stain negative, bacterial culture NTD - Continues on IV Rocephin INR 2 (2) Hepatic encephalopathy Is this a current diagnosis for this admission?: Yes Plan: -ammonia level was 127.2 on admit; repeat tomorrow. -Continue Lactulose PO -Paracentesis to rule out SBP; tx with CTX IV, improving since starting this (3) Alcohol dependence with acute alcoholic intoxication Qualifiers: Complication of substance-induced condition: uncomplicated Qualified Code(s): F10.220 - Alcohol dependence with intoxication, uncomplicated Is this a current diagnosis for this admission?: Yes Plan: -IV fluids and supportive care with benzodiazepines. -still encephalopathic; overall improved -thiamine, folic acid -MVit Seizure and withdrawal precautions. (4) Hyperammonemia Is this a current diagnosis for this admission?: Yes Plan: -lactulose, rifaximin; continued, titrated to 2-3 soft bowel movements per day -Tx as above Follow up chemistry and ammonia in AM (5) Liver failure, acute Qualifiers: Hepatic coma status: without hepatic coma Qualified Code(s): K72.00 - Acute and subacute hepatic failure without coma Is this a current diagnosis for this admission?: Yes Plan: -Abnormal enzymes as well as markedly increased bilirubin. Normal albumin with increased globulins. Continue IV Rocephin. Continue Rifaximin, Lactulose, Spironolactone. Continue IVF Continue Protonix Continue IV Solu-medrol. Recheck LFTs in AM (6) Alcohol withdrawal Qualifiers: Complication of substance-induced condition: with delirium Qualified Cod e(s): F10.231 - Alcohol dependence with withdrawal delirium Is this a current diagnosis for this admission?: Yes Plan: -Resolved (7) Nausea and vomiting Qualifiers: Vomiting type: unspecified Vomiting Intractability: non-intractable Qualified Code(s): R11.2 - Nausea with vomiting, unspecified Is this a current diagnosis for this admission?: Yes Plan: -Resolved. Currently asymptomatic. As needed antiemetics (8) Nutrition deficiency due to insufficient food Is this a current diagnosis for this admission?: Yes Plan: -consulted dietitian. -poor intake and potential for inadequate food intake Overall improved; now consuming 25-75% of each meal. (9) Metabolic encephalopathy Is this a current diagnosis for this admission?: Yes Plan: Secondary to #1-6 Management as above. (10) Abdominal pain Qualifiers: Abdominal location: epigastric Qualified Code(s): R10.13 - Epigastric pain Is this a current diagnosis for this admission?: Yes Plan: Resolved. - Time Time Spent with patient: 35 or more minutes Medications reviewed and adjusted accordingly: Yes Anticipated discharge: Other - LTC if can be arranged Within: within 72 hours
[2019-07-30] MEDS: PROMETHAZINE HCL INJ 25 MG/1 ML VIAL IV PRN (20:26)
[2019-07-31] MEDS: INSULIN REG, HUMAN 100 UNIT/ML 3 ML VIAL (PYX) SUBCUT SCH ×3 (00:47→12:41)
[2019-07-31] MEDS: POTASSI CL 40 MEQ/NS 1L 1,000 ML IV PRN (02:31)
[2019-07-31 05:42] LABS: HEMATOCRIT 29.2 % (37.9-51.0); MEAN CORPUSCULAR HEMOGLOBIN 37.8 pg (27.0-33.4); MEAN CORPUSCULAR HGB CONC 34.2 g/dL (32.0-36.0); MEAN CORPUSCULAR VOLUME 111 fl (80-97); RED BLOOD COUNT 2.65 10^6/uL (4.35-5.55); RED CELL DISTRIBUTION WIDTH 17.4 % (11.5-14.0); WHITE BLOOD COUNT 13.8 10^3/uL (4.0-10.5)
[2019-07-31 05:50] LABS: ALBUMIN 2.5 g/dL (3.5-5.0); ALKALINE PHOSPHATASE 216 U/L (38-126); ANION GAP 10 (5-19); ASPARTATE AMINO TRANSFERASE 84 U/L (17-59); BLOOD UREA NITROGEN 18 mg/dL (7-20); CALCIUM 8.2 mg/dL (8.4-10.2); CARBON DIOXIDE 11 mmol/L (22-30); CHLORIDE 113 mmol/L (98-107); GLUCOSE 236 mg/dL (75-110); POTASSIUM 4.5 mmol/L (3.6-5.0); TOTAL PROTEIN 7.3 g/dL (6.3-8.2)
[2019-07-31 05:51] LABS: INTERNATIONAL RATION (INR) 1.93; PROTHROMBIN TIME 22.3 SEC (11.4-15.4)
[2019-07-31 06:01] LABS: PLATELET COUNT 96 10^3/uL (150-450)
[2019-07-31 06:05] LABS: BILIRUBIN,DIRECT 27.3 mg/dL (0.0-0.4); BILIRUBIN,TOTAL 30.2 mg/dL (0.2-1.3)
[2019-07-31] MEDS: CEFTRIAXONE 2 GM/D5W RTU 2 GM/50 ML RTUPB IV SCH (09:22)
[2019-07-31] MEDS: THIAMINE HCL 100 MG TABLET NG SCH (09:22)
[2019-07-31] MEDS: MULTIVITAMIN TABLET PO SCH (09:22)
[2019-07-31] MEDS: FOLIC ACID 1 MG TABLET NG SCH (09:22)
[2019-07-31] MEDS: LACTULOSE SYRUP 20 GM/30 ML UDCUP NG SCH (09:22)
[2019-07-31] MEDS: METHYLPREDNISOLONE INJ 40 MG/1 ML SDV IV SCH (09:22)
[2019-07-31] MEDS: SPIRONOLACTONE 25 MG TABLET NG SCH (09:23)
[2019-07-31] MEDS: LEVETIRACETAM ORAL SOLN 500 MG/5 ML UDCUP NG SCH (09:23)
[2019-07-31] MEDS: RIFAXIMIN 550 MG TABLET NG SCH (09:23)
[2019-07-31 13:22] VITALS: BP 115/82
--- NOTE | 2019-07-31 17:13 | PDOC DISCHARGE SUMMARY ---
Impression - Admit/DC Date/PCP Admission Date/Primary Care Provider: 07/23/19 19:27 Discharge Date: 07/31/19 - Discharge Diagnosis (1) Ascites due to alcoholic hepatitis Is this a current diagnosis for this admission?: Yes (2) Hepatic encephalopathy Is this a current diagnosis for this admission?: Yes (3) Alcohol dependence with acute alcoholic intoxication Is this a current diagnosis for this admission?: Yes (4) Hyperammonemia Is this a current diagnosis for this admission?: Yes (5) Liver failure, acute Is this a current diagnosis for this admission?: Yes (6) Alcohol withdrawal Is this a current diagnosis for this admission?: Yes (7) Nausea and vomiting Is this a current diagnosis for this admission?: Yes (8) Nutrition deficiency due to insufficient food Is this a current diagnosis for this admission?: Yes (9) Metabolic encephalopathy Is this a current diagnosis for this admission?: Yes (10) Abdominal pain Is this a current diagnosis for this admission?: Yes - Additional Information Resuscitation Status: Full Code Discharge Diet: As Tolerated, Cardiac Discharge Activity: Activity As Tolerated, Balance Activity w/Rest, Slowly Increase Activity, Supervised Activity Referrals: [facility] [Outside] (PATIENT WILL NEED TO CALL OFFICE AND SET UP AN APPT. THEY ARE NOT DOING IN OFFICE APPT. AT THIS TIME.) Prescriptions: Spironolactone [Aldactone 25 mg Tablet] 25 mg PO Q12 #60 tablet Lactulose [Cephulac Syrup 20 gm/30 ml Udcup] 20 gm PO BID #60 udc Folic Acid [Folvite 1 mg Tablet] 1 mg PO DAILY #90 tablet Levetiracetam [Keppra 500 mg Tablet] 500 mg PO Q12 #60 tablet Multivitamin [Tab-A-Katlyn (Multiple Vitamin) Tablet] 1 tab PO DAILY #90 tablet Thiamine HCl [Thiamine 100 mg Tablet] 100 mg PO DAILY #90 tablet Rifaximin [Xifaxan 550 mg Tablet] 550 mg PO BID #60 tablet Home Medications: Omeprazole 40 mg PO DAILY 07/23/19 Folic Acid [Folvite 1 mg Tablet] 1 mg PO DAILY #90 tablet 07/31/19 Lactulose [Cephulac Syrup 20 gm/30 ml Udcup] 20 gm PO BID #60 udc 07/31/19 Levetiracetam [Keppra 500 mg Tablet] 500 mg PO Q12 #60 tablet 07/31/19 Multivitamin [Tab-A-Katlyn (Multiple Vitamin) Tablet] 1 tab PO DAILY #90 tablet 07/31/19 Rifaximin [Xifaxan 550 mg Tablet] 550 mg PO BID #60 tablet 07/31/19 Spironolactone [Aldactone 25 mg Tablet] 25 mg PO Q12 #60 tablet 07/31/19 Thiamine HCl [Thiamine 100 mg Tablet] 100 mg PO DAILY #90 tablet 07/31/19 History of Present Illiness History of Present Illness: Per H&P by Dr. Child: REJI COLEMAN is a 49 year old male with a history of heavy alcohol use. His serum alcohol was 278. He has abdominal distention. He states that he has been having pain with nausea and vomiting over the last 3 to 4 days. He claims to only drink 1 beer a day which clearly is not true. He has the hiccups from diaphragmatic irritation. Lipase was not ordered but he may have pancreatitis as well. I have added this to his blood work. He is auto anticoagulated because of his liver disease. He will be admitted to the hospitalist service. Will monitor for DTs and withdrawal. I will treat for pancreatitis unless his lipase comes back normal. We will give IV fluids but we need to be careful with his ascites. I will also start Aldactone and replete his electrolytes. Hospital Course Hospital Course: (1) Ascites due to alcoholic hepatitis Patient was admitted to the medical floor on continuous cardiac telemetry. He was provided IV fluids, electrolyte replacement as needed, placed on lactulose and Aldactone as described below. Hepatitis panel was negative. Paracentesis was negative for spontaneous bacterial peritonitis. Serum alcohol of 278 on admission. Patient and family both confirm a longstanding history of heavy EtOH use. MELD score 31; 27-32% 3 month mortality Discriminant Function: 60.9 = poor short term prognosis. Patient was placed on IV Solu-Medrol 40 mg daily. Follow up [place] score 0.[address] Emerson, public affairs officer, at [facility]. He advises that the patient has maximized medical interventions; nothing further to offer. He is not a candidate for continued steroid therapy. Nor is he a candidate for liver transplant. This was discussed in detail with the patient's . She reports that she and the patient has been informed in the past of his severe liver dysfunction related to continued alcohol use. She informs me that she is unsurprised by his current clinical condition, work-up, and poor prognosis. She does express interest in home health services if this can be arranged. I also briefly introduced palliative care services; she did not seem familiar but was agreeable to an informative outpatient consultation. (2) Hepatic encephalopathy Ammonia level was 127.2 on admit; increased to 164. Patient was placed on twice daily Lactulose. Has improved to 21.2 Patient now intermittently A&Ox4; though continues to be forgetful and confabulates. Spoke with patient's ; he is likely at his baseline mental and functional status. (3) Alcohol dependence with acute alcoholic intoxication Now outside window for seizure/withdrawal. Recommend continuing thiamine, folic acid, and multivitamine Discussed with both patient and the importance of complete alcohol cessation. (4) Hyperammonemia Secondary to alcoholic hepatitis. Resolved with lactulose. (5) Liver failure, acute Secondary to chronic alcohol use. Patient did receive empiric treatment with IV Rocephin for coverage of spontaneous bacterial peritonitis. Paracentesis with cultures are negative for SBP. Patient was placed on rifaximin, Lactulose, Spironolactone. Received prescriptions to continue at discharge. Remaining evaluation management as above. (6) Alcohol withdrawal Resolved (7) Nausea and vomiting Resolved. Currently asymptomatic. (8) Nutrition deficiency due to insufficient food Chronic; secondary to EtOH abuse. Overall improved; now consuming 25-75% of each meal. (9) Metabolic encephalopathy Acute metabolic encephalopathy has resolved. Now at baseline mentation. Secondary to #1-6 Management as above. (10) Abdominal pain Resolved. Physical Exam Vital Signs: Temp Pulse Resp BP Pulse Ox 98.4 F 96 17 115/82 100 07/31/19 13:20 07/31/19 13:20 07/31/19 13:20 07/31/19 13:20 07/31/19 13:20 Intake & Output 07/30/19 07/31/19 08/01/19 06:59 06:59 06:59 Intake Total 4880 2730 1050 Balance 4880 2730 1050 Weight 73.6 kg 68.5 kg General appearance: PRESENT: no acute distress, well-developed, well-nourished Head exam: PRESENT: atraumatic, normocephalic Eye exam: PRESENT: conjunctiva pink, EOMI, PERRLA, scleral icterus Mouth exam: PRESENT: moist, tongue midline Teeth exam: PRESENT: poor dentation Neck exam: ABSENT: carotid bruit, JVD, lymphadenopathy, thyromegaly Respiratory exam: PRESENT: clear to auscultation linda, symmetrical, unlabored. ABSENT: rales, rhonchi, wheezes Cardiovascular exam: PRESENT: RRR, +S1, +S2. ABSENT: diastolic murmur, rubs, systolic murmur Pulses: PRESENT: normal dorsalis pedis pul Vascular exam: PRESENT: normal capillary refill GI/Abdominal exam: PRESENT: ascites, normal bowel sounds, soft. ABSENT: distended, guarding, mass, organolmegaly, rebound, tenderness Rectal exam: PRESENT: deferred Extremities exam: PRESENT: full ROM. ABSENT: calf tenderness, clubbing, pedal edema Neurological exam: PRESENT: alert, awake, oriented to person, oriented to place, oriented to time - year 2004; orientated to President Trvalorie, CN II-XII grossly intact, other - Intermittent confusion. ABSENT: oriented to situation, motor sensory deficit Psychiatric exam: PRESENT: appropriate affect, normal mood. ABSENT: homicidal ideation, suicidal ideation Skin exam: PRESENT: dry, intact, warm. ABSENT: cyanosis, rash Results Laboratory Results: WBC 13.8 10^3/uL (4.0-10.5) H 07/31/19 05:26 RBC 2.65 10^6/uL (4.35-5.55) L 07/31/19 05:26 Hgb 10.0 g/dL (13.5-17.0) L 07/31/19 05:26 Hct 29.2 % (37.9-51.0) L 07/31/19 05:26 MCV 111 fl (80-97) H 07/31/19 05:26 MCH 37.8 pg (27.0-33.4) H 07/31/19 05:26 MCHC 34.2 g/dL (32.0-36.0) 07/31/19 05:26 RDW 17.4 % (11.5-14.0) H 07/31/19 05:26 Plt Count 96 10^3/uL (150-450) L 07/31/19 05:26 Lymph % (Auto) Not Reportable 07/29/19 11:35 [place] % (Auto) Not Reportable 07/29/19 11:35 Eos % (Auto) Not Reportable 07/29/19 11:35 Baso % (Auto) Not Reportable 07/29/19 11:35 Absolute Neuts (auto) Not Reportable 07/29/19 11:35 Absolute Lymphs (auto) Not Reportable 07/29/19 11:35 Absolute Monos (auto) Not Reportable 07/29/19 11:35 Absolute Eos (auto) Not Reportable 07/29/19 11:35 Absolute Basos (auto) Not Reportable 07/29/19 11:35 Total Counted 100 07/29/19 11:35 Seg Neutrophils % Not Reportable 07/29/19 11:35 Seg Neuts % (Manual) 77 % (42-78) 07/29/19 11:35 Lymphocytes % (Manual) 14 % (13-45) 07/29/19 11:35 Monocytes % (Manual) 9 % (3-13) 07/29/19 11:35 Eosinophils % (Manual) 0 % (0-6) 07/29/19 11:35 Basophils % (Manual) 0 % (0-2) 07/29/19 11:35 Abs Neuts (Manual) 12.4 10^3/uL (1.7-8.2) H 07/29/19 11:35 Abs Lymphs (Manual) 2.3 10^3/uL (0.5-4.7) 07/29/19 11:35 Abs Monocytes (Manual) 1.4 10^3/uL (0.1-1.4) 07/29/19 11:35 Absolute Eos (Manual) 0.0 10^3/uL (0.0-0.6) 07/29/19 11:35 Abs Basophils (Manual) 0.0 10^3/uL (0.0-0.2) 07/29/19 11:35 Toxic Granulation SLIGHT 07/29/19 11:35 Clumped Platelets PRESENT 07/29/19 11:35 Platelet Comment DECREASED 07/29/19 11:35 Polychromasia SLIGHT 07/29/19 11:35 Anisocytosis 1+ 07/29/19 11:35 Macrocytosis 2+ 07/29/19 11:35 Target Cells SLIGHT 07/29/19 11:35 [place] Cells SLIGHT 07/29/19 11:35 PT 22.3 SEC (11.4-15.4) H 07/31/19 05:26 INR 1.93 07/31/19 05:26 APTT 41.3 SEC (23.5-35.8) H 07/27/19 08:39 VBG pH 7.38 (7.30-7.42) 07/23/19 15:10 VBG pCO2 41.7 mmHg (35-63) 07/23/19 15:10 VBG HCO3 23.9 mmol/L (20-32) 07/23/19 15:10 VBG Base Excess -1.2 mmol/L 07/23/19 15:10 Sodium 133.5 mmol/L (137-145) L 07/31/19 05:26 Potassium 4.5 mmol/L (3.6-5.0) 07/31/19 05:26 Chloride 113 mmol/L (98-107) H 07/31/19 05:26 Carbon Dioxide 11 mmol/L (22-30) L 07/31/19 05:26 Anion Gap 10 (5-19) 07/31/19 05:26 BUN 18 mg/dL (7-20) 07/31/19 05:26 Creatinine 1.34 mg/dL (0.52-1.25) H 07/31/19 05:26 Est GFR ( Amer) > 60 (>60) 07/31/19 05:26 Est GFR (MDRD) Non-Af 57 (>60) L 07/31/19 05:26 Glucose 236 mg/dL (75-110) H 07/31/19 05:26 POC Glucose 187 mg/dL (70-110) H 07/31/19 11:35 Hemoglobin A1c % 4.6 % (4.7-6.0) L 07/24/19 06:12 Calcium 8.2 mg/dL (8.4-10.2) L 07/31/19 05:26 Magnesium 1.6 mg/dL (1.6-2.3) 07/25/19 05:55 Total Bilirubin 30.2 mg/dL (0.2-1.3) H 07/31/19 05:26 Direct Bilirubin 27.3 mg/dL (0.0-0.4) H 07/31/19 05:26 Neonat Total Bilirubin Not Reportable 07/31/19 05:26 Neonat Direct Bilirubin Not Reportable 07/31/19 05:26 Neonat Indirect Bili Not Reportable 07/31/19 05:26 GGT 354 U/L (8-78) H 07/26/19 05:01 AST 84 U/L (17-59) H 07/31/19 05:26 ALT 87 U/L (<50) H 07/31/19 05:26 Alkaline Phosphatase 216 U/L (38-126) H 07/31/19 05:26 Ammonia 21.2 umol/L (9-33) 07/31/19 05:26 Lactate Dehydrogenase 298 U/L (120-246) H 07/29/19 11:35 Total Protein 7.3 g/dL (6.3-8.2) 07/31/19 05:26 Albumin 2.5 g/dL (3.5-5.0) L 07/31/19 05:26 Triglycerides 155 mg/dL (<150) H 07/24/19 06:12 Cholesterol 100.71 mg/dL (0-200) 07/24/19 06:12 LDL Cholesterol Direct 44 mg/dL (<100) 07/24/19 06:12 VLDL Cholesterol 31.0 mg/dL (10-31) 07/24/19 06:12 HDL Cholesterol 12 mg/dL (>40) L 07/24/19 06:12 Lipase 155.9 U/L (23-300) 07/24/19 06:12 Urine Color PHOEBE 07/23/19 18:53 Urine Appearance CLEAR 07/23/19 18:53 Urine pH 7.0 (5.0-9.0) 07/23/19 18:53 Ur Specific Forbes 1.008 07/23/19 18:53 Urine Protein NEGATIVE mg/dL (NEGATIVE) 07/23/19 18:53 Urine Glucose (UA) NEGATIVE mg/dL (NEGATIVE) 07/23/19 18:53 Urine Ketones NEGATIVE mg/dL (NEGATIVE) 07/23/19 18:53 Urine Blood NEGATIVE (NEGATIVE) 07/23/19 18:53 Urine Nitrite NEGATIVE (NEGATIVE) 07/23/19 18:53 Urine Bilirubin MODERATE (NEGATIVE) H 07/23/19 18:53 Urine Urobilinogen 4.0 mg/dL (<2.0) H 07/23/19 18:53 Ur Leukocyte Esterase NEGATIVE (NEGATIVE) 07/23/19 18:53 Urine WBC (Auto) 1 /HPF 07/23/19 18:53 Urine RBC (Auto) 0 /HPF 07/23/19 18:53 Squamous Epi Cells Auto <1 /HPF 07/23/19 18:53 Urine Mucus (Auto) RARE /LPF 07/23/19 18:53 Urine Ascorbic Acid NEGATIVE (NEGATIVE) 07/23/19 18:53 Fluid Type PERITONEAL 07/28/19 11:05 Fluid Source ASCITES 07/28/19 11:05 Fluid Color YELLOW 07/28/19 11:05 Fluid Appearance SLIGHTLY HAZY 07/28/19 11:05 Fluid Viscosity SLIGHTLY VISCOUS 07/28/19 11:05 Fluid WBC 8 /uL 07/28/19 11:05 Fluid RBC 728 /uL 07/28/19 11:05 Fluid Seg Neutrophils 22 % 07/28/19 11:05 Fluid Lymphocytes 78 % 07/28/19 11:05 Fluid Monocytes 0 % 07/28/19 11:05 Fluid Eosinophils 0 % 07/28/19 11:05 Fluid Basophils 0 % 07/28/19 11:05 Fluid Total Protein 1.3 g/dL (.) 07/28/19 11:05 Fluid LDH 52 IU/L (.) 07/28/19 11:05 Urine Opiates Screen NEGATIVE 07/23/19 18:53 Urine Methadone Screen NEGATIVE 07/23/19 18:53 Ur Barbiturates Screen NEGATIVE 07/23/19 18:53 Ur Phencyclidine Scrn NEGATIVE 07/23/19 18:53 Ur Amphetamines Screen NEGATIVE 07/23/19 18:53 U Benzodiazepines Scrn NEGATIVE 07/23/19 18:53 Urine Cocaine Screen NEGATIVE 07/23/19 18:53 U Marijuana (THC) Screen NEGATIVE 07/23/19 18:53 Serum Alcohol 278 mg/dL (NONE DETECTED) 07/23/19 15:10 Hepatitis A IgM Ab Negative (Negative) 07/23/19 17:22 Hep Bs Antigen Negative (Negative) 07/23/19 17:22 Hep B Core IgM Ab Negative (Negative) 07/23/19 17:22 Hepatitis C Antibody 0.1 s/co ratio (0.0-0.9) 07/23/19 17:22 AFB Smear NO ACID FAST BACILLI (NO AFB SEEN) 07/28/19 11:05 Slides for Path Review PATHOLOGIST REVIEWED 07/28/19 11:05 Impressions: Abdomen/Pelvis CT 07/23/19 15:01 IMPRESSION: 1. Severe hepatic steatosis with new mild to moderate volume ascites suggestive of worsening liver dysfunction. 2. Colonic wall thickening involving the ascending and transverse colon, possibly secondary to colitis or elevated portal pressures. 3. Changes from chronic pancreatitis. KUB X-Ray 07/27/19 09:58 IMPRESSION: Nasogastric tube tip and side port in the stomach Right lower lobe pneumonia, aspiration should be considered Paracentesis Ultrasound 07/28/19 00:00 IMPRESSION: Successful ultrasound-guided paracentesis Plan Plan of Treatment: Patient is discharged home in fair, but stable, condition. Discharge planning continues to make attempts to arrange for home health nursing and PT services. Palliative care outpatient consultation is requested. Patient should follow up with his primary care provider within 1 week. Take medications as prescribed. Do NOT drink alcohol. Return to the emergency department as needed for concerning symptoms. Time Spent: Greater than 30 Minutes Stroke Is this a Stroke Patient?: No Acute Heart Failure - Is this a Heart Failure Patient?: No
== END 2019-07-31 14:21 | disposition home health service (06) | DRG 897 ==
LOC: ER 14:20 → EH 19:27 → 4S 20:30
PROVIDERS: ADMIT Hospitalist; ATTEND Registered Nurse
PROC: 0W9G3ZX Drainage of Peritoneal Cavity, Percutaneous Approach, Diagnostic (ICD-10-PCS; principal; 2019-07-28)
DX: F10.229 Alcohol dependence with intoxication, unspecified (principal); R18.8 Other ascites; E72.20 Disorder of urea cycle metabolism, unspecified; Y90.8 Blood alcohol level of 240 mg/100 ml or more; K70.40 Alcoholic hepatic failure without coma; E63.1 Imbalance of constituents of food intake; R06.6 Hiccough; K21.9 Gastro-esophageal reflux disease without esophagitis; I10 Essential (primary) hypertension; E11.9 Type 2 diabetes mellitus without complications; E87.6 Hypokalemia; F10.231 Alcohol dependence with withdrawal delirium; Z79.899 Other long term (current) drug therapy; Z79.84 Long term (current) use of oral hypoglycemic drugs
CPT/HCPCS: 36415; 49083; 74018; 74176; 80053; 80061; 80074; 80307; 81001; 82140; 82247; 82803; 82962; 82977; 83036; 83615; 83690; 83735; 84155; 84157; 85025; 85027; 85610; 85730; 87015; 87070; 87075; 87101; 87116; 87205; 87206; 89050; 93005; 93010; 96360; 99285; A9270-GY; C9113; J0696; J1815; J2270; J2405; J2550; J2920; J3411; J3475; J3480; J3490; J7030

== ENCOUNTER 2019-08-09 04:09 | Inpatient (IN) | payer SELFPAY ==
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
[2019-08-09] MEDS ORDERED: NORMAL SALINE 1000 ML 1,000 ML IV ONE ×3 (04:52→07:07)
[2019-08-09 05:00] LABS: ABSOLUTE EOSINOPHILS # (AUTO) 0.1 10^3/uL (0.0-0.6); ABSOLUTE LYMPHOCYTES (AUTO) 1.5 10^3/uL (0.5-4.7); ABSOLUTE MONOCYTES (AUTO) 1.5 10^3/uL (0.1-1.4); ABSOLUTE NEUT (AUTO) 9.3 10^3/uL (1.7-8.2); BASOPHILS % (AUTO) 0.2 % (0-2); EOSINOPHILS % (AUTO) 1.1 % (0-6); HEMATOCRIT 26.6 % (37.9-51.0); HEMOGLOBIN 9.6 g/dL (13.5-17.0); LYMPHOCYTES % (AUTO) 11.8 % (13-45); MEAN CORPUSCULAR HEMOGLOBIN 38.1 pg (27.0-33.4); MONOCYTES % (AUTO) 11.8 % (3-13); PLATELET COUNT 191 10^3/uL (150-450); RED BLOOD COUNT 2.51 10^6/uL (4.35-5.55); RED CELL DISTRIBUTION WIDTH 17.7 % (11.5-14.0); SEGMENTED NEUTROPHILS % (AUTO) 75.1 % (42-78); TOTAL CELLS COUNTED % (AUTO) 100 %; WHITE BLOOD COUNT 12.4 10^3/uL (4.0-10.5)
[2019-08-09 05:06] LABS: VENOUS BLOOD BASE EXCESS -13.2 mmol/L; VENOUS BLOOD HCO3 9.9 mmol/L (20-32); VENOUS BLOOD PH 7.39 (7.30-7.42)
[2019-08-09 05:08] LABS: VENOUS BLOOD PCO2 16.8 mmHg (35-63)
[2019-08-09 05:12] LABS: ALBUMIN 2.2 g/dL (3.5-5.0); ALKALINE PHOSPHATASE 255 U/L (38-126); ANION GAP 14 (5-19); ASPARTATE AMINO TRANSFERASE 61 U/L (17-59); BLOOD UREA NITROGEN 45 mg/dL (7-20); CALCIUM 8.2 mg/dL (8.4-10.2); CHLORIDE 114 mmol/L (98-107); POTASSIUM 4.1 mmol/L (3.6-5.0); TOTAL PROTEIN 6.5 g/dL (6.3-8.2)
[2019-08-09 05:13] LABS: APPEARANCE,URINE CLOUDY; BILIRUBIN,URINE MODERATE (NEGATIVE); COLOR,URINE AMBER; GLUCOSE, URINE NEGATIVE (NEGATIVE); KETONES,URINE NEGATIVE (NEGATIVE); PROTEIN,URINE 30 mg/dL (NEGATIVE); URINE SPECIFIC GRAVITY 1.017
[2019-08-09 05:26] LABS: MEAN CORPUSCULAR VOLUME 106 fl (80-97)
[2019-08-09 05:28] LABS: BILIRUBIN,TOTAL 32.8 mg/dL (0.2-1.3)
[2019-08-09 05:29] LABS: BILIRUBIN,DIRECT 30.1 mg/dL (0.0-0.4)
[2019-08-09 05:30] LABS: CARBON DIOXIDE 8 mmol/L (22-30); GLUCOSE 64 mg/dL (75-110)
[2019-08-09] MEDS ORDERED: DEXTROSE 50%-WATER 25 GM/50 ML DISP.SYRIN IV ONE (05:32)
--- NOTE | 2019-08-09 05:32 | RADIOLOGY REPORT (SQ) ---
EXAM DESCRIPTION: X-ray single view chest. CLINICAL HISTORY: 49 years Male, ams COMPARISON: None TECHNIQUE: Single portable x-ray view of the chest performed on 08/09/2019 at 4:59 AM FINDINGS: The lungs are well expanded and are clear. There is no evidence of a pneumothorax. The cardiac silhouette is normal in size and configuration. The mediastinal contours are normal. No acute osseous abnormality is identified. No focal soft tissue abnormalities are seen. Lines and tubes: None. IMPRESSION: No evidence of acute intrathoracic disease.
[2019-08-09 05:36] LABS: URINE AMPHETAMINES SCREEN NEGATIVE; URINE BARBITURATES SCREEN NEGATIVE; URINE BENZODIAZEPINES SCREEN NEGATIVE; URINE COCAINE SCREEN NEGATIVE; URINE MARIJUANA (THC) SCREEN NEGATIVE; URINE METHADONE SCREEN NEGATIVE; URINE PHENCYCLIDINE SCREEN NEGATIVE
[2019-08-09 07:04] LABS: INTERNATIONAL RATION (INR) 2.89; PROTHROMBIN TIME 30.8 SEC (11.4-15.4)
[2019-08-09 07:05] LABS: PARTIAL THROMBOPLASTIN TIME 63.6 SEC (23.5-35.8)
[2019-08-09] MEDS ORDERED: NOREPINEPHRINE BITARTRATE INJ/PF 4 MG/4 ML SDV IV ONE ×2 (07:17→11:52)
[2019-08-09] MEDS: DEXTROSE 5%-WATER 250 ML with NOREPINEPHRINE BITARTRATE 4 MG IV PRN ×4 (07:27→13:43)
[2019-08-09] MEDS ORDERED: LACTULOSE SYRUP 20 GM/30 ML UDCUP PO ONE (08:12)
[2019-08-09] MEDS ORDERED: ONDANSETRON HCL INJ/PF 4 MG/2 ML SDV IV PRN (08:19)
[2019-08-09] MEDS ORDERED: HYDROCORTISONE SOD SUCCINATE INJ/PF 100 MG/2 ML SDV IV ONE (08:24)
[2019-08-09] MEDS ORDERED: PHARMACY COMMUNICATION ORDER MC NR (08:30)
--- NOTE | 2019-08-09 09:30 | RADIOLOGY REPORT (SQ) ---
EXAM DESCRIPTION: KUB/ABDOMEN (SINGLE VIEW) IMAGES COMPLETED DATE/TIME: 08/09/2019 9:21 am REASON FOR STUDY: Check Placement of NG Tube COMPARISON: Recent radiographs and ultrasound. NUMBER OF VIEWS: One view. TECHNIQUE: Supine radiographic image of the abdomen acquired. LIMITATIONS: None. FINDINGS: BOWEL GAS PATTERN: Normal bowel gas pattern. No dilated loops. CALCIFICATIONS: No suspicious calcifications. SOFT TISSUES: No gross mass or suggestion of organomegaly. HARDWARE: Nasogastric tube in appropriate position. BONES: No acute fracture. No worrisome bone lesions. OTHER: No other significant finding. IMPRESSION: Nasogastric tube in appropriate position. TECHNICAL DOCUMENTATION: JOB ID: [id number] 2010 [employer]- All Rights Reserved Reading location - IP/workstation name: [email or web address]
[2019-08-09] MEDS: RINGERS SOLUTION,LACTATED 1,000 ML IV PRN ×3 (10:37→23:43)
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
[2019-08-09] MEDS: ALBUMIN HUMAN 12.5 GM/50 ML RTUINJ IV SCH ×5 (10:44→21:42)
[2019-08-09] MEDS: ENOXAPARIN SODIUM INJ 40 MG/0.4 ML DISP.SYRIN SUBCUT SCH (10:46)
[2019-08-09] MEDS: PANTOPRAZOLE SODIUM 40 MG VIAL IV SCH (10:46)
[2019-08-09] MEDS ORDERED: HYDROCORTISONE SOD SUCCINATE INJ/PF 100 MG/2 ML SDV ONE (10:47)
[2019-08-09] MEDS: THIAMINE HCL 100 MG TABLET NG SCH (12:00)
[2019-08-09] MEDS ORDERED: LACTULOSE SYRUP 20 GM/30 ML UDCUP PO SCH (14:00)
[2019-08-09] MEDS: LACTULOSE SYRUP 20 GM/30 ML UDCUP NG SCH ×3 (14:26→21:41)
[2019-08-09 21:25] LABS: BLOOD UREA NITROGEN 42 mg/dL (7-20); CALCIUM 7.7 mg/dL (8.4-10.2); CHLORIDE 116 mmol/L (98-107); GLUCOSE 188 mg/dL (75-110); POTASSIUM 3.4 mmol/L (3.6-5.0)
[2019-08-09 21:30] LABS: ANION GAP 13 (5-19)
[2019-08-09 21:42] LABS: CARBON DIOXIDE 6 mmol/L (22-30)
[2019-08-09 22:55] LABS: URINE CREATININE 69.5 mg/dL (22-328)
[2019-08-09] MEDS ORDERED: ALBUMIN HUMAN 500 ML IV ONE ×2 (23:00→23:55)
[2019-08-10] MEDS: AMINO AC/PROTEIN HYDR/WHEY PRO 11 GM/45 ML PKT NG SCH ×4 (00:31→19:27)
[2019-08-10] MEDS: LACTULOSE SYRUP 20 GM/30 ML UDCUP NG SCH ×6 (01:35→21:23)
[2019-08-10] MEDS: DEXTROSE 5%-WATER 250 ML with NOREPINEPHRINE BITARTRATE 4 MG IV PRN ×2 (03:28)
[2019-08-10] MEDS ORDERED: PHENTOLAMINE MESYLATE INJ 5 MG VIAL ONE (03:58)
[2019-08-10] MEDS ORDERED: FENTANYL CITRATE INJ/PF 100 MCG/2 ML AMPUL ONE (04:07)
[2019-08-10] MEDS ORDERED: PHENTOLAMINE MESYLATE INJ 5 MG VIAL IV ONE (04:25)
[2019-08-10] MEDS ORDERED: FENTANYL CITRATE INJ/PF 100 MCG/2 ML AMPUL IV ONE (04:26)
[2019-08-10] MEDS ORDERED: ALBUTEROL SULFATE HFA (90 MCG/PUFF) 8 GM MDI IH ONE (04:31)
--- NOTE | 2019-08-10 04:46 | Progress Note ---
Provider Note Provider Note: Date/Time: 08/10/2019 03:55 AM RN and myself notified by OSTEOPATHIC MEDICINE TEACHER that Mr Carrasquillo's left neck was very swollen all of a sudden. This was a very astute observation by Brittni which allowed us to react quickly. There was a large fluid collection from the angle of the left mandible and ear lobe that extended anteriorly to the suprasternal notch down to ~the 4th intercostal space mid-clavicular region, along to the anterior axilla and medial proximal humerus and to the top portion of the trapezius muscle. The medications connected to this IV were Norepinephrine at 4 mcg/min as well as Ringer's Lactate IV solution at a rate of 150 ml/hr. The 18g peripheral IV was removed and an effort was made to express as much of the extracellular fluid as possible from the IV site as well as the abrased skin from the tegaderm being removed (which surprisingly worked better for fluid removal). It was painful for Mr Carrasquillo while expressing the fluid, therefore, 50 mcg of Fentanyl was administered in 25 mcg increments to better tolerate the pain. Next, the skin was generously prepped with a 10.5 mL Chlorhexidine solution prep to sterilize the area which also circumscribed the distribution of subcutaneous fluid. Diluting 10 mg of Phentolamine in 20 mL of sterile saline, Phentolamine was injected around the outside edges of the fluid distribution to prevent further spread as well as the remaining 2 mL locally around the IV site where there may have been more concentration of the drug. The only hyperpigmented skin thus far surrounds the left external jugular IV site. I then asked the nurse to apply a warm compress to the area to promote blood flow and more precipitous absorption. Also asked the nurse to [place] the fluid area with a marker so we can monitor the tissue closely over the next 48 hrs. To note, the Norepinephrine infusion was also Y-sited with the patient's maintenance IV fluid, which I feel is largely responsible for the greater quantity of the subcutaneous fluid volume, though this could also potentially serve as an avenue for the caustic medication to disperse farther. Will sign this out to the day-time Life Manager at 7am to continue to monitor.
[2019-08-10] MEDS: ALBUMIN HUMAN 12.5 GM/50 ML RTUINJ IV SCH ×3 (05:18→21:23)
[2019-08-10 06:07] LABS: ABSOLUTE LYMPHOCYTES (AUTO) 1.4 10^3/uL (0.5-4.7); ABSOLUTE MONOCYTES (AUTO) 0.9 10^3/uL (0.1-1.4); BASOPHILS % (AUTO) 0.4 % (0-2); EOSINOPHILS % (AUTO) 0.1 % (0-6); HEMATOCRIT 21.6 % (37.9-51.0); LYMPHOCYTES % (AUTO) 10.7 % (13-45); MEAN CORPUSCULAR HGB CONC 35.9 g/dL (32.0-36.0); MEAN CORPUSCULAR VOLUME 106 fl (80-97); MONOCYTES % (AUTO) 6.8 % (3-13); PLATELET COUNT 136 10^3/uL (150-450); RED BLOOD COUNT 2.04 10^6/uL (4.35-5.55); TOTAL CELLS COUNTED % (AUTO) 100 %; WHITE BLOOD COUNT 13.5 10^3/uL (4.0-10.5)
[2019-08-10 06:11] LABS: HEMOGLOBIN 7.8 g/dL (13.5-17.0)
[2019-08-10 06:24] LABS: ALBUMIN 2.7 g/dL (3.5-5.0); ALKALINE PHOSPHATASE 176 U/L (38-126); ASPARTATE AMINO TRANSFERASE 42 U/L (17-59); BLOOD UREA NITROGEN 43 mg/dL (7-20); CHLORIDE 116 mmol/L (98-107); GLUCOSE 178 mg/dL (75-110); POTASSIUM 3.5 mmol/L (3.6-5.0); TOTAL PROTEIN 6.6 g/dL (6.3-8.2)
[2019-08-10 06:30] LABS: ANION GAP 15 (5-19)
[2019-08-10] MEDS: RINGERS SOLUTION,LACTATED 1,000 ML IV PRN ×2 (06:30→13:30)
[2019-08-10 07:01] LABS: BILIRUBIN,TOTAL 35.9 mg/dL (0.2-1.3)
[2019-08-10 07:14] LABS: BILIRUBIN,DIRECT 32.4 mg/dL (0.0-0.4)
[2019-08-10 07:16] LABS: CARBON DIOXIDE 7 mmol/L (22-30)
[2019-08-10] MEDS: PANTOPRAZOLE SODIUM 40 MG VIAL IV SCH (10:54)
[2019-08-10] MEDS: MIDODRINE HCL 5 MG TABLET NG SCH ×4 (10:55→19:26)
[2019-08-10] MEDS: LACTULOSE SYRUP 20 GM/30 ML UDCUP PR SCH ×2 (10:55→22:30)
[2019-08-10] MEDS: THIAMINE HCL 100 MG TABLET NG SCH (10:55)
[2019-08-10] MEDS: ENOXAPARIN SODIUM INJ 40 MG/0.4 ML DISP.SYRIN SUBCUT SCH (10:56)
[2019-08-10] MEDS: FOLIC ACID 1 MG TABLET NG SCH (10:56)
--- NOTE | 2019-08-10 12:13 | PDOC CRITICAL CARE PROG REPORT ---
General Date:: 08/10/19 ICU Day:: 2 Hospital Day:: 2 Resuscitation Status: Full Code Events in the past 12 to 24 Hours:: BP slightly better but still on levophed. Review of systems relevant to events:: GI, neurological. Reason for ICU Addmission:: None now - Medications: Medications reviewed and adjusted accordingly: Yes Vasopressors:: Levophed. Sedation:: None Physical Exam Vital Signs: Temp Pulse Resp BP Pulse Ox 97.2 F 85 13 102/56 L 99 08/10/19 10:36 08/10/19 09:49 08/10/19 10:36 08/10/19 10:36 08/10/19 10:36 Intake & Output 08/09/19 08/10/19 08/11/19 06:59 06:59 06:59 Intake Total 1999 4704 109 Output Total 925 135 Balance 1999 3779 -26 Weight 81.9 kg 84.1 kg Weight/Height Weight 84.1 kg Height 5 ft 8 in General appearance: PRESENT: no acute distress, thin Head exam: PRESENT: atraumatic, normocephalic Eye exam: PRESENT: conjunctiva pink, EOMI, PERRLA. ABSENT: scleral icterus Ear exam: PRESENT: normal external ear exam Respiratory exam: PRESENT: clear to auscultation linda, decreased breath sounds. ABSENT: rales, rhonchi, wheezes Cardiovascular exam: PRESENT: RRR. ABSENT: diastolic murmur, rubs, systolic murmur GI/Abdominal exam: PRESENT: ascites, distended Rectal exam: PRESENT: deferred Extremities exam: PRESENT: full ROM. ABSENT: calf tenderness, clubbing, pedal edema Neurological exam: PRESENT: altered Skin exam: PRESENT: dry, intact, warm. ABSENT: cyanosis, rash Laboratory/Radiographs Laboratory Results: 08/10/19 05:48 08/10/19 05:48 08/09/19 08/09/19 08/10/19 20:57 20:57 05:48 WBC 13.5 H RBC 2.04 L Hgb 7.8 L Hct 21.6 L MCV 106 H MCH 38.0 H MCHC 35.9 RDW 18.0 H Plt Count 136 L Seg Neutrophils % 82.0 H Sodium 134.8 L Potassium 3.4 L Chloride 116 H Carbon Dioxide 6 L* Anion Gap 13 BUN 42 H Creatinine 4.56 H Est GFR ( Amer) 17 L Glucose 188 H Calcium 7.7 L Ionized Calcium Prem 1.09 L Magnesium 1.7 Total Bilirubin AST Alkaline Phosphatase Ammonia Total Protein Albumin 08/10/19 08/10/19 05:48 05:48 WBC RBC Hgb Hct MCV MCH MCHC RDW Plt Count Seg Neutrophils % Sodium 137.6 Potassium 3.5 L Chloride 116 H Carbon Dioxide 7 L* Anion Gap 15 BUN 43 H Creatinine 4.94 H Est GFR ( Amer) 15 L Glucose 178 H Calcium 8.0 L Ionized Calcium Prem Magnesium Total Bilirubin 35.9 H AST 42 Alkaline Phosphatase 176 H Ammonia 82.5 H Total Protein 6.6 Albumin 2.7 L 08/09/19 04:20 Troponin I < 0.012 Impressions: Chest X-Ray 08/09/19 04:34 IMPRESSION: No evidence of acute intrathoracic disease. KUB X-Ray 08/09/19 08:21 IMPRESSION: Nasogastric tube in appropriate position. All labs, radiographs, diagnostic studies and EKGs were personally reviewed: Yes In addition, reports of radiographic and diagnostic studies were read: Yes Assessment and Plan - Diagnosis (1) Ascites due to alcoholic hepatitis Is this a current diagnosis for this admission?: Yes Plan: His liver is nearly failing with a total bilirubin of 35. (2) Hyperammonemia Is this a current diagnosis for this admission?: Yes Plan: Ammonia level is higher. Extra lactulose given. (3) Hypotension Qualifiers: Hypotension type: unspecified hypotension type Qualified Code(s): I95.9 - Hypotension, unspecified Is this a current diagnosis for this admission?: Yes Plan: Now on midodrine. Would like to get off levophed. (4) Alcohol abuse Is this a current diagnosis for this admission?: Yes Plan: No drinking for the last 3 weeks according to . WD not an issue. (5) Hepatic encephalopathy Is this a current diagnosis for this admission?: Yes Plan: With NH3 going up he will need more lactulose. (6) Hypoadrenalism Is this a current diagnosis for this admission?: Yes Plan: On scheduled steroids and now midodrine. (7) Metabolic acidosis Is this a current diagnosis for this admission?: Yes Plan: His baseline bicarb on last admission was only 10. Now 8. (8) ARF (acute renal failure) Qualifiers: Acute renal failure type: with acute tubular necrosis Qualified Code(s): N17.0 - Acute kidney failure with tubular necrosis Is this a current diagnosis for this admission?: Yes Plan: This is likely due to dehydration but after 24 hours of albumin and IVF we have to consider HRS. This may be fatal. Plan Summary: If his Cr worsens may have to consider TIPS. Not a good transplant candidate in view of inability to stop drinking. Critical Time Critical Time (minutes): 35 Level of Care: ICU Anticipated discharge: SNF Within: Other -: 1. The care of a critical patient is a dynamic process. This note is a event sales representative synopsis but static in nature. The timeframe for treatments given in order is not necessarily the actual time these treatments may have been done. 2. This patient requires critical care secondary to ongoing requirements for therapy not offered or safe outside the critical care environment. Transfer to a lower level of care will result in altered life or limb morbidity and mortality. 3. Multidisciplinary rounds completed. 4. ABCDE bundle addressed.
[2019-08-10] MEDS: HYDROCORTISONE SOD SUCCINATE INJ/PF 100 MG/2 ML SDV IV SCH ×2 (17:21→21:22)
[2019-08-10] MEDS ORDERED: LACTULOSE SYRUP 20 GM/30 ML UDCUP ONE (22:03)
[2019-08-11] MEDS: LACTULOSE SYRUP 20 GM/30 ML UDCUP NG SCH ×6 (02:57→21:32)
[2019-08-11] MEDS: RINGERS SOLUTION,LACTATED 1,000 ML IV PRN ×4 (02:58→23:57)
[2019-08-11 04:18] LABS: ABSOLUTE LYMPHOCYTES (AUTO) 0.9 10^3/uL (0.5-4.7); ABSOLUTE MONOCYTES (AUTO) 0.6 10^3/uL (0.1-1.4); ABSOLUTE NEUT (AUTO) 13.5 10^3/uL (1.7-8.2); BASOPHILS % (AUTO) 0.3 % (0-2); HEMATOCRIT 20.4 % (37.9-51.0); LYMPHOCYTES % (AUTO) 6.3 % (13-45); MEAN CORPUSCULAR HEMOGLOBIN 38.3 pg (27.0-33.4); MEAN CORPUSCULAR HGB CONC 36.2 g/dL (32.0-36.0); MEAN CORPUSCULAR VOLUME 106 fl (80-97); MONOCYTES % (AUTO) 4.2 % (3-13); PLATELET COUNT 128 10^3/uL (150-450); RED BLOOD COUNT 1.93 10^6/uL (4.35-5.55); RED CELL DISTRIBUTION WIDTH 17.1 % (11.5-14.0); SEGMENTED NEUTROPHILS % (AUTO) 89.2 % (42-78); TOTAL CELLS COUNTED % (AUTO) 100 %; WHITE BLOOD COUNT 15.1 10^3/uL (4.0-10.5)
[2019-08-11 04:42] LABS: ALBUMIN 2.5 g/dL (3.5-5.0); ALKALINE PHOSPHATASE 170 U/L (38-126); ANION GAP 14 (5-19); ASPARTATE AMINO TRANSFERASE 37 U/L (17-59); BLOOD UREA NITROGEN 43 mg/dL (7-20); CALCIUM 7.9 mg/dL (8.4-10.2); CHLORIDE 118 mmol/L (98-107); GLUCOSE 199 mg/dL (75-110); TOTAL PROTEIN 6.1 g/dL (6.3-8.2)
[2019-08-11 04:46] LABS: HEMOGLOBIN 7.4 g/dL (13.5-17.0)
[2019-08-11] MEDS ORDERED: LACTULOSE SYRUP 20 GM/30 ML UDCUP ONE (04:55)
[2019-08-11 04:58] LABS: BILIRUBIN,TOTAL 35.4 mg/dL (0.2-1.3)
[2019-08-11 05:00] LABS: CARBON DIOXIDE 7 mmol/L (22-30)
[2019-08-11 05:01] LABS: BILIRUBIN,DIRECT 31.2 mg/dL (0.0-0.4)
[2019-08-11] MEDS: ALBUMIN HUMAN 12.5 GM/50 ML RTUINJ IV SCH ×3 (05:11→21:32)
[2019-08-11] MEDS: HYDROCORTISONE SOD SUCCINATE INJ/PF 100 MG/2 ML SDV IV SCH ×3 (05:11→21:33)
[2019-08-11] MEDS ORDERED: ALBUMIN HUMAN 500 ML IV ONE (06:22)
[2019-08-11] MEDS ORDERED: POTASSIUM CHLORIDE 20 MEQ PACKET NG ONE (08:00)
[2019-08-11] MEDS: DEXTROSE 5%-WATER 250 ML with NOREPINEPHRINE BITARTRATE 4 MG IV PRN ×2 (09:21)
[2019-08-11] MEDS: ENOXAPARIN SODIUM INJ 40 MG/0.4 ML DISP.SYRIN SUBCUT SCH (10:00)
[2019-08-11] MEDS: PANTOPRAZOLE SODIUM 40 MG VIAL IV SCH (10:00)
[2019-08-11] MEDS: THIAMINE HCL 100 MG TABLET NG SCH (10:01)
[2019-08-11] MEDS: FOLIC ACID 1 MG TABLET NG SCH (10:01)
[2019-08-11] MEDS: MIDODRINE HCL 5 MG TABLET NG SCH ×3 (10:01→17:57)
[2019-08-11] MEDS: AMINO AC/PROTEIN HYDR/WHEY PRO 11 GM/45 ML PKT NG SCH ×3 (10:01→17:57)
--- NOTE | 2019-08-11 11:16 | PDOC CRITICAL CARE PROG REPORT ---
General Date:: 08/11/19 ICU Day:: 2 Hospital Day:: 2 Resuscitation Status: Full Code Events in the past 12 to 24 Hours:: There s the question of whether he is in hepatorenal syndrome. Review of systems relevant to events:: Renal, GI (liver), neurological. Reason for ICU Addmission:: Mental status. - Medications: Medications reviewed and adjusted accordingly: Yes Vasopressors:: Levophed Sedation:: None. Physical Exam Vital Signs: Temp Pulse Resp BP Pulse Ox 97.0 F 76 12 101/65 100 08/11/19 10:06 08/10/19 19:18 08/11/19 10:06 08/11/19 10:06 08/11/19 10:06 Intake & Output 08/10/19 08/11/19 08/12/19 06:59 06:59 06:59 Intake Total 5204 2263 1115 Output Total 925 2195 135 Balance 4279 68 980 Weight 84.1 kg 81.9 kg Weight/Height Weight 81.9 kg Height 5 ft 8 in General appearance: PRESENT: no acute distress, disheveled, thin Head exam: PRESENT: atraumatic, normocephalic Eye exam: PRESENT: conjunctiva pink, EOMI, PERRLA. ABSENT: scleral icterus Ear exam: PRESENT: normal external ear exam Mouth exam: PRESENT: moist, tongue midline Respiratory exam: PRESENT: clear to auscultation linda, decreased breath sounds. ABSENT: rales, rhonchi, wheezes Cardiovascular exam: PRESENT: RRR. ABSENT: diastolic murmur, rubs, systolic murmur GI/Abdominal exam: PRESENT: ascites, diminished bowel sounds, distended, firm, hypoactive bowel sounds Rectal exam: PRESENT: deferred Gentrourinary exam: PRESENT: indwelling catheter Extremities exam: PRESENT: +2 edema Musculoskeletal exam: PRESENT: normal inspection Neurological exam: PRESENT: altered, CN II-XII grossly intact Skin exam: PRESENT: jaundice - Deep jaundice. Laboratory/Radiographs Laboratory Results: 08/11/19 04:08 08/11/19 04:08 08/11/19 08/11/19 08/11/19 04:08 04:08 04:08 WBC 15.1 H RBC 1.93 L Hgb 7.4 L Hct 20.4 L MCV 106 H MCH 38.3 H MCHC 36.2 H RDW 17.1 H Plt Count 128 L Seg Neutrophils % 89.2 H Sodium 138.9 Potassium 3.0 L* Chloride 118 H Carbon Dioxide 7 L* Anion Gap 14 BUN 43 H Creatinine 4.61 H Est GFR ( Amer) 17 L Glucose 199 H Calcium 7.9 L Total Bilirubin 35.4 H AST 37 Alkaline Phosphatase 170 H Ammonia 65.1 H Total Protein 6.1 L Albumin 2.5 L 08/09/19 04:20 Troponin I < 0.012 Impressions: Chest X-Ray 08/09/19 04:34 IMPRESSION: No evidence of acute intrathoracic disease. KUB X-Ray 08/09/19 08:21 IMPRESSION: Nasogastric tube in appropriate position. All labs, radiographs, diagnostic studies and EKGs were personally reviewed: Yes In addition, reports of radiographic and diagnostic studies were read: Yes Assessment and Plan - Diagnosis (1) Ascites due to alcoholic hepatitis Is this a current diagnosis for this admission?: Yes Plan: Ascites is not much worse. Abdomen is not tense. (2) Hyperammonemia Is this a current diagnosis for this admission?: Yes Plan: Ammonia is 64. Still high and still encephalopathic. Lactulose dose is increased to 30mg q4h. (3) Hypotension Qualifiers: Hypotension type: unspecified hypotension type Qualified Code(s): I95.9 - Hypotension, unspecified Is this a current diagnosis for this admission?: Yes Plan: Still on levophed. (4) Alcohol abuse Is this a current diagnosis for this admission?: Yes Plan: Said to be ongoing. He is not a transplant candidate. I have had Dr. Gamoba see him and he believes he is in hepatorenal syndrome. For prognostic considerations he is best served with hospice. (5) Hepatic encephalopathy Is this a current diagnosis for this admission?: Yes Plan: Lactulose increased. (6) Hypoadrenalism Is this a current diagnosis for this admission?: Yes Plan: Maintain steroids. (7) Metabolic acidosis Is this a current diagnosis for this admission?: Yes Plan: Chronic for him. (8) ARF (acute renal failure) Qualifiers: Acute renal failure type: with acute tubular necrosis Qualified Code(s): N17.0 - Acute kidney failure with tubular necrosis Is this a current diagnosis for this admission?: Yes Plan: HRS, a commonly fatal complication. Plan Summary: We need to discuss with family his prognosis, wishes and option of comfort care. Critical Time Critical Time (minutes): 35 Level of Care: ICU Anticipated discharge: Hospice Within: Other -: 1. The care of a critical patient is a dynamic process. This note is a sales representative gas service synopsis but static in nature. The timeframe for treatments given in order is not necessarily the actual time these treatments may have been done. 2. This patient requires critical care secondary to ongoing requirements for therapy not offered or safe outside the critical care environment. Transfer to a lower level of care will result in altered life or limb morbidity and mortality. 3. Multidisciplinary rounds completed. 4. ABCDE bundle addressed.
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
[2019-08-11] MEDS: DEXTROSE 5%-WATER 1000 ML 1,000 ML with SODIUM BICARBONATE 150 MEQ IV PRN ×2 (15:00)
--- NOTE | 2019-08-11 15:03 | Progress Note ---
Provider Note Provider Note: Talked with regarding his overall prognosis which is poor. understandably emotional. Able to provide DNR status and will not escalate care. No comfort care or hospice as yet.
--- NOTE | 2019-08-11 17:22 | RADIOLOGY REPORT (SQ) ---
EXAM DESCRIPTION: KUB/ABDOMEN (SINGLE VIEW) IMAGES COMPLETED DATE/TIME: 08/11/2019 5:12 pm REASON FOR STUDY: NGT PLACEMENT COMPARISON: 08/09/2019. FINDINGS: Single view AP portable semi-upright lower chest/ upper abdomen view. Nasogastric tube down, tip appropriately located. As assessed, lung bases are clear and bowel gas pattern is unremarkable. TECHNICAL DOCUMENTATION: JOB ID: [id number] Reading location - IP/workstation name: [email or web address]
--- NOTE | 2019-08-11 18:11 | Progress Note ---
Provider Note Provider Note: Adeola Carrasquillo, ,
[2019-08-12] MEDS: LACTULOSE SYRUP 20 GM/30 ML UDCUP NG SCH ×6 (01:59→21:59)
[2019-08-12 03:19] LABS: ABSOLUTE LYMPHOCYTES (AUTO) 1.2 10^3/uL (0.5-4.7); TOTAL CELLS COUNTED % (AUTO) 100 %; WHITE BLOOD COUNT 16.5 10^3/uL (4.0-10.5)
[2019-08-12 03:22] LABS: ABSOLUTE MONOCYTES (AUTO) 0.7 10^3/uL (0.1-1.4); ABSOLUTE NEUT (AUTO) 14.6 10^3/uL (1.7-8.2); BASOPHILS % (AUTO) 0.2 % (0-2); HEMATOCRIT 20.5 % (37.9-51.0); LYMPHOCYTES % (AUTO) 7.3 % (13-45); MEAN CORPUSCULAR HEMOGLOBIN 37.2 pg (27.0-33.4); MEAN CORPUSCULAR HGB CONC 35.7 g/dL (32.0-36.0); MEAN CORPUSCULAR VOLUME 104 fl (80-97); PLATELET COUNT 112 10^3/uL (150-450); RED BLOOD COUNT 1.97 10^6/uL (4.35-5.55); RED CELL DISTRIBUTION WIDTH 16.9 % (11.5-14.0); SEGMENTED NEUTROPHILS % (AUTO) 88.5 % (42-78)
[2019-08-12 03:24] LABS: HEMOGLOBIN 7.3 g/dL (13.5-17.0)
[2019-08-12 03:35] LABS: ANION GAP 10 (5-19); BLOOD UREA NITROGEN 41 mg/dL (7-20); CALCIUM 8.1 mg/dL (8.4-10.2); CARBON DIOXIDE 12 mmol/L (22-30); CHLORIDE 119 mmol/L (98-107); GLUCOSE 235 mg/dL (75-110)
[2019-08-12 03:41] LABS: POTASSIUM 2.8 mmol/L (3.6-5.0)
[2019-08-12] MEDS ORDERED: INSULIN LISPRO 100 UNIT/ML 3 ML VIAL SUBCUT ONE (04:24)
[2019-08-12] MEDS ORDERED: POTASSIUM CHLORIDE 20 MEQ PACKET NG ONE ×2 (05:00→14:00)
[2019-08-12] MEDS: HYDROCORTISONE SOD SUCCINATE INJ/PF 100 MG/2 ML SDV IV SCH ×3 (05:25→22:06)
[2019-08-12] MEDS ORDERED: ALBUMIN HUMAN 12.5 GM/50 ML RTUINJ IV ONE (05:42)
[2019-08-12] MEDS: ALBUMIN HUMAN 12.5 GM/50 ML RTUINJ IV SCH ×3 (05:47→22:43)
[2019-08-12] MEDS: RINGERS SOLUTION,LACTATED 1,000 ML IV PRN ×3 (06:51→21:57)
[2019-08-12] MEDS: MIDODRINE HCL 5 MG TABLET NG SCH ×3 (10:44→18:40)
[2019-08-12] MEDS: AMINO AC/PROTEIN HYDR/WHEY PRO 11 GM/45 ML PKT NG SCH ×3 (10:44→18:40)
[2019-08-12] MEDS: PANTOPRAZOLE SODIUM 40 MG VIAL IV SCH (10:44)
[2019-08-12] MEDS: THIAMINE HCL 100 MG TABLET NG SCH (10:45)
[2019-08-12] MEDS: FOLIC ACID 1 MG TABLET NG SCH (10:45)
--- NOTE | 2019-08-12 11:58 | PDOC CRITICAL CARE PROG REPORT ---
General Date:: 08/12/19 ICU Day:: 3 Hospital Day:: 3 Resuscitation Status: Do Not Resuscitate Events in the past 12 to 24 Hours:: More awake and somewhat interactive. Prognosis still poor. Review of systems relevant to events:: GI, Liver, Neurological. Reason for ICU Addmission:: Mental status. - Medications: Medications reviewed and adjusted accordingly: Yes Vasopressors:: None Sedation:: None Physical Exam Vital Signs: Temp Pulse Resp BP Pulse Ox 96.4 F L 59 L 9 L 106/74 99 08/12/19 10:00 08/12/19 10:00 08/12/19 10:00 08/12/19 10:00 08/12/19 10:00 Intake & Output 08/11/19 08/12/19 08/13/19 06:59 06:59 06:59 Intake Total 2263 4165 50 Output Total 2195 1810 125 Balance 68 2355 -75 Weight 81.9 kg 85.2 kg Weight/Height Weight 85.2 kg Height 5 ft 8 in General appearance: PRESENT: no acute distress Head exam: PRESENT: atraumatic, normocephalic Eye exam: PRESENT: conjunctiva pink, EOMI, PERRLA. ABSENT: scleral icterus Ear exam: PRESENT: normal external ear exam Mouth exam: PRESENT: moist, tongue midline Respiratory exam: PRESENT: clear to auscultation linda. ABSENT: rales, rhonchi, wheezes Cardiovascular exam: PRESENT: RRR. ABSENT: diastolic murmur, rubs, systolic murmur GI/Abdominal exam: PRESENT: ascites, diminished bowel sounds, distended Rectal exam: PRESENT: deferred Extremities exam: PRESENT: full ROM. ABSENT: calf tenderness, clubbing, pedal edema Neurological exam: PRESENT: altered, other - Able to remain awake more. Answering simple questions. Psychiatric exam: PRESENT: flat affect Skin exam: PRESENT: dry, intact, warm. ABSENT: cyanosis, rash Tubes/Lines: PRESENT: Nasogastic Tube Laboratory/Radiographs Laboratory Results: 08/12/19 03:10 08/12/19 03:10 08/12/19 08/12/19 03:10 03:10 WBC 16.5 H RBC 1.97 L Hgb 7.3 L Hct 20.5 L MCV 104 H MCH 37.2 H MCHC 35.7 RDW 16.9 H Plt Count 112 L Seg Neutrophils % 88.5 H Sodium 141.1 Potassium 2.8 L* Chloride 119 H Carbon Dioxide 12 L Anion Gap 10 BUN 41 H Creatinine 4.07 H Est GFR ( Amer) 19 L Glucose 235 H Calcium 8.1 L 08/09/19 04:20 Troponin I < 0.012 Impressions: Chest X-Ray 08/09/19 04:34 IMPRESSION: No evidence of acute intrathoracic disease. All labs, radiographs, diagnostic studies and EKGs were personally reviewed: Yes In addition, reports of radiographic and diagnostic studies were read: Yes Assessment and Plan - Diagnosis (1) Ascites due to alcoholic hepatitis Is this a current diagnosis for this admission?: Yes Plan: Does not seem more distended. Will start tube feeds with nepro. (2) Hyperammonemia Is this a current diagnosis for this admission?: Yes Plan: More awake, so probably lower recheck in AM. (3) Hypotension Qualifiers: Hypotension type: unspecified hypotension type Qualified Code(s): I95.9 - Hypotension, unspecified Is this a current diagnosis for this admission?: Yes Plan: Improved, off levophed. (4) Alcohol abuse Is this a current diagnosis for this admission?: Yes Plan: Chronic (5) Hepatic encephalopathy Is this a current diagnosis for this admission?: Yes Plan: Improved. (6) Hypoadrenalism Is this a current diagnosis for this admission?: Yes Plan: Keep on steroids at same dose for now. (7) Metabolic acidosis Is this a current diagnosis for this admission?: Yes Plan: Improved but on bicarb drip. (8) ARF (acute renal failure) Qualifiers: Acute renal failure type: with acute tubular necrosis Qualified Code(s): N17.0 - Acute kidney failure with tubular necrosis Is this a current diagnosis for this admission?: Yes Plan: Cr level slightly improved at 4.0 Plan Summary: Start TF with nepro. If he remains stable downgrade in AM. Critical Time Critical Time (minutes): 35 Level of Care: ICU Anticipated discharge: SNF Within: Other -: 1. The care of a critical patient is a dynamic process. This note is a truck sales representative synopsis but static in nature. The timeframe for treatments given in order is not necessarily the actual time these treatments may have been done. 2. This patient requires critical care secondary to ongoing requirements for therapy not offered or safe outside the critical care environment. Transfer to a lower level of care will result in altered life or limb morbidity and mortality. 3. Multidisciplinary rounds completed. 4. ABCDE bundle addressed.
[2019-08-12] MEDS: ENOXAPARIN SODIUM INJ 40 MG/0.4 ML DISP.SYRIN SUBCUT SCH (13:13)
[2019-08-12] MEDS: DEXTROSE 5%-WATER 1000 ML 1,000 ML with SODIUM BICARBONATE 150 MEQ IV PRN ×2 (15:03)
[2019-08-12] MEDS ORDERED: ALBUMIN HUMAN 12.5 GM/50 ML RTUINJ IV SCH (22:00)
[2019-08-12] MEDS ORDERED: DEXTROSE 50%-WATER 25 GM/50 ML DISP.SYRIN IV PRN ×2 (23:59)
[2019-08-12] MEDS ORDERED: GLUCAGON,HUMAN RECOMB 1 MG INJ IM PRN (23:59)
[2019-08-12] MEDS ORDERED: DEXTROSE 40% GEL 15 GM TUBE PO PRN ×2 (23:59)
[2019-08-13] MEDS: INSULIN REG, HUMAN 100 UNIT/ML 3 ML VIAL (PYX) SUBCUT SCH ×4 (01:19→19:02)
[2019-08-13] MEDS: LACTULOSE SYRUP 20 GM/30 ML UDCUP NG SCH ×7 (02:51→22:23)
[2019-08-13 04:13] LABS: ANION GAP 10 (5-19); BLOOD UREA NITROGEN 43 mg/dL (7-20); CALCIUM 8.5 mg/dL (8.4-10.2); CARBON DIOXIDE 14 mmol/L (22-30); CHLORIDE 121 mmol/L (98-107); GLUCOSE 268 mg/dL (75-110)
[2019-08-13] MEDS: RINGERS SOLUTION,LACTATED 1,000 ML IV PRN ×3 (04:40→17:34)
[2019-08-13] MEDS: POTASSI CL 20 MEQ/50 ML RIDER 20 MEQ/50 ML RTUPB IV SCH ×3 (04:51→09:47)
[2019-08-13] MEDS: HYDROCORTISONE SOD SUCCINATE INJ/PF 100 MG/2 ML SDV IV SCH ×3 (05:38→22:24)
[2019-08-13] MEDS ORDERED: ALBUMIN HUMAN 25.0 GM/100 ML RTUINJ IV ONE (05:40)
[2019-08-13] MEDS: ALBUMIN HUMAN 12.5 GM/50 ML RTUINJ IV SCH (06:11)
--- NOTE | 2019-08-13 08:41 | PDOC CRITICAL CARE PROG REPORT ---
General Date:: 08/13/19 ICU Day:: 4 Hospital Day:: 4 Resuscitation Status: Do Not Resuscitate Events in the past 12 to 24 Hours:: More awake and responsive. Off all pressors. Review of systems relevant to events:: GI (liver), Neurological. Reason for ICU Addmission:: Mental status. Improved some. - Medications: Medications reviewed and adjusted accordingly: Yes Vasopressors:: None Sedation:: None Physical Exam Vital Signs: Temp Pulse Resp BP Pulse Ox 96.4 F L 65 9 L 113/76 98 08/13/19 08:18 08/12/19 20:00 08/13/19 08:18 08/13/19 08:18 08/13/19 08:18 Intake & Output 08/12/19 08/13/19 08/14/19 06:59 06:59 06:59 Intake Total 4165 4292 Output Total 1810 2520 Balance 2355 1772 Weight 85.2 kg 88.6 kg Weight/Height Weight 88.6 kg Height 5 ft 8 in General appearance: PRESENT: no acute distress, cooperative Head exam: PRESENT: atraumatic, normocephalic Eye exam: PRESENT: conjunctiva pink, EOMI, PERRLA, scleral icterus Ear exam: PRESENT: normal external ear exam Mouth exam: PRESENT: moist, tongue midline Respiratory exam: PRESENT: clear to auscultation linda, decreased breath sounds. ABSENT: rales, rhonchi, wheezes Cardiovascular exam: PRESENT: RRR. ABSENT: diastolic murmur, rubs, systolic murmur GI/Abdominal exam: PRESENT: ascites, distended, hypoactive bowel sounds, other Rectal exam: PRESENT: deferred Extremities exam: PRESENT: full ROM, +2 edema, other - Edema is pitting C/W liver disease. ABSENT: calf tenderness, clubbing, pedal edema Musculoskeletal exam: PRESENT: normal inspection Neurological exam: PRESENT: altered, CN II-XII grossly intact, other - Beginning to answer simple questions. Skin exam: PRESENT: dry, intact, warm. ABSENT: cyanosis, rash Laboratory/Radiographs Laboratory Results: 08/12/19 03:10 08/13/19 03:27 08/13/19 03:27 Sodium 145.4 H Potassium 3.0 L* Chloride 121 H Carbon Dioxide 14 L Anion Gap 10 BUN 43 H Creatinine 3.72 H Est GFR ( Amer) 21 L Glucose 268 H Calcium 8.5 08/09/19 04:20 Troponin I < 0.012 Impressions: Chest X-Ray 08/09/19 04:34 IMPRESSION: No evidence of acute intrathoracic disease. All labs, radiographs, diagnostic studies and EKGs were personally reviewed: Yes In addition, reports of radiographic and diagnostic studies were read: Yes Assessment and Plan - Diagnosis (1) Ascites due to alcoholic hepatitis Is this a current diagnosis for this admission?: Yes Plan: Still presen, deeply jaundice. He is making slow improvement. I have told the he is improved but odds are not with him. He no longer needs an ICU level of care. IMCU status, not ready for regular floor. (2) Hyperammonemia Is this a current diagnosis for this admission?: Yes Plan: Level pending but I assume lower. (3) Hypotension Qualifiers: Hypotension type: unspecified hypotension type Qualified Code(s): I95.9 - Hypotension, unspecified Is this a current diagnosis for this admission?: Yes Plan: Off levophed (4) Alcohol abuse Is this a current diagnosis for this admission?: Yes Plan: Abstinent for about 3 weeks. (5) Hepatic encephalopathy Is this a current diagnosis for this admission?: Yes Plan: Slightly improved. (6) Hypoadrenalism Is this a current diagnosis for this admission?: Yes Plan: Begin steroid taper sonn, in a day or two. (7) Metabolic acidosis Is this a current diagnosis for this admission?: Yes Plan: Chronic but improved (8) ARF (acute renal failure) Qualifiers: Acute renal failure type: with acute tubular necrosis Qualified Code(s): N17.0 - Acute kidney failure with tubular necrosis Is this a current diagnosis for this admission?: Yes Plan: Slightly improved. Plan Summary: Transfer to [facility] today. Critical Time Critical Time (minutes): 30 Level of Care: [facility] Anticipated discharge: Home with Homehealth, SNF Within: Other -: 1. The care of a critical patient is a dynamic process. This note is a inbound sales representative synopsis but static in nature. The timeframe for treatments given in order is not necessarily the actual time these treatments may have been done. 2. This patient requires critical care secondary to ongoing requirements for therapy not offered or safe outside the critical care environment. Transfer to a lower level of care will result in altered life or limb morbidity and mortality. 3. Multidisciplinary rounds completed. 4. ABCDE bundle addressed.
--- NOTE | 2019-08-13 08:52 | RADIOLOGY REPORT (SQ) ---
EXAM DESCRIPTION: KUB/ABDOMEN (SINGLE VIEW) IMAGES COMPLETED DATE/TIME: 08/13/2019 8:18 am REASON FOR STUDY: Abdominal pain and distention COMPARISON: 08/11/2019 NUMBER OF VIEWS: One view. TECHNIQUE: Supine radiographic image of the abdomen acquired. LIMITATIONS: None. FINDINGS: BOWEL GAS PATTERN: Few dilated loops of small bowel within the central abdomen measuring u p to 3.4 cm, similar to prior. CALCIFICATIONS: No suspicious calcifications. SOFT TISSUES: Indistinct increased density throughout the abdomen compatible with ascites. HARDWARE: Nasoenteric tube tip overlies distal stomach. BONES: No acute findings. Severe degenerative changes at bilateral hips with evidence of collapse of the bilateral femoral heads. OTHER: No other significant finding. IMPRESSION: 1. Nasoenteric tube tip overlies distal stomach. 2. Few non-specific dilated loops of small bowel within the central abdomen measuring up to 3.4 cm. 3. Ascites. TECHNICAL DOCUMENTATION: JOB ID: [id number] 2010 [employer]- All Rights Reserved Reading location - IP/workstation name: [email or web address]
[2019-08-13] MEDS: MIDODRINE HCL 5 MG TABLET NG SCH ×3 (09:46→17:34)
[2019-08-13] MEDS: FOLIC ACID 1 MG TABLET NG SCH (09:46)
[2019-08-13] MEDS: THIAMINE HCL 100 MG TABLET NG SCH (09:46)
[2019-08-13] MEDS: PANTOPRAZOLE SODIUM 40 MG VIAL IV SCH (09:47)
[2019-08-13] MEDS: ENOXAPARIN SODIUM INJ 30 MG/0.3 ML DISP.SYRIN SUBCUT SCH (11:31)
[2019-08-13] MEDS: AMINO AC/PROTEIN HYDR/WHEY PRO 11 GM/45 ML PKT NG SCH ×3 (11:34→17:34)
[2019-08-13] MEDS: DEXTROSE 5%-WATER 1000 ML 1,000 ML with SODIUM BICARBONATE 150 MEQ IV PRN ×2 (13:48)
[2019-08-13] MEDS: ALBUMIN HUMAN 25 GM/100 ML RTUINJ IV SCH ×2 (15:37→22:23)
--- NOTE | 2019-08-13 16:57 | ADVANCED CARE ---
- Diagnosis (1) Hepatorenal syndrome Diagnosis Current: Yes (2) ARF (acute renal failure) Diagnosis Current: Yes (3) Ascites due to alcoholic hepatitis Diagnosis Current: Yes (4) Hyperammonemia Diagnosis Current: Yes (5) Hypoadrenalism Diagnosis Current: Yes (6) Hypotension Diagnosis Current: Yes (7) Liver failure Diagnosis Current: Yes (8) Alcohol abuse Diagnosis Current: Yes (9) Hepatic encephalopathy Diagnosis Current: Yes Attendance: The patient's , Adeola Peterson, by phone. Resuscitation Status: Do Not Resuscitate Discussion: Briefly reviewed the patient's liver and renal failure, discussed his overall poor prognosis and near-certain likelihood of reoccurrence and need for readmission in the immediate future. I expressed that he wanted to be patient's family to have the opportunity to see him prior to making any final decisions. I also related that I felt that his care needs at home are likely significantly higher than they were prior to his admission and that he was unlikely to return to his prior mental and functional status even should he improve enough to be medically stable for discharge to home. The patient's was agreeable to coming to the hospital if we can make arrangements regarding the current no visitor policy. She asks that his mother, Faheem Carrasquillo, also be approved. She reports that she would be readily available to come visit without much needed time/notice and would appreciate the opportunity to see Mr. Carrasquillo and discuss his end-of-life care goals with the care team. Care Planning Goals: DNR Obtain approval for visitation by and mother. (Currently under no-visitor restrictions r/t COVID19) Discuss disposition (home vs LTC vs hospice). Time Spent: 20 min
[2019-08-14] MEDS: INSULIN REG, HUMAN 100 UNIT/ML 3 ML VIAL (PYX) SUBCUT SCH ×4 (00:36→18:34)
[2019-08-14] MEDS: LACTULOSE SYRUP 20 GM/30 ML UDCUP NG SCH ×5 (02:11→18:34)
[2019-08-14] MEDS: RINGERS SOLUTION,LACTATED 1,000 ML IV PRN (02:56)
[2019-08-14] MEDS: HYDROCORTISONE SOD SUCCINATE INJ/PF 100 MG/2 ML SDV IV SCH ×3 (05:58→22:05)
[2019-08-14] MEDS: ALBUMIN HUMAN 25 GM/100 ML RTUINJ IV SCH ×3 (05:58→22:05)
[2019-08-14] MEDS ORDERED: RINGERS SOLUTION,LACTATED 1,000 ML IV PRN ×2 (07:35→12:35)
[2019-08-14 09:04] LABS: INTERNATIONAL RATION (INR) 3.35; PROTHROMBIN TIME 34.8 SEC (11.4-15.4)
[2019-08-14 09:14] LABS: ALBUMIN 3.6 g/dL (3.5-5.0); ALKALINE PHOSPHATASE 140 U/L (38-126); ANION GAP 14 (5-19); ASPARTATE AMINO TRANSFERASE 37 U/L (17-59); BLOOD UREA NITROGEN 45 mg/dL (7-20); CARBON DIOXIDE 17 mmol/L (22-30); CHLORIDE 117 mmol/L (98-107); GLUCOSE 244 mg/dL (75-110); TOTAL PROTEIN 7.1 g/dL (6.3-8.2)
[2019-08-14 09:28] LABS: BILIRUBIN,TOTAL 35.5 mg/dL (0.2-1.3)
[2019-08-14 09:30] LABS: POTASSIUM 2.7 mmol/L (3.6-5.0)
[2019-08-14] MEDS ORDERED: POTASSI CL 20 MEQ/D5-1/2NS 1L 1,000 ML IV PRN (10:23)
[2019-08-14] MEDS: MIDODRINE HCL 5 MG TABLET NG SCH ×3 (11:13→18:35)
[2019-08-14] MEDS: FUROSEMIDE 20 MG TABLET PO SCH (11:14)
[2019-08-14] MEDS: THIAMINE HCL 100 MG TABLET NG SCH (11:14)
[2019-08-14] MEDS: FOLIC ACID 1 MG TABLET NG SCH (11:14)
[2019-08-14] MEDS: PANTOPRAZOLE SODIUM 40 MG VIAL IV SCH (11:15)
[2019-08-14] MEDS: SPIRONOLACTONE 25 MG TABLET PO SCH (11:15)
[2019-08-14] MEDS: POTASSI CL 20 MEQ/50 ML RIDER 20 MEQ/50 ML RTUPB IV SCH ×3 (11:16→15:59)
[2019-08-14] MEDS: ENOXAPARIN SODIUM INJ 30 MG/0.3 ML DISP.SYRIN SUBCUT SCH ×2 (11:17→11:22)
[2019-08-14] MEDS: AMINO AC/PROTEIN HYDR/WHEY PRO 11 GM/45 ML PKT NG SCH ×3 (11:20→18:35)
--- NOTE | 2019-08-14 12:55 | PDOC PROGRESS REPORT ---
Subjective Progress Note for:: 08/14/19 Subjective:: Patient is a 49-year-old male with a past medical history significant for alcoholic hepatitis, end-stage liver disease, alcoholic dependence with continuous, and recurrent admissions for hyperammonemia with acute worsening of his chronic liver disease. Patient was admitted to the ICU on 08/09/2019 with acute renal failure; downgraded to IMCU 08/13/19. Patient was seen on morning rounds and again earlier this afternoon with family members present. He is arousable, oriented to self; will answer or respond to an initial question or statement and then immediately after become nonresponsive. He is unable to participate in any meaningful conversation. ROS is therefore limited. Long discussion had with family members regarding clinical status, prognosis, and goals of care. Please see separate ACP note. Plan reviewed with nursing. Reason For Visit: LIVER AND RENAL FAILURE. ALCOHOLIC HEPATITIS. Physical Exam Vital Signs: Temp Pulse Resp BP Pulse Ox 97.5 F 74 14 116/79 99 08/14/19 07:15 08/14/19 07:15 08/14/19 07:15 08/14/19 07:15 08/14/19 07:15 Intake & Output 08/13/19 08/14/19 08/15/19 06:59 06:59 06:59 Intake Total 4292 4796 Output Total 2520 1860 Balance 1772 2936 Weight 88.6 kg 84.3 kg General appearance: PRESENT: no acute distress, well-developed, other - Chronically ill appearing; anasarca. ABSENT: well-nourished Head exam: PRESENT: atraumatic, normocephalic Eye exam: PRESENT: conjunctiva pink, EOMI, PERRLA, scleral icterus - Intense Mouth exam: PRESENT: moist, tongue midline Respiratory exam: PRESENT: clear to auscultation linda, decreased breath sounds, symmetrical, unlabored. ABSENT: rales, rhonchi, wheezes Cardiovascular exam: PRESENT: RRR. ABSENT: diastolic murmur, rubs, systolic murmur Vascular exam: PRESENT: normal capillary refill GI/Abdominal exam: PRESENT: ascites, diminished bowel sounds, distended, firm. ABSENT: guarding, rebound, tenderness Rectal exam: PRESENT: deferred, other - Fecal management system with liquid stools Extremities exam: PRESENT: +1 edema - BUE, +2 edema - Pitting edema BLE. ABSENT: calf tenderness, clubbing, pedal edema Neurological exam: PRESENT: alert, awake, other - Responds to verbal stimuli; occasionally will answer 1 question. Unable to assess full orientation; does appear to be oriented to self. Significant delay in responses. Skin exam: PRESENT: dry, jaundice, warm. ABSENT: cyanosis, rash Results Laboratory Results: 08/12/19 03:10 08/14/19 08:03 08/14/19 08:03 Sodium 147.9 H Potassium 2.7 L* Chloride 117 H Carbon Dioxide 17 L Anion Gap 14 BUN 45 H Creatinine 3.38 H Est GFR ( Amer) 24 L Glucose 244 H Calcium 9.0 Total Bilirubin 35.5 H AST 37 Alkaline Phosphatase 140 H Total Protein 7.1 Albumin 3.6 08/09/19 05:34 Blood Blood Culture - Final NO GROWTH IN 5 DAYS 08/09/19 04:45 Blood Blood Culture - Final NO GROWTH IN 5 DAYS 08/09/19 04:20 Troponin I < 0.012 Impressions: Chest X-Ray 08/09/19 04:34 IMPRESSION: No evidence of acute intrathoracic disease. KUB X-Ray 08/13/19 00:00 IMPRESSION: 1. Nasoenteric tube tip overlies distal stomach. 2. Few non-specific dilated loops of small bowel within the central abdomen measuring up to 3.4 cm. 3. Ascites. Assessment and Plan - Diagnosis (1) Hepatorenal syndrome Is this a current diagnosis for this admission?: Yes Plan: Continuing supportive care with IV fluids, p.o. spironolactone and furosemide, tube feeds. Nephrology previously consulted; not a candidate for renal replacement therapy. Creatinine improved from time of admission, though now slight upward trend. We will avoid nephrotoxic medications as able. Follow-up chemistry. (2) ARF (acute renal failure) Qualifiers: Acute renal failure type: with acute tubular necrosis Qualified Code(s): N17.0 - Acute kidney failure with tubular necrosis Is this a current diagnosis for this admission?: Yes Plan: Slightly improved. Although, patient does continue on IV fluids and bicarb drip. Continues to have electrolyte derangements requiring correction. (3) Ascites due to alcoholic hepatitis Is this a current diagnosis for this admission?: Yes Plan: Still present, deeply jaundice. Lille score 0.771; 6-month survival 25% Meld score 45; 65% 90-day mortality Abdomen is tight; bowel sounds diminished. Now having high residuals on tube feeds. INR 3.36; not a candidate for palliative paracentesis. Continue IV fluids, furosemide and spironolactone. (4) Hypoadrenalism Is this a current diagnosis for this admission?: Yes Plan: Begin steroid taper. (5) Hypotension Qualifiers: Hypotension type: unspecified hypotension type Qualified Code(s): I95.9 - Hypotension, unspecified Is this a current diagnosis for this admission?: Yes Plan: Off levophed Adequate blood pressures on Midodrine 15 mg 3 times daily. (6) Liver failure Qualifiers: Liver failure chronicity: unspecified chronicity Hepatic coma status: with hepatic coma Qualified Code(s): K72.91 - Hepatic failure, unspecified with coma Is this a current diagnosis for this admission?: Yes Plan: Bili score 0.771; 6-month survival 25% Meld score 45; 65% 90-day mortality Goals of care discussion had with family members today considering transition to hospice (7) Alcohol abuse Is this a current diagnosis for this admission?: Yes Plan: Abstinent for about 3 weeks. Continue multivitamin, folic acid, thiamine supplementation. (8) Hepatic encephalopathy Is this a current diagnosis for this admission?: Yes Plan: Slightly improved; likely approaching baseline. Ammonia is now normal. Continue lactulose. (9) Hyperammonemia Is this a current diagnosis for this admission?: Yes Plan: Ammonia 27.1. Continue lactulose. (10) Hypokalemia Is this a current diagnosis for this admission?: Yes Plan: K riders and IV fluid adjustment. Follow-up chemistry. (11) Hypernatremia Is this a current diagnosis for this admission?: Yes Plan: IV fluids adjusted. Continue furosemide and spironolactone - Time Time Spent with patient: 35 or more minutes Medications reviewed and adjusted accordingly: Yes Anticipated discharge: Hospice
--- NOTE | 2019-08-14 13:07 | ADVANCED CARE ---
- Diagnosis (1) Hepatorenal syndrome Diagnosis Current: Yes (2) ARF (acute renal failure) Diagnosis Current: Yes (3) Ascites due to alcoholic hepatitis Diagnosis Current: Yes (4) Hypoadrenalism Diagnosis Current: Yes (5) Hypotension Diagnosis Current: Yes (6) Liver failure Diagnosis Current: Yes (7) Alcohol abuse Diagnosis Current: Yes (8) Hepatic encephalopathy Diagnosis Current: Yes (9) Hyperammonemia Diagnosis Current: Yes (10) Hypokalemia Diagnosis Current: Yes (11) Hypernatremia Diagnosis Current: Yes Attendance: The patient's , Adeola Peterson, and mother Resuscitation Status: Do Not Resuscitate Discussion: Long discussion had regarding the patient's chronic medical conditions, current clinical status and interventions, poor prognosis, expected life expectancy, and recommendation to transition to hospice care. We specifically discussed that a [facility] timber feller had previously stated that the patient had exhausted all medical interventions and was not a surgical candidate (consulted during prior admission). Reviewed that nephrology had determined that the patient was not a candidate for renal replacement therapy. Advised that despite ongoing medical interventions, patient was showing evidence of worsening liver failure. Discussed that with continued medical interventions, the patient likely had only days to weeks before succumbing to his liver disease (MELD score 45; 65% 90 day mortality). Patient's family members asked sincere and appropriate questions. We discussed options of continued medical interventions in the inpatient hospital setting. I advised that if this was done, the patient would have likely prolonged hospital course without significant improvement and very little likelihood that he would return to his prior mental and functional status. Introduced the idea of discharging home with home hospice services versus to an inpatient hospice facility. The family asked to have time to process this information. They were encouraged to talk with each other and other family members. Further encouraged to speak with nursing staff to ask any questions that came to mind. I invited them to ask me to return to provide additional information to help them with this difficult decision making process. Care Planning Goals: DNR Discuss disposition (home vs LTC vs hospice). Will follow up with family to discuss disposition. Time Spent: 60 min
[2019-08-14] MEDS ORDERED: NORMAL SALINE 1000 ML 1,000 ML with POTASSIUM CHLORIDE 20 MEQ, MAGNESIUM SULFATE 8 MEQ,... IV SCH ×5 (18:00)
[2019-08-15] MEDS: LACTULOSE SYRUP 20 GM/30 ML UDCUP NG SCH ×7 (01:07→22:07)
[2019-08-15] MEDS: INSULIN REG, HUMAN 100 UNIT/ML 3 ML VIAL (PYX) SUBCUT SCH ×5 (01:13→23:59)
--- NOTE | 2019-08-15 02:27 | RADIOLOGY REPORT (SQ) ---
EXAM DESCRIPTION: XR ABDOMEN 1 VIEW (KUB) COMPLETED DATE/TME: 08/15/2019 00:00 CLINICAL HISTORY: 49 years Male, NG tube placement COMPARISON: Same day. TECHNIQUE/LIMITATION: Targeted exam for enteric tube assessment. FINDINGS: Adequate appearing enteric tube with tip at the left upper abdominal quadrant. 2.7 - 3.1 cm diameter dilated and stacked small bowel at the left paracentral abdomen partially imaged consistent with prior exam. IMPRESSION: Adequate appearing enteric tube with tip at the left upper abdominal quadrant.
[2019-08-15] MEDS: ALBUMIN HUMAN 25 GM/100 ML RTUINJ IV SCH ×3 (06:07→22:05)
[2019-08-15] MEDS: HYDROCORTISONE SOD SUCCINATE INJ/PF 100 MG/2 ML SDV IV SCH ×3 (06:08→22:04)
[2019-08-15 09:17] LABS: ALBUMIN 3.6 g/dL (3.5-5.0); ALKALINE PHOSPHATASE 121 U/L (38-126); ANION GAP 12 (5-19); ASPARTATE AMINO TRANSFERASE 34 U/L (17-59); BLOOD UREA NITROGEN 48 mg/dL (7-20); CALCIUM 9.1 mg/dL (8.4-10.2); CARBON DIOXIDE 18 mmol/L (22-30); CHLORIDE 119 mmol/L (98-107); GLUCOSE 309 mg/dL (75-110); TOTAL PROTEIN 6.9 g/dL (6.3-8.2)
[2019-08-15 09:22] LABS: HEMATOCRIT 22.6 % (37.9-51.0); MEAN CORPUSCULAR HEMOGLOBIN 36.7 pg (27.0-33.4); MEAN CORPUSCULAR VOLUME 105 fl (80-97); RED BLOOD COUNT 2.15 10^6/uL (4.35-5.55); RED CELL DISTRIBUTION WIDTH 17.6 % (11.5-14.0)
[2019-08-15 09:26] LABS: BILIRUBIN,DIRECT 28.8 mg/dL (0.0-0.4)
[2019-08-15 09:28] LABS: POTASSIUM 2.8 mmol/L (3.6-5.0)
[2019-08-15] MEDS: SPIRONOLACTONE 25 MG TABLET PO SCH (09:32)
[2019-08-15] MEDS: FOLIC ACID 1 MG TABLET NG SCH (09:33)
[2019-08-15 09:34] LABS: HEMOGLOBIN 7.9 g/dL (13.5-17.0)
[2019-08-15] MEDS: FUROSEMIDE 20 MG TABLET PO SCH (09:34)
[2019-08-15] MEDS: MIDODRINE HCL 5 MG TABLET NG SCH ×3 (09:35→17:13)
[2019-08-15] MEDS: ENOXAPARIN SODIUM INJ 30 MG/0.3 ML DISP.SYRIN SUBCUT SCH (09:35)
[2019-08-15] MEDS: PANTOPRAZOLE SODIUM 40 MG VIAL IV SCH (09:35)
[2019-08-15] MEDS: AMINO AC/PROTEIN HYDR/WHEY PRO 11 GM/45 ML PKT NG SCH ×3 (09:35→17:13)
[2019-08-15 09:36] LABS: WHITE BLOOD COUNT 35.4 10^3/uL (4.0-10.5)
[2019-08-15] MEDS: THIAMINE HCL 100 MG TABLET NG SCH (09:36)
[2019-08-15 09:41] LABS: PLATELET COUNT 58 10^3/uL (150-450)
[2019-08-15] MEDS ORDERED: POTASSI CL 20 MEQ/D5-1/4NS 1L 1,000 ML IV PRN (10:37)
[2019-08-15] MEDS: POTASSI CL 20 MEQ/50 ML RIDER 20 MEQ/50 ML RTUPB IV SCH ×3 (13:57→20:28)
[2019-08-15] MEDS: CEFTRIAXONE 2 GM/D5W RTU 2 GM/50 ML RTUPB IV SCH (14:00)
[2019-08-15] MEDS ORDERED: CEFOTAXIME SODIUM 2 GM in DEXTROSE 5%-WATER 50 ML IV SCH (14:00)
--- NOTE | 2019-08-15 15:09 | PDOC PROGRESS REPORT ---
Subjective Progress Note for:: 08/15/19 Reason For Visit: ptn seen today. Stil altered and encephalopathic and unable to answer any questions. Looks lethargic. No distress. Labs and medications reviewed. Dropping urine output with rapid rise in WBC and fall in platlets.LFT shows very elevated T.Bilirubin.Renal nos stable though not improving after a fair improvement earlier. Physical Exam Vital Signs: Temp Pulse Resp BP Pulse Ox 97.5 F 84 18 115/82 96 08/15/19 07:25 08/15/19 07:25 08/15/19 07:25 08/15/19 07:25 08/15/19 07:25 Intake & Output 08/14/19 08/15/19 08/16/19 06:59 06:59 06:59 Intake Total 4796 627 100 Output Total 1860 1875 Balance 2936 -1248 100 Weight 84.3 kg 85.9 kg General appearance: PRESENT: no acute distress, disheveled, thin Exam: lethargic. Eye exam: PRESENT: EOMI, PERRLA, scleral icterus. ABSENT: nystagmus Cardiovascular exam: PRESENT: +S1, +S2 GI/Abdominal exam: PRESENT: ascites, distended - Secondary to ascites., firm, normal bowel sounds, soft. ABSENT: guarding, Daly's sign, organomegaly Extremities exam: PRESENT: pedal edema Neurological exam: PRESENT: altered Results Laboratory Results: 08/15/19 08:31 08/15/19 08:31 08/15/19 08/15/19 08/15/19 08:31 08:31 08:31 WBC 35.4 H* RBC 2.15 L Hgb 7.9 L Hct 22.6 L MCV 105 H MCH 36.7 H MCHC 35.0 RDW 17.6 H Plt Count 58 L Sodium 148.7 H Potassium 2.8 L* Chloride 119 H Carbon Dioxide 18 L Anion Gap 12 BUN 48 H Creatinine 3.60 H Est GFR ( Amer) 22 L Glucose 309 H Calcium 9.1 Magnesium 1.6 Total Bilirubin 34.0 H AST 34 Alkaline Phosphatase 121 Total Protein 6.9 Albumin 3.6 08/09/19 04:20 Troponin I < 0.012 Impressions: Chest X-Ray 08/09/19 04:34 IMPRESSION: No evidence of acute intrathoracic disease. KUB X-Ray 08/15/19 00:00 IMPRESSION: Adequate appearing enteric tube with tip at the left upper abdominal quadrant. Assessment & Plan - Diagnosis (1) Acute kidney injury Plan: Renal nos have been relatively stable after initial improvement of CHICHI but now showing dropping urine output with worsening labs.Not a candidate for [employer]GER given his severe liver disease and co morbidities. Clinically looks like he is going into hepatorenal shut down. Poor prognosis. (2) Ascites due to alcoholic hepatitis Is this a current diagnosis for this admission?: Yes Plan: Getting worse. (3) Hypotension Qualifiers: Qualified Code(s): I95.9 - Hypotension, unspecified Is this a current diagnosis for this admission?: Yes Plan: better on current meds. (4) Liver failure Qualifiers: Qualified Code(s): K72.91 - Hepatic failure, unspecified with coma Is this a current diagnosis for this admission?: Yes Plan: Status quo.Not a liver transplant candidate. (5) Metabolic acidosis Is this a current diagnosis for this admission?: Yes Plan: stable on replacements. (6) Metabolic encephalopathy Plan: status quo.
--- NOTE | 2019-08-15 15:15 | PDOC PROGRESS REPORT ---
Subjective Progress Note for:: 08/15/19 Subjective:: Patient is a 49-year-old male with a past medical history significant for alcoholic hepatitis, end-stage liver disease, alcoholic dependence with continuous, and recurrent admissions for hyperammonemia with acute worsening of his chronic liver disease. Patient was admitted to the ICU on 08/09/2019 with acute renal failure; downgraded to IMCU 08/13/19. Patient was seen on morning rounds. He is A&O to self; answered a few questions; stated he was feeling well and denied nausea. He then began to mumble and did not respond to further questions or directions. ROS is therefore limited. He does appear to be comfortable and is not noted to be in acute distress at thi s time. Plan reviewed with nursing. Reason For Visit: LIVER AND RENAL FAILURE. ALCOHOLIC HEPATITIS. Physical Exam Vital Signs: Temp Pulse Resp BP Pulse Ox 97.5 F 84 18 115/82 96 08/15/19 07:25 08/15/19 07:25 08/15/19 07:25 08/15/19 07:25 08/15/19 07:25 Intake & Output 08/14/19 08/15/19 08/16/19 06:59 06:59 06:59 Intake Total 4796 627 100 Output Total 1860 1875 Balance 2936 -1248 100 Weight 84.3 kg 85.9 kg General appearance: PRESENT: no acute distress, well-developed, other - Chronically ill appearing; anasarca Head exam: PRESENT: atraumatic, normocephalic Eye exam: PRESENT: conjunctiva pink, EOMI, PERRLA, scleral icterus Mouth exam: PRESENT: dry mucosa, tongue midline Teeth exam: PRESENT: poor dentation Respiratory exam: PRESENT: clear to auscultation linda, decreased breath sounds, symmetrical, unlabored. ABSENT: rales, rhonchi, wheezes Cardiovascular exam: PRESENT: RRR. ABSENT: diastolic murmur, rubs, systolic murmur Pulses: PRESENT: normal dorsalis pedis pul Vascular exam: PRESENT: normal capillary refill GI/Abdominal exam: PRESENT: ascites, diminished bowel sounds, distended, firm, soft. ABSENT: guarding, mass, organolmegaly, rebound, tenderness Rectal exam: PRESENT: deferred, other - Fecal management system with liquid stools Gentrourinary exam: PRESENT: indwelling catheter Extremities exam: PRESENT: full ROM, +1 edema - BUE, +2 edema - BLE. ABSENT: calf tenderness, clubbing, pedal edema Neurological exam: PRESENT: alert, awake, oriented to person, CN II-XII grossly intact. ABSENT: motor sensory deficit Psychiatric exam: PRESENT: appropriate affect, normal mood. ABSENT: homicidal ideation, suicidal ideation Skin exam: PRESENT: dry, intact, warm. ABSENT: cyanosis, rash Results Laboratory Results: 08/15/19 08:31 08/15/19 08:31 08/15/19 08/15/19 08/15/19 08:31 08:31 08:31 WBC 35.4 H* RBC 2.15 L Hgb 7.9 L Hct 22.6 L MCV 105 H MCH 36.7 H MCHC 35.0 RDW 17.6 H Plt Count 58 L Sodium 148.7 H Potassium 2.8 L* Chloride 119 H Carbon Dioxide 18 L Anion Gap 12 BUN 48 H Creatinine 3.60 H Est GFR ( Amer) 22 L Glucose 309 H Calcium 9.1 Magnesium 1.6 Total Bilirubin 34.0 H AST 34 Alkaline Phosphatase 121 Total Protein 6.9 Albumin 3.6 08/09/19 04:20 Troponin I < 0.012 Impressions: Chest X-Ray 08/09/19 04:34 IMPRESSION: No evidence of acute intrathoracic disease. KUB X-Ray 08/15/19 00:00 IMPRESSION: Adequate appearing enteric tube with tip at the left upper abdominal quadrant. Assessment and Plan - Diagnosis (1) Hepatorenal syndrome Is this a current diagnosis for this admission?: Yes Plan: Continuing supportive care with IV fluids, p.o. spironolactone and furosemide Nephrology previously consulted; not a candidate for renal replacement therapy. Creatinine improved from time of admission, though now slight upward trend. We will avoid nephrotoxic medications as able. Follow-up chemistry. (2) ARF (acute renal failure) Qualifiers: Acute renal failure type: with acute tubular necrosis Qualified Code(s): N17.0 - Acute kidney failure with tubular necrosis Is this a current diagnosis for this admission?: Yes Plan: Overall improved, though with slight upward trend. Although, patient does continue on IV fluids and bicarb drip. Continues to have electrolyte derangements requiring correction. (3) Ascites due to alcoholic hepatitis Is this a current diagnosis for this admission?: Yes Plan: Still present, deeply jaundice. Lille score 0.771; 6-month survival 25% Meld score 45; 65% 90-day mortality Abdomen is tight; bowel sounds diminished. INR 3.36; not a candidate for palliative paracentesis. Continue IV fluids, furosemide and spironolactone. (4) Hypoadrenalism Is this a current diagnosis for this admission?: Yes Plan: Begin steroid taper. (5) Hypotension Qualifiers: Hypotension type: unspecified hypotension type Qualified Code(s): I95.9 - Hypotension, unspecified Is this a current diagnosis for this admission?: Yes Plan: Off levophed Adequate blood pressures on Midodrine 15 mg 3 times daily. (6) Liver failure Qualifiers: Liver failure chronicity: unspecified chronicity Hepatic coma status: with hepatic coma Qualified Code(s): K72.91 - Hepatic failure, unspecified with coma Is this a current diagnosis for this admission?: Yes Plan: Bili score 0.771; 6-month survival 25% Meld score 45; 65% 90-day mortality Goals of care discussion had with family members today considering transition to hospice (7) Alcohol abuse Is this a current diagnosis for this admission?: Yes Plan: Abstinent for about 3 weeks. Continue multivitamin, folic acid, thiamine supplementation. (8) Hepatic encephalopathy Is this a current diagnosis for this admission?: Yes Plan: Slightly improved; likely approaching baseline. Ammonia is now normal. Continue lactulose. (9) Hyperammonemia Is this a current diagnosis for this admission?: Yes Plan: Ammonia 27.1. Continue lactulose. (10) Hypokalemia Is this a current diagnosis for this admission?: Yes Plan: Additional K riders and IV fluid adjustment. Follow-up chemistry. (11) Hypernatremia Is this a current diagnosis for this admission?: Yes Plan: IV fluids adjusted. Continue furosemide and spironolactone (12) Leukocytosis Qualifiers: Leukocytosis type: unspecified Qualified Code(s): D72.829 - Elevated white blood cell count, unspecified Is this a current diagnosis for this admission?: Yes Plan: WBC is elevated to 35.4 today. Patient is afebrile. No clear source of infection. However, he does have significant ascites. We will start on Rocephin 2 g daily for coverage of spontaneous bacterial peritonitis. Patient's is requesting transition to hospice services. She asked that we continue medical interventions until he can be accepted to facility. Therefore, we will continue antibiotics but limits further work-up. (13) Counseling regarding goals of care Is this a current diagnosis for this admission?: Yes Plan: Spoke with patient's , Ms Adeola Peterson, today. She would like to transition to hospice services. Asks that we continue medical interventions as they currently stand until patient is discharged. - Time Time Spent with patient: 35 or more minutes Medications reviewed and adjusted accordingly: Yes Anticipated discharge: Hospice Within: when bed available
[2019-08-15] MEDS ORDERED: POTASSI CL 20 MEQ/50 ML RIDER 20 MEQ/50 ML RTUPB IV ONE (20:22)
[2019-08-15] MEDS ORDERED: POTASSI CL 20 MEQ/D5-1/2NS 1L 1,000 ML IV PRN (22:06)
[2019-08-15 23:25] LABS: ANION GAP 12 (5-19); BLOOD UREA NITROGEN 51 mg/dL (7-20); CALCIUM 9.4 mg/dL (8.4-10.2); CARBON DIOXIDE 19 mmol/L (22-30); CHLORIDE 119 mmol/L (98-107); GLUCOSE 303 mg/dL (75-110)
[2019-08-15 23:29] LABS: POTASSIUM 2.8 mmol/L (3.6-5.0)
[2019-08-15] MEDS ORDERED: POTASSI CL 20 MEQ/D5-1/4NS 1L 1,000 ML IV ONE (23:35)
[2019-08-16] MEDS: POTASSI CL 20 MEQ/D5-1/4NS 1L 1,000 ML IV PRN ×2 (00:02→06:19)
[2019-08-16] MEDS: LACTULOSE SYRUP 20 GM/30 ML UDCUP NG SCH ×3 (01:50→09:58)
[2019-08-16] MEDS: ALBUMIN HUMAN 25 GM/100 ML RTUINJ IV SCH (05:51)
[2019-08-16] MEDS: INSULIN REG, HUMAN 100 UNIT/ML 3 ML VIAL (PYX) SUBCUT SCH ×2 (05:51→14:07)
[2019-08-16 06:16] LABS: ANION GAP 16 (5-19); BLOOD UREA NITROGEN 51 mg/dL (7-20); CARBON DIOXIDE 13 mmol/L (22-30); CHLORIDE 120 mmol/L (98-107); GLUCOSE 260 mg/dL (75-110)
[2019-08-16 06:22] LABS: POTASSIUM 2.7 mmol/L (3.6-5.0)
[2019-08-16 06:46] LABS: HEMATOCRIT 24.1 % (37.9-51.0); HEMOGLOBIN 8.5 g/dL (13.5-17.0); MEAN CORPUSCULAR HEMOGLOBIN 37.5 pg (27.0-33.4); MEAN CORPUSCULAR HGB CONC 35.4 g/dL (32.0-36.0); MEAN CORPUSCULAR VOLUME 106 fl (80-97); RED BLOOD COUNT 2.28 10^6/uL (4.35-5.55); RED CELL DISTRIBUTION WIDTH 17.7 % (11.5-14.0)
[2019-08-16] MEDS: POTASSIUM CHLORIDE 20 MEQ/50 ML RTU IV SCH ×3 (06:49→10:31)
[2019-08-16 06:55] LABS: PLATELET COUNT 56 10^3/uL (150-450)
[2019-08-16] MEDS ORDERED: HYDROCORTISONE SOD SUCCINATE INJ/PF 100 MG/2 ML SDV IV SCH (10:00)
[2019-08-16] MEDS ORDERED: SPIRONOLACTONE 25 MG TABLET PO SCH (10:00)
[2019-08-16] MEDS ORDERED: FUROSEMIDE 20 MG TABLET PO SCH (10:00)
[2019-08-16] MEDS: CEFTRIAXONE 2 GM/D5W RTU 2 GM/50 ML RTUPB IV SCH (10:56)
[2019-08-16] MEDS: AMINO AC/PROTEIN HYDR/WHEY PRO 11 GM/45 ML PKT NG SCH (10:57)
[2019-08-16] MEDS: MIDODRINE HCL 5 MG TABLET NG SCH (10:57)
[2019-08-16] MEDS: FOLIC ACID 1 MG TABLET NG SCH (10:57)
[2019-08-16] MEDS: THIAMINE HCL 100 MG TABLET NG SCH (10:58)
[2019-08-16] MEDS: ENOXAPARIN SODIUM INJ 30 MG/0.3 ML DISP.SYRIN SUBCUT SCH (10:58)
[2019-08-16 12:25] VITALS: BP 123/81
--- NOTE | 2019-08-16 13:46 | PDOC TRANSFER SUMMARY ---
General - Admit/Disc Date/PCP Admission Date/Primary Care Provider: 08/09/19 08:33 Discharge Date: 08/16/19 - Discharge Diagnosis (1) Hepatorenal syndrome Is this a current diagnosis for this admission?: Yes (2) ARF (acute renal failure) Is this a current diagnosis for this admission?: Yes (3) Ascites due to alcoholic hepatitis Is this a current diagnosis for this admission?: Yes (4) Hypoadrenalism Is this a current diagnosis for this admission?: Yes (5) Hypotension Is this a current diagnosis for this admission?: Yes (6) Liver failure Is this a current diagnosis for this admission?: Yes (7) Alcohol abuse Is this a current diagnosis for this admission?: Yes (8) Hepatic encephalopathy Is this a current diagnosis for this admission?: Yes (9) Hyperammonemia Is this a current diagnosis for this admission?: Yes (10) Hypokalemia Is this a current diagnosis for this admission?: Yes (11) Hypernatremia Is this a current diagnosis for this admission?: Yes (12) Leukocytosis Is this a current diagnosis for this admission?: Yes (13) Counseling regarding goals of care Is this a current diagnosis for this admission?: Yes - Additional Information Resuscitation Status: Do Not Resuscitate Discharge Diet: As Tolerated Discharge Activity: Activity As Tolerated Prescriptions: Spironolactone [Aldactone 25 mg Tablet] 50 mg PO DAILY #60 tablet Lactulose [Cephulac Syrup 20 gm/30 ml Udcup] 30 gm NG Q4 #60 udc Folic Acid [Folvite 1 mg Tablet] 1 mg NG DAILY #30 tablet Furosemide [Lasix 20 mg Tablet] 20 mg PO DAILY #30 tablet Midodrine HCl [Proamatine 5 mg Tablet] 15 mg NG TID #90 tablet Thiamine HCl [Thiamine 100 mg Tablet] 100 mg NG DAILY #30 tablet Home Medications: Folic Acid [Folvite 1 mg Tablet] 1 mg NG DAILY #30 tablet 08/16/19 Furosemide [Lasix 20 mg Tablet] 20 mg PO DAILY #30 tablet 08/16/19 Lactulose [Cephulac Syrup 20 gm/30 ml Udcup] 30 gm NG Q4 #60 udc 08/16/19 Midodrine HCl [Proamatine 5 mg Tablet] 15 mg NG TID #90 tablet 08/16/19 Spironolactone [Aldactone 25 mg Tablet] 50 mg PO DAILY #60 tablet 08/16/19 Thiamine HCl [Thiamine 100 mg Tablet] 100 mg NG DAILY #30 tablet 08/16/19 History of Present Illness Admission Date/PCP: 08/09/19 08:33 Patient complains of: altered mental status History of Present Illness: Per H&P by Dr. Alex: This patient is a 49 yo man who was just hospitalized for a similar presentation about 10-14 days ago. He has not done well at home and was found by family not responding or breathing well. He was hypotensive and received fluid an levophed in the ED to keep SBP > 90. He has a hx of heavy drinking. It is not known if he has been drinking between hospitalizations but this is a safe bet. Alcohol and tox screens are negative this AM. He is prfoundly dry and he has ascites and renal failure. Hospital Course Hospital Course: (1) Hepatorenal syndrome Patient initially admitted to ICU and received IVF fluids and levophed for blood pressure support. Previously consulted [facility] [employer]; not a candidate for surgical inter ventions and has exhausted all medical interventions. Nephrology previously consulted; not a candidate for renal replacement therapy. Patient was supported with IV fluids, tube feedings, p.o. spironolactone and furosemide (2) ARF (acute renal failure) Overall improved, though now stable at ~3.5 He was maintained on IV fluids and bicarb drip with frequent electrolyte derang ements requiring correction. (3) Ascites due to alcoholic hepatitis Still present, deeply jaundice. Lille score 0.771; 6-month survival 25% Meld score 45; 65% 90-day mortality Abdomen is tight; bowel sounds diminished. INR 3.36; not a candidate for palliative paracentesis. (4) Hypoadrenalism Weaned from steroids. (5) Hypotension Off levophed Adequate blood pressures on Midodrine 15 mg 3 times daily. (6) Liver failure Bili score 0.771; 6-month survival 25% Meld score 45; 65% 90-day mortality Goals of care discussion had with family members; transitioning to home hospice. (7) Alcohol abuse Abstinent for about 3 weeks. Continue multivitamin, folic acid, thiamine supplementation. (8) Hepatic encephalopathy Slightly improved; likely at new baseline. Ammonia is now normal. Continue lactulose. (9) Hyperammonemia Is this a current diagnosis for this admission?: Yes Plan: Ammonia 27.1. Continue lactulose. (10) Hypokalemia Received IVF adjustments and K-Riders as indicated. (11) Hypernatremia Overall improved. IV fluids adjusted. Continue furosemide and spironolactone (12) Leukocytosis WBC is elevated to 35.4 -> 33 Patient is afebrile. No clear source of infection. However, he does have significant ascites. He was started on Rocephin 2 g daily for coverage of spontaneous bacterial peritonitis. Patient's is requesting transition to hospice services. She asked that we continue medical interventions until he can be accepted. Therefore, we continued antibiotics but limited further work-up. (13) Counseling regarding goals of care Transitioned to home hospice services. See separate ACP notes. Physical Exam Vital Signs: Temp Pulse Resp BP Pulse Ox 97.3 F 80 20 123/81 100 08/16/19 11:25 08/16/19 11:25 08/16/19 11:25 08/16/19 11:25 08/16/19 11:25 Intake & Output 08/15/19 08/16/19 08/17/19 06:59 06:59 06:59 Intake Total 627 921 192 Output Total 1875 800 Balance -1248 121 192 Weight 85.9 kg 95.2 kg General appearance: PRESENT: no acute distress, well-developed, other - chronically ill, anasarca Head exam: PRESENT: atraumatic, normocephalic Eye exam: PRESENT: EOMI, PERRLA, scleral icterus Mouth exam: PRESENT: moist, tongue midline Teeth exam: PRESENT: poor dentation Respiratory exam: PRESENT: clear to auscultation linda, decreased breath sounds, symmetrical, unlabored. ABSENT: rales, rhonchi, wheezes Cardiovascular exam: PRESENT: RRR. ABSENT: diastolic murmur, rubs, systolic murmur Vascular exam: PRESENT: normal capillary refill GI/Abdominal exam: PRESENT: ascites, diminished bowel sounds, distended, firm. ABSENT: guarding, rebound, tenderness Rectal exam: PRESENT: deferred, other - Fecal management system with liquid sto ols Gentrourinary exam: PRESENT: indwelling catheter Extremities exam: PRESENT: full ROM, +1 edema - BUE, +2 edema - BLE. ABSENT: calf tenderness, clubbing, pedal edema Neurological exam: PRESENT: alert, awake, oriented to person, CN II-XII grossly intact. ABSENT: motor sensory deficit Psychiatric exam: PRESENT: appropriate affect, normal mood. ABSENT: homicidal ideation, suicidal ideation Skin exam: PRESENT: dry, intact, warm. ABSENT: cyanosis, rash Results Laboratory Results: 08/16/19 05:30 08/16/19 05:30 08/15/19 08/16/19 08/16/19 22:57 05:30 05:30 WBC 33.0 H* RBC 2.28 L Hgb 8.5 L Hct 24.1 L MCV 106 H MCH 37.5 H MCHC 35.4 RDW 17.7 H Plt Count 56 L Sodium 149.7 H 149.3 H Potassium 2.8 L* 2.7 L* Chloride 119 H 120 H Carbon Dioxide 19 L 13 L Anion Gap 12 16 BUN 51 H 51 H Creatinine 3.70 H 3.32 H Est GFR ( Amer) 21 L 24 L Glucose 303 H 260 H Calcium 9.4 9.0 08/09/19 04:20 Troponin I < 0.012 Impressions: Chest X-Ray 08/09/19 04:34 IMPRESSION: No evidence of acute intrathoracic disease. KUB X-Ray 08/15/19 00:00 IMPRESSION: Adequate appearing enteric tube with tip at the left upper abdominal quadrant. Transfer Plan - Disposition Transfer Plan: Discharge to home with home hospice services with [facility]. - Time Spent with Patient Time spent with patient: Greater than 30 Minutes Qualifiers PATIENT BEING DISCHARGED WITH ANY OF THE FOLLOWING DIAGNOSIS: No
[2019-08-18 11:38] LABS: PATH REVIEW PATHOLOGIST REVIEWED
== END 2019-08-16 14:10 | disposition hospice, home (50) | DRG 441 ==
LOC: ER 04:09 → EH 08:33 → ICU 09:32 → 3S 08-13 11:05
PROVIDERS: ADMIT Anesthesiology; ATTEND Registered Nurse
PROC: 0D9670Z Drainage of Stomach with Drainage Device, Via Natural or Artificial Opening (ICD-10-PCS; 2019-08-09)
PROC: 05HQ33Z Insertion of Infusion Device into Left External Jugular Vein, Percutaneous Approach (ICD-10-PCS; 2019-08-09)
PROC: 05JY3ZZ Inspection of Upper Vein, Percutaneous Approach (ICD-10-PCS; 2019-08-09)
PROC: 0H94XZZ Drainage of Neck Skin, External Approach (ICD-10-PCS; principal; 2019-08-10)
DX: K76.7 Hepatorenal syndrome (principal); N17.0 Acute kidney failure with tubular necrosis; G93.41 Metabolic encephalopathy; F10.288 Alcohol dependence with other alcohol-induced disorder; K86.0 Alcohol-induced chronic pancreatitis; E27.40 Unspecified adrenocortical insufficiency; E87.0 Hyperosmolality and hypernatremia; K70.40 Alcoholic hepatic failure without coma; K70.31 Alcoholic cirrhosis of liver with ascites; K70.11 Alcoholic hepatitis with ascites; I95.9 Hypotension, unspecified; K21.9 Gastro-esophageal reflux disease without esophagitis; E86.0 Dehydration; E11.9 Type 2 diabetes mellitus without complications; T44.4X5A Adverse effect of predominantly alpha-adrenoreceptor agonists, initial encounter; Y92.230 Patient room in hospital as the place of occurrence of the external cause; Z66 Do not resuscitate; E87.6 Hypokalemia; D72.829 Elevated white blood cell count, unspecified; Z78.1 Physical restraint status; I10 Essential (primary) hypertension; Z87.828 Personal history of other (healed) physical injury and trauma
CPT/HCPCS: 36415; 51702; 71045; 74018; 80048; 80053; 80307; 81001; 82140; 82330; 82533; 82570; 82803; 82962; 83605; 83690; 83735; 84300; 84484; 85025; 85027; 85610; 85730; 87040; 87070; 96361; 96374; 99231; 99291; 99292; B4155; C9113; J0696; J1650; J1720; J1815; J2405; J2760; J3010; J3480; J3490; J7030; J7060; J7120; P9041; P9047